=== PATIENT | female | born 1975 | race Two or more races ===

== ENCOUNTER → 2024-03-01 | Outpatient (CLI) | payer OTHER, SELFPAY ==
[2024-03-01 12:29] LABS: Absolute Lymphocyte Count 2.44 X10^3/uL (0.83-4.51); Absolute Neutrophil Count 4.7 X10^3/uL (2.0-7.7); Basophil# 0.05 X10^3/uL; Basophil% 0.6 % (0-1); Eosinophil# 0.39 X10^3/uL; Eosinophils% 4.9 % (0-5); Hematocrit 42.8 % (37-47); Hemoglobin 13.7 g/dL (12.0-15.0); Lymphocyte # 2.44 X10^3/ul (0.83-4.51); Lymphocyte % 30.5 % (19-41); Mean Corpuscular Hgb 29.4 pg (27.0-32.0); Mean Corpuscular Volume 91.8 fL (81-99); Mean Platelet Vol. 9.6 fl (6.2-12.0); Monocyte# 0.42 X10^3/uL; Monocyte% 5.3 % (0-10); NRBC Flagged by Analyzer 0 % (0-5); Neutrophil # 4.66 X10^3/uL (2.7-7.7); Neutrophil % 58.3 % (47-70); Platelet Count 302 K/mm3 (150-450); RBC Distribution Width CV 13.3 % (11.6-14.6); RBC Distribution Width SD 45.1 fl (35.1-43.9); Red Blood Count 4.66 M/mm3 (4.2-5.4)
[2024-03-01 12:49] LABS: ALB/GLOB Ratio 0.8 RATIO (0.9-2.4); AST(SGOT) 21 U/L (15-37); Alanine Aminotransfer ALT/SGPT 31 U/L (13-56); Albumin, Serum 3.6 g/dL (3.2-5.0); Alkaline Phosphatase 117 U/L (45-117); Anion Gap 3 (5-15); BUN 14 mg/dL (7-18); Calcium,Total 9.3 mg/dL (8.5-10.1); Chloride 106 mmol/L (98-107); Cholesterol 209 mg/dL (200); Creatinine, Serum 0.78 mg/dL (0.55-1.02); EST Glomerular Filtration Rate 84 mL/min (>60); Est Glom Filt Rate - Afr Amer 102 mL/min (>60); Globulin 4.4 g/dL (2.2-4.2); Glucose 100 mg/dL (74-106); High Density Lipoprotein 41 mg/dL; Potassium 4.1 mmol/L (3.5-5.1); Sodium Level 139 mmol/L (136-145); Thyroid Stim Hormone (TSH) 3.29 uIU/mL (0.358-3.74); Triglycerides 151 mg/dL; Very Low Density Lipoprotein 30 mg/dL (5-40)
[2024-03-01 13:02] LABS: Vitamin D,25 Hydroxy 16.6 ng/mL
== END | disposition home or self-care (01) ==
LOC: BIMLAB 11:00
PROVIDERS: PCP Internal Medicine; Referring Provider Internal Medicine; Visit Provider Internal Medicine
DX: E28.2 Polycystic ovarian syndrome (principal); E66.01 Morbid (severe) obesity due to excess calories; Z68.42 Body mass index [BMI] 45.0-49.9, adult; E78.2 Mixed hyperlipidemia; E55.9 Vitamin D deficiency, unspecified
CPT/HCPCS: 36415; 80053; 80061; 82306; 84443; 85025

== ENCOUNTER → 2024-03-21 | Outpatient (CLI) | payer OTHER, SELFPAY ==
--- NOTE | 2024-03-21 14:24 | BI_ITS ---
MAMMOGRAPHY - BILATERAL SCREENING REASON FOR EXAM: Female, 48 years old. Routine annual screening examination. PERTINENT HISTORY: Non-contributory. TECHNIQUE: Digital bilateral breast ingrid (3D mammographic acquisition) in the CC and MLO projections. 2-D mediolateral oblique (MLO) and craniocaudad (CC) views of both breasts were obtained. CAD: Full Field Digital Mammography with Computer Added Detection was performed. COMPARISON: None. Baseline examination. FINDINGS: Breast Composition: The breasts are heterogeneously dense, which may obscure small masses. There are no dominant masses or suspicious calcifications. Benign-appearing bilateral axillary lymph nodes. No other significant abnormalities are identified. BI/SCRN MAMM (CAD)W/INGRID BILAT IMPRESSION: Negative screening mammogram. Yearly followup mammogram recommended. (A) ASSESSMENT CATEGORY: BIRADS Category 2: Benign. A letter regarding these results will be sent to the patient by the facility within 30 days. Approximately 10% of breast cancers are not detected by mammography. A normal mammogram should not delay biopsy of a clinically suspicious abnormality. [id number] Electronically Signed: Ibrahima Clark MD at 15:22 EDT ,
== END | disposition home or self-care (01) ==
LOC: OPBI 14:24
PROVIDERS: PCP Internal Medicine; Referring Provider Internal Medicine; Visit Provider Internal Medicine
DX: Z12.31 Encounter for screening mammogram for malignant neoplasm of breast (principal)
CPT/HCPCS: 77063; 77067

== ENCOUNTER → 2024-04-02 | Outpatient (CLI) | payer OTHER, SELFPAY ==
--- NOTE | 2024-04-02 08:10 | EKG12_ITS ---
Test Reason : ROUTINE Blood Pressure : / mmHG Vent. Rate : 083 BPM Atrial Rate : 083 BPM P-R Int : 136 ms QRS Dur : 082 ms QT Int : 364 ms P-R-T Axes : 043 020 059 degrees QTc Int : 427 ms Normal sinus rhythm with sinus arrhythmia Normal ECG Confirmed by Naveen Acevedo ([id number]), editorial writer SHANTELLE GRACE ([id number]) on 04/02/2024 1:02:58 PM Referred By: Albertina Benoit Confirmed By:Naveen Acevedo
== END | disposition home or self-care (01) ==
LOC: PSN 08:09
PROVIDERS: PCP Internal Medicine; Referring Provider Nurse Practitioner Family; Visit Provider Nurse Practitioner Family
DX: E66.01 Morbid (severe) obesity due to excess calories (principal); I10 Essential (primary) hypertension
CPT/HCPCS: 93005

== ENCOUNTER 2025-06-14 05:21 | Emergency (ER) | payer OTHER, SELFPAY ==
[2025-06-14 05:22] VITALS: BP 175/99; PULSE 120; RESP 18; TEMP 37.3; O2SAT 97; BMI 50.4
--- NOTE | 2025-06-14 05:37 | CT_ITS ---
PROCEDURE: ABDOMEN/PELVIS W IV CONT ONLY 06/14/2025 REASON FOR EXAM: RLQ PAIN TECHNIQUE: ABDOMEN/PELVIS W IV CONT ONLY Coronal and Sagittal reconstruction series were provided. CONTRAST: 100 mL of Isovue 370 One or more dose reduction techniques were used (e.g., Automated exposure control, adjustment of the mA and/or kV according to patient size, use of iterative reconstruction technique. RADIATION DOSE SUMMARY: DLP: 1242 mGycm COMPARISON: None FINDINGS: Limited sections of the lung bases demonstrate no focal pulmonary mass or consolidations. The liver, spleen, pancreas, and both adrenal glands demonstrate no acute findings. Minimal hepatic steatosis. The gallbladder is unremarkable. The stomach is unremarkable. The small bowel loops are not dilated. The appendix is normal. No colonic obstruction. Colonic diverticulosis without acute diverticulitis. There is no free air or significant free fluid. The kidneys are unremarkable. Mildly thickened urinary bladder wall which may reflect cystitis vs nondistention; consider correlation with urinalysis. The pelvic structures are intact. There is no solid pelvic mass. No significant lymphadenopathy. The aorta and IVC demonstrate no acute findings. Visualized osseous structures demonstrate no acute abnormality. Small fat containing right inguinal hernia. CT/Abdomen/Pelvis W IV Cont ONLY IMPRESSION: Normal appendix. Colonic diverticulosis without acute diverticulitis. No bowel obstruction. Mildly thickened urinary bladder wall which may reflect cystitis vs nondistenti on; consider correlation with urinalysis. Reading Location: [id number]
--- NOTE | 2025-06-14 05:38 | EX.ED.DYSGE1 ---
HPI History of Present Illness Chief Complaint: Fever Informant: patient and spouse/S.O. Narrative Narrative: Patient is a 49-year-old female with past medical history of PCOS and hypertension. She states over the past week she has been spiking fevers with the highest being 103 at home. She states she will take Tylenol and/or Motrin and the fever will resolve. She states there is no real associated symptoms such as nasal congestion sore throat cough nausea vomiting or diarrhea or dysuria. She states that she will occasionally have some pain in the right lower abdomen. She states that because it has been 7 days with out spontaneous resolution of her fever and no obvious reason why she has the fever she presents for evaluation [facility] Medical History Bronchitis Migraine Ovarian tumor PCOS (polycystic ovarian syndrome) Home Medications ?Medication ?Instructions ?Recorded ?Last Taken ?Type lisinopril 5 mg tablet 5 mg PO DAILY #30 tabs 03/01/24 Unknown Rx cholecalciferol (vitamin D3) 125 125 mcg PO DAILY 03/21/24 Unknown History mcg (5,000 unit) capsule Allergy/AdvReac Type Severity Reaction Status Date / Time latex Allergy Intermediate Hives Verified 06/14/25 05:21 amoxicillin AdvReac Mild yeast Verified 06/14/25 05:21 infections Family History Father Cancer lung Sponge kidney Grandmother Cancer colon Hypertension Heart disease Mother CVA (cerebral vascular accident) Hypertension Hyperlipemia Grandfather Alcoholism Grandfather Heart disease CVA (cerebral vascular accident) Grandmother Cancer pancreatic Surgical History Hx of LASIK H/O hysterectomy with unilateral oophorectomy H/O sinus surgery History of ankle surgery Social History adopted: No household members: spouse number of children: 2 current occupational status: employed current occupation: [employer] pets and animals: Yes pets and animals: cat(s) Smoking Status: Never smoker Electronic Cigarette Use: not used alcohol intake: current alcohol intake frequency: a few times a month substance use type: does not use diet: gluten free caffeine: Yes (2) Type: tea frequency: daily seatbelt use: always do you feel safe at home: Yes 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 ROS ROS ED Constitutional Constitutional ED: Reports chills and fever(s) ENT ENT ED: Denies ear pain, rhinorrhea or sore throat Cardiovascular Cardiovascular: Denies chest pain Respiratory/Chest Respiratory/Chest: Denies cough or dyspnea Gastrointestinal Gastrointestinal: Reports abdominal pain; Denies constipation, diarrhea, nausea or vomiting Genitourinary Genitourinary ED: Denies dysuria Musculoskeletal Musculoskeletal: Reports myalgias; Denies back pain Integumentary Denies rash Neurologic Neurologic: Denies headache(s) Hematologic/Lymphatic Hematologic/Lymphatic: Denies easy bleeding or easy bruising EXAM Physical Exam Const Vital Signs: 06/14/25 05:22 06/14/25 05:22 Temperature 99.1 F Temperature Source Oral Pulse Rate 120 H Respiratory Rate 18 Respiratory Effort Normal Respiratory Pattern Normal Blood Pressure 175/99 H Blood Pressure Mean 124 Pulse Ox 97 Oxygen Delivery Method Room Air Positive well nourished, well developed and obese General Appearance ED: well developed; Negative for pallor Nutritional Appearance: obese HEENT Reports dry mucous membranes HEENT Narrative: Normocephalic atraumatic No tongue or lip swelling no oral lesions no airway edema or compromise; no secondary findings in the posterior pharynx to suggest infection Oral mucosa is dry and tacky Mouth ED: Yes dry mucous membranes Mouth: dry mucous membranes Eyes PERRL and EOMs intact bilaterally General Eye ED: Negative for scleral icterus Neck supple Neck Narrative: No nuchal rigidity or meningeal signs Resp normal respiratory effort and clear to auscultation bilaterally Resp Narrative: No nasal flaring retractions tachypnea or accessory muscle use Cardio regular rhythm Rate: tachycardic GI non-distended and no masses GI Narrative: Abdomen is soft and nondistended with normal active bowel sounds. There is pain with palpation in the right lower quadrant over top McBurney's point with voluntary guarding at this site. Positive heel strike. Negative psoas and obturator sign No peritoneal signs. No pulsatile mass Auscultation: normoactive bowel sounds Palpation: soft Back/Spine no CVA tenderness Extremity Extremity Narrative: +1-2 pitting edema to the bilateral lower extremities that is equal and symmetric Negative Homans' sign bilaterally Neuro oriented x3, CN's II-XII intact bilaterally and no sensory deficits noted Sensorium / Orientation: alert Motor Exam: strength 5/5 throughout Psych mental status grossly normal Skin no rashes or lesions noted and no wounds General Skin Exam: Negative for jaundice or pallor MDM MDM MDM Narrative Medical decision making narrative: Patient arrived to the ER hypertensive but states she has a history of this and that it spikes when she comes to the hospital or sees a doctor. She is afebrile upon arrival but states she took medication roughly 3 hours ago. She reports she has been having fever reaching 103 for the past 7 days but there are no true associated symptoms other than occasional right sided abdominal pain. Differential diagnosis is for viral syndrome such as COVID influenza or RSV versus pneumonia versus UTI versus pyelonephritis versus appendicitis. Secondary to this blood work was obtained as well as a chest x-ray and CT scan of the abdomen and pelvis. Chest x-ray reveals no signs of infection such as pneumonia. Urine sample shows blood which is nonspecific but no bacteria going against UTI or pyelonephritis. Patient does not have leukocytosis or left shift. There is no lactic acidosis either and her Pro-Alec is less than 0.5 going against systemic infection. Based on the patient's vitals and labs there are no signs for sepsis at this time. However because of the persistent fever I will obtain blood cultures as we do not have an obvious source. However as workup is negative and she is hemodynamically stable there are no grounds for admission at this time. Patient and were informed to continue to treat the fever and if he goes over 10 days or if symptoms worsen then to return to the ER for repeat evaluation. This plan of care was discussed with patient and and they are both agreeable to it. Therefore at this time as we do not have an obvious source of infection but she is hemodynamically stable we will await blood cultures and discharged home History & Record Review Discussion w/independent historian: Patient and Significant other Lab Data Attestation: I reviewed the patient's lab results. Labs: Laboratory Results - last 24 hr 06/14/25 06/14/25 05:44 05:50 WBC 4.7 RBC 4.58 Hgb 13.4 Hct 41.1 MCV 89.7 MCH 29.3 MCHC 32.6 RDW Std Deviation 42.9 RDW Coeff of Erinn 13.2 Plt Count 165 MPV 9.4 Immature Gran % (Auto) 0.600 Neut % (Auto) 51.9 Lymph % (Auto) 35.1 Foard % (Auto) 7.9 Eos % (Auto) 3.2 Baso % (Auto) 1.3 H Absolute Neuts (auto) 2.4 Absolute Lymphs (auto) 1.64 Nucleated RBC % 0 Differential Comment SCANNED Atypical Lymphocytes RARE Sodium 138 Potassium 4.2 Chloride 100 Carbon Dioxide 26.9 Anion Gap 10 BUN 11 Creatinine 1.00 Estim Creat Clear Calc 82.83 Est GFR (MDRD) Non-Af 69 BUN/Creatinine Ratio 11.4 Glucose 135 H Lactic Acid 1.2 Calcium 9.1 Total Bilirubin 0.39 Direct Bilirubin 0.14 AST 48 H ALT 53 H Alkaline Phosphatase 120 H Total Protein 7.3 Albumin 4.1 Globulin 3.2 Lipase 25 Procalcitonin 0.31 H Urine Color Yellow Urine Clarity Sl. Cloudy Urine pH 7.0 Ur Specific [place] 1.010 Urine Protein 15 H Urine Glucose (UA) Normal Urine Ketones Negative Urine Occult Blood 250 H Urine Nitrite Negative Urine Bilirubin Negative Urine Urobilinogen Normal Ur Leukocyte Esterase Negative Urine RBC 5-10 SEEN Urine WBC 0-5 SEEN Ur Squamous Epith Cells 0-5 SEEN Urine Bacteria 0 SEEN Urine Mucus 0 SEEN Radiography Diagnostic Testing: Clinical Impression(s) from Imaging Studies Abdomen/Pelvis CT 06/14/25 05:37 IMPRESSION: Normal appendix. Colonic diverticulosis without acute diverticulitis. No bowel obstruction. Mildly thickened urinary bladder wall which may reflect cystitis vs nondistention; consider correlation with urinalysis. Reading Location: [facility] Chest X-Ray 06/14/25 06:00 IMPRESSION: No focal consolidations. Reading Location: [facility] Chest x-ray as interpreted by the emergency medicine physician reveals no acute infiltrate pneumothorax or pleural effusion Discharge Plan Triage Chief Complaint: Fever Other Complaint: General Illness ED Provider: Dave Carvalho Dx/Rx/DC Orders Clinical Impression: Pyrexia, Nonspecific abdominal pain, Inguinal hernia, Hypertension, Polycystic ovary syndrome Instructions: Abdominal Pain, ED FUO Adult Prescriptions: No Action lisinopril 5 mg tablet 5 mg PO DAILY Qty: 30 1RF cholecalciferol (vitamin D3) 125 mcg (5,000 unit) capsule 125 mcg PO DAILY Stand Alone Forms: ED Work / School Excuse Primary Care Provider: Nikole Guillermo Referrals: Nikole Guillermo MD [Primary Care Provider] - Activity Restrictions/Additional Instructions: Your workup today did not show any pneumonia urinary tract infection or acute appendicitis/abdominal infection. There is a small fat-containing inguinal hernia on the right but this is not emergent or life-threatening. Please continue Tylenol and Motrin for fever control. If fever persist over 10 days or there are worsening or changing symptoms then please return to the ER for repeat evaluation. Blood cultures were obtained today and if they are positive you will receive a phone call instructing you of how to proceed. Print Language: Andorran Disposition Disposition: Home, Self Care
--- OUTSIDE RECORDS SUMMARY | 2025-06-14 05:44 | XMS RPT_ITS | CCD ---
Author Organization [facility] Care Team Providers Care Company Controller Name Role Phone Vega Broussard MD Primary Care Provider Dr. Nikole Guillermo Attending Provider Nikole Guillermo Attending Unavailable [place], Nikole Referring Unavailable [place], Nikole Primary Care Unavailable Albertina Benoit Attending Unavailable [place], Nikole Referring Unavailable Mima, Nikole Primary Care Unavailable Mary Acevedo Attending Unavailable Albertina Benoit Referring Unavailable [place], Nikole Primary Care Unavailable [place]ole aguilar Attending Unavailable [place], Nikole Referring Unavailable [place], Nikole Primary Care Unavailable Mima, Nikole Attending Unavailable Albertina Benoit Attending Unavailable Albertina Benoit Referring Unavailable [place], Nikole Primary Care Unavailable Vega Broussard MD Primary Care Provider Vega Broussard MD Primary Care Provider Vega EXIT BOOTH AGENT.PSYCHIATRIC TECHNICIAN, Verónica Unavailable [phone] Allergies Allergy Classification Reported Allergen(s) Allergy Type Date of Onset Reaction(s) Facility Latex (1 source) Latex Substance Allergy 4 [facility] Repository Penicillins (antibiotic) (1 source) Amoxicillin Drug Allergy 4 [facility] Repository (9 sources) Latex; Translations: [LATEX] Propensity to adverse reactions to drug (disorder) 8 Hives [facility] Other [facility] Repository (7 sources) Cephalexin Drug Allergy 8 Intolerance [facility] Work Phone: (1 source) Amoxicillin Drug Allergy 4 yeast infections [facility] Medications Current Medications Medication Drug Class(es) Dates Sig (Normalized) Sig (Original) lisinopril 5 mg oral tablet (1 source) Angiotensin Converting Enzyme Inhibitor Start: 03-01-2024 take 5 mg by mouth once daily Lisinopril Active 5 MG PO DAILY March 01, 2024 12:00am Completed/Discontinued Medications Medication Drug Class(es) Dates Sig (Normalized) Sig (Original) azithromycin 250 mg oral tablet (5 sources) Macrolide Antimicrobial Start: 07-20-2022 End: 12-02-2022 azithromycin (ZITHROMAX Z-JOYCELYN) 250 mg tablet Indications: Acute non-recurrent maxillary sinusitis 2 tablets by mouth first day then 1 tablet the next 4 days 6 tablet 0 12/02/2022 Active Comment on above: 2 tablets by mouth f irst day then 1 tablet the next 4 days betamethasone 0.5 mg/ml / clotrimazole 10 mg/ml topical cream (4 sources) Azole Antifungal, Corticosteroid Start: 10-30-2020 End: 12-02-2022 clotrimazole-betam ethasone (LOTRISONE) cream Apply to affected area twice daily. 45 g 1 10/30/2020 12/02/2022 Discontinued Comment on above: Apply to affected ar ea twice daily. guaiFENesin / Phenylephrine (4 sources) alpha-1 Adrenergic Agonist End: 12-02-2022 guaifenesin/phenyl ephrine HCl (MUCINEX COLD ORAL) Take by mouth. 0 12/02/2022 Discontinued guaifenesin/phen ylephrine HCl (MUCINEX COLD ORAL) Take by mouth. 0 Active Comment on above: Take by mouth. Ibuprofen (4 sources) Nonsteroidal Anti-inflammatory Drug End: 12-02-2022 ibuprofen (MOTRIN ORAL) Take by mouth. 0 12/02/2022 Discontinued ibuprofen (MOTRI N ORAL) Take by mouth. 0 Active Comment on above: Take by mouth. levothyroxine sodium 0.025 mg oral tablet (4 sources) l-Thyroxine Start: 9 End: 3 take 1 tablet by mouth once daily levothyroxine (SYNTHROID) 25 mcg tablet Indications: Low T4 Take 1 tablet by mouth once daily. 0 07/05/2019 12/02/2022 Discontinued Comment on above: Take 1 tablet by [facility] once daily. Problems Active Problems Problem Classification Problem Date Documented Da te Episodic/Chronic Administrative/social admission (1 source) Persons encountering health services in other specified circumstances; Translations: [Persons encountering health services in other specified circumstances] Onset: 03-26-2024 Episodic Allergic reactions (7 sources) Flexural eczema; Translations: [Flexural eczema] Onset: 09-15-2018 09-15-2018 Chronic Disorders of lipid metabolism (1 source) Mixed hyperlipidemia; Translations: [Mixed hyperlipidemia] Onset: 03-26-2024 Chronic Essential hypertension (1 source) Essential (primary) hypertension; Translations: [Essential (primary) hypertension] Onset: 03-26-2024 Chronic Nutritional deficiencies (1 source) Vitamin D deficiency, unspecified; Translations: [Vitamin D deficiency, unspecified] Onset: 03-26-2024 Chronic Other endocrine disorders (7 sources) Polycystic ovary syndrome; Translations: [Polycystic ovarian syndrome] Onset: 09-15-2018 09-15-2018 Chronic Other endocrine disorders (1 source) Polycystic ovarian syndrome; Translations: [Polycystic ovarian syndrome] Onset: 03-26-2024 Chronic Other female genital disorders (1 source) Other specified conditions associated with female genital organs and menstrual cycle; Translations: [Other specified conditions associated with female genital organs and menstrual cycle] Onset: 03-26-2024 Episodic Other nutritional; endocrine; and metabolic disorders (7 sources) Body mass index 40+ - severely obese; Translations: [Morbid (severe) obesity due to excess calories] Onset: 09-15-2018 09-15-2018 Chronic Other nutritional; endocrine; and metabolic disorders (7 sources) Metabolic syndrome X; Translations: [Metabolic syndrome] Onset: 09-15-2018 09-15-2018 Chronic Other nutritional; endocrine; and metabolic disorders (1 source) Morbid (severe) obesity due to excess calories; Translations: [Morbid (severe) obesity due to excess calories] Onset: 04-10-2024 Chronic Other nutritional; endocrine; and metabolic disorders (1 source) Body mass index (BMI) 45.0-49.9, adult; Translations: [Body mass index [BMI] 45.0-49.9, adult] Onset: 03-26-2024 Chronic Other screening for suspected conditions (not mental disorders or infectious disease) (14 sources) Patient encounter status; Translations: [Encounter for screening mammogram for malignant neoplasm of breast] Onset: 02-06-2019 Episodic Other upper respiratory infections (2 sources) Acute maxillary sinusitis; Translations: [Acute maxillary sinusitis, unspecified] Episodic Residual codes; unclassified (1 source) Immunization not carried out because of patient refusal; Translations: [Immunization not carried out because of patient refusal] Onset: 03-26-2024 Episodic Urinary tract infections (1 source) Acute cystitis without hematuria; Translations: [Acute cystitis without hematuria] Onset: 11-07-2018 Episodic Past or Other Problems Problem Classification Problem Date Documented Da te Episodic/Chronic Other circulatory disease (7 sources) Elevated blood-pressure reading without diagnosis of hypertension; Translations: [Elevated blood-pressure reading, without diagnosis of hypertension] Onset: 02-06-2019 02-06-2019 Episodic Unclassified (1 source) Patient encounter status 03-26-2025 Results Test Name Value Interpretation Reference Range Facility 12 Lead EKGon 04-02-2024 12 Lead EKG [facility] Cardiovascular Services [address] [place] [address] 12 Lead EKG 04/02/24 0814 MR#: [id number] Acct: [id number] Name: JERSEY BETANCOURT Rep #: [id number] : 1975 48 From: Mary Acevedo MD Attending Dr: Albertina Benoit, DIRECTOR FIELD SERVICES-C Status: REG CLI Ordering Dr: Albertina Benoit DIRECTOR FIELD SERVICES-C Date: 04/02/24 Location: [facility] Sex: F UTD Admitted: Test Reason : ROUTINE Blood Pressure : / mmHG Vent. Rate : 083 BPM Atrial Rate : 083 BPM P-R Int : 136 ms QRS Dur : 082 ms QT Int : 364 ms P-R-T Axes : 043 020 059 degrees QTc Int : 427 ms Normal sinus rhythm with sinus arrhythmia Normal ECG Confirmed by Mary Acevedo ([id number]), general expeditor SHANTELLE GRACE ([id number]) on 04/02/2024 1:02:58 PM Referred By: Albertina Benoit Confirmed By:Mary Acevedo 04/02/24 1303 Date Mary Acevedo MD CC: JUWAN Benoit; Dr. Nikole Guillermo MD Signed Normal [facility] Organizational Development Manager Office Visit Reporton 03-21-2024 Organizational Development Manager Office Visit Report [facility] [address] [place] [address] OFFICE VISIT Date of Service: 03/21/24 MR#: [id number] Acct: [id number] Name: JERSEY BETANCOURT Rep #: [id number] : 1975 Provider: JUWAN Gama Age/Sex: 48/F Location: [facility] Status: Signed with Addenda ADDENDUM by JUWAN Benoit on 03/22/24 at 0908 Assessment and Plan Assessment and Plan (1) Polycystic ovary syndrome: Status: Acute (2) BMI 45.0-49.9, adult: Status: Acute (3) Hypertension: Status: Chronic Comment: [place] (4) Obesity: Status: Acute (5) Snoring: Plan: advised sleep study/sleep apnea work up. Declines today. Continue to monitor and will recommend in the future. Orders: Orders CBC W/Diff, Automated 03/21/24 E28.2 - Polycystic ovarian syndrome, E66.01 - Morbid (severe) obesity due to excess calories Comprehensive Metabolic Profil 03/21/24 E28.2 - Polycystic ovarian syndrome, E66.01 - Morbid (severe) obesity due to excess calories Thyroid Stim Hormone (TSH) 03/21/24 E28.2 - Polycystic ovarian syndrome, E66.01 - Morbid (severe) obesity due to excess calories Hemoglobin A1c 03/21/24 E28.2 - Polycystic ovarian syndrome, E66.01 - Morbid (severe) obesity due to excess calories 12 Lead EKG 03/21/24 E66.01 - Morbid (severe) obesity due to excess calories, I10 - Essential (primary) hypertension T4 Free Direct 03/21/24 E28.2 - Polycystic ovarian syndrome, E66.01 - Morbid (severe) obesity due to excess calories Pelvic (Non ) 03/21/24 E28.2 - Polycystic ovarian syndrome Transvaginal Non- 03/21/24 E28.2 - Polycystic ovarian syndrome Plan Details Additional Comments: Advised the need for annual accounting professor visit/exam. She will schedule this when she is ready. Mammogram completed today; reviewed and normal. 03/22/24907 Date Albertina Benoit cc: * Signed Intake Vital Signs 03/01/24 09:33 03/21/24 15:17 03/21/24 15:18 Height 5 ft 1 in 5 ft 1 in 5 ft 1 in Weight: 257 lb BMI 48.5 BP 170/100 H Intake Visit Reasons: PCOS OVARIAN PAIN (MIMA) Food Product Inspector Required: No Is patient in pain?: No Allergies latex Allergy (Intermediate, Verified 03/21/24 15:32) Hives amoxicillin Adverse Reaction (Mild, Verified 03/21/24 15:32) yeast infections Medications lisinopril 5 mg tablet 5 mg PO DAILY #30 tabs 03/01/24 [Rx Confirmed 03/01/24] cholecalciferol (vitamin D3) 125 mcg (5,000 unit) capsule 125 mcg PO DAILY 03/21/24 [History Confirmed 03/21/24] Is last menstrual period known: No Post menopausal: No Patient : No : No PFSH Medical History (Updated 03/22/24 @ 08:49 by JUWAN Kang) Bronchitis Migraine Ovarian tumor PCOS (polycystic ovarian syndrome) Surgical History (Updated 03/01/24 @ 09:[address] Nikole Guillermo MD) H/O hysterectomy with unilateral oophorectomy H/O sinus surgery History of ankle surgery Hx of LASIK Family History (Updated 03/01/24 @ 09:[address] Nikole Guillermo MD) Father Cancer lung Sponge kidney Grandmother Cancer colon Hypertension Heart disease Mother CVA (cerebral vascular accident) Hypertension Hyperlipemia Grandfather Alcoholism Grandfather Heart disease CVA (cerebral vascular accident) Grandmother Cancer pancreatic Social History (Updated 03/21/24 @ 15:21 by Winsome Dalton) adopted: No household members: spouse number of children: 2 current occupational status: employed current occupation: [employer] pets and animals: Yes pets and animals: cat(s) Smoking Status: Never smoker Electronic Cigarette Use: not used alcohol intake: current alcohol intake frequency: a few times a month substance use type: does not use diet: gluten free caffeine: Yes (2) Type: tea frequency: daily seatbelt use: always do you feel safe at home: Yes additional social history: Rajat - christopher ALLEN PCOS OVARIAN PAIN (MIMA) Details: JERSEY BETANCOURT is a 48 year old who presents for PCOS evaluation/treatment; 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 Has routine pain to right lower quad that comes and goes in severity. Ongoing and chronic. 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 S/P hysterectomy. She would also like to discuss weight management. She reports she has attempted dietary modifications with no improvements to her weight. Female Reproductive History Control Method: hysterectomy Questions: sexually active: Yes and dyspareunia: No Menopausal Symptoms: Yes weight change History 6 Elective abortions Hx Para 2 Spontaneous abortions Hx # Term Pregnancies Ectopic pregnancies Hx # Pregnancies Multiple births (more content not included)... Normal [facility] SCRN MAMM (CAD)W/INGRID BILATo n 03-21-2024 SCRN MAMM (CAD)W/INGRID BILAT [facility] Imaging Services [address] [place] [id number] SCRN MAMM (CAD)W/INGRID BILAT MR#: [id number] Acct: [id number] Name: JERSEY BETANCOUTR Rep #: [id number] : 1975 F 48 From: Ibrahima hoyos MD PCP: Dr. Nikole Guillermo MD Status: [facility] Study: SCRN MAMM (CAD)W/INGRID BILAT Date of Exam: 07/07 Exam# [id number] Ordering Dr: Nikole Guillermo MD [id number] MAMMOGRAPHY - BILATERAL SCREENING REASON FOR EXAM: Female, 48 years old. Routine annual screening examination. PERTINENT HISTORY: Non-contributory. TECHNIQUE: Digital bilateral breast ingrid (3D mammographic acquisition) in the CC and MLO projections. 2-D mediolateral oblique (MLO) and craniocaudad (CC) views of both breasts were obtained. CAD: Full Field Digital Mammography with Computer Added Detection was performed. COMPARISON: None. Baseline examination. FINDINGS: Breast Composition: The breasts are heterogeneously dense, which may obscure small masses. There are no dominant masses or suspicious calcifications. Benign-appearing bilateral axillary lymph nodes. No other significant abnormalities are identified. BI/SCRN MAMM (CAD)W/INGRID BILAT IMPRESSION: Negative screening mammogram. Yearly followup mammogram recommended. (A) ASSESSMENT CATEGORY: BIRADS Category 2: Benign. A letter regarding these results will be sent to the patient by the facility within 30 days. Approximately 10% of breast cancers are not detected by mammography. A normal mammogram should not delay biopsy of a clinically suspicious abnormality. [id number] Electronically Signed: Ibrahima Clark MD at 15:22 EDT , CC: Dr. Nikole Guillermo MD Owner: Signed Normal [facility] Absolute lymphocyte countOrd ered By: Nikole Guillermo on 03-01-2024 Lymphocytes Auto (Unsp spec) [#/Vol] 2.44 10*3/uL 0.83-4.51 [facility] Automated lymphocyte count a s percentage of total leukocytesOrdered By: Nikole Guillermo on 03-01-2024 Lymphocytes/100 WBC Auto (Unsp spec) 30.5 % 19-41 [facility] Basophil percentageOrdered B y: Nikole Guillermo on 03-01-2024 Basophils/100 WBC (Bld) 0.6 % 0-1 [facility] Bilirubin [Mass/Vol] 0.40 mg/dL 0.20-1.00 [facility] Comment on above: For patients on eltr ombopag therapy, use of Dimension [place] TBIL is not recommended. Chloride [Moles/Vol] 106 mmol/L 98-107 [facility] Cholesterol [Mass/Vol] 209 mg/dL <200 [facility] Comment on above: <200 mg/dL Desirable 200-240 mg/dL Borderline >240 mg/dL High Risk Eosinophils/100 WBC (Bld) 4.9 % 0-5 [facility] Glucose [Mass/Vol] 100 mg/dL 74-106 [facility] Comment on above: Fasting Glucose resu lt from 100 to 125 mg/dL suggests IMPAIRED HOMEOSTASIS per A.D.A. criteria. Hemoglobin (Bld) [Mass/Vol] 13.7 g/dL 12.0-15.0 [facility] Monocytes/100 WBC (Bld) 5.3 % 0-10 [facility] Neutrophils (Bld) [#/Vol] 4.7 10*3/uL 2.0-7.7 [facility] Neutrophils/100 WBC (Bld) 58.3 % 47-70 [facility] Potassium [Moles/Vol] 4.1 mmol/L 3.5-5.1 [facility] Protein [Mass/Vol] 8.0 g/dL 6.4-8.2 [facility] Sodium [Moles/Vol] 139 mmol/L 136-145 [facility] Triglyceride [Mass/Vol] 151 mg/dL <199 [facility] Comment on above: The drugs N-Acetylcy steine and Metamizole may falsely depress this assay.Serum Triglycerides Reference Interval Normal <150 mg/dL Borderline high 150 - 199 mg/dL High 200 - 499 mg/dL Very High > or = 500 mg/dL WBC (Bld) [#/Vol] 8.0 10*3/uL 4.4-11.0 [facility] CBC W/Diff, Automatedon 02-12 Absolute Lymph 2.44 X10 3/uL Normal 0.83-4.51 [facility] Comment on above: Performed By: #### L 506.1000, L500.4100, L501.9520, L100.0100, L500.4050 #### [facility] [address] [place], [address] Absolute Neut 4.7 X10 3/uL Normal 2.0-7.7 [facility] Comment on above: Performed By: #### L 506.1000, L500.4100, L501.9520, L100.0100, L500.4050 #### [facility] [address] [place], [address] Basophils/100 WBC (Bld) 0.6 % Normal 0-1 [facility] Comment on above: Performed By: #### L 506.1000, L500.4100, L501.9520, L100.0100, L500.4050 #### [facility] [address] [place], [address] Eosinophils/100 WBC (Bld) 4.9 % Normal 0-5 [facility] Comment on above: Performed By: #### L 506.1000, L500.4100, L501.9520, L100.0100, L500.4050 #### [facility] [address] [place], [address] Erythrocyte distribution width (RBC) [Ratio] 13.3 % Normal 11.6-14.6 [facility] Comment on above: Performed By: #### L 506.1000, L500.4100, L501.9520, L100.0100, L500.4050 #### [facility] [address] [place], [address] Hematocrit (Bld) [Volume fraction] 42.8 % Normal 37-47 [facility] Comment on above: Performed By: #### L 506.1000, L500.4100, L501.9520, L100.0100, L500.4050 #### [facility] [address] [place], [address] Hemoglobin (Bld) [Mass/Vol] 13.7 g/dL Normal 12.0-15.0 [facility] Comment on above: Performed By: #### L 506.1000, L500.4100, L501.9520, L100.0100, L500.4050 #### [facility] [address] [place], [address] IG% 0.400 Normal 0.0-0.9 [facility] Comment on above: Result Comment: IG% - Immature Granulocytes (promyelocytes, myelocytes and metamyelocytes) > 1% indicates that a LEFT SHIFT is Present. Performed By: #### L 506.1000, L500.4100, L501.9520, L100.0100, L500.4050 #### [facility] [address] [place], [address] Lymphocytes/100 WBC (Bld) 30.5 % Normal 19-41 [facility] Comment on above: Performed By: #### L 506.1000, L500.4100, L501.9520, L100.0100, L500.4050 #### [facility] [address] [place], [address] MCH (RBC) [Entitic mass] 29.4 pg Normal 27.0-32.0 [facility] Comment on above: Performed By: #### L 506.1000, L500.4100, L501.9520, L100.0100, L500.4050 #### [facility] [address] [place], [address] MCHC (RBC) [Mass/Vol] 32.0 g/dL Normal 32-36 [facility] Comment on above: Performed By: #### L 506.1000, L500.4100, L501.9520, L100.0100, L500.4050 #### [facility] [address] [place], [address] MCV (RBC) [Entitic vol] 91.8 fL Normal 81-99 [facility] Comment on above: Performed By: #### L 506.1000, L500.4100, L501.9520, L100.0100, L500.4050 #### [facility] [address] [place], [address] Monocytes/100 WBC (Bld) 5.3 % Normal 0-10 [facility] Comment on above: Performed By: #### L 506.1000, L500.4100, L501.9520, L100.0100, L500.4050 #### [facility] [address] [place], [address] Neutrophils/100 WBC (Bld) 58.3 % Normal 47-70 [facility] Comment on above: Performed By: #### L 506.1000, L500.4100, L501.9520, L100.0100, L500.4050 #### [facility] [address] [place], [address] Nucleated RBC (Bld) [#/Vol] 0 10*3/uL Normal 0-5 [facility] Comment on above: Performed By: #### L 506.1000, L500.4100, L501.9520, L100.0100, L500.4050 #### [facility] [address] [place], [address] Platelet mean volume (Bld) [Entitic vol] 9.6 fL Normal 6.2-12.0 [facility] Comment on above: Performed By: #### L 506.1000, L500.4100, L501.9520, L100.0100, L500.4050 #### [facility] [address] [place], [address] Platelets (Bld) [#/Vol] 302 10*3/uL Normal 150-450 [facility] Comment on above: Performed By: #### L 506.1000, L500.4100, L501.9520, L100.0100, L500.4050 #### [facility] [address] [place], [address] RBC (Bld) [#/Vol] 4.66 10*6/uL Normal 4.2-5.4 [facility] Comment on above: Performed By: #### L 506.1000, L500.4100, L501.9520, L100.0100, L500.4050 #### [facility] [address] [place], [address] RDW SD 45.1 fl High 35.1-43.9 [facility] Comment on above: Performed By: #### L 506.1000, L500.4100, L501.9520, L100.0100, L500.4050 #### [facility] [address] [place], [address] WBC (Bld) [#/Vol] 8.0 10*3/uL Normal 4.4-11.0 [facility] Comment on above: Performed By: #### L 506.1000, L500.4100, L501.9520, L100.0100, L500.4050 #### [facility] [address] [place], [address] Comprehensive Metabolic [facility] 03-01-2024 Albumin [Mass/Vol] 3.6 g/dL Normal 3.2-5.0 [facility] Comment on above: Performed By: #### L 506.1000, L500.4100, L501.9520, L100.0100, L500.4050 #### [facility] [address] [place], [address] Albumin/Globulin [Mass ratio] 0.8 {ratio} Low 0.9-2.4 [facility] Comment on above: Performed By: #### L 506.1000, L500.4100, L501.9520, L100.0100, L500.4050 #### [facility] [address] [place], [address] ALK P 117 U/L Normal 45-117 [facility] Comment on above: Performed By: #### L 506.1000, L500.4100, L501.9520, L100.0100, L500.4050 #### [facility] [address] [place], [address] ALT [Catalytic activity/Vol] 31 U/L Normal 13-56 [facility] Comment on above: Performed By: #### L 506.1000, L500.4100, L501.9520, L100.0100, L500.4050 #### [facility] [address] [place], [address] AST [Catalytic activity/Vol] 21 U/L Normal 15-37 [facility] Comment on above: Performed By: #### L 506.1000, L500.4100, L501.9520, L100.0100, L500.4050 #### [facility] [address] [place], [address] Bilirubin [Mass/Vol] 0.40 mg/dL Normal 0.20-1.00 [facility] Comment on above: Result Comment: For patients on eltrombopag therapy, use of Dimension [place] TBIL is not recommended. Performed By: #### L 506.1000, L500.4100, L501.9520, L100.0100, L500.4050 #### [facility] [address] [place], [address] BUN/CRE 18.0 RATIO Normal 10-20 [facility] Comment on above: Performed By: #### L 506.1000, L500.4100, L501.9520, L100.0100, L500.4050 #### [facility] [address] [place], [address] CA,Total 9.3 mg/dL Normal 8.5-10.1 [facility] Comment on above: Performed By: #### L 506.1000, L500.4100, L501.9520, L100.0100, L500.4050 #### [facility] [address] [place], [address] Chloride [Moles/Vol] 106 mmol/L Normal 98-107 [facility] Comment on above: Performed By: #### L 506.1000, L500.4100, L501.9520, L100.0100, L500.4050 #### [facility] [address] [place], [address] CO2 [Moles/Vol] 30.0 mmol/L Normal 21.0-32.0 [facility] Comment on above: Performed By: #### L 506.1000, L500.4100, L501.9520, L100.0100, L500.4050 #### [facility] [address] [place], [address] Creatinine [Mass/Vol] 0.78 mg/dL Normal 0.55-1.02 [facility] Comment on above: Result Comment: The validity of the calculated GFR GFRAA in patients over 70 years has not been determined. Clinical correlation is essential. Performed By: #### L 506.1000, L500.4100, L501.9520, L100.0100, L500.4050 #### [facility] [address] [place], [address] EST GFR - AA 102 mL/min Normal >60 [facility] Comment on above: Result Comment: Afri can [place] GFR Calc Performed By: #### L 506.1000, L500.4100, L501.9520, L100.0100, L500.4050 #### [facility] [address] [place], [address] GAP 3 Low 5-15 [facility] Comment on above: Performed By: #### L 506.1000, L500.4100, L501.9520, L100.0100, L500.4050 #### [facility] [address] [place], [address] GFR/1.73 sq M.predicted among non-blacks MDRD (S/P/Bld) [Vol rate/Area] 84 mL/min/{1.73_m2} Normal >60 [facility] Comment on above: Result Comment: Non- GFR Calc Performed By: #### L 506.1000, L500.4100, L501.9520, L100.0100, L500.4050 #### [facility] [address] [place], [address] Globulin (S) [Mass/Vol] 4.4 g/dL High 2.2-4.2 [facility] Comment on above: Performed By: #### L 506.1000, L500.4100, L501.9520, L100.0100, L500.4050 #### [facility] [address] [place], [address] Glucose [Mass/Vol] 100 mg/dL Normal 74-106 [facility] Comment on above: Result Comment: Fast ing Glucose result from 100 to 125 mg/dL suggests IMPAIRED HOMEOSTASIS per A.D.A. criteria. Performed By: #### L 506.1000, L500.4100, L501.9520, L100.0100, L500.4050 #### [facility] [address] [place], [address] Potassium [Moles/Vol] 4.1 mmol/L Normal 3.5-5.1 [facility] Comment on above: Performed By: #### L 506.1000, L500.4100, L501.9520, L100.0100, L500.4050 #### [facility] [address] [place], [address] Sodium [Moles/Vol] 139 mmol/L Normal 136-145 [facility] Comment on above: Performed By: #### L 506.1000, L500.4100, L501.9520, L100.0100, L500.4050 #### [facility] [address] [place], [address] T PROT 8.0 g/dL Normal 6.4-8.2 [facility] Comment on above: Performed By: #### L 506.1000, L500.4100, L501.9520, L100.0100, L500.4050 #### [facility] [address] [place], [address] Urea nitrogen [Mass/Vol] 14 mg/dL Normal 7-18 [facility] Comment on above: Performed By: #### L 506.1000, L500.4100, L501.9520, L100.0100, L500.4050 #### [facility] [address] [place], [address] Determination of erythrocyte mean corpuscular volume (MCV)Ordered By: Nikole Guillermo on 03-01-2024 MCV (RBC) [Entitic vol] 91.8 fL 81-99 [facility] Erythrocyte distribution wid th ratioOrdered By: Nikole Guillermo on 03-01-2024 Erythrocyte distribution width (RBC) [Ratio] 13.3 % 11.6-14.6 [facility] Erythrocyte distribution wid th standard deviationOrdered By: Nikole Guillermo on 03-01-2024 Erythrocyte distribution width (RBC) [Entitic vol] 45.1 fL 35.1-43.9 [facility] Hematocrit Auto (Bld) [Volum e fraction]Ordered By: Nikole Guillermo on 03-01-2024 Hematocrit (Bld) [Volume fraction] 42.8 % 37-47 [facility] Immature granulocytes/100 WB C Auto (Bld)Ordered By: Nikole Guillermo on 03-01-2024 Immature granulocytes/100 WBC (Bld) 0.400 % 0.0-0.9 [facility] Comment on above: IG% - Immature Granu locytes (promyelocytes, myelocytes and metamyelocytes) > 1% indicates that a LEFT SHIFT is Present. Laboratory - Chemistry and C hemistry - challengeOrdered By: Nikole Guillermo on 03-01-2024 Albumin/Globulin [Mass ratio] 0.8 {ratio} 0.9-2.4 [facility] ALP [Catalytic activity/Vol] 117 U/L 45-117 [facility] ALT [Catalytic activity/Vol] 31 U/L 13-56 [facility] Cholesterol in HDL [Mass/Vol] 41 mg/dL >40 [facility] Comment on above: The drugs N-Acetylcy steine and Metamizole may falsely depress this assay. Reference Range HDL <40 mg/dL Low HDL Cholesterol HDL >or= 60 mg/dL High HDL Cholesterol Cholesterol in LDL [Mass/Vol] 138 mg/dL 0-130 [facility] CO2 [Moles/Vol] 30.0 mmol/L 21.0-32.0 [facility] Globulin (S) [Mass/Vol] 4.4 g/dL 2.2-4.2 [facility] Urea nitrogen/Creatinine [Mass ratio] 18.0 mg/mg 10-20 [facility] - Hematology and Cell countsOrdered By: Nikole Guillermo on 03-01-2024 MCH (RBC) [Entitic mass] 29.4 pg 27.0-32.0 [facility] MCHC (RBC) [Mass/Vol] 32.0 g/dL 32-36 [facility] Nucleated RBC/100 WBC (Bld) [Ratio] 0 % 0-5 [facility] Platelet mean volume (Bld) [Entitic vol] 9.6 fL 6.2-12.0 [facility] Platelets (Bld) [#/Vol] 302 10*3/uL 150-450 [facility] Lipid Profileon 03-01-2024 Cholesterol [Mass/Vol] 209 mg/dL High 200 [facility] Comment on above: Result Comment: <200 mg/dL Desirable 200-240 mg/dL Borderline >240 mg/dL High Risk Performed By: #### L 506.1000, L500.4100, L501.9520, L100.0100, L500.4050 #### [facility] [address] [place], [address] Cholesterol in HDL [Mass/Vol] 41 mg/dL Normal [facility] Comment on above: Result Comment: The drugs N-Acetylcysteine and Metamizole may falsely depress this assay. Reference Range HDL <40 mg/dL Low HDL Cholesterol HDL >or= 60 mg/dL High HDL Cholesterol Performed By: #### L 506.1000, L500.4100, L501.9520, L100.0100, L500.4050 #### [facility] [address] [place], [address] Cholesterol in LDL [Mass/Vol] 138 mg/dL High 0-130 [facility] Comment on above: Performed By: #### L 506.1000, L500.4100, L501.9520, L100.0100, L500.4050 #### [facility] [address] [place], [address] Cholesterol in VLDL [Mass/Vol] 30 mg/dL Normal 5-40 [facility] Comment on above: Performed By: #### L 506.1000, L500.4100, L501.9520, L100.0100, L500.4050 #### [facility] [address] [place], [address] Triglyceride [Mass/Vol] 151 mg/dL Normal [facility] Comment on above: Result Comment: The drugs N-Acetylcysteine and Metamizole may falsely depress this assay. Serum Triglycerides Reference Interval Normal <150 mg/dL Borderline high 150 - 199 mg/dL High 200 - 499 mg/dL Very High > or = 500 mg/dL Performed By: #### L 506.1000, L500.4100, L501.9520, L100.0100, L500.4050 #### [facility] [address] [place], [address] No Panel InformationOrdered By: Nikole Guillermo on 03-01-2024 Estimated GFR (MDRD) Amer 102 mL/min >60 [facility] Comment on above: GFR Calc Estimated GFR (MDRD) Non-Af Amer 84 mL/min >60 [facility] Comment on above: Non- GFR Calc Vitamin D 25-Hydroxy 16.6 ng/mL [facility] Comment on above: Vitamin D 25(OH) Sta tus Range Deficiency <20 ng/mL (50nmol/L) Insufficiency 20 - 30 ng/mL (50 - 75 nmol/L) Sufficiency 30 - 100 ng/mL (75 - 250 nmol/L) Toxicity >100 ng/mL (>250 nmol/L) VLDL Cholesterol 30 mg/dL 5-40 [facility] RBC Auto (Bld) [#/Vol]Ordere d By: Nikole Guillermo on 03-01-2024 RBC (Bld) [#/Vol] 4.66 10*6/uL 4.2-5.4 [facility] Serum or plasma calcium carter urement (mass/volume)Ordered By: Nikole Guillermo on 03-01-2024 Calcium [Mass/Vol] 9.3 mg/dL 8.5-10.1 [facility] Serum or plasma creatinine m easurement (mass/volume)Ordered By: Nikole Guillermo on 03-01-2024 Creatinine [Mass/Vol] 0.78 mg/dL 0.55-1.02 [facility] Comment on above: The validity of the calculated GFR & GFRAA in patients over 70 years has not been determined. Clinical correlation is essential. Serum or plasma thyroid stim ulating hormone (TSH) measurement (units/volume)Ordered By: Nikole Guillermo on 03-01-2024 TSH Qn 3.29 uIU/mL 0.358-3.74 [facility] Serum or plasma urea nitroge n measurement (mass/volume)Ordered By: Nikole Guillermo on 03-01-2024 Urea nitrogen [Mass/Vol] 14 mg/dL -18 [facility] Thin prep Papanicolaou smear with manual screeningOrdered By: Nikole Guillermo on 03-01-2024 Thin prep Papanicolaou smear with manual screening 3.6 g/dL 3.2-5.0 [facility] Thin prep Papanicolaou smear with manual screening 21 U/L 15-37 [facility] Thin prep Papanicolaou smear with manual screening 3 5-15 [facility] Thyroid Stim Hormone (TSH)on 03-01-2024 TSH 3.29 uIU/mL Normal 0.358-3.74 [facility] Comment on above: Performed By: #### L 506.1000, L500.4100, L501.9520, L100.0100, L500.4050 #### [facility] [address] [place], [place], [address] Vitamin D,25 Hydroxyon 03-01 Vitamin D 25-OH 16.6 ng/mL Normal [facility] Comment on above: Result Comment: Marguerite min D 25(OH) Status Range Deficiency <20 ng/mL (50nmol/L) Insufficiency 20 - 30 ng/mL (50 - 75 nmol/L) Sufficiency 30 - 100 ng/mL (75 - 250 nmol/L) Toxicity >100 ng/mL (>250 nmol/L) Performed By: #### L 506.1000, L500.4100, L501.9520, L100.0100, L500.4050 #### [facility] [address] [place], [place], [address] Internal Medicine Office Vis itorod 02-29-2024 Internal Medicine Office Visit [facility] [address] [place], [place] [address] OFFICE VISIT Date of Service: 03/01/24 MR#: [id number] Acct: [id number] Name: Jersey Betancourt Rep #: [id number] : 1975 Provider: Dr. Nikole koehler MD Age/Sex: 48/F Location: 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 States last couple of times she's been to the Dr. She has had elevated bp's [facility] Medical History (Updated 03/01/24 @ 09:[address] Nikole Guillermo MD) Bronchitis Migraine Ovarian tumor PCOS (polycystic ovarian syndrome) Surgical History (Updated 03/01/24 @ 09:[address] Nikole Guillermo MD) H/O hysterectomy with unilateral oophorectomy H/O sinus surgery History of ankle surgery Hx of LASIK Family History (Updated 03/01/24 @ 09:[address] Nikole Guillermo MD) Father Cancer lung Sponge kidney Grandmother Cancer colon Hypertension Heart disease Mother CVA (cerebral vascular accident) Hypertension Hyperlipemia Grandfather Alcoholism Grandfather Heart disease CVA (cerebral vascular accident) Grandmother Cancer pancreatic Social History (Updated 03/01/24 @ 09:[address] Nikole Guillermo MD) adopted: No household members: spouse number of children: 2 current occupational status: employed current occupation: [employer] pets and animals: Yes pets and animals: cat(s) Smoking Status: Never smoker Electronic Cigarette Use: not used alcohol intake: current alcohol intake frequency: a few times a month substance use type: does not use diet: gluten free caffeine: Yes (2) Type: tea frequency: daily seatbelt use: always do you feel safe at home: Yes HPI HPI Details: Jersey Betancourt, is a 48 F who presents to the office today to establish care. She was seeing Dr. Broussard and last saw them about 2 years ago. She is due for some routine blood work and screening. She doesn't want any immunizations. She doesn't smoke and doesn't take any medications. She reports she is trying to eat healthy and staying active. The patient has concerns about her weight. She reports she can go all day without eating or drinking and just doesn't feel hungry. She reports on a typical day, she doesn't eat breakfast. Around 10, she will have a piece of fruit or half a peanut butter sandwich. She states at lunch time, she will eat small snacks like pepperoni/cheese. She states at dinner, she will eat a protein, vegetable and rice/potato. She reports she drinks about 32oz of water daily. She reports she hasn't been very active recently, but does try to walk for activity. She reports she had it under control until a few years ago and now seems to have difficulty getting her weight off. She was diagnosed with PCOS when she was 16. She has previously been on metformin, but didn't tolerate it due to side effects. She states over the years, she has tried multiple diet programs including keto, but states they didn't work for her. Currently, she limits her gluten/carbohydrates. The patient has a history of multiple cysts/tumors on her ovaries. She had a hysterectomy with left oophorectomy 21 years ago. She reports over the last year, she would have intermittent pain in her right ovary, but feels that it is getting more frequent lately. She doesn't follow with tray drier. The patient also has concerns about her blood pressure. She reports it is always elevated when she goes to the doctor (140+/90+). She states she will check it at home and reports it is usually well controlled. She was seen at the [facility] just over a month ago and it was in the 200/100 range. She states she did previously have some stress in her life, but feels that has been better lately. She has never been on blood pressure medications. She does monitor her salt and caffeine intake. ROS Const Constitutional: Positive for weight change (weight loss); No body ache, chills, excessive sweating, fatigue, fever(s), frequent falls, headache(s), snoring, weakness, sleep problems or change in appetite Ey (more content not included)... Normal [facility] CBC and Differentialon 11-07 Abs Baso 0.12 k/uL High <0.11 [facility] Comment on above: Performed By: #### C BCDIF, CMP ####[facility] [address] [place] [address] Abs Norman 0.92 k/uL High <0.87 [facility] Comment on above: Performed By: #### C BCDIF, CMP ####[facility] [address] [place] [address] Abs Neut 9.08 k/uL High 1.45-7.50 [facility] Comment on above: Performed By: #### C BCISABELLA CMP ####[place] [address] Basophils/100 WBC Auto (Bld) 1.1 % Normal [facility] Comment on above: Performed By: #### C BCDOUGF CMP ####[place] [address] Eosinophils Auto #/vol (Bld) 0.21 10*3/uL Normal <0.46 [facility] Comment on above: Performed By: #### C BCDOUGF CMP ####[place] [address] Eosinophils/100 WBC Auto (Bld) 1.9 % Normal [facility] Comment on above: Performed By: #### C BCDOUGF CMP ####[place] [address] Erythrocyte distribution width Auto Ratio (RBC) 13.5 % Normal 11.5-15.0 [facility] Comment on above: Performed By: #### C BCDIF, CMP ####[place] [address] Hematocrit Auto Volume Fraction (Bld) 43.0 % Normal 36.0-46.0 [facility] Comment on above: Performed By: #### C BCDIF, CMP ####[place] [address] Hemoglobin mass conc (Bld) 13.4 g/dL Normal 11.5-15.5 [facility] Comment on above: Performed By: #### C BCDIF, CMP ####[facility] [address] [place] [address] Lymphocytes Auto #/vol (Bld) 0.94 10*3/uL Low 1.00-4.00 [facility] Comment on above: Performed By: #### C BCDIF, CMP ####[facility] [address] [place] [address] Lymphocytes/100 WBC Auto (Bld) 8.3 % Normal [facility] Comment on above: Performed By: #### C BCDIF, CMP ####[facility] [address] [place] [address] MCH Auto Entitic mass (RBC) 28.0 pG Normal 26.0-34.0 [facility] Comment on above: Performed By: #### C BCDIF, CMP ####[place] [address] MCHC Auto mass conc (RBC) 31.2 g/dL Normal 30.5-36.0 [facility] Comment on above: Performed By: #### C BCDIF, CMP ####[facility] [address] [place] [address] MCV Auto Entitic volume (RBC) 90.0 fL Normal 80.0-100.0 [facility] Comment on above: Performed By: #### C BCDIF, CMP ####[address] Monocytes/100 WBC Auto (Bld) 8.2 % Normal [facility] Comment on above: Performed By: #### C BCDIF, CMP ####[address] Neutrophils/100 WBC Auto (Bld) 80.5 % Normal [facility] Comment on above: Performed By: #### C BCDIF, CMP ####[facility] [address] [place] [address] Platelet mean volume Auto Entitic volume (Bld) 9.4 fL Normal 9.0-12.7 [facility] Comment on above: Performed By: #### C BCDIF, CMP ####[facility] [address] [place] [address] Platelets Auto #/vol (Bld) 254 10*3/uL Normal 150-400 [facility] Comment on above: Performed By: #### C BCDOUGF, CMP ####[facility] [address] [place] [address] RBC Auto #/vol (Bld) 4.78 10*6/uL Normal 3.90-5.20 [facility] Comment on above: Performed By: #### C BCDOUGF, CMP ####[facility] [address] [place] [address] WBC Auto #/vol (Bld) 11.27 10*3/uL High 3.70-11.00 [facility] Comment on above: Performed By: #### C BCDOUGF, CMP ####[facility] [address] [place] [address] Comp Metabolic Panelon 11-07 Albumin mass conc 4.0 g/dL Normal 3.9-4.9 [facility] Comment on above: Performed By: #### C BIJALF CMP ####[facility] [address] [place] [address] ALP enzyme act/vol 118 U/L Normal 34-123 [facility] Comment on above: Performed By: #### C BCDOUGF, CMP ####[facility] [address] [place] [address] ALT enzyme act/vol 28 U/L Normal 7-38 [facility] Comment on above: Performed By: #### C BCDOUGF, CMP ####[facility] [address] [place] [address] Anion gap 3 molar conc 12 mmol/L Normal 9-18 [facility] Comment on above: Performed By: #### C BCDOUGF CMP ####[facility] [address] [place] [address] AST enzyme act/vol 25 U/L Normal 13-35 [facility] Comment on above: Performed By: #### C BCDIF, CMP ####[facility] [address] [place] [address] Bilirubin mass conc 0.4 mg/dL Normal 0.2-1.3 [facility] Comment on above: Performed By: #### C BCDIF, CMP ####[facility] [address] [place] [address] Calcium mass conc 9.5 mg/dL Normal 8.5-10.2 [facility] Comment on above: Performed By: #### C BCDIF, CMP ####[facility] [address] [place] [address] Chloride molar conc 101 mmol/L Normal 97-105 [facility] Comment on above: Performed By: #### C BCDIF, CMP ####[facility] [address] [place] [address] CO2 molar conc 25 mmol/L Normal 22-30 [facility] Comment on above: Performed By: #### C BCDIF, CMP ####[facility] [address] [place] [address] Creatinine mass conc 0.88 mg/dL Normal 0.58-0.96 [facility] Comment on above: Performed By: #### C BCDIF, CMP ####[facility] [address] [place] [address] eGFR- Amer. >60 Normal [facility] Comment on above: Performed By: #### C BCDIF, CMP ####[facility] [place] [address] GFR/1.73 sq M predicted among non-blacks MDRD vol rate/area (S/P/Bld) mL/min/{1.73_m2} Normal [facility] Comment on above: Result Comment: eGFR (Estimated GFR) Units of measure: mL/min/1.73 meters squaredeGFR is derived from the reexpressed MDRD Study equation using the following parameters: serum creatinine, age, gender and race. The creatinine assay has been calibrated to be traceable to IDMS.An eGFR <60 mL/min/1.73m2 for >3 months is consistent with chronic kidney disease. Refer to KDOQI guidelines for clinical interpretation.In patients with unstable renal function, e.g. those with acute kidney injury, the eGFR may not accurately reflect actual GFR. Performed By: #### C BCDIF, CMP ####[facility] [address] [place] [address] Glucose mass conc 112 mg/dL High 74-99 [facility] Comment on above: Result Comment: The [place] [employer] (ADA) provides guidance for cutoff values for fasting glucose and random glucose. The ADA defines fasting as no caloric intake for at least 8 hours. Fasting plasma glucose results between 100 to 125 mg/dL indicate increased risk for diabetes (prediabetes).Fasting plasma glucose results greater than or equal to 126 mg/dL meet the criteria for diagnosis of diabetes. In the absence of unequivocal hyperglycemia, results should be confirmed by repeat testing. In a patient with classic symptoms of hyperglycemia or hyperglycemic crisis, random plasma glucose results greater than or equal to 200 mg/dL meet the criteria for diagnosis of diabetes.Reference: Standards of Medical Care in Diabetes 2016, [place] [employer]. Diabetes Care. 2016.39(Suppl 1). Performed By: #### C BCDIF, CMP ####[facility] [address] [place] [address] Potassium molar conc 3.7 mmol/L Normal 3.7-5.1 [facility] Comment on above: Performed By: #### C BCDIF, CMP ####[facility] [address] [place] [address] Protein mass conc 7.5 g/dL Normal 6.3-8.0 [facility] Comment on above: Performed By: #### C BCDIF, CMP ####[facility] [address] [place] [address] Sodium molar conc 138 mmol/L Normal 136-144 [facility] Comment on above: Performed By: #### C BCDIF, CMP ####[facility] [address] [place] [address] Urea nitrogen mass conc 10 mg/dL Normal 7-21 [facility] Comment on above: Performed By: #### C BCDIF, CMP ####[facility] [address] [place] [address] ED NOTEon 11-07-2018 ED NOTE HNO ID: [id number]: Kari Gerard (Pharmacist)Service: PharmacyAuthor Type: PharmacistType: ED NotesFiled: 11/09/2018 11:40 AMNote Text:PHARMACY EMERGENCY DEPARTMENT CULTURE CALLBACKPatient Name:.Jersey Betancourt Admission Date:11/07/2018Date of Callback: 11/09/2018Patient JFOSOVAWTVwj erglinda Reactions- Latex HivesSource of Result: Results ListTime/Date of Result: 11/09/18 @ 10:40 AMType of Culture(s): urineCulture Results: Positive: >=100,000 CFU/mL E. ColiLab Results: >=100,000 CFU/mL E. ColiHome Medication List:Prior to Admission medications as of 09/15/18 0924Medication Sig Last Dose TakingcephALEXin (KEFLEX) 500 mg capsule Take 1 capsule by mouth four timesdaily for 7 days.metFORMIN ER (GLUCOPHAGE XR) 500 mg 24 hr tablet Take 1 tablet by mouthonce daily.triamcinolone acetonide (KENALOG) 0.1 % cream Apply 1 application toaffected area twice daily.Change in treatment needed: No. Patient discharged on cephalexin 500 mg 1capsule PO 4x/day x 7 days. Pathogen susceptible to 1st generationcephalosporins .Action Taken:No further action neededPlease page/call with any issues or questions.Electronic signature: Tonie PERRYmamta 2017 11:40 AMPager/Extension: [id number] [facility] ED NOTE HNO ID: [id number]: Radha Sánchez) Razia Parsons: (none)Author Type: Registered NurseType: ED NotesFiled: 11/07/2018 4:38 PMNote Text: Plan of care-Monitor Patient's Vital Signs for changes in condition-Monitor patient for changes in pain-Maintain patient safety and privacy-Provide comfort measures-Call light in placeSiderails up, bed in locked and low position [facility] ED NOTE HNO ID: [id number]: Cristal Sánchez) Razia Rodriguez: NursingAuthor Type: Registered NurseType: ED NotesFiled: 11/07/2018 4:17 PMNote Text:Patient presents to ED with back pain, urinary pain and frequency andfever. Patient also reports cloudy strong smelling urine. RAVINDER Dawn atbedside. P{javi of care reviewed. Patient ambulates to bathroom [facility] ED PROV NOTEon 11-07-2018 Protein mass conc HNO ID: [id number]: Nereyda Marr) Gely: (none)Author Type: Physician AssistantType: ED Provider NotesFiled: 11/07/2018 6:23 PMNote Text:ED Provider NotePatient Name: Jersey BetancourtMRN: [id number] DATE: 11/07/18HistoryPatient presents with:Bladder InfectionFeverBack JadielThijojo is a 43-year-old female complaining of lower abdominal pressure andpressure with urination for 2 days. She states she had a fever today andon her right over she felt nauseous. No history of kidney stones. Herbgulshan hurts in the lower midportion of her back. No CVA tenderness. Had ahysterectomy 9 years ago. Denies vaginal discharge. She states she tookmedicine this morning for her fever but nothing this afternoon.PAST MEDICAL HISTORYDiagnosis Date- Metabolic syndrome 09/15/2018- Obesity, Class III, BMI 40-49.9 (morbid obesity) (HCC) 09/15/2018- PCOS (polycystic ovarian syndrome) 09/15/2018PAST SURGICAL HISTORYProcedure Laterality Date- PAST SURGICAL HISTORY OF 2008 hysterectomy and partial R ovary removed- PAST SURGICAL HISTORY OF 1990 L ovary removed, and cyst- PAST SURGICAL HISTORY OF excess skin removal from weight loss- PAST SURGICAL HISTORY OF 2012 R ankle ORIF- PAST SURGICAL HISTORY OF 1990 sinus surgeryFAMILY HISTORYProblem Relation Age of Onset- Hypertension Mother- Obesity Mother- Stroke Mother- Cancer Father lung, not smoker, work exposure- Heart Paternal Grandfather- Cancer Maternal Grandmother pancreatic cancer- Cancer Paternal Grandmother colorectal cancer- Heart Other on mom's side usuallySocial HistorySocial History Main Topics- Smoking status: Never Smoker- Smokeless tobacco: Never Used- Alcohol use Yes Comment: occassional- Drug use: Unknown- Sexual activity: Yes Partners: MaleALLERGIESAllergen Reactions- Latex HivesReview of SystemsConstitutional: Positive for fever. Negative for activity change andchills.HENT: Negative. Negative for congestion, ear pain, rhinorrhea and sorethroat.Eyes: Negative. Negative for pain, discharge and redness.Respiratory: Negative. Negative for cough, chest tightness and shortnessof breath.Cardiovascular: Negative. Negative for chest pain.Gastrointestinal: Positive for abdominal pain and nausea. Negative fordiarrhea and vomiting.Endocrine: Negative.Genitourinary: Positive for dysuria. Negative for frequency and urgency.Musculoskeletal: Negative. Negative for arthralgias, back pain andmyalgias.Skin: Negative.Neurological: Negative. Negative for dizziness, weakness,light-headednes s and headaches.Psychiatric/Be havioral: Negative.Physical ExamBP 185/103 Pulse 125 Temp (Src) 101.3 (Oral) Resp 16 Wt 233 lb(105.7kg) SpO2 97%Physical ExamConstitutional: She is oriented to person, place, and time. She appearswell-developed and well-nourished.HENT:Head : Normocephalic and atraumatic.Mouth/Throat: Oropharynx is clear and moist.Eyes: Pupils are equal, round, and reactive to light. Conjunctivae and EOMare normal.Neck: Normal range of motion. Neck supple.Cardiovascular: Normal rate, regular rhythm, normal heart sounds andintact distal pulses.Pulmonary/Chest: Effort normal and breath sounds normal.Abdominal: Soft. Bowel sounds are normal. There is no tenderness. There isno guarding.Musculoskeletal : Normal range of motion.Neurological: She is alert and oriented to person, place, and time.Skin: Skin is warm and dry.Psychiatric: She has a normal mood and affect.Diagnostic TestingED Labs Ordered and ReviewedCOMP METABOLIC PANEL - Abnormal; Notable for the following: Result Value Ref Range Glucose 112 (*) 74 - 99 mg/dL All other components within normal limitsCBC + DIFF - Abnormal; Notable for the following: WBC 11.27 (*) 3.70 - 11.00 k/uL Abs Neut (ANC) 9.08 (*) 1.45 - 7.50 k/uL Abs Lymph 0.94 (*) 1.00 - 4.00 k/uL Abs Norman 0.92 (*) <0.87 k/uL Abs Baso 0.12 (*) <0.11 k/uL All other components within normal limitsURINALYSIS - Abnormal; Notable for the following: Appearance (U) Hazy (*) Clear Hemoglobin/Blood,Ur Large (*) Negative Protein, Urine 30 (*) Negative mg/dL Leukest Large (*) Negative All other components within normal limitsURINE MICROSCOPIC - Abnormal; Notable for the following: WBC, Urine Greater than 50 WBC's/hpf (*) 0 - 5 /HPF RBC, Urine 3-5 (*) 0 - 3 /HPF Bacteria Moderate (*) 0 /HPF All other components within normal limitsRAPID PCR ASSAY FOR INFLUENZAURINE CULTUREProceduresED Course / Clinical ImpressionClinical Impressions as of Nov 07 1731Acute cystitis without hematuriaMDM / Disposition / PlanMDMThe medical record is reviewedThe nursing notes are reviewedThe vitals areComorbid conditions include: noneHx, exam and clinical data are most suggestive of 43-year-old complainingof abdominal pressure and pressure with urination for 2 days. She wasfebrile here with a temp of 101.3. She was due for Tylenol but didn'ttake anything. Influenza was negative I checked that because of thefever. She is in no acute distress. She is nontoxic appearing. Minimaltenderness on exam. No CVA tenderness. Glucose is 112. White count 11.Her urine is hazy with large blood and large leukocytes. She has greaterthan 50 white cells and moderate bacteria. A urine cultures pending. Iwill give her dose of IV Rocephin.I will also give her another liter fluids. Patient states she is feelingmuch better. I offered her admission but she does not want to stay. Ithink she is nontoxic appearing and young I will make sure she has normalvital signs and allow her to go home with follow-up with her doctor in24-48 hours or return to the emergency Department if worse in any way.She is tolerating by mouth. Heart rate is down to 99 and she is afebrile.The patient was DISCHARGED: Counseled patient regarding lab results ANDradiology results AND need for follow-up. Discharged home with verbal andwritten instructions. They were instructed to return as needed forpersistent or worsening symptoms or any new concerns.Condition at time of disposition: stableSIGNATURE: RAVINDER Ludwig-Lisbeth (Ravinder) Pumao101/08/18 182 [facility] Rapid PCR Assay FLUon 2017 Influenza A PCR Negative [facility] Comment on above: Performed By: #### F LUP ####[facility] [address] [place], [place] [phone] Influenza B PCR Negative [facility] Comment on above: Performed By: #### F LUPCR ####[facility] [address] [place] [address] Specimen source Nom (Unsp spec) Nasopharyngeal Swab Normal [facility] Comment on above: Performed By: #### F LUPCR ####[facility] [address] [place] [address] Urinalysison 11-07-2018 Bilirubin, Urine Negative Normal Negative [facility] Comment on above: Performed By: #### U A, UAMIC ####[facility] [address] [place] [address] Clarity Hazy Critically abnormal Clear [facility] Comment on above: Performed By: #### U A, UAMIC ####[facility] [address] [place] [address] Color Yellow Normal Yellow [facility] Comment on above: Performed By: #### U A, UAMIC ####[facility] [address] [place] [address] Glucose Ql (U) Negative Normal Negative [facility] Comment on above: Performed By: #### U A, UAMIC ####[facility] [address] [place] [address] Hemoglobin/Blood,Ur Large Critically abnormal Negative [facility] Comment on above: Performed By: #### U A, UAMIC ####[facility] [address] [place] [address] Ketones Ql (U) Negative Normal Negative [facility] Comment on above: Performed By: #### U A, UAMIC ####[facility] [address] [place] [address] Leukest Large Critically abnormal Negative [facility] Comment on above: Performed By: #### U A, UAMIC ####[facility] [address] [place] [address] Nitrites Negative Normal Negative [facility] Comment on above: Performed By: #### U A, UAMIC ####[facility] [address] [place] [address] pH 6.5 Normal 5.0-8.0 [facility] Comment on above: Performed By: #### U A, UAMIC ####[facility] [address] [place] [address] Protein, Urine 30 mg/dL Critically abnormal Negative [facility] Comment on above: Performed By: #### U A, UAMIC ####[facility] [address] [place] [address] Specific [place], Ur 1.015 Normal 1.001-1.029 [facility] Comment on above: Performed By: #### U A, UAMIC ####[facility] [address] [place] [address] Urobilinogen 0.2 Normal 0.2-1.0 [facility] Comment on above: Performed By: #### U A, UAMIC ####[facility] [address] [place] [address] Urine Cultureon 11-07-2018 Bacteria identified Cx Nom (U) Sp. Request/Comment: - Specimen received in preservativeCulture Result - >=100,000 CFU/ml Escherichia coli --> ABNORMAL ALERTORGANISM: Escherichia coliMETHOD: Minimum inhibitory concentration(Vitek)Anti biotic Interp AYO StatusAmpicillin RESISTANT >=32 FGentamicin SUSCEPTIBLE <=1 FTrimeth sulfameth SUSCEPTIBLE <=20 FCefazolin SUSCEPTIBLE <=4 FCLSI breakpoints for therapy of uncomplicated UTI's due to E.coli, K.pneumoniae, and P.mirabilis were applied and may be used to predict the activity of oral agents(cefaclor, cefdinir, cefpodoxime, cefprozil, cefuroxime, cephalexin, loracarbef).Ciprofloxaci n SUSCEPTIBLE <=0.25 FNitrofurantoin SUSCEPTIBLE <=16 FCefepime SUSCEPTIBLE <=1 FPiperacillin/Tazobac SUSCEPTIBLE <=4 FAmpicillin Sulbact SUSCEPTIBLE 8 FCeftriaxone SUSCEPTIBLE <=1 FMeropenem SUSCEPTIBLE <=0.25 FErtapenem SUSCEPTIBLE <=0.5 F Critically abnormal [facility] Comment on above: Performed By: #### U RCUL ####[facility] [address] [place], [place] [phone] [address] [place] [address] Urine Microscopic (FOR LAB U SE ONLY)on 11-07-2018 Bacteria Moderate Critically abnormal 0 [facility] Comment on above: Performed By: #### U A, UAMIC ####[facility] [address] [place] [address] Cast SEE COMMENT Normal 0 [facility] Comment on above: Result Comment: 0 Performed By: #### U A, UAMIC ####[facility] [address] [place] [address] Epithelial Cells SEE COMMENT Normal [facility] Comment on above: Result Comment: 0-5S quamous Epithelial Cells Performed By: #### U A, UAMIC ####[facility] [address] [place] [address] INR Coag RelTime (Bld) 3-5 Critically abnormal 0-3 [facility] Comment on above: Performed By: #### U A, UAMIC ####[facility] [address] [place] [address] WBC Greater than 50 WBC's/hpf Critically abnormal 0-5 [facility] Comment on above: Performed By: #### U A, UAMIC ####[facility] [address] [place] [address] Vital Signs Date Time Vital Sign Value Performing Clinician Faci niko 03-01-2024 12:22-0400 Diastolic blood pressure 98 mm[Hg] Dr. Nikole Guillermo Work Phone: [facility] 03-01-2024 12:22-0400 Systolic blood pressure 152 mm[Hg] Dr. Nikole Guillermo Work Phone: [facility] 03-01-2024 09:33-0400 Body height 154.[address] Nikole Guillermo Work Phone: [facility] 03-01-2024 09:33-0400 Body mass index (BMI) [Ratio] 48.2 kg/m2 Dr. Nikole Guillermo Work Phone: [facility] 03-01-2024 09:33-0400 Body temperature 97.1 [degF] Dr. Nikole Guillermo Work Phone: [facility] 03-01-2024 09:33-0400 Body weight 115.[address] Nikole Guillermo Work Phone: [facility] 03-01-2024 09:33-0400 Heart rate 76 /min Dr. Nikole Guillermo Work Phone: [facility] 03-01-2024 09:33-0400 Respiratory rate 14 /min Dr. Nikole Guillermo Work Phone: [facility] 03-01-2024 09:33-0400 SaO2% (BldA) [Mass fraction] 99 % Dr. Nikole Guillermo Work Phone: [facility] Encounters Encounter Date Encounter Type Care Provider Facility Start: 03-26-2025 End: 04-26-2025 ambulatory Vega Broussard MD Work Phone: [facility] Start: 04-25-2024 ambulatory Vega oleary MD Work Phone: [facility] Start: 04-02-2024 End: 04-02-2024 ambulatory Mary Acevedo Facility:[facility] Start: 03-21-2024 End: 03-21-2024 ambulatory Albertina Benoit Facility:[facility] Start: 03-01-2024 End: 03-01-2024 ambulatory Nikolederrick Chavezlay [facility] Work Phone: Start: 03-01-2024 End: 03-01-[address] Nikole Guillermo Work Phone: [facility] Start: 03-01-2024 End: 03-01-[address] Nikole Guillermo Work Phone: [facility] Internal [facility] Work Phone: Start: 05-18-2023 ambulatory Vega oleary MD Work Phone: Internal [facility] Start: 12-02-2022 End: 12-02-2022 ambulatory Vega Broussard MD Work Phone: [facility] Comment on above: Nurse Triage Call Acute non-recurrent maxillary sinusitis Start: 12-02-2022 End: 12-02-2022 Telemedicine consultation with patient Verónica Justin HUSSAIN Work Phone: [facility] Start: 07-20-2022 End: 07-20-2022 ambulatory Vega Broussard MD Work Phone: [facility] Comment on above: Acute non-recurrent maxillary sinusitis (Primary Dx) Start: 07-20-2022 End: 07-20-2022 Telemedicine consultation with patient Vega Broussard MD Work Phone: [facility] Start: 05-19-2022 ambulatory Vega oleary MD Work Phone: Internal Medicine [facility] Start: 11-07-2018 End: 11-07-2018 Emergency department patient visit [facility] Procedures Date Procedure Procedure Detail Performing Clinician Start: 09-15-2018 Adult depression screening assessment Vega Broussard MD Work Phone: Start: 09-15-2018 Lipid 1996 panel - S genevieve or Plasma Vega Broussard MD Work Phone: Plan of Treatment Date Care Activity Detail Author Start: 09-15-2028 Urine microalbumin profile [facility] Start: 07-15-2025 Influenza vaccination Influenz a Vaccine (Season Ended) [facility] Start: 07-15-2024 Covid-19 Vaccine ( season) Covid-19 Vaccine () [facility] Start: 07-15-2024 Influenza vaccination Influenz a Vaccine (Season Ended) [facility] Start: 03-01-2024 Patient referral [facility] Work Phone: Start: 11-14-2023 Behavioral Health Screening Behavioral Health Screening [facility] Start: 09-15-2023 Lipid panel Lipid Screening [facility] Start: 09-15-2023 LIPID SCREEN LIPID SCREEN [facility] Start: 07-15-2023 Covid-19 Vaccine ( season) Covid-19 Vaccine ( season) [facility] Start: 07-15-2023 Influenza vaccination INFLUENZA (#1) [facility] Start: 11-14-2022 DEPRESSION ASSESSMENT DEPRESSION ASS ESSMENT [facility] Start: 07-15-2022 Influenza vaccination INFLUENZA (#1) [facility] Start: 11-07-2021 DIABETES SCREEN DIABETES SCREEN [facility] Start: 11-07-2021 Diabetes Screening Diabetes Screenin g [facility] Start: 2020 COLOGUARD (FIT-DNA) COLOGUARD (FIT-D NA) [facility] Start: 2020 Colonoscopy COLONOSCOPY [facility] Start: 2020 COLORECTAL CANCER SCREENING COLORECTAL CANCER SCREENING [facility] Start: [address] COLONOGRAPHY [facility] Start: 2020 FECAL OCCULT BLOOD FECAL OCCULT BLOO D [facility] Start: 2020 Screening for malign ant neoplasm of colon [facility] Start: 2020 SIGMOIDOSCOPY SIGMOIDOSCOPY [facility] Start: 09-15-2019 Adult depression screening assessment DEPRESSION SCREENING [facility] Start: 2015 Mammography MAMMOGRAM [facility] Start: 2015 Screening for malign ant neoplasm of breast Mammogram Screening [facility] Start: 1994 Hepatitis B Vaccine (1 of 3 - 19+ 3-dose series) Hepatitis B Vaccine (1 of 3 - 19+ 3-dose series) [facility] Start: 1993 Anxiety Screening Anxiety Screening [facility] Start: 1993 Depression Screening Depression Scre ening [facility] Start: 1993 HEPATITIS C SCREENING HEPATITIS C [facility] Start: 1993 Hepatitis C screening Hepatitis C [facility] Start: 1993 HIV SCREENING HIV SCREENING [facility] Start: 1993 HIV screening HIV Screening [facility] Start: 04-19-1976 COVID-19 VACCINE (#1) COVID-19 VACCI NE (#1) [facility] Start: 1975 HEPATITIS B (1 of 3 - 3-dose series) HEPATITIS B (1 of 3 - 3-dose series) [facility] End: 05-25-2025 DBT Breast - bilateral screening [facility] SCREENING [facility] Radiology Routine Encounter for screening mammogram for breast cancer 1 Occurrences starting 04/25/2024 until 05/25/2025 [facility] Work Phone: Comment on above: 1 Occurrences starti ng 04/25/2024 until 05/25/2025 End: 04-25-2026 DBT Breast - bilateral screening [facility] SCREENING [facility] Radiology Routine Encounter for screening mammogram for breast cancer 1 Occurrences starting 03/26/2025 until 04/25/2026 [facility] Work Phone: Comment on above: 1 Occurrences starti ng 03/26/2025 until 04/25/2026 End: 06-16-2024 DERRICK SCREENING DERRICK SCREENING Radiology Routine Encounter for screening mammogram for breast cancer 1 Occurrences starting 05/18/2023 until 06/16/2024 [facility] Work Phone: Comment on above: 1 Occurrences starti ng 05/18/2023 until 06/16/2024 MG Breast - bilatera l Screening [facility] Patient referral [facility] Work Phone: End: 06-18-2023 Screening mammography bi 2-view breast inc cad [facility] SCREENING Radiology Routine Encounter for screening mammogram for breast cancer 1 Occurrences starting 05/19/2022 until 06/18/2023 [facility] Work Phone: Comment on above: 1 Occurrences starti ng 05/19/2022 until [facility] Immunization Date Immunization Notes Care Provider Fa cili 11-20-2019 influenza virus vaccine, unspecified formulation Vega Broussard MD Work Phone: [facility] 09-15-2018 tetanus toxoid, redu felicity diphtheria toxoid, and acellular pertussis vaccine, adsorbed Vega Broussard MD Work Phone: [facility] 09-13-2005 TD(adult) unspecifie d formulation Vega Broussard MD Work Phone: [facility] Work Phone: Payers Date Payer Category Payer Self-pay 2024 Unknown [id number] 2019 Private Health Insurance MMO [employer] PPO [id number] 2019 Unknown MMO MMO [employer] [id number] 2019-Present [phone] [address] [place] [address] PPO [id number] 2019 Unknown [id number] Unknown [id number] Unknown [id number] Unknown [id number] Unknown [id number] Unknown [id number] Unknown [id number] Social History Date Type Detail Facility Start: 09-15-2018 End: 07-20-2022 Tobacco smoking status NHIS Never smoked tobacco [facility] Start: 09-15-2018 End: 07-20-2022 Tobacco use and exposure Smokeless tobacco non-user [facility] Start: 11-20-2019 End: 07-20-2022 Alcohol intake Current drinker of alcohol (finding) [facility] Start: 09-15-2018 History SDOH Alcohol Comment occassional [facility] Start: 1975 Sex Assigned At Not on file [facility] Start: 07-20-2022 End: 12-02-2022 History SDOH Alcohol Frequency 3 [facility] Start: 07-20-2022 End: 12-02-2022 History SDOH Alcohol Std Drinks 1 [facility] Start: 07-20-2022 History SDOH Social Connections Phone 2 [facility] Start: 07-10-2022 End: 07-20-2022 Exposure to SARS-CoV-2 (event) Not sure [facility] Start: 12-02-2022 History SDOH Social Connections Membership 98 [facility] Start: 11-07-2018 End: 12-02-2022 History of Social function [facility] Start: 11-07-2018 End: 12-02-2022 Social connection and isolation panel [facility] Do you belong to any clubs or organizations such as uatsdin groups, unions, fraternal or athletic groups, or school groups? Patient refused [facility] Are you now , , , , never or living with a partner? Refused [facility] (I/We) worried ellen er (my/our) food would run out before (I/we) got money to buy more. DK or Refused [facility] Start: 03-01-2024 Tobacco smoking stat us NHIS Unknown if ever smoked [facility] Start: 1975 Sex Assigned At Female [facility] NEGATED: Highlighted rowStart: NINF History of tobacco use Passive smoker [facility] Clinical Notes 07-20-2022 to 03-26-2025 Verónica Justin APRN.PSYCHIATRIC TECHNICIAN - 12/02/2022 1:31 PM ESTTelephone Encounter - Vega Broussard MD - 12/02/2022 12:12 PM ESTTelephone Encounter - Holley Donaldson RN - 12/02/2022 10:59 AM EST Note Date & Type Note Facility 03-26-2025 Note Patient Outreach (FA ALYSON) JERSEY BETANCOURT ([id number]) 1975 F Date Time Provider Department 03/26/25 VEGA BROUSSARD During your visit today, we recorded the following information about you: Allergies As of Date: 03/26/2025 Noted Allergy Reaction KEFLEX (CEPHALEXIN) 11/10/2018 5 - Intolerance Comments: Severe headache and neck ache LATEX 09/15/2018 4 - Hives Date Reviewed: 11/09/2023 Reviewed by: Gibran Cruz PA-C - Fully Assessed Visit Diagnosis:Encounter for screening mammogram for breast cancer [Z12.31] Order(s):DERRICK SCREENING W [facility] [[id number]] Order #: [id number] FUTURE Meds Comments as of 07/03/2019: no medications 07/03/19 Holley Dean RN Problem List As Of Date 03/26/2025 Noted Resolved Obesity, Class III, BMI 40-49.9 (morbid obesity*09/15/2018 PCOS (polycystic ovarian syndrome) [E28.2] 09/15/2018 Metabolic syndrome [E88.810] 09/15/2018 Flexural eczema [L20.82] 09/15/2018 Elevated blood-pressure reading without diagnos*02/06/2019 Low T4 [R79.89] 02/06/2019 Encounter Status:Closed by Broadcast[employer] Melody ManagementUSER on 04/26/25 [facility] 12-02-2022 History of Presen t illness Narrative VIRTUAL VISIT PROGRESS NOTE This is a virtual visit using Mlog video visit. It required patient-provider interaction for the medical decision making as documented below. Jersey Betancourt is a 47 year old female seen for sinus symptoms Says she has a sinus infection Symptoms started a few days ago Started mucinex right away, usually helps but isn't helping as much this time A lot of sinus pain on cheeks and forehead Sinus headaches No fevers No n/v/d No SOB, wheezing No cough Seems to be getting worse Does have history of sinus issues, sinus surgery Had a hard time getting rid of these symptoms wothout antibiotics Is not allowed to use any nasal sprays since her surgery HISTORY REVIEWED (electronic chart updated): PAST MEDICAL HISTORY Diagnosis Date Metabolic syndrome 09/15/2018 Obesity, Class III, BMI 40-49.9 (morbid obesity) (HCC) 09/15/2018 PCOS (polycystic ovarian syndrome) 09/15/2018 PAST SURGICAL HISTORY Procedure Laterality Date PAST SURGICAL HISTORY OF 2008 hysterectomy and partial R ovary removed PAST SURGICAL HISTORY OF 1990 L ovary removed, and cyst PAST SURGICAL HISTORY OF excess skin removal from weight loss PAST SURGICAL HISTORY OF 2012 R ankle ORIF PAST SURGICAL HISTORY OF 1990 sinus surgery FAMILY HISTORY Problem Relation Age of Onset Hypertension Mother Obesity Mother Stroke Mother Cancer Father lung, not smoker, work exposure Heart Paternal Grandfather Cancer Maternal Grandmother pancreatic cancer Cancer Paternal Grandmother colorectal cancer Heart Other on mom's side usually Social History Tobacco Use Smoking status: Never Passive exposure: Never Smokeless tobacco: Never Vaping Use Vaping Use: Never used Substance Use Topics Alcohol use: Yes Comment: occassional Drug use: Never Current Outpatient Medications Medication Sig azithromycin (ZITHROMAX Z-JOYCELYN) 250 mg tablet 2 tablets by mouth first day then 1 tablet the next 4 days clotrimazole-betamethasone (LOTRISONE) cream Apply to affected area twice daily. levothyroxine (SYNTHROID) 25 mcg tablet Take 1 tablet by mouth once daily. (Patient not taking: No sig reported) guaifenesin/phenylephrine HCl (MUCINEX COLD ORAL) Take by mouth. ibuprofen (MOTRIN ORAL) Take by mouth. No current facility-administered medications for this visit. ALLERGIES Allergen Reactions Keflex [Cephalexin] Intolerance Severe headache and neck ache Latex Hives REVIEW OF SYSTEMS: As noted in HPI PHYSICAL EXAMINATION: VIDEO EXAM: (if completed, performed via video enabled technology) GENERAL: alert and appropriate, in no distress and well-hydrated, well nourished HEAD: moderate tenderness to bilateral frontal sinuses and maxillary sinuses RESPIRATORY: breathing non-labored, does sound congested, talking in compete sentences, no audible wheezing ASSESSMENT/PLAN: 1. Acute non-recurrent maxillary sinusitis - ICD9: 461.0, ICD10: J01.00 - AZITHROMYCIN 250 MG TABLET - unable to do nasal sprays, encouraged hydration, mucinex - she will let us know if no improvement over next couple days, has needed to do a course of steroids in the past - she did make PE exam for next month Verónica Justin APRN.PSYCHIATRIC TECHNICIAN There are no Patient Instructions on file for this visit. Verónica Justin APRN.PSYCHIATRIC TECHNICIAN documented in this encounter [facility] 12-02-2022 Miscellaneous Notes Formattin g of this note might be different from the original. Has appointment with Verónica for virtual visit today Patient calling c/o possible sinus infection Sinus pain/pressure and selling past few days. Hx of reoccurant sinus infections-last was 07/20/22- see VV notes. Patient [place] 45 minutes [place]- requesting VV-scheduled. Did advise she is due for checkup- she will call to schedule at a later time. Holley Donaldson RN Reason for Disposition [1] Redness or swelling on the cheek, forehead or around the eye AND [2] no fever Answer Assessment - Initial Assessment Questions 1. LOCATION: Where does it hurt? Cheeks 2. ONSET: When did the sinus pain start? (e.g., hours, days) A few days ago 3. SEVERITY: How bad is the pain? (Scale 1-10; mild, moderate or severe) - MILD (1-3): doesn't interfere with normal activities - MODERATE (4-7): interferes with normal activities (e.g., work or school) or awakens from sleep - SEVERE (8-10): excruciating pain and patient unable to do any normal activities Moderate- had to come home from work today 4. RECURRENT SYMPTOM: Have you ever had sinus problems before? If Yes, ask: When was the last time? and What happened that time? Yes- Zithromax 5. NASAL CONGESTION: Is the nose blocked? If Yes, ask: Can you open it or must you breathe through your mouth? Slight nasal congestion 6. NASAL DISCHARGE: Do you have discharge from your nose? If so ask, What color? No 7. FEVER: Do you have a fever? If Yes, ask: What is it, how was it measured, and when did it start? No 8. OTHER SYMPTOMS: Do you have any other symptoms? (e.g., sore throat, cough, earache, difficulty breathing) NO 9. : Is there any chance you are ? When was your last menstrual period? No Protocols used: Sinus Pain or [id number] documented in this encounter [facility] 07-20-2022 History of Presen t illness Narrative DISTANCE HEALTH VISIT This Team Access Model visit is a virtual encounter. It required patient-provider interaction for the medical decision making as documented below. Jersey Betancourt is a 46 year old female seen for not feeling well .since Tuesday Has sinus pain and pressure Has low grade fever Has severe sinus tenderness worse on the R side Has productive cough with yellow up Has been taking some motrin and mucinex Had tried some tylenol Has not been allowed to use nasal sprays Seems to be getting worse Has Been getting worse HISTORY REVIEWED (electronic chart updated): - medical history - medications - allergies REVIEW OF SYSTEMS: As noted in HPI PHYSICAL EXAMINATION: VIDEO EXAM: (if done, performed via video enabled technology) GENERAL: alert and appropriate, in no distress and well-hydrated, well nourished HEENT: Tenderness to even light palpation on the right cheek and forehead Respiratory: Some occasional cough, no audible wheeze, able to talk in complete sentences Does sound congested ASSESSMENT/PLAN: 1. Acute non-recurrent maxillary sinusitis - ICD9: 461.0, ICD10: J01.00 Patient with history of sinus infections Has had sinus surgery in the past Has not had anything recently but these tend to become more difficult to treat if not treated early Zithromax is worked for her in the past and will try this again She is not permitted to do any nasal sprays Recommend plenty of fluid, Mucinex, etc. If no improvement in the next 2-3 days, may need to do a course of steroids She will let me know - AZITHROMYCIN 250 MG TABLET Vega Broussard MD documented in this encounter [facility] Evaluation note Diagnosis Encounter for screening mammogram for breast cancer [facility] Diagnosis Acute non-recurrent maxillary sinusitis- Primary documented in this encounter [facility] note* Diagnosis Acute non-recurrent maxillary sinusitis documented in this encounter [facility] note* Diagnosis Encounter for screening mammogram for breast cancer documented in this encounter [facility] noteNo assessment information availableWMercer County [facility] Work Phone: Evaluation note* Diagnosis Encounter for screening mammogram for breast cancer [facility] Diagnostic Procedure Only (Routine) - Pending Review Specialty Diagnoses / Procedures Referred By Phoebe gupta Referred To Contact [facility] Diagnoses Encounter for screening mammogram for breast cancer Procedures DERRICK SCREENING SCREENING MAMMOGRAPHY BI 2-VIEW BREAST INC Vega Olson MD [address] [place] [address] [facility] [address] [place] [address] Referral ID Status Reason Start Date Expiration Date Visits Requested Visits Authorized [id number] Pending Review Auto-Generat ed Referral 05/19/2022 06/18/2023 1 1 [facility] for referral (narrative)* Diagnostic Procedure Only (Routine) - Pending Review Specialty Diagnoses / Procedures Referred By Phoebe gupta Referred To Contact [facility] Diagnoses Encounter for screening mammogram for breast cancer Procedures DERRICK SCREENING SCREENING MAMMOGRAPHY BI 2-VIEW BREAST INC Vega Olson MD [address] [place] [address] [facility] [address] [place] [address] Referral ID Status Reason Start Date Expiration Date Visits Requested Visits Authorized [id number] Pending Review Auto-Generat ed Referral 05/18/2023 06/16/2024 1 1 [facility] for referral (narrative)* Diagnostic Procedure Only (Routine) - Pending Review Specialty Diagnoses / Procedures Referred By Contac t Referred To Contact [facility] Diagnoses Encounter for screening mammogram for breast cancer Procedures DERRICK SCREENING W INGRID SCREENING DIGITAL BREAST TOMOSYNTHESIS BI SCREENING MAMMOGRAPHY BI 2-VIEW BREAST INC CAD Vega Broussard MD [address] [place] [address] [facility] [address] [place] [address] Referral ID Status Reason Start Date Expiration Date Visits Requested Visits Authorized [id number] Pending Review Auto-Generat ed Referral 04/25/2024 05/25/2025 1 1 [facility] Summary Purpose Family History No Family History Records Found Relationship Condition Age at Onset Recorded Date/T jeff father Malignant neoplasm Unknown Sponge kidney Unknown grandmother Malignant neoplasm Unknown Hypertension Unknown Cardiac disease Unknown mother Cerebrovascular accident (CVA) Unknown Hyperlipidemia Unknown grandfather Alcoholism Unknown grandfather Cardiac disease Unknown Cerebrovascular accident (CVA) Unknown Advance Directives No Advanced Directives Records FoundDocuments on File Type Date Recorded 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 EST CARE - PPW S ENT Additional Source Comments INFORMATION SOURCE (unrecogn ized section and content) DATE CREATED AUTHOR 11/10/2018 [facility] DATE CREATED AUTHOR AUTHOR'S ORGANIZ ATION 04/10/[address] [facility] DATE CREATED AUTHOR AUTHOR'S ORGANIZ ATION 04/28/2025 [facility] Source Comments (unrecognize d section and content) In the event this informatio n is protected by the Federal Confidentiality of Alcohol and Drug Abuse Patient Records regulations: The Federal rules restrict any use of the information to criminally investigate or prosecute any alcohol or drug abuse patient.[facility] the event this information is protected by the Federal Confidentiality of Alcohol and Drug Abuse Patient Records regulations: The Federal rules restrict any use of the information to criminally investigate or prosecute any alcohol or drug abuse patient.[facility] Hospital[facility] the event this information is protected by the Federal Confidentiality of Alcohol and Drug Abuse Patient Records regulations: The Federal rules restrict any use of the information to criminally investigate or prosecute any alcohol or drug abuse patient.[facility] HospitalIn the event this information is protected by the Federal Confidentiality of Alcohol and Drug Abuse Patient Records regulations: The Federal rules restrict any use of the information to criminally investigate or prosecute any alcohol or drug abuse patient.[facility] HospitalIn the event this information is protected by the Federal Confidentiality of Alcohol and Drug Abuse Patient Records regulations: The Federal rules restrict any use of the information to criminally investigate or prosecute any alcohol or drug abuse patient.[facility] HospitalIn the event this information is protected by the Federal Confidentiality of Alcohol and Drug Abuse Patient Records regulations: The Federal rules restrict any use of the information to criminally investigate or prosecute any alcohol or drug abuse patient.[facility] HospitalIn the event this information is protected by the Federal Confidentiality of Alcohol and Drug Abuse Patient Records regulations: The Federal rules restrict any use of the information to criminally investigate or prosecute any alcohol or drug abuse patient.[facility] Care Teams (unrecognized sec tion and content) Company Controller Relationship Specialty Start Date End Date Vega Broussard MD [address] [place] [address] PCP - General Family Practice 09/15/18 Company Controller Relationship Specialty Start Date End Date Vega Broussard MD [address] [place] [address] PCP - General Family Practice 09/15/18 Company Controller Relationship Specialty Start Date End Date Vega Broussard MD [address] [place] [address] PCP - General Family Medicine 09/15/18 Company Controller Relationship Specialty Start Date End Date Vega Broussard MD [address] [place] [address] PCP - General Family Medicine 09/15/18 Company Controller Relationship Specialty Start Date End Date Vega Broussard MD [address] [place] [id number] PCP - General Family Medicine 09/15/18 Team Status: Active Member Role Status Dates Dr. Nikole Guillermo MD Primary Care Provider Active Team Status: Inactive Member Role Status Dates Dr. Nikole Guillermo MD Attending Provider Active Team Status: Inactive Member Role Status Dates Dr. Nikole Guillermo MD Primary Care Pro vider, Attending Provider, Referring Provider Active Company Controller Relationship Specialty Start Date End Date Vega Broussard MD [address] [place] [id number] PCP - General Family Medicine 09/15/18 Company Controller Relationship Specialty Start Date End Date Vega Broussard MD PCP - General Family Medicine 09/15/18 Verónica Justin APRN.PSYCHIATRIC TECHNICIAN [address] [place] [address] Forensic Pathologist Family Medicine 10/22/24 Reason for Visit (unrecogniz ed section and content) Reason Comments Telemedicine Reason Comments Nurse Triage Call Reason Comments Sinusitis Goals (unrecognized section and content) Goals may be documented in a n alternate section FOR RECORDS PERTAINING TO PATIENTS WHO ARE OR HAVE BEEN ENROLLED IN A CHEMICAL DEPENDENCY/SUBSTANCEABUSE PROGRAM, SOME INFORMATION MAY BE OMITTED. This clinical summary was aggregated from multiple sources. Caution should be exercised in using it in the provision of clinical care. This summary normalizes information from multiple sources, and as a consequence, information in this document may materially change the coding, format and clinical context of patient data. In addition, data may be omitted in some cases. CLINICAL DECISIONS SHOULD BE BASED ON THE PRIMARY CLINICAL RECORDS. [facility]. provides no warranty or guarantee of the accuracy or completeness of information in this document.
[2025-06-14] MEDS: 0.9% Normal Saline (1000mL) 1,000 ML 999 ML IV (05:47)
[2025-06-14 05:53] LABS: Differential Indicated SCAN CRITERIA MET; Hematocrit 41.1 % (37-47); Hemoglobin 13.4 g/dL (12.0-15.0); Immature Granulocytes Count 0.030 X10^3/uL (0.0-0.0); Mean Corp Hgb Conc 32.6 g/dL (32-36); Mean Corpuscular Volume 89.7 fL (81-99); Mean Platelet Vol. 9.4 fl (6.2-12.0); NRBC Flagged by Analyzer 0 % (0-5); POSITIVE MORPHOLOGY YES; Platelet Count 165 K/mm3 (150-450); RBC Distribution Width CV 13.2 % (11.6-14.6); RBC Distribution Width SD 42.9 fl (35.1-43.9); Red Blood Count 4.58 M/mm3 (4.2-5.4); White Blood Count 4.7 K/mm3 (4.4-11.0)
[2025-06-14 05:58] LABS: Mucous, Urine 0 SEEN /hpf (<or=2+)
--- NOTE | 2025-06-14 06:00 | RAD_ITS ---
PROCEDURE: CHEST PA AND LATERAL 06/14/2025 REASON FOR EXAM: FEVER TECHNIQUE: CHEST PA AND LATERAL COMPARISON: none FINDINGS: No focal consolidation. No pleural effusion or pneumothorax. Cardiac silhouette is within normal limits. No acute fractures. RAD/Chest PA and Lateral IMPRESSION: No focal consolidations. Reading Location: [id number]
[2025-06-14 06:02] LABS: Color, Urine Yellow (Yellow); Glucose, Dipstick Normal (Normal); Ketone-Dipstick Negative (Negative); Leukocyte Esterase-Dipstick Negative /ul (Negative); Nitrite-Dipstick Negative (Negative); Occult Blood-Urine 250 /ul (Negative); Protein-Dipstick 15 mg/dl (Negative); Specific Gravity, Urine 1.010 (1.002-1.030); Urine Bilirubin Dipstick Negative (Negative)
[2025-06-14 06:18] LABS: Red Blood Cells-Urine 5-10 SEEN /hpf (0-5); Squamous Epithelial Cells - UA 0-5 SEEN /hpf (5-10)
[2025-06-14 06:29] LABS: AST(SGOT) 48 U/L (<=31); Alanine Aminotransfer ALT/SGPT 53 U/L (<=34); Albumin, Serum 4.1 g/dL (3.5-5.0); Alkaline Phosphatase 120 U/L (35-104); Anion Gap 10 (5-15); BUN 11 mg/dL (4-19); BUN/Creat Ratio 11.4 RATIO (10-20); Bilirubin, Direct 0.14 mg/dL (0.00-0.30); Calcium,Total 9.1 mg/dL (7.6-11.0); Carbon Dioxide 26.9 mmol/L (21.0-32.0); Chloride 100 mmol/L (98-108); Estimated Creatinine Clearance 82.83 ml/min (50-250); Globulin 3.2 g/dL (2.2-4.2); Glucose 135 mg/dL (70-99); Lipase 25 U/L (13-75); Potassium 4.2 mmol/L (3.3-5.1); Procalcitonin 0.31 ng/mL (<=0.10)
[2025-06-14 06:32] LABS: Differential Comment SCANNED
[2025-06-14 07:04] VITALS: BP 188/119; PULSE 105; RESP 18; TEMP 37.3; O2SAT 96
== END 2025-06-14 07:05 | disposition home or self-care (01) ==
PROVIDERS: Emergency Provider Emergency Medicine; PCP Internal Medicine; Visit Provider Emergency Medicine
DX: R50.9 Fever, unspecified (principal); R10.9 Unspecified abdominal pain; E28.2 Polycystic ovarian syndrome; Z90.710 Acquired absence of both cervix and uterus; I10 Essential (primary) hypertension; K40.90 Unilateral inguinal hernia, without obstruction or gangrene, not specified as recurrent; Z79.899 Other long term (current) drug therapy; Z90.721 Acquired absence of ovaries, unilateral
CPT/HCPCS: 71046; 74177; 80048; 80076; 81001; 83605; 83690; 84145; 85025; 87040; 96360; 99282; Q9967; A4216

== ENCOUNTER → 2025-06-19 | Outpatient (CLI) | payer OTHER, SELFPAY ==
--- NOTE | 2025-06-19 16:16 | US_ITS ---
PROCEDURE: PELVIC (NON ) 06/19/2025 REASON FOR EXAM: ABDOMINAL TECHNIQUE: PELVIC (NON ) COMPARISON: 06/14/2025 CT. FINDINGS: Uterus is surgically absent. The right ovary is not visualized and may be surgically absent. The left ovary is not visualized and may be surgically absent. No fluid in the cul-de-sac. No adnexal masses. Urinary bladder volume of 166 cc. US/Pelvic (Non ) IMPRESSION: Status post hysterectomy. Bilateral ovaries are not visualized and may be surgically absent. Correlate w ith surgical history. No adnexal masses. No free fluid. Reading Location: [id number]
== END | disposition home or self-care (01) ==
PROVIDERS: PCP Physician Assistant; Referring Provider Physician Assistant; Visit Provider Physician Assistant
DX: R10.31 Right lower quadrant pain (principal)
CPT/HCPCS: 76856

== ENCOUNTER → 2025-06-19 | Outpatient (CLI) | payer OTHER, SELFPAY ==
[2025-06-19 12:39] LABS: Color, Urine Yellow (Yellow); Glucose, Dipstick Normal (Normal); Ketone-Dipstick 5 mg/dl (Negative); Leukocyte Esterase-Dipstick 25 /ul (Negative); Nitrite-Dipstick Negative (Negative); Occult Blood-Urine 250 /ul (Negative); Protein-Dipstick 100 mg/dl (Negative); Specific Gravity, Urine 1.020 (1.002-1.030)
[2025-06-19 12:40] LABS: Urine Bilirubin Dipstick 1 mg/dL (Negative)
[2025-06-19 12:40] LABS: Hematocrit 43.6 % (37-47); Hemoglobin 14.0 g/dL (12.0-15.0); Immature Granulocytes Count 0.140 X10^3/uL (0.0-0.0); Mean Corp Hgb Conc 32.1 g/dL (32-36); Mean Corpuscular Volume 88.8 fL (81-99); Mean Platelet Vol. 10.1 fl (6.2-12.0); NRBC Flagged by Analyzer 0 % (0-5); POSITIVE MORPHOLOGY YES; Platelet Count 167 K/mm3 (150-450); RBC Distribution Width CV 13.9 % (11.6-14.6); RBC Distribution Width SD 44.8 fl (35.1-43.9); Red Blood Count 4.91 M/mm3 (4.2-5.4); White Blood Count 8.1 K/mm3 (4.4-11.0)
[2025-06-19 12:41] LABS: Differential Indicated SCAN CRITERIA MET
[2025-06-19 12:58] LABS: Mucous, Urine 1+ /hpf (<or=2+); Red Blood Cells-Urine 0-5 SEEN /hpf (0-5); Squamous Epithelial Cells - UA 10-25 SEEN /hpf (5-10)
[2025-06-19 13:03] LABS: AST(SGOT) 52 U/L (<=31); Alanine Aminotransfer ALT/SGPT 60 U/L (<=34); Albumin, Serum 4.0 g/dL (3.5-5.0); Alkaline Phosphatase 118 U/L (35-104); Anion Gap 14 (5-15); BUN 15 mg/dL (4-19); BUN/Creat Ratio 12.1 RATIO (10-20); CRP 76.20 mg/L (0.0-3.0); Calcium,Total 9.8 mg/dL (7.6-11.0); Carbon Dioxide 23.9 mmol/L (21.0-32.0); Chloride 101 mmol/L (98-108); Globulin 3.7 g/dL (2.2-4.2); Glucose 112 mg/dL (70-99); Potassium 3.6 mmol/L (3.3-5.1)
[2025-06-19 13:20] LABS: Differential Comment SCANNED; Reactive Lymphocyte 1+
== END | disposition home or self-care (01) ==
LOC: BIMLAB 09:41
PROVIDERS: PCP Internal Medicine; Referring Provider Physician Assistant; Visit Provider Physician Assistant
DX: R10.9 Unspecified abdominal pain (principal)
CPT/HCPCS: 36415; 80053; 81001; 85025; 86140; 87086; 87088

== ENCOUNTER → 2025-06-25 | Outpatient (CLI) | payer OTHER, SELFPAY ==
[2025-06-25 12:51] LABS: Mucous, Urine 0 SEEN /hpf (<or=2+); Red Blood Cells-Urine 0 SEEN /hpf (0-5)
[2025-06-25 13:14] LABS: Color, Urine Yellow (Yellow); Glucose, Dipstick Normal (Normal); Ketone-Dipstick Negative (Negative); Leukocyte Esterase-Dipstick Negative /ul (Negative); Nitrite-Dipstick Negative (Negative); Occult Blood-Urine 50 /ul (Negative); Protein-Dipstick 30 mg/dl (Negative); Specific Gravity, Urine 1.020 (1.002-1.030); Urine Bilirubin Dipstick Negative (Negative)
[2025-06-25 13:20] LABS: Squamous Epithelial Cells - UA 0-5 SEEN /hpf (5-10)
== END | disposition home or self-care (01) ==
LOC: LABSPEC 12:42
PROVIDERS: PCP Physician Assistant; Referring Provider Internal Medicine; Visit Provider Internal Medicine
DX: R50.9 Fever, unspecified (principal)
CPT/HCPCS: 81001; 87086; 87088

== ENCOUNTER → 2025-06-28 | Outpatient (CLI) | payer OTHER, SELFPAY ==
[2025-06-28 14:57] LABS: CRP 43.10 mg/L (0.0-3.0); Ferritin 572 ng/mL (22-378)
[2025-06-28 15:02] LABS: Hematocrit 40.2 % (37-47); Hemoglobin 12.8 g/dL (12.0-15.0); Immature Granulocytes Count 0.080 X10^3/uL (0.0-0.0); Mean Corp Hgb Conc 31.8 g/dL (32-36); Mean Corpuscular Volume 89.1 fL (81-99); Mean Platelet Vol. 10.0 fl (6.2-12.0); NRBC Flagged by Analyzer 0 % (0-5); POSITIVE DIFFERENTIAL YES; POSITIVE MORPHOLOGY YES; Platelet Count 255 K/mm3 (150-450); RBC Distribution Width CV 15.2 % (11.6-14.6); RBC Distribution Width SD 49.8 fl (35.1-43.9); Red Blood Count 4.51 M/mm3 (4.2-5.4); White Blood Count 10.6 K/mm3 (4.4-11.0)
[2025-06-28 15:31] LABS: Differential Indicated SCAN CRITERIA MET
[2025-06-28 15:43] LABS: Internal QC Validated? YES +Cl - CLEAR BKGD; Record Kit Lot#, Mono 13241430
[2025-06-28 22:56] LABS: Differential Comment SCANNED
[2025-06-30 08:07] LABS: HEPATITIS B SURFACE AG Negative (Negative); Hep C Antibodies Non Reactive (Non Reactive)
[2025-07-01 13:08] LABS: ANTINUCLEAR ANTIBODIES DIRECT Negative (Negative)
== END | disposition home or self-care (01) ==
LOC: LAB 13:44
PROVIDERS: PCP Physician Assistant; Referring Provider Physician Assistant; Visit Provider Physician Assistant
DX: R50.9 Fever, unspecified (principal)
CPT/HCPCS: 80074; 82728; 85025; 86038; 86140; 86225; 86235; 86308; 87040

== ENCOUNTER → 2025-07-12 | Outpatient (CLI) | payer OTHER, SELFPAY ==
[2025-07-12 06:43] LABS: Mucous, Urine 0 SEEN /hpf (<or=2+)
--- OUTSIDE RECORDS SUMMARY | 2025-07-12 06:44 | XMS RPT_ITS | CCD ---
Author Organization [facility] Care Team Providers Care Commercial Loan Manager Name Role Phone Bobo DIGGS, Vega Primary Care Provider Dr. Nikole Guillermo Attending Provider [phone] Bobo DIGGS, Vega Primary Care Provider Bobo DIGGS, Vega Primary Care Provider Vega DIVISION SUPERVISOR.ACID ETCH OPERATOR, Verónica Unavailable Dr. Nikole Guillermo MD Primary Care Provider Dr. Dave Carvalho DO Emergency Provider Dr. Nikole Guillermo MD Referring Provider Teo Martinez Attending Provider Teo Martinez Referring Provider Dr. Dave Carvalho DO Attending Provider Teo Martinez Primary Care Provider Mima DIGGS, Dr. Agustin Attending Provider Waycandy PA, Teo Attending Unavailable Nikole Guillermo Primary Care Unavailable Nikole Guillermo Referring Unavailable Wayt PA, Teo Referring Unavailable Nikole Guillermo Primary Care Unavailable Wayt PA, Teo Attending Unavailable Wayt PA, Teo Referring Unavailable Wayt PA, Teo Primary Care Unavailable Wayt PA, Teo Attending Unavailable Wayt PA, Teo Primary Care Unavailable Nikole Guillermo Attending Unavailable Nikole Guillermo Referring Unavailable Wayt PA, Teo Referring Unavailable Wayt PA, Teo Primary Care Unavailable Wayt PA, Teo Attending Unavailable Dave Carvalho Attending Unavailable Nikole Guillermo Primary Care Unavailable Allergies Allergy Classification Reported Allergen(s) Allergy Type Date of Onset Reaction(s) Facility (17 sources) Latex; Translations: [LATEX] Propensity to adverse reactions to drug (disorder) 8 Hives [facility] Other [place] [facility] (8 sources) Cephalexin Drug Allergy 8 Intolerance [facility] Work Phone: (7 sources) Amoxicillin Drug Allergy 4 yeast infections [facility] (2 sources) Sulfonamides (Antibiotic) Allergy to substance 5 Rash [facility] (1 source) Amoxicillin Drug Allergy 5 [facility] Repository (1 source) Sulfonamides (Antibiotic) Drug allergy (disorder) 5 [facility] Repository Medications Current Medications Medication Drug Class(es) Dates Sig (Normalized) Sig (Original) cephalexin 500 mg oral capsule (2 sources) Cephalosporin Antibacterial Start: 06-28-2025 take 1 capsule by mouth three times daily Cephalexin 500 mg capsule Active 500 mg PO THREE TIMES A DAY 30 0 June 28, 2025 12:00am cholecalciferol 0.125 mg oral capsule (6 sources) Vitamin D Start: 03-21-2024 take 1 capsule by mouth once daily Cholecalciferol (Vitamin D3) 125 mcg (5,000 unit) capsule Active 125 ug PO DAILY March 21, 2024 12:00am ciprofloxacin 500 mg oral tablet (4 sources) Quinolone Antimicrobial Start: 06-20-2025 take 1 tablet by mouth every twelve hours Ciprofloxacin Hcl (Cipro) 500 mg tablet Active 500 mg PO Q12H 10 0 June 20, 2025 12:00am Mecobalamin (Vitamin B12) 1,000 mcg lozenge (5 sources) Start: 06-19-2025 take 5000 ug by mouth once daily Mecobalamin (Vitamin B12) 1,000 mcg lozenge Active 5000 ug PO daily June 19, 2025 12:00am allow to dissolve in mouth OR may chew lightly before swallowing Completed/Discontinued Medications Medication Drug Class(es) Dates Sig [...] mg oral tablet (4 sources) l-Thyroxine Start: 07-05-20 End: 12-02-19 23 take 1 tablet by mouth once daily levothyroxine (SYNTHROID) 25 mcg tablet Indications: Low T4 Take 1 tablet by mouth once daily. 0 07/05/2019 12/02/2022 Discontinued Comment on above: Take 1 tablet by giselle once daily. lisinopril 5 mg oral tablet (7 sources) Angiotensin Converting Enzyme Inhibitor Start: 03-01-20 24 End: 06-19-20 25 take 1 tablet by mouth once daily Lisinopril 5 mg tablet Discontinued 5 mg PO DAILY 30 March 01, 2024 12:00am June 19, 2025 8:50am Problems Active Problems Problem Classification Problem Date Documented Da te Episodic/Chronic Abdominal hernia (6 sources) Inguinal hernia; Translations: [Unilateral inguinal hernia, without obstruction or gangrene, not specified as recurrent] 06-14-2025 Episodic Abdominal pain (20 sources) Nonspecific abdominal pain; Translations: [Unspecified abdominal pain] Onset: 06-27-2025 06-14-2025 Episodic Allergic reactions (8 sources) Flexural eczema; Translations: [Flexural eczema] Onset: 09-15-2018 09-15-2018 Chronic Essential hypertension (10 sources) Hypertensive disorder; Translations: [Essential (primary) hypertension] 03-21-2024 Chronic Comment on above: whitecoat Fever of unknown origin (9 sources) Fever; Translations: [Fever, unspecified] Onset: 07-04-2025 06-14-2025 Episodic Other diseases of bladder and urethra (5 sources) Hypertrophy of bladder; Translations: [Other specified disorders of bladder] 06-19-2025 Chronic Other endocrine disorders (14 sources) Polycystic ovary syndrome; Translations: [Polycystic ovarian syndrome] Onset: 09-15-2018 09-15-2018 Chronic Other gastrointestinal disorders (2 sources) Diarrhea; Translations: [Diarrhea, unspecified] 06-28-2025 Episodic Other nutritional; endocrine; and metabolic disorders (14 sources) Body mass index 40+ - severely obese; Translations: [Morbid (severe) obesity due to excess calories] Onset: 09-15-2018 09-15-2018 Chronic Other nutritional; endocrine; and metabolic disorders (8 sources) Metabolic syndrome X; Translations: [Metabolic syndrome] Onset: 09-15-2018 09-15-2018 Chronic Other nutritional; endocrine; and metabolic disorders (6 sources) Obesity; Translations: [Obesity, unspecified] 03-22-2024 Chronic Other upper respiratory infections (2 sources) Acute maxillary sinusitis; Translations: [Acute maxillary sinusitis, unspecified] Episodic Urinary tract infections (1 source) Acute cystitis without hematuria; Translations: [Acute cystitis without hematuria] Onset: 11-07-2018 Episodic Past or Other Problems Problem Classification Problem Date Documented Da te Episodic/Chronic Other circulatory disease (8 sources) Elevated blood-pressure reading without diagnosis of hypertension; Translations: [Elevated blood-pressure reading, without diagnosis of hypertension] Onset: 02-06-2019 02-06-2019 Episodic Other screening for suspected conditions (not mental disorders or infectious disease) (12 sources) Patient encounter status; Translations: [Encounter for screening mammogram for malignant neoplasm of breast] Onset: 02-06-2019 Episodic Unclassified (1 source) Patient encounter status 03-26-2025 Results Test Name Value Interpretation Reference Range Facility Culture, Blood (WB)on 2024 CUB No growth in 5 days. Normal [facility] Comment on above: Performed By: #### L 100.0100, L3000.0375, L700.5500, L501.6710, M200.1000, L503.6550, L3100.5450 ####[facility] [address] [place], [place], [id number] ADILENE w/ Reflex Mult Confirmon 07-02-2025 ANTI-DNA (DS)AB TNP [facility] Comment on above: Performed By: #### L 100.0100, L3000.0375, L700.5500, L501.6710, M200.1000, L503.6550, L3100.5450 ####[facility] [address] [place], [address] ANTI-SS-A TNP [facility] Comment on above: Performed By: #### L 100.0100, L3000.0375, L700.5500, L501.6710, M200.1000, L503.6550, L3100.5450 ####[facility] [address] [place], [place], [phone] ANTI-SS-B TNP [facility] Comment on above: Performed By: #### L 100.0100, L3000.0375, L700.5500, L501.6710, M200.1000, L503.6550, L3100.5450 ####[facility] [address] [place], [address] Hepatitis Panel Acuteon 06-14 COMMENT Comment Normal . [facility] Comment on above: Result Comment: Not infected with HCV unless early or acute infection is suspected (which may be delayed in an immunocompromised individual), or other evidence exists to indicate HCV infection. Performed at: [address] [id number] Industrial Maintenance Repairer Helper: Alberto Wills PhD, Phone: [phone] Performed By: #### L 100.0100, L3000.0375, L700.5500, L501.6710, M200.1000, L503.6550, L3100.5450 ####[facility] [address] [place], [place], [phone] HEP B CORE,IgM Negative Normal Negative [facility] Comment on above: Performed By: #### L 100.0100, L3000.0375, L700.5500, L501.6710, M200.1000, L503.6550, L3100.5450 ####[facility] [address] [place], [place], [phone] HEP B SURF AG Negative Normal Negative [facility] Comment on above: Performed By: #### L 100.0100, L3000.0375, L700.5500, L501.6710, M200.1000, L503.6550, L3100.5450 ####[facility] [address] [place], [address] HEP C VIRUS AB Non-Reactive Normal Non Reactive [facility] Comment on above: Performed By: #### L 100.0100, L3000.0375, L700.5500, L501.6710, M200.1000, L503.6550, L3100.5450 ####[facility] [address] [place], [place], [id number] HEPATITIS A-IgM Negative Normal Negative [facility] Comment on above: Result Comment: A ne gative anti-HAV IgM result suggests no recent or current HAV infection. Performed By: #### L 100.0100, L3000.0375, L700.5500, L501.6710, M200.1000, L503.6550, L3100.5450 ####[facility] [address] [place], [place], [phone] Absolute lymphocyte countOrd ered By: Teo Haider on 06-28-2025 Lymphocytes Auto (Unsp spec) [#/Vol] 7.15 10*3/uL High 0.83-4.51 [facility] Absolute neutrophil countOrd ered By: Teo Haider on 06-28-2025 Neutrophils (Bld) [#/Vol] 2.7 10*3/uL 2.0-7.7 [facility] Automated lymphocyte count a s percentage of total leukocytesOrdered By: Teo Haider on 06-28-2025 Lymphocytes/100 WBC Auto (Unsp spec) 67.6 % High 19-41 [facility] Basophil percentageOrdered B y: Teo Haider on 06-28-2025 Basophils/100 WBC (Bld) 1.6 % High 0-1 [facility] Blood cultureOrdered By: Daniel preethi Haider on 06-28-2025 Bacteria identified Cx Nom (Bld) No growth in 5 days. [facility] Blood manual differential co mment interpretation (narrative result)Ordered By: Teo Eastoncandy on 06-28-2025 Manual differential comment Chris (Bld) [Interp] SCANNED [facility] CBC W/Diff, Automatedon 06-14 PATH REV May foll Normal [facility] Comment on above: Order Comment: Plus a PERIPHERAL BLOOD SMEAR due to Intermittent fever ofunknown origin. Performed By: #### L 100.0100, L3000.0375, L700.5500, L501.6710, M200.1000, L503.6550, L3100.5450 ####[facility] [address] [place], [place], [id number] PLT EST ADEQUATE Normal ADEQ [facility] Comment on above: Order Comment: Plus a PERIPHERAL BLOOD SMEAR due to Intermittent fever ofunknown origin. Performed By: #### L 100.0100, L3000.0375, L700.5500, L501.6710, M200.1000, L503.6550, L3100.5450 ####[facility] [address] [place], [address] SMEAR COMMENT SCANNED Normal [facility] Comment on above: Order Comment: Plus a PERIPHERAL BLOOD SMEAR due to Intermittent fever ofunknown origin. Performed By: #### L 100.0100, L3000.0375, L700.5500, L501.6710, M200.1000, L503.6550, L3100.5450 ####[facility] [address] [place], [address] [facility] 06-28-2025 [facility] Telephone (4CQ) -------- JERSEY BETANCOURT ([id number]) 1975 F Date Time Provider Department 06/28/25 CYNTHIA LAURA 4CQ During your visit today, we recorded the following information about you: Nereyda Arroyo 06/28/2025 12:35 PM Signed Pt was seen at [facility] last week for high fever and pain, when ultrasound was done she stating they could not find her remaining ovary. Pt states she was highly recommended to see Dr. Laura. Please advise if we can work her in or if there is another provider to recommend as pt denied scheduling with anyone else until hearing from Lamine. Thank you Cynthia Laura MD 06/28/2025 2:04 PM Signed I am happy to see her in my next opening or on a wait list. Ok to see someone else. Not seeing an ovary generally means it is small as if there is a cyst or concern it would be enlarged and easier to see. Please schedule next available. MD Simon Verdin Jennifer, RN 06/28/2025 2:40 PM Signed Patient notified. Scheduled with [facility] in July and placed on a wait list. Gabrielle Montes RN Allergies As of Date: 06/28/2025 Noted Allergy Reaction KEFLEX (CEPHALEXIN) 11/10/2018 5 - Intolerance Comments: Severe headache and neck ache LATEX 09/15/2018 4 - Hives Date Reviewed: 11/09/2023 Reviewed by: Gibran Cruz PA-C - Fully Assessed Reason for Visit: Patient Question [6777] Meds Comments as of 07/03/2019: no medications 07/03/19 Holley Dean RN Problem List As Of Date 06/28/2025 Noted Resolved Obesity, Class III, BMI 40-49.9 (morbid obesity*09/15/2018 PCOS (polycystic ovarian syndrome) [E28.2] 09/15/2018 Metabolic syndrome [E88.810] 09/15/2018 Flexural eczema [L20.82] 09/15/2018 Elevated blood-pressure reading without diagnos*02/06/2019 Low T4 [R79.89] 02/06/2019 Encounter Status:Closed by GABRIELLE MONTES on 06/28/25 Normal [facility] CRPon 06-28-2025 C-REACTIVE PROT 43.10 mg/L High 0.0-3.0 [facility] Comment on above: Performed By: #### L 100.0100, L3000.0375, L700.5500, L501.6710, M200.1000, L503.6550, L3100.5450 ####[facility] [address] [place], [address] Eosinophil percentageOrdered By: Teo Haider on 06-28-2025 Eosinophils/100 WBC (Bld) 1.0 % 0-5 [facility] Erythrocyte distribution wid th ratioOrdered By: Teo Haider on 06-28-2025 Erythrocyte distribution width (RBC) [Ratio] 15.2 % High 11.6-14.6 [facility] Erythrocyte distribution wid th standard deviationOrdered By: Teo Haider on 06-28-2025 Erythrocyte distribution width (RBC) [Ratio] 49.8 fl High 35.1-43.9 [facility] Ferritinon 06-28-2025 Ferritin [Mass/Vol] 572 ng/mL High 22-378 [facility] Comment on above: Performed By: #### L 100.0100, L3000.0375, L700.5500, L501.6710, M200.1000, L503.6550, L3100.5450 ####[facility] [address] [place], [address] Hematocrit Auto (Bld) [Volum e fraction]Ordered By: Teo Haider on 06-28-2025 Hematocrit (Bld) [Volume fraction] 40.2 % 37-47 [facility] Hemoglobin measurementOrdere d By: Teo Haider on 06-28-2025 Hemoglobin (Bld) [Mass/Vol] 12.8 g/dL 12.0-15.0 [facility] Immature granulocytes/100 WB C Auto (Bld)Ordered By: Teo Haider on 06-28-2025 Immature granulocytes/100 WBC (Bld) 0.800 % 0.0-0.9 [facility] Comment on above: IG% - Immature Granu locytes (promyelocytes, myelocytes and metamyelocytes) > 1% indicates that a LEFT SHIFT is Present. MCV (mean corpuscular volume ) determinationOrdered By: Teo Haider on 06-28-2025 MCV (RBC) [Entitic vol] 89.1 fL 81-99 [facility] Mean corpuscular hemoglobin (MCH) determinationOrdered By: Teo Haider on 06-28-2025 MCH (RBC) [Entitic mass] 28.4 pg 27.0-32.0 [facility] Mean corpuscular hemoglobin concentration (MCHC) determinationOrdered By: Teo Haider on 06-28-2025 MCHC (RBC) [Mass/Vol] 31.8 g/dL Low 32-36 [facility] Mean platelet volume determi nationOrdered By: Teo Haider on 06-28-2025 Platelet mean volume (Bld) [Entitic vol] 10.0 fL 6.2-12.0 [facility] Monocyte percentageOrdered B y: Teo Haider on 06-28-2025 Monocytes/100 WBC (Bld) 3.8 % 0-10 [facility] Mon[place] 06-28-2025 Monocytes (Bld) [#/Vol] Negative Normal Negative [facility] Comment on above: Performed By: #### L 100.0100, L3000.0375, L700.5500, L501.6710, M200.1000, L503.6550, L3100.5450 ####[facility] [address] [place], [address] Neutrophil percentageOrdered By: Teo Haider on 06-28-2025 Neutrophils/100 WBC (Bld) 25.2 % Low 47-70 [facility] No Panel InformationOrdered By: Teo Haider on 06-28-2025 Hepatitis C Antibody Comment Comment . [facility] Comment on above: Not infected with HC V unless early or acute infection issuspected (which may be delayed in an immunocompromisedindividual), or other evidence exists to indicate HCVinfection.Performed at: [employer] [address] [id number] Director: Alberto Wills PhD, Phone: [phone] Nucleated red blood cell per centageOrdered By: Teo Haider on 06-28-2025 Nucleated RBC/100 WBC (Bld) [Ratio] 0 % 0-5 [facility] Platelet countOrdered By: Cinda Haider on 06-28-2025 Platelets (Bld) [#/Vol] 255 10*3/uL 150-450 [facility] Platelet estimateOrdered By: Teo Haider on 06-28-2025 Platelets LM Ql (Bld) ADEQUATE ADEQ [facility] RBC Auto (Bld) [#/Vol]Ordere d By: Teo Haider on 06-28-2025 RBC (Bld) [#/Vol] 4.51 10*6/uL 4.2-5.4 [facility] Review by pathologistOrdered By: Teo Haider on 06-28-2025 Pathologist review Chris (Unsp spec) [Interp] May foll [facility] Serum DNA double strand anti body assay (units/volume)Ordered By: Teo Haider on 06-28-2025 DNA double strand Ab Qn (S) TNP [facility] Comment on above: Test not performed Serum Scl-70 antibody assay (units/volume)Ordered By: Teo Haider on 08-15-2025 SCL-70 extractable nuclear Ab Qn (S) TNP [facility] Comment on above: Test not performed Serum heterophile antibody d etectionOrdered By: Teo Haider on 06-28-2025 Heterophile Ab Ql (S) Negative Negative [facility] Serum or plasma C reactive p rotein measurement (mass/volume)Ordered By: Teo Haider on 06-28-2025 CRP [Mass/Vol] 43.10 mg/L High 0.0-3.0 [facility] Serum or plasma ferritin michelle surement (mass/volume)Ordered By: Teo Haider on 06-28-2025 Ferritin [Mass/Vol] 572 ng/mL High 22-378 [facility] Serum or plasma hepatitis B virus surface antigen detection by immunoassayOrdered By: Teo Haider on 06-28-2025 HBV surface Ag IA Ql Negative Negative [facility] White blood cell (WBC) count Ordered By: Teo Haider on 06-28-2025 WBC (Bld) [#/Vol] 10.6 10*3/uL 4.4-11.0 [facility] Urine Cultureon 06-27-2025 URC Mixed Gram Positive Organisms [place] Count 80,000-100,000 MIXC Mixed contaminants. Submit a new specimen if indicated. Normal [facility] Comment on above: Performed By: #### M 200.1000 #### [facility] [address] [place], [address] Bilirubin Test strip Ql (U)O rdered By: Nikolederrick Guillermo on 06-25-2025 Bilirubin Ql (U) Negative Negative [facility] Ketones Test strip Ql (U)Ord ered By: Nikole [place] on 06-25-2025 Ketones Ql (U) Negative Negative [facility] Microscopic analysis of urin e for red blood cells (RBC)Ordered By: Nikole Guillermo on 06-25-2025 Microscopic analysis of urine for red blood cells (RBC) 0 SEEN /hpf 0-5 [facility] Mucus LM Ql (Urine sed)Order ed By: Nikole Guillermo on 06-25-2025 Mucus Ql (Urine sed) 0 SEEN /hpf [facility] Nitrite Test strip Ql (U)Ord ered By: Nikole Guillermo on 06-25-2025 Nitrite Ql (U) Negative Negative [facility] Protein Test strip Ql (U)Ord ered By: Nikole Guillermo on 06-25-2025 Protein Ql (U) 30 mg/dl High Negative [facility] Squamous epithelial cells de tection in urine sediment by light microscopyOrdered By: Nikole Guillermo on 06-25-2025 Epithelial cells.squamous LM Ql (Urine sed) 0-5 SEEN /hpf 5-10 [facility] Urinalysis, Completeon 06-25 BACTERIA 2+ /hpf Normal None Seen [facility] Comment on above: Order Comment: RADHA CTOR TO SPECIFY Performed By: #### M 200.1000 #### [facility] [address] [place], [address] EPI,SQUAMOUS 0-5 SEEN Normal 5-10 [facility] Comment on above: Order Comment: RADHA CTOR TO SPECIFY Performed By: #### M 200.1000 #### [facility] [address] [place], [address] Mucus Ql (Urine sed) 0 SEEN Normal [facility] Comment on above: Order Comment: RADHA CTOR TO SPECIFY Performed By: #### M 200.1000 #### [facility] [address] [place], [address] RBC 0 SEEN Normal 0-5 [facility] Comment on above: Order Comment: RADHA CTOR TO SPECIFY Performed By: #### M 200.1000 #### [facility] [address] [place], [address] WBC 0 SEEN Normal 0-5 [facility] Comment on above: Order Comment: RADHA CTOR TO SPECIFY Performed By: #### M 200.1000 #### [facility] [address] [place], [address] Urine clarityOrdered By: Usama Guillermo on 06-25-2025 Clarity (U) Sl. Cloudy Clear [facility] Urine color determinationOrd ered By: Nikole Guillermo on 06-25-2025 Color (U) Yellow Yellow [facility] Urine cultureOrdered By: Usama Guillermo on 06-25-2025 Bacteria identified Cx Nom (U) Positive Abnormal [facility] Urine glucose detectionOrder ed By: Nikole Guillermo on 06-25-2025 Glucose Ql (U) Normal mg/dl Normal [facility] Urine leukocyte esterase det ection by dipstickOrdered By: Nikole Guillermo on 06-25-2025 Leukocyte esterase Test strip Ql (U) Negative Negative [facility] Urine pHOrdered By: Nikole Cherry indjeff on 06-25-2025 pH (U) 6.0 [pH] 5.0 - 8.0 [facility] Urine sediment bacteria coun t by microscopy (number/high power field)Ordered By: Nikole Guillermo on 06-25-2025 Bacteria LM.HPF (Urine sed) [#/Area] 2 /[HPF] None Seen [facility] Urine specific gravity measu rementOrdered By: Nikole Guillermo on 06-25-2025 Specific gravity (U) [Rel density] 1.020 1.002-1.030 [facility] Urine urobilinogen measureme ntOrdered By: Nikole Guillermo on 06-25-2025 Urobilinogen Ql (U) Normal mg/dl Normal [facility] White blood cell countOrdere d By: Nikole Guillermo on 06-25-2025 White blood cell count 0 SEEN /hpf 0-5 [facility] Urine Cultureon 06-21-2025 URC Mixed Gram Positive Organisms [place] Count 80,000-100,000 [facility] Mixed contaminants. Submit a new specimen if indicated. Normal [facility] Comment on above: Performed By: #### M 200.1000 #### [facility] [address] [place], [place], [id number] Absolute lymphocyte countOrd ered By: Teo Haider on 06-19-2025 Lymphocytes Auto (Unsp spec) [#/Vol] 3.91 10*3/uL 0.83-4.51 [facility] Absolute neutrophil countOrd ered By: Teo Haider on 06-19-2025 Neutrophils (Bld) [#/Vol] 3.5 10*3/uL 2.0-7.7 [facility] Anion gap in Serum or Plasma Ordered By: Teo Haider on 06-19-2025 Anion gap [Moles/Vol] 14 mmol/L 5-15 [facility] Automated lymphocyte count a s percentage of total leukocytesOrdered By: Teo Haider on 06-19-2025 Lymphocytes/100 WBC Auto (Unsp spec) 48.5 % High 19-41 [facility] BUN/creatinine ratioOrdered By: Teo Haider on 06-19-2025 Urea nitrogen/Creatinine [Mass ratio] 12.1 mg/mg 10-20 [facility] Basophil percentageOrdered B y: Teo Haider on 06-19-2025 Basophils/100 WBC (Bld) 1.0 % 0-1 [facility] Bilirubin Test strip Ql (U)O rdered By: Teo Haider on 06-19-2025 Bilirubin Ql (U) 1 mg/dL High Negative [facility] Comment on above: YCOLOR OF URINE MAY AFFECT DIPSTICK RESULTS. Bilirubin, totalOrdered By: Teo Haider on 06-19-2025 Bilirubin [Mass/Vol] 0.55 mg/dL 0.00-1.30 [facility] Blood manual differential co mment interpretation (narrative result)Ordered By: Teo Haider on 06-19-2025 Manual differential comment Chris (Bld) [Interp] SCANNED [facility] CBC W/Diff, Automatedon REACTIVE LYMPH 1+ Normal [facility] Comment on above: Performed By: #### M 200.1000 #### [facility] [address] [place], [place], [id number] SMEAR COMMENT SCANNED Normal [facility] Comment on above: Performed By: #### M 200.1000 #### [facility] [facility] [address] [place], [address] CRPon 06-19-2025 C-REACTIVE PROT 76.20 mg/L High 0.0-3.0 [facility] Comment on above: Performed By: #### M 200.1000 #### [facility] [address] [place], [address] Carbon dioxide, total [Moles /volume] in Central venous bloodOrdered By: Toe Haider on 06-19-2025 CO2 [Moles/Vol] 23.9 mmol/L 21.0-32.0 [facility] Chloride assayOrdered By: Cinda Haider on 06-19-2025 Chloride [Moles/Vol] 101 mmol/L 98-108 [facility] Comprehensive Metabolic Prof ilon 06-19-2025 Albumin [Mass/Vol] 4.0 g/dL Normal 3.5-5.0 [facility] Comment on above: Performed By: #### M 200.1000 #### [facility] [address] [place], [address] Albumin/Globulin [Mass ratio] 1.1 {ratio} Normal 0.9-2.4 [facility] Comment on above: Performed By: #### M 200.1000 #### [facility] [address] [place], [address] ALK PHOS 118 U/L High 35-104 [facility] Comment on above: Performed By: #### M 200.1000 #### [facility] [address] [place], [address] ALT [Catalytic activity/Vol] 60 U/L High <=34 [facility] Comment on above: Performed By: #### M 200.1000 #### [facility] [address] [place], [address] AST [Catalytic activity/Vol] 52 U/L High <=31 [facility] Comment on above: Performed By: #### M 200.1000 #### [facility] [address] [place], [address] Bilirubin [Mass/Vol] 0.55 mg/dL Normal 0.00-1.30 [facility] Comment on above: Performed By: #### M 200.1000 #### [facility] [address] [place], [address] BUN/CRE 12.1 RATIO Normal 10-20 [facility] Comment on above: Performed By: #### M 200.1000 #### [facility] [address] [place], [address] Calcium [Mass/Vol] 9.8 mg/dL Normal 7.6-11.0 [facility] Comment on above: Performed By: #### M 200.1000 #### [facility] [address] [place], [address] Chloride [Moles/Vol] 101 mmol/L Normal 98-108 [facility] Comment on above: Performed By: #### M 200.1000 #### [facility] [address] [place], [address] CO2 [Moles/Vol] 23.9 mmol/L Normal 21.0-32.0 [facility] Comment on above: Performed By: #### M 200.1000 #### [facility] [address] [place], [address] Creatinine [Mass/Vol] 1.21 mg/dL High 0.70-1.20 [facility] Comment on above: Performed By: #### M 200.1000 #### [facility] [address] [place], [address] GAP 14 Normal 5-15 [facility] Comment on above: Performed By: #### M 200.1000 #### [facility] [address] [place], [address] GFR/1.73 sq M.predicted among non-blacks MDRD (S/P/Bld) [Vol rate/Area] 55 mL/min/{1.73_m2} Low >60 [facility] Comment on above: Result Comment: mL/m in/1.73m2 CKD-EPI Creatinine Equation (2020) Performed By: #### M 200.1000 #### [facility] [address] [place], [address] Globulin (S) [Mass/Vol] 3.7 g/dL Normal 2.2-4.2 [facility] Comment on above: Performed By: #### M 200.1000 #### [facility] [address] [place], [address] Glucose [Mass/Vol] 112 mg/dL High 70-99 [facility] Comment on above: Performed By: #### M 200.1000 #### [facility] [address] [place], [address] Potassium [Moles/Vol] 3.6 mmol/L Normal 3.3-5.1 [facility] Comment on above: Performed By: #### M 200.1000 #### [facility] [address] [place], [address] Sodium [Moles/Vol] 139 mmol/L Normal 133-145 [facility] Comment on above: Performed By: #### M 200.1000 #### [facility] [address] [place], [address] T PROT 7.7 g/dL Normal 5.9-8.4 [facility] Comment on above: Performed By: #### M 200.1000 #### [facility] [address] [place], [address] Urea nitrogen [Mass/Vol] 15 mg/dL Normal 4-19 [facility] Comment on above: Performed By: #### M 200.1000 #### [facility] [address] [place], [address] Culture, Blood (WB)on 2024 CUB Blood cultures x2, f rom two different sites No growth in 5 days. Normal [facility] Comment on above: Performed By: #### M 200.1000 #### [facility] [place], [address] Eosinophil percentageOrdered By: Teo Haider on 06-19-2025 Eosinophils/100 WBC (Bld) 1.0 % 0-5 [facility] Erythrocyte distribution wid th ratioOrdered By: Teo Haider on 06-19-2025 Erythrocyte distribution width (RBC) [Ratio] 13.9 % 11.6-14.6 [facility] Erythrocyte distribution wid th standard deviationOrdered By: Teo Haider on 06-19-2025 Erythrocyte distribution width (RBC) [Ratio] 44.8 fl High 35.1-43.9 [facility] Glomerular filtration rate ( GFR) estimation/1.73 sq m using serum, plasma, or whole bOrdered By: Teo Haider on 06-19-2025 GFR/1.73 sq M.predicted among non-blacks MDRD (S/P/Bld) [Vol rate/Area] 55 mL/min/{1.73_m2} Low >60 [facility] Comment on above: mL/min/1.73m2 CKD-EP I Creatinine Equation (2020) Hematocrit Auto (Bld) [Volum e fraction]Ordered By: Teo Haider on 06-19-2025 Hematocrit (Bld) [Volume fraction] 43.6 % 37-47 [facility] Hemoglobin measurementOrdere d By: Teo Haider on 06-19-2025 Hemoglobin (Bld) [Mass/Vol] 14.0 g/dL 12.0-15.0 [facility] Immature granulocytes/100 WB C Auto (Bld)Ordered By: Teo Haider on 06-19-2025 Immature granulocytes/100 WBC (Bld) 1.700 % High 0.0-0.9 [facility] Comment on above: IG% - Immature Granu locytes (promyelocytes, myelocytes and metamyelocytes) > 1% indicates that a LEFT SHIFT is Present. Internal Medicine Office Vis corey 06-19-2025 Internal Medicine Office Visit [facility] [place], [place] [address] OFFICE VISIT Date of Service: 06/19/25 MR#: [id number] Acct: [id number] Name: JERSEY BETANCOURT Rep #: [id number] : 1975 Provider: JUDY Arce Age/Sex: 49/F Location: [facility] [place] Status: Signed Intake Vital Signs 06/14/25 05:22 06/19/25 08:46 Height 5 ft 1 in 5 ft 1 in Weight: 263 lb BMI 49.6 BP 142/98 H Blood Pressure Location Lt brachial Position Sitting Respiration 16 Pulse 115 H Pulse Source Monitor Temp 96.7 F L Temp Source Temporal Pulse Oximetry (%) 115 Oxygen Delivery Method room air Intake Visit Reasons: DIARRHEA / FEVER / CHILLS Chief Complaint: no diarrhea does have fever abdominal pain Investigative Analyst Required: No Accompanied by: Self Is patient in pain?: No Allergies latex Allergy (Intermediate, Verified 06/19/25 08:42) Hives amoxicillin Adverse Reaction (Mild, Verified 06/19/25 08:42) yeast infections Medications ???Medication ???Instructions ???Recorded ???Confirmed ???Type cholecalciferol (vitamin D3) 125 125 mcg PO DAILY 03/21/24 06/19/25 History mcg (5,000 unit) capsule mecobalamin (vitamin B12) 1,000 5,000 mcg PO QDAY 06/19/25 5 History mcg lozenges Nurse's Note: * over a week with fever and abdominal pain was seen in ER pain is in lower right quadrant temp was 103.9 this am prior to taking motrin PFSH Medical History Bronchitis Migraine Ovarian tumor PCOS (polycystic ovarian syndrome) Surgical History Hx of LASIK H/O hysterectomy with unilateral oophorectomy H/O sinus surgery History of ankle surgery Family History Father Cancer lung Sponge kidney Grandmother Cancer colon Hypertension Heart disease Mother CVA (cerebral vascular accident) Hypertension Hyperlipemia Grandfather Alcoholism Grandfather Heart disease CVA (cerebral vascular accident) Grandmother Cancer pancreatic Social History adopted: No household members: spouse number of children: 2 current occupational status: employed current occupation: [employer] pets and animals: Yes pets and animals: cat(s) Smoking Status: Never smoker Electronic Cigarette Use: not used alcohol intake: current alcohol intake frequency: a few times a month substance use type: does not use diet: gluten free caffeine: Yes (2) Type: tea frequency: daily seatbelt use: always do you feel safe at home: Yes 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 She states that there has not really been any pattern to it. She has not had any aggravating or alleviating factors. She has not noticed a relationship to food. She states that she hasn't had any vomiting and really hasn't had much nausea. She denies any diarrhea. She has had an on and off fever since last Tuesday. She notices this worse at night. She went to the ER last week and had CT scan and labs. ROS Const Constitutional: No body ache, excessive sweating, fatigue, fever(s), frequent falls, headache(s), snoring, weakness, weight change, sleep problems or change in appetite Eyes Eyes: No blurry vision, change in vision, eye pain or Light sensitivity ENT ENT: No abnormal hearing, ear or mastoid pain, tinnitus, nasal congestion, headache(s), neck pain or sore throat Resp Respiratory: No cough, shortness of breath, snoring or wheezing Cardio Cardiology: No chest pain at rest, chest pain with exertion, excessive sweating, shortness of breath, dyspnea on exertion, lightheadedness, orthopnea or palpitations Gastro GI: No abdominal pain, change in bowel habits, constipation, cramping, diarrhea, nausea/dyspepsia or vomiting Genitourinary-Female: No burning urination, painful urination, urinary incontinence, urinary frequency, blood in urine, abnormal periods or pelvic pain Musc Musculoskeletal: No abnormal gait, joint pain, back pain, limited range of motion, neck pain, numbness, stiffness, tingling or Arthritis Skin Skin: No dry skin, redness, lesions, itchy eyes, rash or wounds Neuro Neurology: No abnormal gait, abnormal hearing, abnormal speech, dizziness, weakness, frequent falls, headache(s), memory loss, numbness or tingling Psych Psychiatric: No anxiety, No change in appetite, No depression, No memory loss and No Thoughts of harming yourself/Others Endo Endocrine: No cold intolerance, excessive sweating, fatigue, flushing, heat intoler (more content not included)... Normal [facility] Ketones Test strip Ql (U)Ord ered By: Teo Haider on 06-19-2025 Ketones Ql (U) 5 mg/dl High Negative [facility] - Chemistry and C hemistry - challengeOrdered By: Teo Haider on 06-19-2025 AST [Catalytic activity/Vol] 52 U/L High <32 [facility] MCV (mean corpuscular volume ) determinationOrdered By: Teo Haider on 06-19-2025 MCV (RBC) [Entitic vol] 88.8 fL 81-99 [facility] Mean corpuscular hemoglobin (MCH) determinationOrdered By: Teo Haider on 06-19-2025 MCH (RBC) [Entitic mass] 28.5 pg 27.0-32.0 [facility] Mean corpuscular hemoglobin concentration (MCHC) determinationOrdered By: Teo Haider on 06-19-2025 MCHC (RBC) [Mass/Vol] 32.1 g/dL 32-36 [facility] Mean platelet volume determi nationOrdered By: Teo Haider on 06-19-2025 Platelet mean volume (Bld) [Entitic vol] 10.1 fL 6.2-12.0 [facility] Microscopic analysis of urin e for red blood cells (RBC)Ordered By: Teo Haider on 06-19-2025 Microscopic analysis of urine for red blood cells (RBC) 0-5 SEEN /hpf 0-5 [facility] Monocyte percentageOrdered B y: Teo Haider on 06-19-2025 Monocytes/100 WBC (Bld) 4.1 % 0-10 [facility] Mucus LM Ql (Urine sed)Order ed By: Teo Haider on 06-19-2025 Mucus Ql (Urine sed) 1+ /hpf [facility] Neutrophil percentageOrdered By: Teo Haider on 06-19-2025 Neutrophils/100 WBC (Bld) 43.7 % Low 47-70 [facility] Nitrite Test strip Ql (U)Ord ered By: Teo Haider on 06-19-2025 Nitrite Ql (U) Negative Negative [facility] Nucleated red blood cell per centageOrdered By: Teo Haider on 06-19-2025 Nucleated RBC/100 WBC (Bld) [Ratio] 0 % 0-5 [facility] Pelvic (Non )on 08 Pelvic (Non ) [facility] [address] [place] [address] Pelvic (Non ) MR#: [id number] Acct: [id number] Name: JERSEY BETANCOURT Rep #: [id number] : 1975 F 49 From: Teo Nassar MD PCP: JUDY Arce Status: REG CLI Study: Pelvic (Non ) Date of Exam: 06/19/25 Exam# [id number] Ordering Dr: Teo Haider PROCEDURE: PELVIC (NON ) 06/19/2025 REASON FOR EXAM: ABDOMINAL TECHNIQUE: PELVIC (NON ) COMPARISON: 06/14/2025 CT. FINDINGS: Uterus is surgically absent. The right ovary is not visualized and may be surgically absent. The left ovary is not visualized and may be surgically absent. No fluid in the cul-de-sac. No adnexal masses. Urinary bladder volume of 166 cc. US/Pelvic (Non ) IMPRESSION: Status post hysterectomy. Bilateral ovaries are not visualized and may be surgically absent. Correlate with surgical history. No adnexal masses. No free fluid. Reading Location: [id number] CC: JUDY Arce Allied Health Professional: Signed Normal [facility] Platelet countOrdered By: Cinda Haider on 06-19-2025 Platelets (Bld) [#/Vol] 167 10*3/uL 150-450 [facility] Potassium measurement (mass/ volume)Ordered By: Teo Haider on 06-19-2025 Potassium (Unsp spec) [Mass/Vol] 3.6 mmol/L 3.3-5.1 [facility] Protein Test strip Ql (U)Ord ered By: Teo Haider on 06-19-2025 Protein Ql (U) 100 mg/dl High Negative [facility] RBC Auto (Bld) [#/Vol]Ordere d By: Teo Haider on 06-19-2025 RBC (Bld) [#/Vol] 4.91 10*6/uL 4.2-5.4 [facility] Serum creatinine measurement (mass/volume)Ordered By: Teo Haider on 06-19-2025 Creatinine [Mass/Vol] 1.21 mg/dL High 0.70-1.20 [facility] Serum globulin measurementOr dered By: Teo Haider on 06-19-2025 Globulin (S) [Mass/Vol] 3.7 g/dL 2.2-4.2 [facility] Serum glucose measurement (m ass/volume)Ordered By: Teo Haider on 06-19-2025 Glucose [Mass/Vol] 112 mg/dL High 70-99 [facility] Serum or plasma C reactive p rotein measurement (mass/volume)Ordered By: Teo Haider on 06-19-2025 CRP [Mass/Vol] 76.20 mg/L High 0.0-3.0 [facility] Serum or plasma alanine lopez otransferase (ALT) measurementOrdered By: Teo Haider on 06-19-2025 ALT [Catalytic activity/Vol] 60 U/L High <35 [facility] Serum or plasma albumin carter urement (mass/volume)Ordered By: Teo Haider on 06-19-2025 Albumin [Mass/Vol] 4.0 g/dL 3.5-5.0 [facility] Serum or plasma albumin/glob ulin mass ratioOrdered By: Teo Haider on 06-19-2025 Albumin/Globulin [Mass ratio] 1.1 {ratio} 0.9-2.4 [facility] Serum or plasma alkaline brittany sphatase measurementOrdered By: Teo Haider on 06-19-2025 ALP [Catalytic activity/Vol] 118 U/L High 35-104 [facility] Serum or plasma calcium carter urement (mass/volume)Ordered By: Teo Haider on 06-19-2025 Calcium [Mass/Vol] 9.8 mg/dL 7.6-11.0 [facility] Serum or plasma urea nitroge n measurement (mass/volume)Ordered By: Teo Haider on 06-19-2025 Urea nitrogen [Mass/Vol] 15 mg/dL 4-19 [facility] Sodium levelOrdered By: Ernie Haider on 06-19-2025 Sodium [Moles/Vol] 139 mmol/L 133-145 [facility] Squamous epithelial cells de tection in urine sediment by light microscopyOrdered By: Teo Haider on 06-19-2025 Epithelial cells.squamous LM Ql (Urine sed) 10-25 SEEN /hpf -10 [facility] Total proteinOrdered By: Daniel Haider on 06-19-2025 Protein [Mass/Vol] 7.7 g/dL 5.9-8.4 [facility] Urinalysis, Completeon 06-19 BACTERIA 2+ /hpf Normal None Seen [facility] Comment on above: Order Comment: CLEAN CATCH Performed By: #### M 200.1000 #### [facility] [address] [place], [place], [id number] EPI,SQUAMOUS 10-25 SEEN Normal - [facility] Comment on above: Order Comment: CLEAN CATCH Performed By: #### M 200.1000 #### [facility] [address] [place], [place], [id number] Mucus Ql (Urine sed) 1+ /hpf Normal [facility] Comment on above: Order Comment: CLEAN CATCH Performed By: #### M 200.1000 #### [facility] [address] [place], [address] RBC 0-5 SEEN Normal 0-5 [facility] Comment on above: Order Comment: CLEAN CATCH Performed By: #### M 200.1000 #### [facility] [address] [place], [place], [id number] WBC 0-5 SEEN Normal 0-5 [facility] Comment on above: Order Comment: CLEAN CATCH Performed By: #### M 200.1000 #### [facility] [address] [place], [place], [id number] Urine clarityOrdered By: Daniel Haider on 06-19-2025 Clarity (U) Sl. Cloudy Clear [facility] Urine color determinationOrd ered By: Teo Haider on 06-19-2025 Color (U) Yellow Yellow [facility] Urine cultureOrdered By: Daniel Haider on 06-19-2025 Bacteria identified Cx Nom (U) Positive Abnormal [facility] Urine glucose detectionOrder ed By: Teo Haider on 06-19-2025 Glucose Ql (U) Normal mg/dl Normal [facility] Urine leukocyte esterase det ection by dipstickOrdered By: Teo Haider on 06-19-2025 Leukocyte esterase Test strip Ql (U) 25 /ul High Negative [facility] Urine pHOrdered By: Teo Haider on 06-19-2025 pH (U) 6.0 [pH] 5.0 - 8.0 [facility] Urine sediment bacteria coun t by microscopy (number/high power field)Ordered By: Teo Haider on 06-19-2025 Bacteria LM.HPF (Urine sed) [#/Area] 2 /[HPF] None Seen [facility] Urine specific gravity measu rementOrdered By: Teo Haider on 06-19-2025 Specific gravity (U) [Rel density] 1.020 1.002-1.030 [facility] Urine urobilinogen measureme ntOrdered By: Teo Haider on 06-19-2025 Urobilinogen Ql (U) 1 mg/dl High Normal [facility] White blood cell (WBC) count Ordered By: Teo Haider on 06-19-2025 WBC (Bld) [#/Vol] 8.1 10*3/uL 4.4-11.0 [facility] White blood cell countOrdere d By: Teo Haider on 06-19-2025 White blood cell count 0-5 SEEN /hpf 0-5 [facility] Abdomen/Pelvis W IV Cont ONL Yon 06-14-2025 Abdomen/Pelvis W IV Cont ONLY [facility] Imaging Services [address] [place], [place] [id number] Abdomen/Pelvis W IV Cont ONLY MR#: [id number] Acct: [id number] Name: JERSEY BETANCOURT Rep #: [id number] : 1975 F 49 From: Basil Ledezma PCP: Dr. Nikole Guillermo MD Status: REG ER Study: Abdomen/Pelvis W IV Cont ONLY Date of Exam: Exam# [id number] Ordering Dr: Dave Carvalho DO PROCEDURE: ABDOMEN/PELVIS W IV CONT ONLY 06/14/2025 REASON FOR EXAM: RLQ PAIN TECHNIQUE: ABDOMEN/PELVIS W IV CONT ONLY Coronal and Sagittal reconstruction series were provided. CONTRAST: 100 mL of Isovue 370 One or more dose reduction techniques were used (e.g., Automated exposure control, adjustment of the mA and/or kV according to patient size, use of iterative reconstruction technique. RADIATION DOSE SUMMARY: DLP: 1242 mGycm COMPARISON: None FINDINGS: Limited sections of the lung bases demonstrate no focal pulmonary mass or consolidations. The liver, spleen, pancreas, and both adrenal glands demonstrate no acute findings. Minimal hepatic steatosis. The gallbladder is unremarkable. The stomach is unremarkable. The small bowel loops are not dilated. The appendix is normal. No colonic obstruction. Colonic diverticulosis without acute diverticulitis. There is no free air or significant free fluid. The kidneys are unremarkable. Mildly thickened urinary bladder wall which may reflect cystitis vs nondistention; consider correlation with urinalysis. The pelvic structures are intact. There is no solid pelvic mass. No significant lymphadenopathy. The aorta and IVC demonstrate no acute findings. Visualized osseous structures demonstrate no acute abnormality. Small fat containing right inguinal hernia. CT/Abdomen/Pelvis W IV Cont ONLY IMPRESSION: Normal appendix. Colonic diverticulosis without acute diverticulitis. No bowel obstruction. Mildly thickened urinary bladder wall which may reflect cystitis vs nondistention; consider correlation with urinalysis. Reading Location: [id number] CC: Dr. Nikole Guillermo MD; Dave Carvalho DO Allied Health Professional: Signed Normal [facility] Absolute lymphocyte countOrd ered By: Dave Carvalho on 06-14-2025 Lymphocytes Auto (Unsp spec) [#/Vol] 1.64 10*3/uL 0.83-4.51 [facility] Absolute neutrophil countOrd ered By: Dave Carvalho on 06-14-2025 Neutrophils (Bld) [#/Vol] 2.4 10*3/uL 2.0-7.7 [facility] Anion gap in Serum or Plasma Ordered By: Dave Carvalho on 06-14-2025 Anion gap [Moles/Vol] 10 mmol/L 5-15 [facility] Automated lymphocyte count a s percentage of total leukocytesOrdered By: Dave Carvalho on 06-14-2025 Lymphocytes/100 WBC Auto (Unsp spec) 35.1 % 19-41 [facility] BUN/creatinine ratioOrdered By: Dave Carvalho on 06-14-2025 Urea nitrogen/Creatinine [Mass ratio] 11.4 mg/mg 10- [facility] Basic Metabolic Profile (BMP )on 06-14-2025 BUN/CRE 11.4 RATIO Normal - [facility] Comment on above: Performed By: #### L 100.0100, L509.7001, L503.6005, L500.2500, L501.2450, L500.3400 #### [facility] [address] [place], [address] Calcium [Mass/Vol] 9.1 mg/dL Normal 7.6-11.0 [facility] Comment on above: Performed By: #### L 100.0100, L509.7001, L503.6005, L500.2500, L501.2450, L500.3400 #### [facility] [address] [place], [address] Chloride [Moles/Vol] 100 mmol/L Normal 98-108 [facility] Comment on above: Performed By: #### L 100.0100, L509.7001, L503.6005, L500.2500, L501.2450, L500.3400 #### [facility] [address] [place], [address] CO2 [Moles/Vol] 26.9 mmol/L Normal 21.0-32.0 [facility] Comment on above: Performed By: #### L 100.0100, L509.7001, L503.6005, L500.2500, L501.2450, L500.3400 #### [facility] [address] [place], [address] Creatinine [Mass/Vol] 1.00 mg/dL Normal 0.70-1.20 [facility] Comment on above: Performed By: #### L 100.0100, L509.7001, L503.6005, L500.2500, L501.2450, L500.3400 #### [facility] [address] [place], [address] ECRCL 82.83 ml/min Normal 50-250 [facility] Comment on above: Performed By: #### L 100.0100, L509.7001, L503.6005, L500.2500, L501.2450, L500.3400 #### [facility] [address] [place], [address] GAP 10 Normal 5-15 [facility] Comment on above: Performed By: #### L 100.0100, L509.7001, L503.6005, L500.2500, L501.2450, L500.3400 #### [facility] [address] [place], [address] GFR/1.73 sq M.predicted among non-blacks MDRD (S/P/Bld) [Vol rate/Area] 69 mL/min/{1.73_m2} Normal >60 [facility] Comment on above: Result Comment: mL/m in/1.73m2 CKD-EPI Creatinine Equation (2020) Performed By: #### L 100.0100, L509.7001, L503.6005, L500.2500, L501.2450, L500.3400 #### [facility] [address] [place], [address] Glucose [Mass/Vol] 135 mg/dL High 70-99 [facility] Comment on above: Performed By: #### L 100.0100, L509.7001, L503.6005, L500.2500, L501.2450, L500.3400 #### [facility] [address] [place], [address] Potassium [Moles/Vol] 4.2 mmol/L Normal 3.3-5.1 [facility] Comment on above: Performed By: #### L 100.0100, L509.7001, L503.6005, L500.2500, L501.2450, L500.3400 #### [facility] [address] [place], [address] Sodium [Moles/Vol] 138 mmol/L Normal 133-145 [facility] Comment on above: Performed By: #### L 100.0100, L509.7001, L503.6005, L500.2500, L501.2450, L500.3400 #### [facility] [address] [place], [address] Urea nitrogen [Mass/Vol] 11 mg/dL Normal 4-19 [facility] Comment on above: Performed By: #### L 100.0100, L509.7001, L503.6005, L500.2500, L501.2450, L500.3400 #### [facility] [address] [place], [address] Basophil percentageOrdered B y: Dave Carvalho on 06-14-2025 Basophils/100 WBC (Bld) 1.3 % High 0-1 [facility] Bilirubin Test strip Ql (U)O rdered By: Dave Carvalho on 06-14-2025 Bilirubin Ql (U) Negative Negative [facility] Bilirubin directOrdered By: Dvae Carvalho on 06-14-2025 Bilirubin.direct [Mass/Vol] 0.14 mg/dL 0.00-0.30 [facility] Bilirubin, totalOrdered By: Dave Carvalho on 06-14-2025 Bilirubin [Mass/Vol] 0.39 mg/dL 0.00-1.30 [facility] Blood cultureOrdered By: Avelino Carvalho on 06-14-2025 Bacteria identified Cx Nom (Bld) No growth in 5 days. [facility] Bacteria identified Cx Nom (Bld) No growth in 5 days. [facility] Blood manual differential co mment interpretation (narrative result)Ordered By: Dave Carvalho on 06-14-2025 Manual differential comment Chris (Bld) [Interp] SCANNED [facility] CBC W/Diff, Automatedon ATYPICAL LYMPH RARE Normal [facility] Comment on above: Performed By: #### L 100.0100, L509.7001, L503.6005, L500.2500, L501.2450, L500.3400 #### [facility] [address] [place], [place], [id number] SMEAR COMMENT SCANNED Normal [facility] Comment on above: Performed By: #### L 100.0100, L509.7001, L503.6005, L500.2500, L501.2450, L500.3400 #### [facility] [address] [place], [place], [id number] Carbon dioxide, total [Moles /volume] in Central venous bloodOrdered By: Dave Carvalho on 06-14-2025 CO2 [Moles/Vol] 26.9 mmol/L 21.0-32.0 [facility] Chest PA and Lateralon 06-14 Chest PA and Lateral [facility] Imaging Services [address] [place], [place] [id number] Chest PA and Lateral MR#: [id number] Acct: [id number] Name: JERSEY BETANCOURT Rep #: [id number] : 1975 F 49 From: Basil Ledezma PCP: Dr. Nikole Guillermo MD Status: REG ER Study: Chest PA and Lateral Date of Exam: 06/14/25 Exam# [id number] Ordering Dr: Dave Carvalho DO PROCEDURE: CHEST PA AND LATERAL 06/14/2025 REASON FOR EXAM: FEVER TECHNIQUE: CHEST PA AND LATERAL COMPARISON: none FINDINGS: No focal consolidation. No pleural effusion or pneumothorax. Cardiac silhouette is within normal limits. No acute fractures. RAD/Chest PA and Lateral IMPRESSION: No focal consolidations. Reading Location: [facility] CC: Dr. Nikole Guillermo MD; Dave Carvalho DO Allied Health Professional: Signed Normal [facility] Chloride assayOrdered By: Swathi Carvalho on 06-14-2025 Chloride [Moles/Vol] 100 mmol/L 98-108 [facility] Emergency Department Summary on 06-14-2025 Emergency Department Summary [facility] Medical Records Department [address] [place] [address] Emergency Department Summary 06/14/25 MR#: [id number] Acct: [id number] Name: JERSEY BETANCOURT Rep #: [id number] : 1975 49 From: Dave Carvalho DO PCP: Dr. Nikole Guillermo MD Status:REG ER Location: ED HPI History of Present Illness Chief Complaint: Fever Informant: patient and spouse/S.O. Narrative Narrative: Patient is a 49-year-old female with past medical history of PCOS and hypertension. She states over the past week she has been spiking fevers with the highest being 103 at home. She states she will take Tylenol and/or Motrin and the fever will resolve. She states there is no real associated symptoms such as nasal congestion sore throat cough nausea vomiting or diarrhea or dysuria. She states that she will occasionally have some pain in the right lower abdomen. She states that because it has been 7 days with out spontaneous resolution of her fever and no obvious reason why she has the fever she presents for evaluation [facility] Medical History Bronchitis Migraine Ovarian tumor PCOS (polycystic ovarian syndrome) Home Medications ???Medication ???Instructions ???Recorded ???Last Taken ???Type lisinopril 5 mg tablet 5 mg PO DAILY #30 tabs 03/01/24 Un known Rx cholecalciferol (vitamin D3) 125 125 mcg PO DAILY 03/21/24 Unknown History mcg (5,000 unit) capsule Allergy/AdvReac Type Severity Reaction Status Date / Time latex Allergy Intermediate Hives Verified 06/14/25 05:21 amoxicillin AdvReac Mild yeast Verified 06/14/25 05:21 infections Family History Father Cancer lung Sponge kidney Grandmother Cancer colon Hypertension Heart disease Mother CVA (cerebral vascular accident) Hypertension Hyperlipemia Grandfather Alcoholism Grandfather Heart disease CVA (cerebral vascular accident) Grandmother Cancer pancreatic Surgical History Hx of LASIK H/O hysterectomy with unilateral oophorectomy H/O sinus surgery History of ankle surgery Social History adopted: No household members: spouse number of children: 2 current occupational status: employed current occupation: [employer] pets and animals: Yes pets and animals: cat(s) Smoking Status: Never smoker Electronic Cigarette Use: not used alcohol intake: current alcohol intake frequency: a few times a month substance use type: does not use diet: gluten free caffeine: Yes (2) Type: tea frequency: daily seatbelt use: always do you feel safe at home: Yes additional social history: Rajat SWANSON ROS ED Constitutional Constitutional ED: Reports chills and fever(s) ENT ENT ED: Denies ear pain, rhinorrhea or sore throat Cardiovascular Cardiovascular: Denies chest pain Respiratory/Chest Respiratory/Chest: Denies cough or dyspnea Gastrointestinal Gastrointestinal: Reports abdominal pain; Denies constipation, diarrhea, nausea or vomiting Genitourinary Genitourinary ED: Denies dysuria Musculoskeletal Musculoskeletal: Reports myalgias; Denies back pain Integumentary Denies rash Neurologic Neurologic: Denies headache(s) Hematologic/Lymphatic Hematologic/Lymphatic: Denies easy bleeding or easy bruising EXAM Physical Exam Const Vital Signs: 06/14/25 05:22 06/14/25 05:22 Temperature 99.1 F Temperature Source Oral Pulse Rate 120 H Respiratory Rate 18 Respiratory Effort Normal Respiratory Pattern Normal Blood Pressure 175/99 H Blood Pressure Mean 124 Pulse Ox 97 Oxygen Delivery Method Room Air Positive well nourished, well developed and obese General Appearance ED: well developed; Negative for pallor Nutritional Appearance: obese HEENT Reports dry mucous membranes HEENT Narrative: Normocephalic atraumatic No tongue or lip swelling no oral lesions no airway edema or compromise; no secondary findings in the posterior pharynx to suggest infection Oral mucosa is dry and tacky Mouth ED: Yes dry mucous membranes Mouth: dry mucous membranes Eyes PERRL and EOMs intact bilaterally General Eye ED: Negative for scleral icterus Neck supple Neck Narrative: No nuchal rigidity or meningeal signs Resp normal respiratory effort and clear to auscultation bilaterally Resp Narrative: No nasal flaring retractions tachypnea or accessory muscle use Cardio regular rhythm Rate: tachycardic GI non-distended and no masses GI Narrative: Abdomen is soft and nondistended with normal active bowel sounds. There is pain with palpation in the right lower quadrant over top McBurney (more content not included)... Normal [facility] Eosinophil percentageOrdered By: Dave Carvalho on 06-14-2025 Eosinophils/100 WBC (Bld) 3.2 % 0-5 [facility] Erythrocyte distribution wid th ratioOrdered By: Dave Carvalho on 06-14-2025 Erythrocyte distribution width (RBC) [Ratio] 13.2 % 11.6-14.6 [facility] Erythrocyte distribution wid th standard deviationOrdered By: Dave Carvalho on 06-14-2025 Erythrocyte distribution width (RBC) [Ratio] 42.9 fl 35.1-43.9 [facility] Glomerular filtration rate ( GFR) estimation/1.73 sq m using serum, plasma, or whole bOrdered By: Dave Carvalho on 06-14-2025 GFR/1.73 sq M.predicted among non-blacks MDRD (S/P/Bld) [Vol rate/Area] 69 mL/min/{1.73_m2} >60 [facility] Comment on above: mL/min/1.73m2 CKD-EP I Creatinine Equation (2020) Hematocrit Auto (Bld) [Volum e fraction]Ordered By: Dave Carvalho on 06-14-2025 Hematocrit (Bld) [Volume fraction] 41.1 % 37-47 [facility] Hemoglobin measurementOrdere d By: Dave Carvalho on 06-14-2025 Hemoglobin (Bld) [Mass/Vol] 13.4 g/dL 12.0-15.0 [facility] Immature granulocytes/100 WB C Auto (Bld)Ordered By: Dave Carvalho on 06-14-2025 Immature granulocytes/100 WBC (Bld) 0.600 % 0.0-0.9 [facility] Comment on above: IG% - Immature Granu locytes (promyelocytes, myelocytes and metamyelocytes) > 1% indicates that a LEFT SHIFT is Present. Ketones Test strip Ql (U)Ord ered By: Dave Carvalho on 06-14-2025 Ketones Ql (U) Negative Negative [facility] L509.7001on 06-14-2025 Procalcitonin 0.31 ng/mL High <=0.10 [facility] Comment on above: Result Comment: Inte rpretation: <0.10-0.25 ng/mL: Antibiotic therapy discouraged. Bacterial infection unlikely. 0.25-0.50 ng/mL: Antibiotic therapy encouraged. Bacterial infection possible. >0.50 ng/mL: Antibiotic therapy strongly encouraged. Suggestive of presence of bacterial infection. PCT should always be interpreted in the clinical context of the patient. Therefore, clinicians should use the PCT results in conjunction with other laboratory findings and clinical signs of the patient. Performed By: #### L 100.0100, L509.7001, L503.6005, L500.2500, L501.2450, L500.3400 ####[facility] [address] [place], [place], [phone] Laboratory - Chemistry and C hemistry - challengeOrdered By: Dave Carvalho on 06-14-2025 AST [Catalytic activity/Vol] 48 U/L High <32 [facility] Lactic Acidon 06-14-2025 Lactate [Moles/Vol] 1.2 mmol/L Normal 0.0-2.0 [facility] Comment on above: Order Comment: Y Performed By: #### L 100.0100, L509.7001, L503.6005, L500.2500, L501.2450, L500.3400 #### [facility] [address] [place], [place], [phone] Lactic acid measurementOrder ed By: Dave Carvalho on 06-14-2025 Lactate [Moles/Vol] 1.2 mmol/L 0.0-2.0 [facility] Lipaseon 06-14-2025 Lipase [Catalytic activity/Vol] 25 U/L Normal 13-75 [facility] Comment on above: Result Comment: Plea note: LIPASE revised reference range effective 23. New Lipase methodology. Expected to produce lower values than the previous assay method. NEW Reference Range: 13 - 75 U/L Performed By: #### L 100.0100, L509.7001, L503.6005, L500.2500, L501.2450, L500.3400 ####[facility] [address] [place], [place], [phone] Lipase measurementOrdered By : Dave Carvalho on 06-14-2025 Lipase [Catalytic activity/Vol] 25 U/L 13-75 [facility] Comment on above: Please note:LIPASE r evised reference range effective 23. New Lipase methodology. Expected to produce lower values than the previous assay method. NEW Reference Range: 13 - 75 U/L Liver Profileon 06-14-2025 Albumin [Mass/Vol] 4.1 g/dL Normal 3.5-5.0 [facility] Comment on above: Performed By: #### L 100.0100, L509.7001, L503.6005, L500.2500, L501.2450, L500.3400 #### [facility] [address] [place], [place], [phone] ALK PHOS 120 U/L High 35-104 [facility] Comment on above: Performed By: #### L 100.0100, L509.7001, L503.6005, L500.2500, L501.2450, L500.3400 #### [facility] [address] [place], [address] ALT [Catalytic activity/Vol] 53 U/L High <=34 [facility] Comment on above: Performed By: #### L 100.0100, L509.7001, L503.6005, L500.2500, L501.2450, L500.3400 #### [facility] [address] [place], [address] AST [Catalytic activity/Vol] 48 U/L High <=31 [facility] Comment on above: Performed By: #### L 100.0100, L509.7001, L503.6005, L500.2500, L501.2450, L500.3400 #### [facility] [address] [place], [address] Bilirubin [Mass/Vol] 0.39 mg/dL Normal 0.00-1.30 [facility] Comment on above: Performed By: #### L 100.0100, L509.7001, L503.6005, L500.2500, L501.2450, L500.3400 #### [facility] [address] [place], [address] Bilirubin.direct [Mass/Vol] 0.14 mg/dL Normal 0.00-0.30 [facility] Comment on above: Performed By: #### L 100.0100, L509.7001, L503.6005, L500.2500, L501.2450, L500.3400 #### [facility] [address] [place], [address] Globulin (S) [Mass/Vol] 3.2 g/dL Normal 2.2-4.2 [facility] Comment on above: Performed By: #### L 100.0100, L509.7001, L503.6005, L500.2500, L501.2450, L500.3400 #### [facility] [address] [place], [address] T PROT 7.3 g/dL Normal 5.9-8.4 [facility] Comment on above: Performed By: #### L 100.0100, L509.7001, L503.6005, L500.2500, L501.2450, L500.3400 #### [facility] [address] [place], [address] MCV (mean corpuscular volume ) determinationOrdered By: Dave Carvalho on 06-14-2025 MCV (RBC) [Entitic vol] 89.7 fL 81-99 [facility] Mean corpuscular hemoglobin (MCH) determinationOrdered By: Dave Carvalho on 06-14-2025 MCH (RBC) [Entitic mass] 29.3 pg 27.0-32.0 [facility] Mean corpuscular hemoglobin concentration (MCHC) determinationOrdered By: Dave Carvalho on 06-14-2025 MCHC (RBC) [Mass/Vol] 32.6 g/dL 32-36 [facility] Mean platelet volume determi nationOrdered By: Dave Carvalho on 06-14-2025 Platelet mean volume (Bld) [Entitic vol] 9.4 fL 6.2-12.0 [facility] Microscopic analysis of urin e for red blood cells (RBC)Ordered By: Dave Carvalho on 06-14-2025 Microscopic analysis of urine for red blood cells (RBC) 5-10 SEEN /hpf 0-5 [facility] Monocyte percentageOrdered B y: Dave Carvalho on 06-14-2025 Monocytes/100 WBC (Bld) 7.9 % 0-10 [facility] Mucus LM Ql (Urine sed)Order ed By: Dave Carvalho on 06-14-2025 Mucus Ql (Urine sed) 0 SEEN /hpf [facility] Neutrophil percentageOrdered By: Dave Carvalho on 06-14-2025 Neutrophils/100 WBC (Bld) 51.9 % 47-70 [facility] Nitrite Test strip Ql (U)Ord ered By: Dave Carvalho on 06-14-2025 Nitrite Ql (U) Negative Negative [facility] Nucleated red blood cell per centageOrdered By: Dave Carvalho on 06-14-2025 Nucleated RBC/100 WBC (Bld) [Ratio] 0 % 0-5 [facility] Platelet countOrdered By: Swathi Carvalho on 06-14-2025 Platelets (Bld) [#/Vol] 165 10*3/uL 150-450 [facility] Potassium measurement (mass/ volume)Ordered By: Dave Carvalho on 06-14-2025 Potassium (Unsp spec) [Mass/Vol] 4.2 mmol/L 3.3-5.1 [facility] Procalcitonin [Mass/volume] in Serum or Plasma by ImmunoassayOrdered By: Dave Carvalho on 06-14-2025 Procalcitonin IA [Mass/Vol] 0.31 ng/mL High <0.11 [facility] Comment on above: Interpretation:<0.10 -0.25 ng/mL: Antibiotic therapy discouraged. Bacterial infection unlikely.0.25-0.50 ng/mL: Antibiotic therapy encouraged. Bacterial infection possible.>0.50 ng/mL: Antibiotic therapy strongly encouraged. Suggestive of presence of bacterial infection.PCT should always be interpreted in the clinical context of the patient. Therefore, clinicians should use the PCT results in conjunction with other laboratory findings and clinical signs of the patient. Protein Test strip Ql (U)Ord ered By: Dave Carvalho on 06-14-2025 Protein Ql (U) 15 mg/dl High Negative [facility] RBC Auto (Bld) [#/Vol]Ordere d By: Dave Carvalho on 06-14-2025 RBC (Bld) [#/Vol] 4.58 10*6/uL 4.2-5.4 [facility] Serum creatinine measurement (mass/volume)Ordered By: Dave Cravalho on 06-14-2025 Creatinine [Mass/Vol] 1.00 mg/dL 0.70-1.20 [facility] Serum globulin measurementOr dered By: Dave Carvalho on 06-14-2025 Globulin (S) [Mass/Vol] 3.2 g/dL 2.2-4.2 [facility] Serum glucose measurement (m ass/volume)Ordered By: Dave Carvalho on 06-14-2025 Glucose [Mass/Vol] 135 mg/dL High 70-99 [facility] Serum or plasma alanine lopez otransferase (ALT) measurementOrdered By: Dave Carvalho on 06-14-2025 ALT [Catalytic activity/Vol] 53 U/L High <35 [facility] Serum or plasma albumin carter urement (mass/volume)Ordered By: Dave Carvalho on 06-14-2025 Albumin [Mass/Vol] 4.1 g/dL 3.5-5.0 [facility] Serum or plasma alkaline brittany sphatase measurementOrdered By: Dave Carvalho on 06-14-2025 ALP [Catalytic activity/Vol] 120 U/L High 35-104 [facility] Serum or plasma calcium carter urement (mass/volume)Ordered By: Dave Carvalho on 06-14-2025 Calcium [Mass/Vol] 9.1 mg/dL 7.6-11.0 [facility] Serum or plasma urea nitroge n measurement (mass/volume)Ordered By: Dave Carvalho on 06-14-2025 Urea nitrogen [Mass/Vol] 11 mg/dL 4-19 [facility] Sodium levelOrdered By: Aditya Carvalho on 06-14-2025 Sodium [Moles/Vol] 138 mmol/L 133-145 [facility] Squamous epithelial cells de tection in urine sediment by light microscopyOrdered By: Dave Carvalho on 06-14-2025 Epithelial cells.squamous LM Ql (Urine sed) 0-5 SEEN /hpf 5-10 [facility] Total proteinOrdered By: Avelino Carvalho on 06-14-2025 Protein [Mass/Vol] 7.3 g/dL 5.9-8.4 [facility] Urinalysis, Completeon 06-14 EPI,SQUAMOUS 0-5 SEEN Normal 5-10 [facility] Comment on above: Order Comment: COLLE CTOR TO SPECIFY Performed By: #### L 400.0001 ####[facility] [address] [place], [address] RBC 5-10 SEEN Normal 0-5 [facility] Comment on above: Order Comment: RADHA CTOR TO SPECIFY Performed By: #### L 400.0001 ####[facility] [address] [place], [address] WBC 0-5 SEEN Normal 0-5 [facility] Comment on above: Order Comment: RADHA CTOR TO SPECIFY Performed By: #### L 400.0001 ####[facility] [address] [place], [address] BACTERIA 0 SEEN Normal None Seen [facility] Comment on above: Order Comment: RADHA CTOR TO SPECIFY Performed By: #### L 400.0001 ####[facility] [address] [place], [address] Mucus Ql (Urine sed) 0 SEEN Normal [facility] Comment on above: Order Comment: RADHA CTOR TO SPECIFY Performed By: #### L 400.0001 ####[facility] [address] [place], [address] Urine clarityOrdered By: Avelino Carvalho on 06-14-2025 Clarity (U) Sl. Cloudy Clear [facility] Urine color determinationOrd ered By: Dave Carvalho on 06-14-2025 Color (U) Yellow Yellow [facility] Urine glucose detectionOrder ed By: Dave Carvalho on 06-14-2025 Glucose Ql (U) Normal mg/dl Normal [facility] Urine leukocyte esterase det ection by dipstickOrdered By: Dave Carvalho on 06-14-2025 Leukocyte esterase Test strip Ql (U) Negative Negative [facility] Urine pHOrdered By: Dave gomez on 06-14-2025 pH (U) 7.0 [pH] 5.0 - 8.0 [facility] Urine sediment bacteria coun t by microscopy (number/high power field)Ordered By: Dave Carvalho on 06-14-2025 Bacteria LM.HPF (Urine sed) [#/Area] 0 /[HPF] None Seen [facility] Urine specific gravity measu rementOrdered By: Dave Carvalho on 06-14-2025 Specific gravity (U) [Rel density] 1.010 1.002-1.030 [facility] Urine urobilinogen measureme ntOrdered By: Dave Carvalho on 06-14-2025 Urobilinogen Ql (U) Normal mg/dl Normal [facility] White blood cell (WBC) count Ordered By: Dave Carvalho on 06-14-2025 WBC (Bld) [#/Vol] 4.7 10*3/uL 4.4-11.0 [facility] White blood cell countOrdere d By: Dave Carvalho on 06-14-2025 White blood cell count 0-5 SEEN /hpf 0-5 [facility] Absolute lymphocyte countOrd ered By: Nikole Guillermo on 03-01-2024 Lymphocytes Auto (Unsp spec) [#/Vol] 2.44 10*3/uL 0.83-4.51 [facility] Automated lymphocyte count a s percentage of total leukocytesOrdered By: Nikole Guillermo on 03-01-2024 Lymphocytes/100 WBC Auto (Unsp spec) 30.5 % 19-41 [facility] Basophil percentageOrdered B y: Nikole Guillermo on 03-01-2024 Basophils/100 WBC (Bld) 0.6 % 0-1 [facility] Bilirubin [Mass/Vol] 0.40 mg/dL 0.20-1.00 [facility] Comment on above: For patients on eltr ombopag therapy, use of Dimension [place] TBIL is not recommended. Chloride [Moles/Vol] 106 mmol/L 98-107 [facility] Cholesterol [Mass/Vol] 209 mg/dL <200 [facility] Comment on above: <200 mg/dL Desirable 200-240 mg/dL Borderline >240 mg/dL High Risk Eosinophils/100 WBC (Bld) 4.9 % 0-5 [facility] Glucose [Mass/Vol] 100 mg/dL 74-106 [facility] Comment on above: Fasting Glucose resu lt from 100 to 125 mg/dL suggests IMPAIRED HOMEOSTASIS per A.D.A. criteria. Hemoglobin (Bld) [Mass/Vol] 13.7 g/dL 12.0-15.0 [facility] Monocytes/100 WBC (Bld) 5.3 % 0-10 [facility] Neutrophils (Bld) [#/Vol] 4.7 10*3/uL 2.0-7.7 [facility] Neutrophils/100 WBC (Bld) 58.3 % 47-70 [facility] Potassium [Moles/Vol] 4.1 mmol/L 3.5-5.1 [facility] Protein [Mass/Vol] 8.0 g/dL 6.4-8.2 [facility] Sodium [Moles/Vol] 139 mmol/L 136-145 [facility] Triglyceride [Mass/Vol] 151 mg/dL <199 [facility] Comment on above: The drugs N-Acetylcy steine and Metamizole may falsely depress this assay.Serum Triglycerides Reference Interval Normal <150 mg/dL Borderline high 150 - 199 mg/dL High 200 - 499 mg/dL Very High > or = 500 mg/dL WBC (Bld) [#/Vol] 8.0 10*3/uL 4.4-11.0 [facility] Determination of erythrocyte mean corpuscular volume (MCV)Ordered By: Nikole Guillermo on 03-01-2024 MCV (RBC) [Entitic vol] 91.8 fL 81-99 [facility] Erythrocyte distribution wid th ratioOrdered By: Nikole Guillermo on 03-01-2024 Erythrocyte distribution width (RBC) [Ratio] 13.3 % 11.6-14.6 [facility] Erythrocyte distribution wid th standard deviationOrdered By: Nikole Guillermo on 03-01-2024 Erythrocyte distribution width (RBC) [Entitic vol] 45.1 fL 35.1-43.9 [facility] Hematocrit Auto (Bld) [Volum e fraction]Ordered By: Nikole Guillermo on 03-01-2024 Hematocrit (Bld) [Volume fraction] 42.8 % 37-47 [facility] Immature granulocytes/100 WB C Auto (Bld)Ordered By: Nikole Guillermo on 03-01-2024 Immature granulocytes/100 WBC (Bld) 0.400 % 0.0-0.9 [facility] Comment on above: IG% - Immature Granu locytes (promyelocytes, myelocytes and metamyelocytes) > 1% indicates that a LEFT SHIFT is Present. Laboratory - Chemistry and C hemistry - challengeOrdered By: Nikole Guillermo on 03-01-2024 Albumin/Globulin [Mass ratio] 0.8 {ratio} 0.9-2.4 [facility] ALP [Catalytic activity/Vol] 117 U/L 45-117 [facility] ALT [Catalytic activity/Vol] 31 U/L 13-56 [facility] Cholesterol in HDL [Mass/Vol] 41 mg/dL >40 [facility] Comment on above: The drugs N-Acetylcy steine and Metamizole may falsely depress this assay. Reference Range HDL <40 mg/dL Low HDL Cholesterol HDL >or= 60 mg/dL High HDL Cholesterol Cholesterol in LDL [Mass/Vol] 138 mg/dL 0-130 [facility] CO2 [Moles/Vol] 30.0 mmol/L 21.0-32.0 [facility] Globulin (S) [Mass/Vol] 4.4 g/dL 2.2-4.2 [facility] Urea nitrogen/Creatinine [Mass ratio] 18.0 mg/mg 10-20 [facility] Laboratory - Hematology and Cell countsOrdered By: Nikole Guillermo on 03-01-2024 MCH (RBC) [Entitic mass] 29.4 pg 27.0-32.0 [facility] MCHC (RBC) [Mass/Vol] 32.0 g/dL 32-36 [facility] Nucleated RBC/100 WBC (Bld) [Ratio] 0 % 0-5 [facility] Platelet mean volume (Bld) [Entitic vol] 9.6 fL 6.2-12.0 [facility] Platelets (Bld) [#/Vol] 302 10*3/uL 150-450 [facility] No Panel InformationOrdered By: Nikole Guillermo on 03-01-2024 Estimated GFR (MDRD) Amer 102 mL/min >60 [facility] Comment on above: GFR Calc Estimated GFR (MDRD) Non-Af Amer 84 mL/min >60 [facility] Comment on above: Non- GFR Calc Vitamin D 25-Hydroxy 16.6 ng/mL [facility] Comment on above: Vitamin D 25(OH) Sta tus Range Deficiency <20 ng/mL (50nmol/L) Insufficiency 20 - 30 ng/mL (50 - 75 nmol/L) Sufficiency 30 - 100 ng/mL (75 - 250 nmol/L) Toxicity >100 ng/mL (>250 nmol/L) VLDL Cholesterol 30 mg/dL 5-40 [facility] RBC Auto (Bld) [#/Vol]Ordere d By: Nikole Guillermo on 03-01-2024 RBC (Bld) [#/Vol] 4.66 10*6/uL 4.2-5.4 [facility] Serum or plasma calcium carter urement (mass/volume)Ordered By: Nikole Guillermo on 03-01-2024 Calcium [Mass/Vol] 9.3 mg/dL 8.5-10.1 [facility] Serum or plasma creatinine m easurement (mass/volume)Ordered By: Nikole Guillermo on 03-01-2024 Creatinine [Mass/Vol] 0.78 mg/dL 0.55-1.02 [facility] Comment on above: The validity of the calculated GFR & GFRAA in patients over 70 years has not been determined. Clinical correlation is essential. Serum or plasma thyroid stim ulating hormone (TSH) measurement (units/volume)Ordered By: Nikole Guillermo on 03-01-2024 TSH Qn 3.29 uIU/mL 0.358-3.74 [facility] Serum or plasma urea nitroge n measurement (mass/volume)Ordered By: Nikole Guillermo on 03-01-2024 Urea nitrogen [Mass/Vol] 14 mg/dL 7-18 [facility] Thin prep Papanicolaou smear with manual screeningOrdered By: Nikole Guillermo on 03-01-2024 Thin prep Papanicolaou smear with manual screening 3.6 g/dL 3.2-5.0 [facility] Thin prep Papanicolaou smear with manual screening 21 U/L 15-37 [facility] Thin prep Papanicolaou smear with manual screening 3 5-15 [facility] CBC and Differentialon 11-07 Abs Baso 0.12 k/uL High <0.11 [facility] Comment on above: Performed By: #### C BCDIF, CMP ####[facility] [address] [place] [address] Abs [place] 0.92 k/uL High <0.87 [facility] Comment on above: Performed By: #### C BCDIF, CMP ####[facility] [address] [place] [address] Abs Neut 9.08 k/uL High 1.45-7.50 [facility] Comment on above: Performed By: #### C BCDIF, CMP ####[place] [address] Basophils/100 WBC Auto (Bld) 1.1 % Normal [facility] Comment on above: Performed By: #### C BCDIF, CMP ####[place] [address] Eosinophils Auto #/vol (Bld) 0.21 10*3/uL Normal <0.46 [facility] Comment on above: Performed By: #### C BCDIF, CMP ####[place] [address] Eosinophils/100 WBC Auto (Bld) 1.9 % Normal [facility] Comment on above: Performed By: #### C BCDIF, CMP ####[place] [address] Erythrocyte distribution width Auto Ratio (RBC) 13.5 % Normal 11.5-15.0 [facility] Comment on above: Performed By: #### C BCDIF, CMP ####[place] [address] Hematocrit Auto Volume Fraction (Bld) 43.0 % Normal 36.0-46.0 [facility] Comment on above: Performed By: #### C BCDIF, CMP ####[place] [address] Hemoglobin mass conc (Bld) 13.4 g/dL Normal 11.5-15.5 [facility] Comment on above: Performed By: #### C BCDIF, CMP ####[place] [address] Lymphocytes Auto #/vol (Bld) 0.94 10*3/uL Low 1.00-4.00 [facility] Comment on above: Performed By: #### C BCISAEBLLA CMP ####[place] [address] Lymphocytes/100 WBC Auto (Bld) 8.3 % Normal [facility] Comment on above: Performed By: #### C JAMIE CMP ####[place] [address] MCH Auto Entitic mass (RBC) 28.0 pG Normal 26.0-34.0 [facility] Comment on above: Performed By: #### C JAMIE CMP ####[place] [address] MCHC Auto mass conc (RBC) 31.2 g/dL Normal 30.5-36.0 [facility] Comment on above: Performed By: #### C JAMIE CMP ####[place] [address] MCV Auto Entitic volume (RBC) 90.0 fL Normal 80.0-100.0 [facility] Comment on above: Performed By: #### C JAMIE CMP ####[place] [address] Monocytes/100 WBC Auto (Bld) 8.2 % Normal [facility] Comment on above: Performed By: #### C JAMIE CMP ####[place] [address] Neutrophils/100 WBC Auto (Bld) 80.5 % Normal [facility] Comment on above: Performed By: #### C JAMIE CMP ####[place] [address] Platelet mean volume Auto Entitic volume (Bld) 9.4 fL Normal 9.0-12.7 [facility] Comment on above: Performed By: #### C BCISABELLA, CMP ####[place] [address] Platelets Auto #/vol (Bld) 254 10*3/uL Normal 150-400 [facility] Comment on above: Performed By: #### C BCDIF, CMP ####[facility] [address] [place] [address] RBC Auto #/vol (Bld) 4.78 10*6/uL Normal 3.90-5.20 [facility] Comment on above: Performed By: #### C BCDIF, CMP ####[facility] [address] [place] [address] WBC Auto #/vol (Bld) 11.27 10*3/uL High 3.70-11.00 [facility] Comment on above: Performed By: #### C BCDIF, CMP ####[place] [address] Comp Metabolic Panelon 11-07 Albumin mass conc 4.0 g/dL Normal 3.9-4.9 [facility] Comment on above: Performed By: #### C BCDIF, CMP ####[facility] [address] [place] [address] ALP enzyme act/vol 118 U/L Normal 34-123 [facility] Comment on above: Performed By: #### C BCDIF, CMP ####[place] [address] ALT enzyme act/vol 28 U/L Normal 7-38 [facility] Comment on above: Performed By: #### C BCDIF, CMP ####[place] [address] Anion gap 3 molar conc 12 mmol/L Normal 9-18 [facility] Comment on above: Performed By: #### C BCDIF, CMP ####[facility] [address] [place] [address] AST enzyme act/vol 25 U/L Normal 13-35 [facility] Comment on above: Performed By: #### C BCDIF, CMP ####[place] [address] Bilirubin mass conc 0.4 mg/dL Normal 0.2-1.3 [facility] Comment on above: Performed By: #### C BCDIF, CMP ####[facility] [address] [place] [address] Calcium mass conc 9.5 mg/dL Normal 8.5-10.2 [facility] Comment on above: Performed By: #### C BCDIF, CMP ####[facility] [address] [place] [address] Chloride molar conc 101 mmol/L Normal 97-105 [facility] Comment on above: Performed By: #### C BCDIF, CMP ####[facility] [address] [place] [address] CO2 molar conc 25 mmol/L Normal 22-30 [facility] Comment on above: Performed By: #### C BCDIF, CMP ####[place] [address] Creatinine mass conc 0.88 mg/dL Normal 0.58-0.96 [facility] Comment on above: Performed By: #### C BCDIF, CMP ####[place] [address] eGFR- Amer. >60 Normal [facility] Comment on above: Performed By: #### C BCDIF, CMP ####[facility] [address] [place] [address] GFR/1.73 sq M predicted among non-blacks MDRD vol rate/area (S/P/Bld) mL/min/{1.73_m2} Normal [facility] Comment on above: Result Comment: eGFR (Estimated [...] GFR. Performed By: #### C BCDIF, CMP ####[facility] [address] [place] [address] Glucose mass conc 112 mg/dL High 74-99 [facility] Comment on above: Result Comment: The [employer] (ADA) provides guidance for cutoff [...] Standards of Medical Care in Diabetes 2016, [place] [employer]. Diabetes Care. 2016.39(Suppl 1). Performed By: #### C BCDIF, CMP ####[facility] [address] [place] [address] Potassium molar conc 3.7 mmol/L Normal 3.7-5.1 [facility] Comment on above: Performed By: #### C BCDIF, CMP ####[facility] [address] [place] [address] Protein mass conc 7.5 g/dL Normal 6.3-8.0 [facility] Comment on above: Performed By: #### C BCDIF, CMP ####[facility] [address] [place] [address] Sodium molar conc 138 mmol/L Normal 136-144 [facility] Comment on above: Performed By: #### C BCDIF, CMP ####[facility] [address] [place] [address] Urea nitrogen mass conc 10 mg/dL Normal 7-21 [facility] Comment on above: Performed By: #### C BCDIF, CMP ####[facility] [address] [place] [address] ED NOTEon 11-07-2018 ED NOTE HNO ID: [id number]: Kari Gerard (Pharmacist)Service: PharmacyAuthor Type: PharmacistType: ED NotesFiled: 11/09/2018 11:40 AMNote Text:PHARMACY EMERGENCY DEPARTMENT CULTURE CALLBACKPatient Name:Giorgio Betancourt Admission Date:11/07/2018Date of Callback: 11/09/2018Patient VCUZWSZNICkd ergen Reactions- Latex HivesSource of Result: Results ListTime/Date [...] page/call with any issues or questions.Electronic signature: Polina PERRY 2017 11:40 AMPager/Extension: [id number] [facility] ED NOTE HNO ID: [id number]: Radha RosarioRn) Razia Parsons: (none)Author Type: Registered NurseType: ED NotesFiled: 11/07/2018 4:38 PMNote Text: Plan of care-Monitor Patient's Vital Signs for changes in condition-Monitor patient for changes in pain-Maintain patient safety and privacy-Provide comfort measures-Call light in placeSiderails up, bed in locked and low position [facility] ED NOTE HNO ID: [id number]: Cristal RosarioRn) Razia Rodriguez: NursingAuthor Type: Registered NurseType: ED NotesFiled: 11/07/2018 4:17 PMNote Text:Patient presents to ED with back pain, urinary pain and frequency andfever. Patient also reports cloudy strong smelling urine. JUDY Dawn atbedside. P{javi of care reviewed. Patient ambulates to bathroom [facility] ED PROV NOTEon 11-07-2018 Protein mass conc HNO ID: [id number]: Nereyda Hong (Pa): (none)Author Type: Physician AssistantType: ED Provider NotesFiled: 11/07/2018 6:23 PMNote Text:ED Provider NotePatient Name: Jersey BetancourtMRN: [id number] DATE: 11/07/18HistoryPatient presents with:Bladder InfectionFeverBack PainThijojo is a 43-year-old female complaining of lower abdominal pressure andpressure with urination for 2 days. She states she had a fever today andon her right over she felt nauseous. No history of kidney stones. Leila hurts in the lower midportion of her [...] 0.94 (*) 1.00 - 4.00 k/uL Abs [place] 0.92 (*) <0.87 k/uL Abs Baso 0.12 [...] new concerns.Condition at time of disposition: stableSIGNATURE: JUDY Ludwig-Lisbeth (Judy) Sybil01/08/183 [facility] Rapid PCR Assay FLUon 2017 Influenza A PCR Negative [facility] Comment on above: Performed By: #### F LUPCR ####[facility] [address] [place] [id number] Influenza B PCR Negative [facility] Comment on above: Performed By: #### F LUPCR ####[facility] [address] [place] [address] Specimen source Nom (Unsp spec) Nasopharyngeal Swab Normal [facility] Comment on above: Performed By: #### F LUPCR ####[facility] [address] [place] [address] Urinalysison 11-07-2018 Bilirubin, Urine Negative Normal Negative [facility] Comment on above: Performed By: #### U A, UAMIC ####[facility] [address] [place] [address] Clarity Hazy Critically abnormal Clear [facility] Comment on above: Performed By: #### U A, UAMIC ####[facility] [address] [place] [address] Color Yellow Normal Yellow [facility] Comment on above: Performed By: #### U A, UAMIC ####[facility] [address] [place] [address] Glucose Ql (U) Negative Normal Negative [facility] Comment on above: Performed By: #### U A, UAMIC ####[facility] [address] [place] [address] Hemoglobin/Blood,Ur Large Critically abnormal Negative [facility] Comment on above: Performed By: #### U A, UAMIC ####[place] [address] Ketones Ql (U) Negative Normal Negative [facility] Comment on above: Performed By: #### U A, UAMIC ####[facility] [address] [place] [address] Leukest Large Critically abnormal Negative [facility] Comment on above: Performed By: #### U A, UAMIC ####[facility] [address] [place] [address] Nitrites Negative Normal Negative [facility] Comment on above: Performed By: #### U A, UAMIC ####[place] [address] pH 6.5 Normal 5.0-8.0 [facility] Comment on above: Performed By: #### U A, UAMIC ####[facility] [address] [place] [address] Protein, Urine 30 mg/dL Critically abnormal Negative [facility] Comment on above: Performed By: #### U A, UAMIC ####[facility] [address] [place] [address] Specific [place], Ur 1.015 Normal 1.001-1.029 [facility] Comment on above: Performed By: #### U A, UAMIC ####[facility] [address] [place] [address] Urobilinogen 0.2 Normal 0.2-1.0 [facility] Comment on above: Performed By: #### U A, UAMIC ####[facility] [address] [place] [address] Urine Cultureon 11-07-2018 Bacteria identified Cx Nom [...] <=0.25 FErtapenem SUSCEPTIBLE <=0.5 F Critically abnormal [facility] Comment on above: Performed By: #### U RCUL ####[facility] [place], [place] [phone] [address] [place] [address] Urine Microscopic (FOR LAB U SE ONLY)on 11-07-2018 Bacteria Moderate Critically abnormal 0 [facility] Comment on above: Performed By: #### U A, UAMIC ####[facility] [address]267 [address] Cast SEE COMMENT Normal 0 [facility] Comment on above: Result Comment: 0 Performed By: #### U A, UAMIC ####[facility] [address] Epithelial Cells SEE COMMENT Normal [facility] Comment on above: Result Comment: 0-5S quamous Epithelial Cells Performed By: #### U A, UAMIC ####[facility] L[address] INR Coag RelTime (Bld) 3-5 Criticall y abnormal 0-3 [facility] Comment on above: Performed By: #### U A, UAMIC ####[facility] [address] [place] [address] WBC Greater than 50 WBC's/hpf Critically abnormal 0-5 [facility] Comment on above: Performed By: #### U A, UAMIC ####[facility] [address] [place], [place] [id number] Vital Signs Date Time Vital Sign Value Performing Clinician Faci lity 06-19-2025 08:46-0400 Body height 154.[address] Nikole Guillermo MD Work Phone: [facility] 06-19-2025 08:46-0400 Body mass index (BMI) [Ratio] 49.6 kg/m2 Dr. Nikole Guillermo MD Work Phone: [facility] 06-19-2025 08:46-0400 Body temperature 96.7 [degF] Dr. Nikole Guillermo MD Work Phone: [facility] 06-19-2025 08:46-0400 Body weight 119.[address] Nikole Guillermo MD Work Phone: [facility] 06-19-2025 08:46-0400 Diastolic blood pressure 98 mm[Hg] Dr. Nikole Guillermo MD Work Phone: [facility] 06-19-2025 08:46-0400 Heart rate 115 /min Dr. Nikole Guillermo MD Work Phone: [facility] 06-19-2025 08:46-0400 Respiratory rate 16 /min Dr. Nikole Guillermo MD Work Phone: [facility] 06-19-2025 08:46-0400 SaO2% (BldA) [Mass fraction] 115 % Dr. Nikole Guillermo MD Work Phone: [facility] 06-19-2025 08:46-0400 Systolic blood pressure 142 mm[Hg] Dr. Nikole Guillermo MD Work Phone: [facility] 06-14-2025 07:04-0400 Body temperature 99.1 [degF] Dr. Nikole Guillermo MD Work Phone: [facility] 06-14-2025 07:04-0400 Diastolic blood pressure 119 mm[Hg] Dr. Nikole Guillermo MD Work Phone: [facility] 06-14-2025 07:04-0400 Heart rate 105 /min Dr. Nikole Guillermo MD Work Phone: [facility] 06-14-2025 07:04-0400 Respiratory rate 18 /min Dr. Nikole Guillermo MD Work Phone: [facility] 06-14-2025 07:04-0400 SaO2% (BldA) [Mass fraction] 96 % Dr. Nikole Guillermo MD Work Phone: [facility] 06-14-2025 07:04-0400 Systolic blood pressure 188 mm[Hg] Dr. Nikole Guillermo MD Work Phone: [facility] 06-14-2025 05:22-0400 Body height 154.[address] Nikole Guillermo MD Work Phone: [facility] 06-14-2025 05:22-0400 Body mass index (BMI) [Ratio] 50.4 kg/m2 Dr. Nikole Guillermo MD Work Phone: [facility] 06-14-2025 05:22-0400 Body weight 121.[address] Nikole Guillermo MD Work Phone: [facility] 03-01-2024 12:22-0400 Diastolic blood pressure 98 mm[Hg] Dr. Nikole Guillermo Work Phone: [facility] 03-01-2024 12:22-0400 Systolic blood pressure 152 mm[Hg] Dr. Nikole Guillermo Work Phone: [facility] 03-01-2024 09:33-0400 Body height 154.[address] Nikole Guillermo Work Phone: [facility] 03-01-2024 09:33-0400 Body mass index (BMI) [Ratio] 48.2 kg/m2 Dr. Nikole Guillermo Work Phone: [facility] 03-01-2024 09:33-0400 Body temperature 97.1 [degF] Dr. Nikole Guillermo Work Phone: [facility] 03-01-2024 09:33-0400 Body weight 115.[address] Nikole Guillermo Work Phone: [facility] 03-01-2024 09:33-0400 Heart rate 76 /min Dr. Nikole Guillermo Work Phone: [facility] 03-01-2024 09:33-0400 Respiratory rate 14 /min Dr. Nikole Guillermo Work Phone: [facility] 03-01-2024 09:33-0400 SaO2% (BldA) [Mass fraction] 99 % Dr. Nikole Guillermo Work Phone: [facility] Encounters Encounter Date Encounter Type Care Provider Facility Start: 06-28-2025 End: 06-28-2025 Telephone encounter Cynthia Laura MD Work Phone: [address] [place] [address] Comment on above: Patient Question Start: 06-28-2025 End: 06-28-[address] Nikole Guillermo MD Work Phone: -Laboratory Start: 06-28-2025 End: 06-28-2025 Patient encounter procedure Teo KIM -Laboratory Work Phone: Start: 06-28-2025 End: 06-28-2025 ambulatory Teo KIM Facility:[facility] Start: 06-25-2025 End: 06-25-[address] Nikole Guillermo MD Work Phone: -Laboratory Specimen Start: 06-25-2025 End: 06-25-[address] iNkole Guillermo MD -Laboratory Specimen Work Phone: Start: 06-25-2025 End: 06-25-2025 ambulatory Teo KIM Facility:[facility] Start: 06-19-2025 End: 06-19-[address] Nikole Guillermo MD Work Phone: -Ultrasound [facility] Start: 06-19-2025 End: 06-19-2025 Patient encounter procedure Teo Haider PA -Ultrasound [facility] Work Phone: Start: 06-19-2025 End: 06-19-[address] Nikole Guillermo MD Work Phone: -Laboratory [facility] Start: 06-19-2025 End: 06-19-2025 Patient encounter procedure Teo KIM -Laboratory [facility] Start: 06-19-2025 End: 06-19-2025 Patient encounter procedure Teo KIM -[facility] Work Phone: Start: 06-19-2025 End: 06-19-[address] Nikole Guillermo MD Work Phone: -[facility] Start: 06-19-2025 End: 06-19-2025 ambulatory Teo KIM Facility:[facility] Start: 06-14-2025 End: 06-14-2025 Emergency department patient visit Dr. Nikole Guillermo MD Work Phone: -Emergency Department Work Phone: Start: 03-26-2025 End: 04-26-2025 ambulatory Vega Broussard MD Work Phone: [facility] Start: 04-25-2024 ambulatory Vega oleary MD Work Phone: [place] [address] Start: 03-01-2024 End: 03-01-[address] Nikole Guillermo Work Phone: [facility] Work Phone: Start: 03-01-2024 End: 03-01-[address] Nikole Guillermo Work Phone: [facility]-Laboratory, [place] Start: 03-01-2024 End: 03-01-[address] Nikole Guillermo Work Phone: [facility] Internal [facility] Work Phone: Start: 05-18-2023 ambulatory Vega oleary MD Work Phone: [facility] Start: 12-02-2022 End: 12-02-2022 ambulatory Vega Broussard MD Work Phone: [facility] Comment on above: Nurse Triage Call Acute non-recurrent maxillary sinusitis Start: 12-02-2022 End: 12-02-2022 Telemedicine consultation with patient Verónica Justin APRN.CNP Work Phone: [facility] Start: 07-20-2022 End: 07-20-2022 ambulatory Vega Broussard MD Work Phone: [facility] Comment on above: Acute non-recurrent maxillary sinusitis (Primary Dx) Start: 07-20-2022 End: 07-20-2022 Telemedicine consultation with patient Vega Broussard MD Work Phone: [facility] Start: 05-19-2022 ambulatory Vega oleary MD Work Phone: [facility] Start: 11-07-2018 End: 11-07-2018 Emergency department patient visit [facility] Procedures Date Procedure Procedure Detail Performing Clinician Start: 06-28-[address] Brandon Guillermo MD Work Phone: Start: 06-28-2025 Cl[address]ium diffic[address] e detection Dr. Nikole Guillermo MD Work Phone: Start: 06-28-[address] Usama Guillermo MD Work Phone: Comment on above: Performed at: [address] [id number] Director: Alberto Wills PhD, Phone: [phone] Start: 06-28-2025 Antibody to centrome re measurement Dr. Nikole Guillermo MD Work Phone: Comment on above: Test not performed Start: 06-28-2025 Antibody to extracta ble nuclear antigen measurement Dr. Nikole Guillermo MD Work Phone: Comment on above: Test not performed Start: 06-28-2025 Antibody to JILLIAN-[address] Nikole Guillermo MD Work Phone: Comment on above: Test not performed Start: 06-28-2025 Antibody to lupus La protein measurement Dr. Nikole Guillermo MD Work Phone: Comment on above: Test not performed Start: 06-28-2025 Antibody to SS-A measurement Dr. Nikole Guillermo MD Work Phone: Comment on above: Test not performed Start: 06-28-[address] Nikole Guillermo MD Work Phone: Comment on above: Test not performed Start: 06-28-2025 Hepatitis A virus antibody, IgM type Dr. Nikole Guillermo MD Work Phone: Comment on above: A negative anti-HAV IgM result suggests no recent orcurrent HAV infection. Start: 06-28-2025 Hepatitis B core ant ibody measurement, IgM type Dr. Nikole Guillermo MD Work Phone: Start: 06-28-2025 Hepatitis C antibody measurement Dr. Nikole Guillermo MD Work Phone: Start: 06-28-2025 ER PHYSICIAN antibody measurement Dr. Nikole Giullermo MD Work Phone: Comment on above: Test not performed Start: 06-25-[address] Brandon Guillermo MD Work Phone: Start: 06-25-2025 Urnls dip stick/tabl et reagent auto microscopy Dr. Nikole Guillermo MD Work Phone: Start: 06-19-[address] Mehnaz Guillermo MD Work Phone: Start: 06-19-[address] Brandon Guillermo MD Work Phone: Start: 06-19-[address] Nikole Guillermo MD Work Phone: Start: 06-19-2025 Urnls dip stick/tabl et reagent auto microscopy Dr. Nikole Guillermo MD Work Phone: Start: 06-14-[address] Brandon Guillermo MD Work Phone: Start: 06-14-2025 X-ray of chest, PA a nd lateral views Dr. Nikole Guillermo MD Work Phone: Start: 06-14-2025 Urnls dip stick/tabl et reagent auto microscopy Dr. Nikole Guillermo MD Work Phone: Start: 06-14-[address] Nikole Guillermo MD Work Phone: Start: 06-14-2025 Lymphocyte percent differential count Dr. Nikole Guillermo MD Work Phone: Start: 06-14-2025 Computed tomography of abdomen and pelvis with intravenous contrast Dr. Nikole Guillermo MD Work Phone: Start: 09-15-2018 Adult depression scr eening assessment Vega Broussard MD Work Phone: Start: 09-15-2018 Lipid 1996 panel - S genevieve or Plasma Vega Broussard MD Work Phone: Plan of Treatment Date Care Activity Detail Author Start: 09-15-2028 Urine microalbumin profile [facility] Start: 07-31-2025 End: 07-31-2025 Patient encounter procedure 07/31/2025 8:20 AM EDT Office Visit OB/Gynecology [address] [place], [place] [address] Ketan James MD [address] [place] [address] ER follow up OB/Gynecology Comment on above: ER follow up Start: 07-15-2025 Influenza vaccination [facility] Start: 06-28-2025 Blood culture Blood Culture [facility] Start: 06-19-2025 C reactive protein [Mass/volume] in Serum or Plasma [facility] Start: 06-19-2025 CBC W Auto Different ial panel - Blood [facility] Start: 06-19-2025 Comprehensive metabo lic 2000 panel - Serum or Plasma [facility] Start: 06-14-2025 Bacteria identified in Blood by Culture Blood Culture [facility] Start: 06-14-2025 End: 06-14-2025 [facility] Start: 07-15-2024 Covid-19 Vaccine ( season) Covid-19 Vaccine () [facility] Start: 07-15-2024 Influenza vaccination Influenz a Vaccine (Season Ended) [facility] Start: 03-01-2024 Patient referral [facility] Work Phone: Start: 11-14-2023 Behavioral Health Screening Behavioral Health Screening [facility] Start: 09-15-2023 Lipid panel Lipid Screening [facility] Start: 09-15-2023 LIPID SCREEN LIPID SCREEN [facility] Start: 07-15-2023 Covid-19 Vaccine ( season) Covid-19 Vaccine ( season) [facility] Start: 07-15-2023 Influenza vaccination INFLUENZA (#1) [facility] Start: 11-14-2022 DEPRESSION ASSESSMENT DEPRESSION ASS ESSMENT [facility] Start: 07-15-2022 Influenza vaccination INFLUENZA (#1) [facility] Start: 11-07-2021 DIABETES SCREEN DIABETES SCREEN [facility] Start: 11-07-2021 Diabetes Screening Diabetes Screenin g [facility] Start: 2020 COLOGUARD (FIT-DNA) COLOGUARD (FIT-D NA) [facility] Start: 2020 Colonoscopy COLONOSCOPY [facility] Start: 2020 COLORECTAL CANCER SCREENING COLORECTAL CANCER SCREENING [facility] Start: [address] COLONOGRAPHY [facility] Start: 2020 FECAL OCCULT BLOOD FECAL OCCULT BLOO D [facility] Start: 2020 Screening for malign ant neoplasm of colon [facility] Start: 2020 SIGMOIDOSCOPY SIGMOIDOSCOPY [facility] Start: 09-15-2019 Adult depression scr eening assessment DEPRESSION SCREENING [facility] Start: 2015 Mammography MAMMOGRAM [facility] Start: 2015 Screening for malign ant neoplasm of breast Mammogram Screening [facility] Start: 1994 Hepatitis B Vaccine (1 of 3 - 19+ 3-dose series) Hepatitis B Vaccine (1 of 3 - 19+ 3-dose series) [facility] Start: 1993 Anxiety Screening Anxiety Screening [facility] Start: 1993 Depression Screening Depression Scre ening [facility] Start: 1993 HEPATITIS C SCREENING HEPATITIS C [facility] Start: 1993 Hepatitis C screening Hepatitis C [facility] Start: 1993 HIV SCREENING HIV SCREENING [facility] Start: 1993 HIV screening HIV Screening [facility] Start: 04-19-1976 COVID-19 VACCINE (#1) COVID-19 VACCI NE (#1) [facility] Start: 1975 HEPATITIS B (1 of 3 - 3-dose series) HEPATITIS B (1 of 3 - 3-dose series) [facility] Alanine aminotransfe rase [Enzymatic activity/volume] in Serum or Plasma [facility] Albumin [Mass/volume ] in Serum or Plasma [facility] Alkaline phosphatase [Enzymatic activity/volume] in Serum or Plasma [facility] Anion gap in Serum o r Plasma [facility] Antibody to lupus La protein measurement [facility] Antibody to SS-A measurement [facility] Bilirubin, total measurement [facility] BUN/Creatinine ratio [facility] Calcium [Mass/volume ] in Serum or Plasma [facility] Carbon dioxide, tota l [Moles/volume] in Central venous blood [facility] Creatinine [Mass/vol ume] in Serum or Plasma [facility] End: 05-25-2025 DBT Breast - bilateral screening DERRICK SCREENING [facility] Routine Encounter for screening mammogram for breast cancer 1 Occurrences starting 04/25/2024 until 05/25/2025 [facility] Work Phone: Comment on above: 1 Occurrences starti ng 04/25/2024 until 05/25/2025 End: 04-25-2026 DBT Breast - bilateral screening DERRICK SCREENING [facility] Radiology Routine Encounter for screening mammogram for breast cancer 1 Occurrences starting 03/26/2025 until 04/25/2026 [facility] Work Phone: Comment on above: 1 Occurrences starti ng 03/26/2025 until 04/25/2026 DNA double strand Ab [Units/volume] in Serum [facility] Erythrocyte mean corpuscular volume determination [facility] Glucose [Mass/volume ] in Serum or Plasma [facility] Hematocrit [Volume Fraction] of Blood [facility] Hemoglobin [Mass/vol ume] in Blood [facility] Leukocytes [#/volume ] in Blood [facility] End: 06-16-2024 DERRICK SCREENING [facility]ICK SCREENING Radiology Routine Encounter for screening mammogram for breast cancer 1 Occurrences starting 05/18/2023 until 06/16/2024 [facility] Work Phone: Comment on above: 1 Occurrences starti ng 05/18/2023 until 06/16/2024 Mean corpuscular hemoglobin concentration determination [facility] Mean corpuscular hemoglobin determination [facility] Measurement of renal function [facility] MG Breast - bilatera l Screening [facility] Neutrophil count [facility] Neutrophil percent differential count [facility] Patient Education Abdominal Pain ED FUO Adult [facility] Work Phone: Patient referral [facility] Work Phone: Platelets [#/volume] in Blood [facility] Potassium measurement [facility] Red blood cell count [facility] Red cell distributio n width determination [facility] End: 06-18-2023 Screening mammography bi 2-view breast inc cad [facility]ERRICK SCREENING Radiology Routine Encounter for screening mammogram for breast cancer 1 Occurrences starting 05/19/2022 until 06/18/2023 [facility] Work Phone: Comment on above: 1 Occurrences starti ng 05/19/2022 until 06/18/2023 Serum chloride measurement [facility] Sodium measurement [facility] Total protein measurement [facility] Urea nitrogen [Mass/volume] in Serum or Plasma [facility] Urinalysis complete panel - Urine [facility] US Pelvis [facility] Immunizations Immunization Date Immunization Notes Care Provider Fa lázaro 11-20-2019 influenza virus vaccine, unspecified formulation Vega Broussard MD Work Phone: [facility] 09-15-2018 tetanus toxoid, redu felicity diphtheria toxoid, and acellular pertussis vaccine, adsorbed Vega Broussard MD Work Phone: [facility] 09-13-2005 TD(adult) unspecifie d formulation Vega Broussard MD Work Phone: [facility] Work Phone: Payers Date Payer Category Payer Private Health Insurance [id number] 2025 Private Health Insurance [id number] 2025 Self-pay 2019 Private Health Insurance [id number] 2019 Unknown MMO MMO [employer] [id number] 2019-Present [phone] [address] [place] [address] PPO [id number] 2019 Unknown [id number] Private Health Insurance 999 [id number] Unknown [id number] Unknown [id number] 2 Unknown [id number] 2 Unknown [id number] 2 Unknown [id number] 2 Unknown [id number] 2 Unknown [id number] 2 Social History Date Type Detail Facility Start: 09-15-2018 End: 06-14-2025 Tobacco smoking status NHIS Never smoked tobacco [facility] Start: 09-15-2018 End: 07-20-2022 Tobacco use and exposure Smokeless tobacco non-user [facility] Start: 11-20-2019 End: 07-20-2022 Alcohol intake Current drinker of alcohol (finding) [facility] Start: 09-15-2018 History SDOH Alcohol Comment occassional [facility] Start: 1975 Sex Assigned At Not on file [facility] Start: 07-20-2022 End: 12-02-2022 History SDOH Alcohol Frequency 3 [facility] Start: 07-20-2022 End: 12-02-2022 History SDOH Alcohol Std Drinks 1 [facility] Start: 07-20-2022 History SDOH Social Connections Phone 2 [facility] Start: 07-10-2022 End: 07-20-2022 Exposure to SARS-CoV-2 (event) Not sure [facility] Start: 12-02-2022 History SDOH Social Connections Membership 98 [facility] Start: 11-07-2018 End: 12-02-2022 History of Social function [facility] Start: 11-07-2018 End: 12-02-2022 Social connection and isolation panel [facility] Start: 02-06-2016 Do you belong to any clubs or organizations such as alevism groups, unions, fraternal or athletic groups, or school groups? Patient refused [facility] Are you now , , , , never or living with a partner? Refused [facility] (I/We) worried [facility] (my/our) food would run out before (I/we) got money to buy more. DK or Refused [facility] Start: 03-01-2024 Tobacco smoking stat us NHIS Unknown if ever smoked [facility] Start: 1975 Sex Assigned At Female [facility] NEGATED: Highlighted rowStart: PHOEBEF History of tobacco use Passive smoker [facility] Mental Status Date Assessment Result Facility 06-14-2025 Cognitive function Level Of Cons ciousness Awake;Alert;Appropriate;Follow s Commands [facility] Work Phone: Clinical Notes 07-20-2022 to 06-28-2025 Telephone Encounter - Gabrielle Montes RN - 06/28/2025 2:39 PM EDTTelephone Encounter - Gabrielle Montes RN - 06/28/2025 2:39 PM EDTTelephone Encounter - Nereyda Arroyo - 06/28/2025 12:32 PM EDT Note Date & Type Note Facility 06-28-2025 Telephone encount er Note Patient notified. Scheduled with AT in July and placed on a wait list. Gabrielle Montes RN [facility] 06-28-2025 Miscellaneous Notes Formattin g of this note might be different from the original. Patient notified. Scheduled with AT in July and placed on a wait list. Gabrielle Montes RN I am happy to see her in my next opening or on a wait list. Ok to see someone else. Not seeing an ovary generally means it is small as if there is a cyst or concern it would be enlarged and easier to see. Please schedule next available. Cynthia Laura MD Pt was seen at [facility] last week for high fever and pain, when ultrasound was done she stating they could not find her remaining ovary. Pt states she was highly recommended to see Dr. Laura. Please advise if we can work her in or if there is another provider to recommend as pt denied scheduling with anyone else until hearing from Lamine. Thank you documented in this encounter [facility] 06-28-2025 Telephone encount er Note I am happy to see her in my next opening or on a wait list. Ok to see someone else. Not seeing an ovary generally means it is small as if there is a cyst or concern it would be enlarged and easier to see. Please schedule next available. Cynthia Laura MD [facility] Work Phone: 06-28-2025 Telephone encount er Note Pt was seen at [facility] last week for high fever and pain, when ultrasound was done she stating they could not find her remaining ovary. Pt states she was highly recommended to see Dr. Laura. Please advise if we can work her in or if there is another provider to recommend as pt denied scheduling with anyone else until hearing from Lamine. Thank you [facility] 06-19-2025 Radiology Diagnos tic study note [facility] Imaging Services [address] [place] [address] Pelvic (Non ) MR#: [id number] Acct: [id number] Name: JERSEY BETANCOURT Rep #: [id number] : 1975 F 49 From: Daniel Nassar MD PCP: JUDY Arce Status: REG CLI Study:Pelvic (Non ) Date of Exam: 06/19/25 Exam# [id number] Ordering Dr: Daniel Haider PROCEDURE: PELVIC (NON ) 06/19/2025 REASON FOR EXAM: ABDOMINAL TECHNIQUE: PELVIC (NON ) COMPARISON: 06/14/2025 CT. FINDINGS: Uterus is surgically absent. The right ovary is not visualized and may be surgically absent. The left ovary is not visualized and may be surgically absent. No fluid in the cul-de-sac. No adnexal masses. Urinary bladder volume of 166 cc. US/Pelvic (Non ) IMPRESSION: Status post hysterectomy. Bilateral ovaries are not visualized and may be surgically absent. Correlate with surgical history. No adnexal masses. No free fluid. Reading Location: [facility] CC: JUDY Arce ~ Allied Health Professional: Signed [facility] 06-19-2025 Evaluation note Diagnosis Onset Date Resolution Abdominal pain acute June 8:28am RLQ abdominal pain acute June 19, 2025 8:28am Hypertension chronic June 19, 2025 8:28am [facility] Work Phone: 1(456) 492-309808-01-2025 Discharge summary [facility] Medical Records Department [address] [place] [address] Emergency Department Summary 06/14/25 MR#: [id number] Acct: [id number] Name: JERSEY BETANCOURT Rep #:[id number] : 1975 49 From: Dave Carvalho DO PCP: Dr. Nikole Guillermo MD Status:REG ER Location: ED HPI History of Present Illness Chief Complaint: Fever Informant: patient and spouse/S.O. Narrative Narrative: Patient is a 49-year-old female with past medical history of PCOS and hypertension. She states overthe past week she has been spiking fevers with the highest being 103 at home. She states she will take Tylenol and/or Motrin and the fever will resolve. She states there is no real associated symptoms such as nasal congestion sore throat cough nausea vomiting or diarrhea or dysuria. She states thatshe will occasionally have some pain in the right lower abdomen. She states that because it has been 7 days with out spontaneous resolution of her fever and no obvious reason why she has the fever she presentsfor evaluation [facility] Medical History Bronchitis Migraine Ovarian tumor PCOS (polycystic ovarian syndrome) Home Medications ?Medication ?Instructions ?Recorded ?Last Taken ?Type lisinopril 5 mg tablet 5 mg PO DAILY #30 tabs 03/01 Unknown Rx cholecalciferol (vitamin D3) 125 125 mcg PO DAILY 07/07 Unknown History mcg (5,000 unit) capsule Allergy/AdvReac Type Severity Reaction Status Date / Time latex Allergy Intermediate Hives Verified 06/14/25 05:21 amoxicillin AdvReac Mild yeast Verified 06/14/25 05:21 infections Family History Father Cancer lung Sponge kidney Grandmother Cancer colon Hypertension Heart disease Mother CVA (cerebral vascular accident) Hypertension Hyperlipemia Grandfather Alcoholism Grandfather Heart disease CVA (cerebral vascular accident) Grandmother Cancer pancreatic Surgical History Hx of LASIK H/O hysterectomy with unilateral oophorectomy H/O sinus surgery History of ankle surgery Social History adopted: No household members: spouse number of children: 2 current occupational status: employed current occupation: [employer] pets and animals: Yes pets and animals: cat(s) Smoking Status: Never smoker Electronic Cigarette Use: not used alcohol intake: current alcohol intake frequency: a few times a month substance use type: does not use diet: gluten free caffeine: Yes (2) Type: tea frequency: daily seatbelt use: always do you feel safe at home: Yes additional social history: Rajat SWANSON ROS ED Constitutional Constitutional ED: Reports chills and fever(s) ENT ENT ED: Denies ear pain, rhinorrhea or sore throat Cardiovascular Cardiovascular: Denies chest pain Respiratory/Chest Respiratory/Chest: Denies cough or dyspnea Gastrointestinal Gastrointestinal: Reports abdominal pain; Denies constipation, diarrhea, nausea or vomiting Genitourinary Genitourinary ED: Denies dysuria Musculoskeletal Musculoskeletal: Reports myalgias; Denies back pain Integumentary Denies rash Neurologic Neurologic: Denies headache(s) Hematologic/Lymphatic Hematologic/Lymphatic: Denies easy bleeding or easy bruising EXAM Physical Exam Const Vital Signs: 06/14/25 05:22 06/14/25 05:22 Temperature 99.1 F Temperature Source Oral Pulse Rate 120 H Respiratory Rate 18 Respiratory Effort Normal Respiratory Pattern Normal Blood Pressure 175/99 H Blood Pressure Mean 124 Pulse Ox 97 Oxygen Delivery Method Room Air Positive well nourished, well developed and obese General Appearance ED: well developed; Negative for pallor Nutritional Appearance: obese HEENT Reports dry mucous membranes HEENT Narrative: Normocephalic atraumatic No tongue or lip swelling no oral lesions no airway edema or compromise; no secondary findings in the posterior pharynx to suggest infection Oral mucosa is dry and tacky Mouth ED: Yes dry mucous membranes Mouth: dry mucous membranes Eyes PERRL and EOMs intact bilaterally General Eye ED: Negative for scleral icterus Neck supple Neck Narrative: No nuchal rigidity or meningeal signs Resp normal respiratory effort and clear to auscultation bilaterally Resp Narrative: No nasal flaring retractions tachypnea or accessory muscle use Cardio regular rhythm Rate: tachycardic GI non-distended and no masses GI Narrative: Abdomen is soft and nondistended with normal active bowel sounds. There is pain with palpation in the right lower quadrant over top McBurney's point with voluntary guarding at this site. Positive heel strike. Negative psoas and obturator sign No peritoneal signs. No pulsatile mass Auscultation: normoactive bowel sounds Palpation: soft Back/Spine no CVA tenderness Extremity Extremity Narrative: +1-2 pitting edema to the bilateral lower extremities that is equal and symmetric Negative Homans' sign bilaterally Neuro oriented x3, CN's II-XII intact bilaterally and no sensory deficits noted Sensorium / Orientation: alert Motor Exam: strength 5/5 throughout Psych mental status grossly normal Skin no rashes or lesions noted and no wounds General Skin Exam: Negative for jaundice or pallor MDM MDM MDM Narrative Medical decision making narrative: Patient arrived to the ER hypertensive but states she has a history of this and that it spikes whenshe comes to the hospital or sees a doctor. She is afebrileupon arrival but states she took medication roughly 3 hours ago. She reports she has been having fever reaching 103 for the past 7 days but there are no true associated symptoms other than occasional right sided abdominal pain. Differentialdiagnosis is for viral syndrome such as COVID influenza or RSV versus pneumonia versus UTI versus pyelonephritis versus appendicitis. Secondary to this blood work was obtained as well as a chest x-ray and CT scan of the abdomen and pelvis. Chest x-ray reveals no signs of infection such as pneumonia. Urine sample shows blood which is nonspecific but no bacteria going against UTI or pyelonephritis.Patient does not have leukocytosis or left shift. There is no lactic acidosis either and her Pro-Alec is less than 0.5 going against systemic infection. Based on the patient's vitals and labs there are no signs for sepsis at this time. However because of the persistent fever Iwill obtain blood cultur es as we do not have an obvious source. However as workup is negative and she is hemodynamically stable there are no grounds for admission at this time. Patient and were informed to continue to treat the fever and if he goes over 10 days or if symptoms worsen then to return to the ER for repeat evaluation. This plan of care was discussed with patient and and they are both agreeable to it. Therefore at this time as we do not have an obvious source of infection but she is hemodynamically stable we will await blood cultures and discharged home History & Record Review Discussion w/independent historian: Patient and Significant other Lab Data Attestation: I reviewed the patient's lab results. Labs: Laboratory Results - last 24 hr 06/14/25 06/14/25 05:44 05:50 WBC 4.7 RBC 4.58 Hgb 13.4 Hct 41.1 MCV 89.7 MCH 29.3 MCHC 32.6 RDW Std Deviation 42.9 RDW Coeff of Erinn 13.2 Plt Count 165 MPV 9.4 Immature Gran % (Auto) 0.600 Neut % (Auto) 51.9 Lymph % (Auto) 35.1 [place] % (Auto) 7.9 Eos % (Auto) 3.2 Baso % (Auto) 1.3 H Absolute Neuts (auto) 2.4 Absolute Lymphs (auto) 1.64 Nucleated RBC % 0 Differential Comment SCANNED Atypical Lymphocytes RARE Sodium 138 Potassium 4.2 Chloride 100 Carbon Dioxide 26.9 Anion Gap 10 BUN 11 Creatinine 1.00 Estim Creat Clear Calc 82.83 Est GFR (MDRD) Non-Af 69 BUN/Creatinine Ratio 11.4 Glucose 135 H Lactic Acid 1.2 Calcium 9.1 Total Bilirubin 0.39 Direct Bilirubin 0.14 AST 48 H ALT 53 H Alkaline Phosphatase 120 H Total Protein 7.3 Albumin 4.1 Globulin 3.2 Lipase 25 Procalcitonin 0.31 H Urine Color Yellow Urine Clarity Sl. Cloudy Urine pH 7.0 Ur Specific [place] 1.010 Urine Protein 15 H Urine Glucose (UA) Normal Urine Ketones Negative Urine Occult Blood 250 H Urine Nitrite Negative Urine Bilirubin Negative Urine Urobilinogen Normal Ur Leukocyte Esterase Negative Urine RBC 5-10 SEEN Urine WBC 0-5 SEEN Ur Squamous Epith Cells 0-5 SEEN Urine Bacteria 0 SEEN Urine Mucus 0 SEEN Radiography Diagnostic Testing: Clinical Impression(s) from Imaging Studies Abdomen/Pelvis CT 06/14/25 05:37 IMPRESSION: Normal appendix. Colonic diverticulosis without acute diverticulitis. No bowel obstruction. Mildly thickened urinary bladder wall which may reflect cystitis vs nondistention; consider correlation with urinalysis. Reading Location: [facility] Chest X-Ray 06/14/25 06:00 IMPRESSION: No focal consolidations. Reading Location: [facility] Chest x-ray as interpreted by the emergency medicine physician reveals no acute infiltrate pneumothorax or pleural effusion Discharge Plan Triage Chief Complaint: Fever Other Complaint: General Illness ED Provider: Dave Carvalho Dx/Rx/DC Orders Clinical Impression: Pyrexia, Nonspecific abdominal pain, Inguinal hernia, Hypertension, Polycystic ovary syndrome Instructions: Abdominal Pain, ED FUO Adult Prescriptions: No Action lisinopril 5 mg tablet 5 mg PO DAILY Qty: 30 1RF cholecalciferol (vitamin D3) 125 mcg (5,000 unit) capsule 125 mcg PO DAILY Stand Alone Forms: ED Work / School Excuse Primary Care Provider: Nikole Guillermo Referrals: Nikole Guillermo MD [Primary Care Provider] - Activity Restrictions/Additional Instructions: Your workup today did not show any pneumonia urinary tract infection or acute appendicitis/abdominal infection. There is a small fat-containing inguinal hernia on the right but this is not emergent or life-threatening. Please continue Tylenol and Motrin for fever control. If fever persist over 10 days orthere are worsening or changing symptoms then please return to the ER for repeatevaluation. Blood cultures were obtained today and if they are positive you will receive a phone call instructing you of how to proceed. Print Language: Wallisian Disposition Disposition: Home, Self Care What to do if you have Problems For any increased pain, shortness of breath, bleeding, nausea or vomiting, chestpain, or any unexpected problems, contact your Primary Care Provider. Call [facility] ([phone]) or report tothe closest Emergency Room. Call 911 if necessary. 06/14/25 0703 Cosigner Signature (if applicable): CC: Dr. Nikole Guillermo MD ~ Signed [facility]08-01-2025 Radiology Diagnostic study note [facility] Imaging Services [address] [place] [address] Abdomen/Pelvis W IV Cont ONLY MR#: [id number] Acct: [id number] Name: JERSEY BETANCOURT Rep #: [id number] : 1975 F 49 From: Jelena Alas MD PCP: Dr. Nikole Guillermo MD Status: REG ER Study:Abdomen/Pelvis W IV Cont ONLY Date of E xam: 06/14/25 Exam# [id number] Ordering Dr: Swathi Carvalho DO PROCEDURE: ABDOMEN/PELVIS W IV CONT ONLY 06/14/2025 REASON FOR EXAM: RLQ PAIN TECHNIQUE: ABDOMEN/PELVIS W IV CONT ONLY Coronal and Sagittal reconstruction series were provided. CONTRAST: 100 mL of Isovue 370 One or more dose reduction techniques were used (e.g., Automated exposure control, adjustment of the mA and/or kV according to patient size, use of iterative reconstruction technique. RADIATION DOSE SUMMARY: DLP: 1242 mGycm COMPARISON: None FINDINGS: Limited sections of the lung bases demonstrate no focal pulmonary mass or consolidations. The liver, spleen, pancreas, and both adrenal glands demonstrate no acute findings. Minimal hepaticsteatosis. The gallbladder is unremarkable. The stomach is unremarkable. The small bowel loops are not dilated. The appendix is normal. No colonic obstruction. Colonic diverticulosis without acute diverticulitis. There is no free air or significant free fluid. The kidneys are unremarkable. Mildly thickened urinary bladder wall which may reflect cystitis vs nondistention; consider correlation with urinalysis. The pelvic structures are intact. There is no solid pelvic mass. No significant lymphadenopathy. The aorta and IVC demonstrate no acute findings. Visualized osseous structures demonstrate no acute abnormality. Small fat containing right inguinal hernia. CT/Abdomen/Pelvis W IV Cont ONLY IMPRESSION: Normal appendix. Colonic diverticulosis without acute diverticulitis. No bowel obstruction. Mildly thickened urinary bladder wall which may reflect cystitis vs nondistention; consider correlation with urinalysis. Reading Location: [facility] CC: Dr. Nikole Guillermo MD; Dave Carvalho DO ~ Allied Health Professional: Signed [facility]08-01-2025 Radiology Diagnostic study note [facility] Imaging Services [address] [place] [address] Chest PA and Lateral MR#: [id number] Acct: [id number] Name: JERSEY BETANCOURT Rep #: [id number] : 1975 F 49 From: Jelena Alas MD PCP: Dr. Nikole Guillermo MD Status: REG ER Study:Chest PA and Lateral Date of Exam: 06/14/25 Exam# [id number] Ordering Dr: Swathi Carvalho DO PROCEDURE: CHEST PA AND LATERAL 06/14/2025 REASON FOR EXAM: FEVER TECHNIQUE: CHEST PA AND LATERAL COMPARISON: none FINDINGS: No focal consolidation. No pleural effusion or pneumothorax. Cardiac silhouette is within normal limits. No acute fractures. RAD/Chest PA and Lateral IMPRESSION: No focal consolidations. Reading Location: [facility] CC: Dr. Nikole Guillermo MD; Dave Carvalho DO ~ Allied Health Professional: Signed [facility]05-13-2025 NotePatient Outreach (FAMDNA) JERSEY BETANCOURT ([id number]) 1975 F Date Time Provider Department 03/26/25 [...] breast cancer [Z12.31] Order(s):DERRICK SCREENING W INGRID [[id number]] Order #: [id number] [facility] Meds Comments as of 07/03/2019: no medications 07/03/19 Holley Dean RN Problem List As Of Date 03/26/2025 Noted Resolved Obesity, Class III, BMI 40-49.9 (morbid obesity*09/15/2018 PCOS (polycystic ovarian syndrome) [E28.2] 09/15/2018 Metabolic syndrome [E88.810] 09/15/2018 Flexural eczema [L20.82] 09/15/2018 Elevated blood-pressure reading without diagnos*02/06/2019 Low T4 [R79.89] 02/06/2019 Encounter Status:Closed by [employer], PRODUSER on 04/26/25[facility] 12-02-2022 History of Present illness Narrative* Verónica Jutsin APRN.ACID ETCH OPERATOR - 12/02/2022 1:31 PM EST VIRTUAL VISIT PROGRESS NOTE This is a virtual visit using [employer] video visit. It required patient-provider interaction for themedical decision making as documented below. Jersey Betancourt [...] PE exam for next month Verónica Justin APRN.ACID ETCH OPERATOR There are no Patient Instructions on file for this visit. Verónica Justin APRN.ACID ETCH OPERATOR documented [facility] Miscellaneous Notes* Telephone Encounter - Vega Broussrad MD - 12/02/2022 12:12 PM EST Has appointment with Verónica for virtual visit today * Telephone Encounter - Holley Donaldson RN - 12/02/2022 10:59 AM EST Patient calling c/o possible sinus infection Sinus [...] other symptoms? (e.g., sore throat, cough, earache, difficultybreathing) NO 9. : Is there any chance you are ? When was your last menstrual period? No Protocols used: Sinus Pain or [id number] documented in this encounterL[facility]09-[facility] History of Present illness Narrative* Vega Broussard MD - 07/20/2022 4:41 PM EDT DISTANCE HEALTH VISIT This Team Access Model visit is a virtual encounter. It required patient- provider interaction for the medical decision making as [...] TABLET Vega Broussard MD documented in this encounterHague ClinicDischarge summary Author Dave Carvalho [facility] Note Date/Time June 14, 2025 7:0 3am [facility] Medical Records Department [address] [place] [address] Emergency Department Summary 06/14/25 MR#: [id number] Acct: [id number] Name: JERSEY BETANCOURT Rep #:[id number] : 1975 49 From: Dave Carvalho DO PCP: Dr. Nikole Guillermo MD Status:REG ER Location: ED HPI History of Present Illness Chief Complaint: Fever Informant: patient and spouse/S.O. Narrative Narrative: Patient is a 49-year-old female with past medical history of PCOS and hypertension. She states over the past week she has been spiking fevers with the highest being 103 at home. She states she will take Tylenol and/or Motrin and the fever will resolve. She states there is no real associated symptoms such as nasal congestion sore throat cough nausea vomiting or diarrhea or dysuria. She states that she will occasionally have some pain in the right lower abdomen. She states that because it has been 7 days with out spontaneous resolution of her fever and no obvious reason why she has the fever she presentsfor evaluation [facility] Medical History Bronchitis Migraine Ovarian tumor PCOS (polycystic ovarian syndrome) Home Medications ?Medication ?Instructions ?Recorded ?Last Taken ?Type lisinopril 5 mg tablet 5 mg PO DAILY #30 tabs 03/01 Unknown Rx cholecalciferol (vitamin D3) 125 125 mcg PO DAILY 07/07 Unknown History mcg (5,000 unit) capsule Allergy/AdvReac Type Severity Reaction Status Date / Time latex Allergy Intermediate Hives Verified 06/14/25 05:21 amoxicillin AdvReac Mild yeast Verified 06/14/25 05:21 infections Family History Father Cancer lung Sponge kidney Grandmother Cancer colon Hypertension Heart disease Mother CVA (cerebral vascular accident) Hypertension Hyperlipemia Grandfather Alcoholism Grandfather Heart disease CVA (cerebral vascular accident) Grandmother Cancer pancreatic Surgical History Hx of LASIK H/O hysterectomy with unilateral oophorectomy H/O sinus surgery History of ankle surgery Social History adopted: No household members: spouse number of children: 2 current occupational status: employed current occupation: [employer] pets and animals: Yes pets and animals: cat(s) Smoking Status: Never smoker Electronic Cigarette Use: not used alcohol intake: current alcohol intake frequency: a few times a month substance use type: does not use diet: gluten free caffeine: Yes (2) Type: tea frequency: daily seatbelt use: always do you feel safe at home: Yes additional social history: Rajat - christopher [facility] ED Constitutional Constitutional ED: Reports chills and fever(s) ENT ENT ED: Denies ear pain, rhinorrhea or sore throat Cardiovascular Cardiovascular: Denies chest pain Respiratory/Chest Respiratory/Chest: Denies cough or dyspnea Gastrointestinal Gastrointestinal: Reports abdominal pain; Denies constipation, diarrhea, nausea or vomiting Genitourinary Genitourinary ED: Denies dysuria Musculoskeletal Musculoskeletal: Reports myalgias; Denies back pain Integumentary Denies rash Neurologic Neurologic: Denies headache(s) Hematologic/Lymphatic Hematologic/Lymphatic: Denies easy bleeding or easy bruising EXAM Physical Exam Const Vital Signs: 06/14/25 05:22 06/14/25 05:22 Temperature 99.1 F Temperature Source Oral Pulse Rate 120 H Respiratory Rate 18 Respiratory Effort Normal Respiratory Pattern Normal Blood Pressure 175/99 H Blood Pressure Mean 124 Pulse Ox 97 Oxygen Delivery Method Room Air Positive well nourished, well developed and obese General Appearance ED: well developed; Negative for pallor Nutritional Appearance: obese HEENT Reports dry mucous membranes HEENT Narrative: Normocephalic atraumatic No tongue or lip swelling no oral lesions no airway edema or compromise; no secondary findings in the posterior pharynx to suggest infection Oral mucosa is dry and tacky Mouth ED: Yes dry mucous membranes Mouth: dry mucous membranes Eyes PERRL and EOMs intact bilaterally General Eye ED: Negative for scleral icterus Neck supple Neck Narrative: No nuchal rigidity or meningeal signs Resp normal respiratory effort and clear to auscultation bilaterally Resp Narrative: No nasal flaring retractions tachypnea or accessory muscle use Cardio regular rhythm Rate: tachycardic GI non-distended and no masses GI Narrative: Abdomen is soft and nondistended with normal active bowel sounds. There is pain with palpation in the right lower quadrant over top McBurney's point with voluntary guarding at this site. Positive heel strike. Negative psoas and obturator sign No peritoneal signs. No pulsatile mass Auscultation: normoactive bowel sounds Palpation: soft Back/Spine no CVA tenderness Extremity Extremity Narrative: +1-2 pitting edema to the bilateral lower extremities that is equal and symmetric Negative Homans' sign bilaterally Neuro oriented x3, CN's II-XII intact bilaterally and no sensory deficits noted Sensorium / Orientation: alert Motor Exam: strength 5/5 throughout Psych mental status grossly normal Skin no rashes or lesions noted and no wounds General Skin Exam: Negative for jaundice or pallor MDM MDM MDM Narrative Medical decision making narrative: Patient arrived to the ER hypertensive but states she has a history of this and that it spikes when she comes to the hospital or sees a doctor. She is afebrileupon arrival but states she took medication roughly 3 hours ago. She reports she has been having fever reaching 103 for the past 7 days but there are no true associated symptoms other than occasional right sided abdominal pain. Differential diagnosis is for viral syndrome such as COVID influenza or RSV versus pneumonia versus UTI versus pyelonephritis versus appendicitis. Secondary to this blood work was obtained as well as a chest x-ray and CT scan of the abdomen and pelvis. Chest x-ray reveals no signs of infection such as pneumonia. Urine sample shows blood which is nonspecific but no bacteria going against UTI or pyelonephritis. Patient does not have leukocytosis or left shift. There is no lactic acidosis either and her Pro-Alec is less than 0.5 going against systemic infection. Based on the patient's vitals and labs there are no signs for sepsis at this time. However because of the persistent fever Iwill obtain blood cultures as we do not have an obvious source. However as workup is negative and she is hemodynamically stable there are no grounds for admission at this time. Patient and were informed to continue to treat the fever and if he goes over 10 days or if symptoms worsen then to return to the ER for repeat evaluation. This plan of care was discussed with patient and and they are both agreeable to it. Therefore at this time as we do not have an obvious source of infection but she is hemodynamically stable we will await blood cultures and discharged home History & Record Review Discussion w/independent historian: Patient and Significant other Lab Data Attestation: I reviewed the patient's lab results. Labs: Laboratory Results - last 24 hr 06/14/25 06/14/25 05:44 05:50 WBC 4.7 RBC 4.58 Hgb 13.4 Hct 41.1 MCV 89.7 MCH 29.3 MCHC 32.6 RDW Std Deviation 42.9 RDW Coeff of Erinn 13.2 Plt Count 165 MPV 9.4 Immature Gran % (Auto) 0.600 Neut % (Auto) 51.9 Lymph % (Auto) 35.1 [place] % (Auto) 7.9 Eos % (Auto) 3.2 Baso % (Auto) 1.3 H Absolute Neuts (auto) 2.4 Absolute Lymphs (auto) 1.64 Nucleated RBC % 0 Differential Comment SCANNED Atypical Lymphocytes RARE Sodium 138 Potassium 4.2 Chloride 100 Carbon Dioxide 26.9 Anion Gap 10 BUN 11 Creatinine 1.00 Estim Creat Clear Calc 82.83 Est GFR (MDRD) Non-Af 69 BUN/Creatinine Ratio 11.4 Glucose 135 H Lactic Acid 1.2 Calcium 9.1 Total Bilirubin 0.39 Direct Bilirubin 0.14 AST 48 H ALT 53 H Alkaline Phosphatase 120 H Total Protein 7.3 Albumin 4.1 Globulin 3.2 Lipase 25 Procalcitonin 0.31 H Urine Color Yellow Urine Clarity Sl. Cloudy Urine pH 7.0 Ur Specific [place] 1.010 Urine Protein 15 H Urine Glucose (UA) Normal Urine Ketones Negative Urine Occult Blood 250 H Urine Nitrite Negative Urine Bilirubin Negative Urine Urobilinogen Normal Ur Leukocyte Esterase Negative Urine RBC 5-10 SEEN Urine WBC 0-5 SEEN Ur Squamous Epith Cells 0-5 SEEN Urine Bacteria 0 SEEN Urine Mucus 0 SEEN Radiography Diagnostic Testing: Clinical Impression(s) from Imaging Studies Abdomen/Pelvis CT 06/14/25 05:37 IMPRESSION: Normal appendix. Colonic diverticulosis without acute diverticulitis. No bowel obstruction. Mildly thickened urinary bladder wall which may reflect cystitis vs nondistention; consider correlation with urinalysis. Reading Location: [facility] Chest X-Ray 06/14/25 06:00 IMPRESSION: No focal consolidations. Reading Location: [facility] Chest x-ray as interpreted by the emergency medicine physician reveals no acute infiltrate pneumothorax or pleural effusion Discharge Plan Triage Chief Complaint: Fever Other Complaint: General Illness ED Provider: Dave Carvalho Dx/Rx/DC Orders Clinical Impression: Pyrexia, Nonspecific abdominal pain, Inguinal hernia, Hypertension, Polycystic ovary syndrome Instructions: Abdominal Pain, ED FUO Adult Prescriptions: No Action lisinopril 5 mg tablet 5 mg PO DAILY Qty: 30 1RF cholecalciferol (vitamin D3) 125 mcg (5,000 unit) capsule 125 mcg PO DAILY Stand Alone Forms: ED Work / School Excuse Primary Care Provider: Nikole Guillermo Referrals: Nikole Guilelrmo MD [Primary Care Provider] - Activity Restrictions/Additional Instructions: Your workup today did not show any pneumonia urinary tract infection or acute appendicitis/abdominal infection. There is a small fat-containing inguinal hernia on the right but this is not emergent or life-threatening. Please continue Tylenol and Motrin for fever control. If fever persist over 10 days orthere are worsening or changing symptoms then please return to the ER for repeatevaluation. Blood cultures were obtained today and if they are positive you will receive a phone call instructing you of how to proceed. Print Language: Wallisian Disposition Disposition: Home, Self Care What to do if you have Problems For any increased pain, shortness of breath, bleeding, nausea or vomiting, chestpain, or any unexpected problems, contact your Primary Care Provider. Call [facility] ([phone]) or report to the closest Emergency Room. Call 911 if necessary. 06/14/25 0703 <Electronically signed by Dave Carvalho DO> Cosigner Signature (if applicable): CC: Dr. Nikole Guillermo MD ~ Signed [facility] Work Phone: Evaluation note* Diagnosis Encounter for screening mammogram for breast cancer documented in this encounter [facility] note* Diagnosis Acute non-recurrent maxillary sinusitis- Primary documented in this encounter [facility] note* Diagnosis Acute non-recurrent maxillary sinusitis documented in this encounter [facility] note* Diagnosis Encounter for screening mammogram for breast cancer documented in this encounter [facility] noteNo assessment information availableWOhioHealth [facility] Work Phone: Evaluation note* Diagnosis Encounter for screening mammogram for breast cancer documented in this encounter [facility] note* Diagnosis Onset Date Resolution Status Admit Date Abdominal pain acute June 8:28am [facility] Work Phone: Hospital Discharge instructionsAdditional Instructions Your workup today did not show any pneumonia urinary tract infection or acute appendicitis/abdominal infection. There is a small fat-containing inguinal hernia on the right but this is not emergent or life-threatening. Please continue Tylenol and Motrin for fever control. If fever persist over 10 days or there are worsening or changing symptoms then please return to the ER for repeat evaluation. Blood cultures were obtained today and if they are positive you will receive a phone call instructing you of how to proceed.[facility] Work Phone: Reason for referral (narrative)* Diagnostic Procedure Only (Routine) - Pending Review Specialty Diagnoses / Procedures Referred By Phoebe gupta Referred To Contact [facility] Diagnoses Encounter for screening mammogram for breast cancer Procedures DERRICK SCREENING SCREENING MAMMOGRAPHY BI 2-VIEW BREAST INC CAD Vega Broussard MD [address] [place] [address] [facility] [place] [address] Referral ID Status Reason Start Date Expiration Date Visits Requested Visits Authorized [id number] Pending Review Auto-Generat ed Referral 05/19/2022 06/18/2023 1 1 [facility] for referral (narrative)* Diagnostic Procedure Only (Routine) - Pending Review Specialty Diagnoses / Procedures Referred By Phoebe gupta Referred To Contact [facility] Diagnoses Encounter for screening mammogram for breast cancer Procedures DERRICK SCREENING SCREENING MAMMOGRAPHY BI 2-VIEW BREAST INC Vega Olson MD [address] [place] [address] [facility] [address] [place] [address] Referral ID Status Reason Start Date Expiration Date Visits Requested Visits Authorized [id number] Pending Review Auto-Generat ed Referral 05/18/2023 06/16/2024 1 1 [facility] for referral (narrative)* Diagnostic Procedure Only (Routine) - Pending Review Specialty Diagnoses / Procedures Referred By Phoebe gupta Referred To Contact [facility] Diagnoses Encounter for screening mammogram for breast cancer Procedures DERRICK SCREENING W INGRID SCREENING DIGITAL BREAST TOMOSYNTHESIS BI SCREENING MAMMOGRAPHY BI 2-VIEW BREAST INC Vega Olson MD [address] [place] [address] [facility] [address] [place] [address] Referral ID Status Reason Start Date Expiration Date Visits Requested Visits Authorized [id number] Pending Review Auto-Generat ed Referral 04/25/2024 05/25/2025 [facility]No reason for referral information availableWOhioHealth [facility] Work Phone: Summary Purpose Family History No Family History [...] on File Type Date 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 Chief Complaint Admit Date GENERAL ILLNESS June 14, 2025 5:2 1am Chief Complaint Admit Date GENERAL ILLNESS June 14, 2025 5:2 1am DIARRHEA / FEVER / CHILLS June 19 8:28am Reason for Visit Admit Date Abdominal pain June 19, 2025 8:2 8am Chief Complaint Admit Date GENERAL ILLNESS June 14, 2025 5:2 1am DIARRHEA / FEVER / CHILLS June 19 8:28am RLQ ABD PAIN June 19, 2025 4:1 4pm Reason for Visit Admit Date Abdominal pain June 19, 2025 8:2 8am RLQ abdominal pain June 19, 2025 8:2 8am Hypertension June 19, 2025 8:2 8am Chief Complaint Admit Date GENERAL ILLNESS June 14, 2025 5:2 1am DIARRHEA / FEVER / CHILLS June 19 8:28am RLQ ABD PAIN June 19, 2025 4:1 4pm INT LAB ORDERS June 28, 2025 1: 43pm Additional Source Comments INFORMATION SOURCE (unrecogn ized section and content) DATE CREATED AUTHOR 11/10/2018 [facility] DATE CREATED AUTHOR AUTHOR'S ORGANIZ ATION 06/30/2025 [facility] DATE CREATED AUTHOR AUTHOR'S ORGANIZ ATION 07/05/2025 [facility] Source Comments (unrecognize d section and content) In the event this informatio n is protected by the Federal Confidentiality of Alcohol and Drug Abuse Patient Records regulations: The Federal rules restrict any use of the information to criminally investigate or prosecute any alcohol or drug abuse patient.[facility] CenterIn the event this information is protected by the Federal Confidentiality of Alcohol and Drug Abuse Patient Records regulations: The Federal rules restrict any use of the information to criminally investigate or prosecute any alcohol or drug abuse patient.[facility] CenterIn the event this information is protected by the Federal Confidentiality of Alcohol and Drug Abuse Patient Records regulations: The Federal rules restrict any use of the information to criminally investigate or prosecute any alcohol or drug abuse patient.[facility] CenterIn the event this information is protected by the Federal Confidentiality of Alcohol and Drug Abuse Patient Records regulations: The Federal rules restrict any use of the information to criminally investigate or prosecute any alcohol or drug abuse patient.[facility] CenterIn the event this information is protected by the Federal Confidentiality of Alcohol and Drug Abuse Patient Records regulations: The Federal rules restrict any use of the information to criminally investigate or prosecute any alcohol or drug abuse patient.[facility] CenterIn the event this information is protected by the Federal Confidentiality of Alcohol and Drug Abuse Patient Records regulations: The Federal rules restrict any use of the information to criminally investigate or prosecute any alcohol or drug abuse patient.[facility] CenterIn the event this information is protected by the Federal Confidentiality of Alcohol and Drug Abuse Patient Records regulations: The Federal rules restrict any use of the information to criminally investigate or prosecute any alcohol or drug abuse patient.[facility] CenterIn the event this information is protected by the Federal Confidentiality of Alcohol and Drug Abuse Patient Records regulations: The Federal rules restrict any use of the information to criminally investigate or prosecute any alcohol or drug abuse patient.[facility] Care Teams (unrecognized sec tion and content) Commercial Loan Manager Relationship Specialty Start Date End Date Vega Broussard MD [address] [place] [address] PCP - General Family Practice 09/15/18 Commercial Loan Manager Relationship Specialty Start Date End Date Vega Broussard MD [address] [place] [address] PCP - General Family Practice 09/15/18 Commercial Loan Manager Relationship Specialty Start Date End Date Vega Broussard MD [address] [place] [address] PCP - General Family Medicine 09/15/18 Commercial Loan Manager Relationship Specialty Start Date End Date Vega Broussard MD [address] [place] [address] PCP - General Family Medicine 09/15/18 Commercial Loan Manager Relationship Specialty Start Date End Date Vega Broussard MD [address] [place] [address] PCP - General Family Medicine 09/15/18 Team Status: Active Member Role Status Dates Dr. Nikole Guillermo MD Primary Care Provider Active Team Status: Inactive Member Role Status Dates Dr. Nikole Guillermo MD Attending Provider Active Team Status: Inactive Member Role Status Dates Dr. Nikole Guillermo MD Primary Care Pro vider, Attending Provider, Referring Provider Active Commercial Loan Manager Relationship Specialty Start Date End Date Vega Broussard MD [address] [place] [address] PCP - General Family Medicine 09/15/18 Commercial Loan Manager Relationship Specialty Start Date End Date Vega Broussard MD PCP - General Family Medicine 09/15/18 Verónica Justin, DIVISION SUPERVISOR.ACID ETCH OPERATOR [address] [place] [address] Supervisor [employer] Family Medicine 10/22/24 Team Status: Active Member Role/Relationship Status Dates Dr. Nikole Guillermo MD Primary Care Provider Active Team Status: Inactive Member Role/Relationship Status Dates Dr. Nikole Guillermo MD Primary Care Provider Active Start: June 14, 2025 End: June 14, 2025 Dr. Dave Carvalho DO Emergency Provider Active Start: June 14, 2025 End: June 14, 2025 Team Status: Inactive Member Role/Relationship Status Dates Dr. Nikole Guillermo MD Primary Care Provider Active Start: June 19, 2025 End: June 19, 2025 Dr. Nikole Guillermo MD Referring Provider Active Start: June 19, 2025 End: June 19, 2025 Teo Haider PA, PA Attending Provider Active St art: June 19, 2025 End: June 19, 2025 Team Status: Active Member Role/Relationship Status Dates Dr. Nikole Guillermo MD Primary Care Provider Active Start: June 19, 2025 Teo Haider PA, PA Attending Provider Active St art: June 19, 2025 Teo Haider PA, PA Referring Provider Active St art: June 19, 2025 Team Status: Active Member Role/Relationship Status Dates Teo Haider PA, PA Primary Care Provider Active Team Status: Inactive Member Role/Relationship Status Dates Dr. Nikole Guillermo MD Primary Care Provider Active Start: June 14, 2025 End: June 14, 2025 Dr. Dave Carvalho DO Attending Provider Active Start: June 14, 2025 End: June 14, 2025 Dr. Dave Carvalho DO Emergency Provider Active Start: June 14, 2025 End: June 14, 2025 Team Status: Inactive Member Role/Relationship Status Dates Dr. Nikole Guillermo MD Primary Care Provider Active Start: June 19, 2025 End: June 19, 2025 Teo Haider PA, PA Attending Provider Active St art: June 19, 2025 End: June 19, 2025 Teo Haider PA, PA Referring Provider Active St art: June 19, 2025 End: June 19, 2025 Team Status: Active Member Role/Relationship Status Dates Teo Haider PA, PA Primary Care Provider Active Start: June 19, 2025 Teo Haider PA, PA Attending Provider Active St art: June 19, 2025 Teo Haider PA, PA Referring Provider Active St art: June 19, 2025 Team Status: Active Member Role/Relationship Status Dates Teo Haider PA, PA Primary Care Provider Active Start: June 25, 2025 Dr. Nikole Guillermo MD Attending Provider Active Start: June 25, 2025 Dr. Nikole Guillermo MD Referring Provider Active Start: June 25, 2025 Team Status: Inactive Member Role/Relationship Status Dates JUDY Orr Primary Care Provider Active Start: June 19, 2025 End: June 19, 2025 JUDY Orr Attending Provider Active St art: June 19, 2025 End: June 19, 2025 JUDY Orr Referring Provider Active St art: June 19, 2025 End: June 19, 2025 Commercial Loan Manager Relationship Specialty Start Date End Date Vega Broussard MD PCP - General Family Medicine 09/15/18 Verónica Justin APRN.ACID ETCH OPERATOR [address] [place] [address] Supervisor [employer] Family Medicine 10/22/24 Team Status: Inactive Member Role/Relationship Status Dates JUDY Orr Primary Care Provider Active Start: June 25, 2025 End: June 25, 2025 Dr. Nikole Guillermo MD Attending Provider Active Start: June 25, 2025 End: June 25, 2025 Dr. Nikole Guillermo MD Referring Provider Active Start: June 25, 2025 End: June 25, 2025 Team Status: Active Member Role/Relationship Status Dates JUDY Orr Primary Care Provider Active Start: June 28, 2025 JUDY Orr Attending Provider Active St art: June 28, 2025 JUDY Orr Referring Provider Active St art: June 28, 2025 Team Status: Inactive Member Role/Relationship Status Dates JUDY Orr Primary Care Provider Active Start: June 28, 2025 End: June 28, 2025 JUDY Orr Attending Provider Active St art: June 28, 2025 End: June 28, 2025 JUDY Orr Referring Provider Active St art: June 28, 2025 End: June 28, 2025 Reason for Visit (unrecogniz ed section and content) Reason Comments Telemedicine Reason Comments Nurse Triage Call Reason Comments Sinusitis Reason Comments Patient Question Goals (unrecognized section and content) Goals may be documented in a n alternate sectionGoals may be documented in an alternate sectionGoals may be documented in an alternate sectionGoals may be documented in an alternate sectionGoals may be documented in an alternate sectionGoals may be documented in an alternate sectionGoals may be documented in an alternate section FOR RECORDS PERTAINING TO PATIENTS [...] BE BASED ON THE PRIMARY CLINICAL RECORDS. [employer] [facility]. provides no warranty or guarantee of the accuracy or completeness of information in this document.
[2025-07-12 07:42] LABS: Color, Urine Yellow (Yellow); Glucose, Dipstick Normal (Normal); Ketone-Dipstick Negative (Negative); Leukocyte Esterase-Dipstick Negative /ul (Negative); Nitrite-Dipstick Negative (Negative); Occult Blood-Urine 150 /ul (Negative); Protein-Dipstick 30 mg/dl (Negative); Specific Gravity, Urine 1.015 (1.002-1.030); Urine Bilirubin Dipstick Negative (Negative)
[2025-07-12 07:57] LABS: Red Blood Cells-Urine 0-5 SEEN /hpf (0-5); Squamous Epithelial Cells - UA 5-10 SEEN /hpf (5-10)
== END | disposition home or self-care (01) ==
LOC: LAB 06:41
PROVIDERS: PCP Physician Assistant; Referring Provider Physician Assistant; Visit Provider Physician Assistant
DX: R39.9 Unspecified symptoms and signs involving the genitourinary system (principal)
CPT/HCPCS: 81001; 87086; 87088

== ENCOUNTER → 2025-08-30 | Outpatient (CLI) | payer OTHER, SELFPAY ==
--- OUTSIDE RECORDS SUMMARY | 2025-08-30 15:15 | XMS RPT_ITS | CCD ---
Author Organization [facility] Care Team Providers Care Dental Floss Packer Name Role Phone Bobo DIGGS, Vega Primary Care Provider Dr. Nikole Guillermo Attending Provider Bobo DIGGS, Vega Primary Care Provider Bobo DIGGS, Vega Primary Care Provider Vega MASS COMMUNICATIONS PROFESSOR.AIRCRAFT LAUNCH AND RECOVERY TECHNICIAN, Verónica Unavailable Dr. Nikole Guillermo MD Primary Care Provider Dr. Dave Carvalho DO Emergency Provider Dr. Nikole Guillermo MD Referring Provider Teo Martinez Attending Provider Teo Martinez Referring Provider Dr. Dave Carvalho DO Attending Provider Teo Martinez Primary Care Provider Mima DIGGS, Dr. Agustin Attending Provider Wayt PA, Teo Primary Care Unavailable Wayt PA, Teo Referring Unavailable Wayt PA, Teo Attending Unavailable Nikole Guillermo Primary Care Unavailable Dave Carvalho Attending Unavailable Nikole Guillermo Referring Unavailable Nikole Guillermo Attending Unavailable Wayt PA, Teo Primary Care Unavailable Wayt PA, Teo Referring Unavailable Wayt PA, Teo Attending Unavailable Wayt PA, Teo Primary Care Unavailable Wayt PA, Teo Attending Unavailable Nikole Guillermo Referring Unavailable MimaNikole cortes Primary Care Unavailable MimaNikole cortes Primary Care Unavailable Wayt PA, Teo Referring Unavailable Wayt PA, Teo Attending Unavailable Teo Martinez Primary Care Unavailable Teo Martinez Referring Unavailable Teo Martinez Attending Unavailable KETAN JAMES Referring Unavailable VEGA BROUSSARD Primary Care Unavailable KETAN JAMES Referring Unavailable VEGA BROUSSARD Primary Care Unavailable VEGA BROUSSARD Primary Care Unavailable KETAN JAMES Attending Unavailable Allergies Allergy Classification Reported Allergen(s) Allergy Type Date of Onset Reaction(s) Facility (20 sources) Latex; Translations: [LATEX] Propensity to adverse reactions to drug (disorder) 8 Hives [facility] Other [place] Repository (11 sources) Cephalexin; Translations: [CEPHALEXIN] Drug Allergy 8 Intolerance [facility] Work Phone: (8 sources) Amoxicillin Drug Allergy 4 yeast infections [facility] (3 sources) Sulfonamides (Antibiotic) Allergy to substance 5 Rash [facility] (1 source) Amoxicillin Drug Allergy 5 [facility] Repository (1 source) Sulfonamides (Antibiotic) Drug allergy (disorder) 5 [facility] Repository Medications Current Medications Medication Drug Class(es) Dates Sig (Normalized) Sig (Original) [id number] 200 actuat albuterol 0.09 mg/actuat metered dose inhaler (2 sources) beta2-Adrenergic Agonist Start: 07-16-2025 take 1 puff(s) by inhalation every four hours as needed albuterol HFA (PROVENTIL HFA, VENTOLIN HFA) 90 mcg/actuation inhaler Inhale 1 puff as instructed every 4 hours as needed. 07/16/2025 Active cephalexin 500 mg oral capsule (3 sources) Cephalosporin Antibacterial Start: 06-28-2025 take 1 capsule by mouth three times daily Cephalexin 500 mg capsule Active 500 mg PO THREE TIMES A DAY 30 0 June 28, 2025 12:00am cholecalciferol 0.125 mg oral capsule (9 sources) Vitamin D Start: 03-21-2024 Cholecalciferol, Vitamin D3, 125 mcg (5,000 unit) cap 5,000 Units once daily. 03/21/2024 Active Start: 03-21-2024 take 1 capsule by [facility] once daily Cholecalciferol (Vitamin D3) 125 mcg (5,000 unit) capsule Active 125 ug PO DAILY March 21, 2024 12:00am ciprofloxacin 500 mg oral tablet (5 sources) Quinolone Antimicrobial Start: 06-20-2025 take 1 tablet by mouth every twelve hours Ciprofloxacin Hcl (Cipro) 500 mg tablet Active 500 mg PO Q12H 10 0 June 20, 2025 12:00am fluconazole 150 mg oral tablet (1 source) Azole Antifungal Start: 07-09-2025 Fluconazole 150 mg tablet Active 150 mg PO Every 3 Days 2 0 July 09, 2025 12:00am Take one dose and then repeat dose in 3 days if symptoms persist. Mecobalamin (Vitamin B12) 1,000 mcg lozenge (6 sources) Start: 06-19-2025 take 5000 ug by [...] once daily. lisinopril 5 mg oral tablet (8 sources) Angiotensin Converting Enzyme Inhibitor Start: 03-01-20 End: 06-19-20 25 take 1 tablet by mouth once daily Lisinopril 5 mg tablet Discontinued 5 mg PO DAILY 30 March 01, 2024 12:00am June 19, 2025 8:50am Problems Active Problems Problem Classification Problem Date Documented Da te Episodic/Chronic Abdominal hernia (7 sources) Inguinal hernia; Translations: [Unilateral inguinal hernia, without obstruction or gangrene, not specified as recurrent] 06-14-2025 Episodic Abdominal pain (20 sources) Nonspecific abdominal pain; Translations: [Unspecified abdominal pain] Onset: 06-27-2025 06-14-2025 Episodic Allergic reactions (10 sources) Flexural eczema; Translations: [Flexural eczema] Onset: 09-15-2018 09-15-2018 Chronic Essential hypertension (12 sources) Hypertensive disorder; Translations: [Essential (primary) hypertension] 03-21-2024 Chronic Comment on above: whitecoat Fever of unknown origin (11 sources) Fever; Translations: [Fever, unspecified] Onset: 07-04-2025 06-14-2025 Episodic Genitourinary symptoms and ill-defined conditions (2 sources) Urinary symptoms ; Translations: [Unspecified symptoms and signs involving the genitourinary system] Onset: 07-19-2025 07-11-2025 Episodic Menopausal disorders (2 sources) Menopausal flushing; Translations: [Menopausal and female climacteric states] Onset: 07-23-2025 07-23-2025 Chronic Other diseases of bladder and urethra (6 sources) Hypertrophy of bladder; Translations: [Other specified disorders of bladder] 06-19-2025 Chronic Other endocrine disorders (17 sources) Polycystic ovary syndrome; Translations: [Polycystic ovarian syndrome] Onset: 09-15-2018 09-15-2018 Chronic Other gastrointestinal disorders (3 sources) Diarrhea; Translations: [Diarrhea, unspecified] 06-28-2025 Episodic Other nutritional; endocrine; and metabolic disorders (17 sources) Body mass index 40+ - severely obese; Translations: [Morbid (severe) obesity due to excess calories] Onset: 09-15-2018 09-15-2018 Chronic Other nutritional; endocrine; and metabolic disorders (10 sources) Metabolic syndrome X; Translations: [Metabolic syndrome] Onset: 09-15-2018 09-15-2018 Chronic Other nutritional; endocrine; and metabolic disorders (7 sources) Obesity; Translations: [Obesity, unspecified] 03-22-2024 Chronic Other screening for suspected conditions (not mental disorders or infectious disease) (16 sources) Patient encounter status; Translations: [Encounter for screening mammogram for malignant neoplasm of breast] Onset: 02-06-2019 Episodic Other skin disorders (1 source) Hirsutism; Translations: [Hirsutism] 07-31-2025 Episodic Other skin disorders (1 source) Hirsutism; Translations: [Hirsutism] Onset: 08-01-2025 Episodic Other upper respiratory infections (2 sources) Acute maxillary sinusitis; Translations: [Acute maxillary sinusitis, unspecified] Episodic Urinary tract infections (1 source) Acute cystitis without hematuria; Translations: [Acute cystitis without hematuria] Onset: 11-07-2018 Episodic Past or Other Problems Problem Classification Problem Date Documented Da te Episodic/Chronic Other circulatory disease (10 sources) Elevated blood-pressure reading without diagnosis of hypertension; Translations: [Elevated blood-pressure reading, without diagnosis of hypertension] Onset: 02-06-2019 02-06-2019 Episodic Unclassified (2 sources) Patient encounter status 03-26-2025 Results Test Name Value Interpretation Reference Range Facility DHEA-S BLDon 08-01-2025 DHEA-S [Mass/Vol] 66.1 ug/dL Normal 35.4-256.0 [facility] Comment on above: Order Comment: Speci men Type: BLOOD SPECIMEN Ordering Facility: [facility] Address: [address] [place] [address] Result Comment: Refe rence ranges are age and gender specific. For additional information, reference range tables can be found in the laboratory test directory. The normal values are based on the following source: Dehydroepiandrosterone sulfate (DHEA S) [package insert V 17.0 [place]]. [facility], [place], [place]: June 2013. Performed By: #### 2 986-8, DHEAS #### [facility] CLIA [id number] [address] [place] [address] [place] Testost SerPl-mCncon -18-2 025 Testosterone [Mass/Vol] 39 ng/dL Normal <40 [facility] Comment on above: Order Comment: Speci men Type: BLOOD SPECIMEN Ordering Facility: [facility] Address: [address] [place] [address] Performed By: #### 2 986-8, DHEAS #### [facility] CLIA [id number] [address] [place] [address] [place] CNPAlyssa 07-31-2025 [facility] -------- JERSEY BETANCOURT ([id number]) 1975 F Date Time Provider Department 07/31/25 KETAN JAMES During your visit today, we recorded the following information about you: Allergies As of Date: 07/31/2025 Noted Allergy Reaction KEFLEX (CEPHALEXIN) 11/10/2018 5 - Intolerance Comments: Severe headache and neck ache LATEX 09/15/2018 4 - Hives Date Reviewed: 11/09/2023 Reviewed by: Gibran Cruz PA-C - Fully Assessed Reason for Visit: Orders [681] Cmt: Discussed unwanted hair growth. Will get DHEAS and testosterone Ketan James MD Primary Visit Diagnosis:Hirsutism [L68.0] Order(s):DHEA-S BLD [SQDHEAS] Order #: [id number] FUTURE TESTOSTERONE, TOTAL BY IMMUNOASSAY (ADULT MALES, OR INDIVIDUALS ON TESTOSTERONE THERAPY) [SQTESTO] Order #: [id number] FUTURE Prescriptions as of 07/31/2025 - albuterol HFA (PROVENTIL HFA, VENTOLIN HFA) 90 mcg/actuation inhaler Inhale 1 puff as instructed every 4 hours as needed. - Cholecalciferol, Vitamin D3, 125 mcg (5,000 unit) cap 5,000 Units once daily. Meds Comments as of 07/03/2019: no medications 07/03/19 Holley Dean RN Problem List As Of Date 07/31/2025 Noted Resolved Obesity, Class III, BMI 40-49.9 (morbid obesity*09/15/2018 PCOS (polycystic ovarian syndrome) [E28.2] 09/15/2018 Metabolic syndrome [E88.810] 09/15/2018 Flexural eczema [L20.82] 09/15/2018 Elevated blood-pressure reading without diagnos*02/06/2019 Low T4 [R79.89] 02/06/2019 Encounter Status:Closed by KETAN JAMES on 07/31/25 [facility] 07-29-2025 [facility] Telephone (OBGYWM) -------- JERSEY BETANCOURT ([id number]) 1975 F Date Time Provider Department 07/29/25 MEG DELAROSA OBGYWMati During your visit today, we recorded the following information about you: Yenni Mancuso RN 07/29/2025 3:36 PM Signed Patient calling in asking for lab results and next step based on those. Aware AT returns to the office on 07/31/25. JAYDEN Centeno Trisha, RN 08/01/2025 8:33 AM Signed See 07/31/25 phone note. Patient discussed results with Dr. James on phone. Yenni Mancuso RN Allergies As of Date: 07/29/2025 Noted Allergy Reaction KEFLEX (CEPHALEXIN) 11/10/2018 5 - Intolerance Comments: Severe headache and neck ache LATEX 09/15/2018 4 - Hives Date Reviewed: 11/09/2023 Reviewed by: Gibran Cruz PA-C - Fully Assessed Reason for Visit: Results [95] Prescriptions as of 08/01/2025 - albuterol HFA (PROVENTIL HFA, VENTOLIN HFA) 90 mcg/actuation inhaler Inhale 1 puff as instructed every 4 hours as needed. - Cholecalciferol, Vitamin D3, 125 mcg (5,000 unit) cap 5,000 Units once daily. Meds Comments as of 07/03/2019: no medications 07/03/19 Holley Dean RN Problem List As Of Date 07/29/2025 Noted Resolved Obesity, Class III, BMI 40-49.9 (morbid obesity*09/15/2018 PCOS (polycystic ovarian syndrome) [E28.2] 09/15/2018 Metabolic syndrome [E88.810] 09/15/2018 Flexural eczema [L20.82] 09/15/2018 Elevated blood-pressure reading without diagnos*02/06/2019 Low T4 [R79.89] 02/06/2019 Encounter Status:Closed by YENNI MANCUSO on 08/01/25 Normal [facility] CNOVon 07-23-2025 CNOV Office Visit (OBGYWM ) -------- JERSEY BETANCOURT ([id number]) 1975 F Date Time Provider Department 07/23/25 11:10 AM KETAN JAMES OBGYWMati During your visit today, we recorded the following information about you: Blood pressure Weight Height 148/86 116.6 kg 1.499 m Ketan James MD 07/23/2025 12:05 PM Signed Duct Cleaner provided by Darian Christianson LPN Jersey Betancourt is a 49 year old female who presents for problem visit [facility] Emergency Room Visit reported pelvic pain (RT) sided. And hx of fever of unknown origin. Normal pelvic CT other than a small right inguinal hernia containing small amount of fat. Remote hx of abdominal omental adhesions. Negative UA, normal WBC and mildly elevated LFTs. F/u with PCP.[facility] almost daily w/o discomfort. C/o hot flushing HPI: [place] usually daily without discomfort. Treated with keflex and Cipro by PCP presumably for Fever of uncertain origin. OB History No obstetric history on file. Blade Boner History LMP: Hysterectomy Age at Menarche: Age at First : Age at Menopause: Blade Boner History Comments: Sexual Activity: Yes; Male Contraception: No contraception data on record PAST MEDICAL HISTORY Diagnosis Date Metabolic syndrome [...] cancer Heart Other on mom's side usually SOCIAL HISTORY[1] No current outpatient medications on file. No current facility-administered medications for this visit. Allergies As of Date: 07/23/2025 Allergen Noted Reaction KEFLEX [CEPHALEXIN] 11/10/2018 Intolerance LATEX 09/15/2018 Hives Fully Assessed 11/09/2023 REVIEW OF SYSTEMS Abdomen: No bloating, early satiety, indigestion, or increased flatulence. No abdominal pain, nausea, vomiting, diarrhea, or constipation. Bladder: No dysuria, gross hematuria, urinary frequency, urinary urgency, or incontinence. Breast: No breast lumps, nipple d/c, overlying skin changes, redness or skin retraction. Expanded ROS: N/A Allergies and current medication updated:Yes SENSITIVE EXAM: The sensitive examination was discussed with the Patient or Patient's Authorized Railroad Car Repairman. As applicable, any other physician, advance practice provider, medical student, or other health professional student that will be observing or involved in the sensitive examination for educational or training purposes was discussed with the Patient or Authorized Railroad Car Repairman. The Patient or Authorized Railroad Car Repairman has agreed to proceed with the sensitive examination. (Sensitive examination includes inspection and/or palpation of the breasts, pelvis, prostate and anorectal regions). EXAM: There were no vitals taken for this visit. GENERAL: pleasant, female in no apparent distress ABDOMEN: soft, non-tender, no masses, and obese PELVIC: external genitalia normal, normal Bartholin's glands, urethra, [place]'s glands, no vulvar lesions, good vaginal support, physiologic discharge present, normal appearing perineal body and perianal region, cervix surgically absent BIMANUAL: no adnexal masses, non-tender, and uterus surgically absent Unable to palpate rith ovary and noting that left ovary is surgically absent NEURO: alert and oriented x3,exam grossly non-focal EXTREMITIES: normal ASSESSMENT AND PLAN: Assessment AND Plan perimenopausal vasomotor sx FSH to determine residual ovarian function TSH to r/o thyroid component/thermoregulati on ftft>45m lengthy conversation Ketan James MD [1] Social History Tobacco Use Smoking status: Never Passive exposure: Never Smokeless tobacco: Never Vaping Use Vaping status: Never Used Substance Use Topics Alcohol use: Yes Comment: occassional Drug use: Never Darian Christianson LPN 07/23/2025 12:14 PM Signed Addended by: DARIAN CHRISTIANSON on: 07/23/2025 12:14 PM Modules accepted: Orders Ketan James MD 07/23/2025 12:16 PM Signed Addended by: KETAN JAMES on: 07/23/2025 12:16 PM Modules accepted: Orders Allergies As of Date: 07/23/2025 Noted Allergy Reaction KEFLEX (CEPHALEXIN) 11/10/2018 5 - Intolerance Comments: Severe headache and neck ache LATEX 09/15/2018 4 - Hi (more content not included)... Normal [facility] SerPl-aCncon 07-23-2025 Follitropin Qn 42.0 m[IU]/mL Normal See comment Shade britt [facility] Comment on above: Order Comment: Specleonarda clark Type: BLOOD SPECIMEN Ordering Facility: [facility] Address: [address] [place] [address] Result Comment: Refe rence range: Follicular: 3.5-12.5 mIU/mL Ovulation: 4.7-21.5 mIU/mL Luteal: 1.7-7.7 mIU/mL Postmenopausal: 25.8-134.8 mIU/mL Performed By: #### 1 5067-2, 3016-3 #### [facility] CLIA [id number] [address] [place] [address] [place] TSH SerPl-aCncon 07-23-2025 TSH Qn 3.900 m[IU]/L Normal 0.270-4.200 [facility] Comment on above: Order Comment: Specleonarda clark Type: BLOOD SPECIMEN Ordering Facility: [facility] Address: [address] [place] [address] Result Comment: If t he patient is , TSH reference range varies by gestational period: First Trimester (weeks 9-12): 0.180-2.990 mIU/L Second Trimester: 0.110-3.980 mIU/L Third Trimester: 0.480-4.710 mIU/L Alex Cuellar et al. A Practical Approach for the Verifications and Determination of Site- and Trimester-Specific Reference Intervals for Thyroid Function tests in . Thyroid, 2019:29:3:412-420. Santosh Castaneda, et al. 2017 Guidelines of the [place] Thyroid Association for the Diagnosis and Management of Thyroid Disease during and the . Thyroid, 2017:27:3:315-389. Performed By: #### 1 5067-2, 3016-3 #### [facility] CLIA [id number] [address] [place] [address] [place] Urine Cultureon 07-13-2025 URC #1, 2 Below infectio n level. Gram negative rigoberto Cisne Count <1000 Mixed Gram Positive Organisms Mixed Gram Positive Organisms MIXC Mixed contaminants. Submit a new specimen if indicated. Normal [facility] Comment on above: Performed By: #### M 200.1000 #### [facility] [address] [place], [address] Bilirubin Test strip Ql (U)O rdered By: Teo Haider on 07-12-2025 Bilirubin Ql (U) Negative Negative [facility] CBC W/Diff, Automatedon 06-15 PATH REV Reviewed Normal [facility] Comment on above: Order Comment: Plus a PERIPHERAL BLOOD SMEAR due to Intermittent fever ofunknown origin. Result Comment: SEE REPORT IN PATIENT'S EMR AMENDED REPORT 07/12/25 0958 PATH REV previously reported as: March Performed By: #### M 200.1000 #### [facility] [address] [place], [address] Ketones Test strip Ql (U)Ord ered By: Teo Haider on 07-12-2025 Ketones Ql (U) Negative Negative [facility] Microscopic analysis of urin e for red blood cells (RBC)Ordered By: Teo Haider on 07-12-2025 Microscopic analysis of urine for red blood cells (RBC) 0-5 SEEN /hpf 0-5 [facility] Mucus LM Ql (Urine sed)Order ed By: Teo Haider on 07-12-2025 Mucus Ql (Urine sed) 0 SEEN /hpf [place] Nitrite Test strip Ql (U)Ord ered By: Teo Haider on 07-12-2025 Nitrite Ql (U) Negative Negative [facility] Protein Test strip Ql (U)Ord ered By: Teo Haider on 07-12-2025 Protein Ql (U) 30 mg/dl High Negative [facility] Squamous epithelial cells de tection in urine sediment by light microscopyOrdered By: Teo Haider on 07-12-2025 Epithelial cells.squamous LM Ql (Urine sed) 5-10 SEEN /hpf 5-10 [facility] Urinalysis, Completeon 07-12 BACTERIA RARE Normal None Seen [facility] Comment on above: Order Comment: COLLE CTOR TO SPECIFY Performed By: #### M 200.1000 #### [facility] [address] [place], [address] EPI,SQUAMOUS 5-10 SEEN Normal 5-10 [facility] Comment on above: Order Comment: RADHA CTOR TO SPECIFY Performed By: #### M 200.1000 #### [facility] [address] [place], [address] RBC 0-5 SEEN Normal 0-5 [facility] Comment on above: Order Comment: RADHA CTOR TO SPECIFY Performed By: #### M 200.1000 #### [facility] [address] [place], [address] WBC 0-5 SEEN Normal 0-5 [facility] Comment on above: Order Comment: RADHA CTOR TO SPECIFY Performed By: #### M 200.1000 #### [facility] [address] [place], [address] Mucus Ql (Urine sed) 0 SEEN Normal [facility] Comment on above: Order Comment: RADHA CTOR TO SPECIFY Performed By: #### M 200.1000 #### [facility] [address] [place], [address] Urine clarityOrdered By: Daniel Haider on 07-12-2025 Clarity (U) Sl. Cloudy Clear [facility] Urine color determinationOrd ered By: Teo Haider on 07-12-2025 Color (U) Yellow Yellow [facility] Urine cultureOrdered By: Daniel Haider on 07-12-2025 Bacteria identified Cx Nom (U) Negative Abnormal [facility] Bacteria identified Cx Nom (U) Positive Abnormal [facility] Urine glucose detectionOrder ed By: Teo Haider on 07-12-2025 Glucose Ql (U) Normal mg/dl Normal [facility] Urine leukocyte esterase det ection by dipstickOrdered By: Teo Haider on 07-12-2025 Leukocyte esterase Test strip Ql (U) Negative Negative [facility] Urine pHOrdered By: Teo Haider on 07-12-2025 pH (U) 6.0 [pH] 5.0 - 8.0 [facility] Urine sediment bacteria coun t by microscopy (number/high power field)Ordered By: Teo Haider on 07-12-2025 Bacteria LM.HPF (Urine sed) [#/Area] RARE /hpf None Seen [facility] Urine specific gravity measu rementOrdered By: Teo Haider on 07-12-2025 Specific gravity (U) [Rel density] 1.015 1.002-1.030 [facility] Urine urobilinogen measureme ntOrdered By: Teo Haider on 07-12-2025 Urobilinogen Ql (U) Normal mg/dl Normal [place] White blood cell countOrdere d By: Teo Haider on 07-12-2025 White blood cell count 0-5 SEEN /hpf 0-5 [facility] Culture, Blood (WB)on 2024 CUB No growth in 5 days. Normal [facility] Comment on above: Performed By: #### M 200.1000 #### [facility] [address] [place], [address] ADILENE w/ Reflex Mult Confirmon 07-02-2025 ANTI-DNA (DS)AB TNP Normal [facility] Comment on above: Performed By: #### M 200.1000 #### [facility] [address] [place], [address] ANTI-SS-A TNP Normal [facility] Comment on above: Performed By: #### M 200.1000 #### [facility] [address] [place], [address] ANTI-SS-B TNP Normal [facility] Comment on above: Performed By: #### M 200.1000 #### [facility] [address] [place], [address] Hepatitis Panel Acuteon 06-14 COMMENT Comment Normal . [facility] Comment on above: Result Comment: Not infected with HCV unless early or acute infection is suspected (which may be delayed in an immunocompromised individual), or other evidence exists to indicate HCV infection. Performed at: [facility] [id number] Fire Controlman: Alberto Wills PhD, Phone: [phone] Performed By: #### M 200.1000 #### [facility] [address] [place], [place], [id number] HEP B CORE,IgM Negative Normal Negative [facility] Comment on above: Performed By: #### M 200.1000 #### [facility] [address] [place], [place], [id number] HEP B SURF AG Negative Normal Negative [facility] Comment on above: Performed By: #### M 200.1000 #### [facility] [address] [place], [place], [id number] HEP C VIRUS AB Non-Reactive Normal Non Reactive [facility] Comment on above: Performed By: #### M 200.1000 #### [facility] [address] [place], [place], [id number] HEPATITIS A-IgM Negative Normal Negative [facility] Comment on above: Result Comment: A ne gative anti-HAV IgM result suggests no recent or current HAV infection. Performed By: #### M 200.1000 #### [facility] [facility] [address] [place], [place], [id number] Absolute lymphocyte countOrd ered By: Teo Haider on 06-28-2025 Lymphocytes Auto (Unsp spec) [#/Vol] 7.15 10*3/uL High 0.83-4.51 [facility] Absolute neutrophil countOrd ered By: Teo Haider on 06-28-2025 Neutrophils (Bld) [#/Vol] 2.7 10*3/uL 2.0-7.7 [facility] Automated lymphocyte count a s percentage of total leukocytesOrdered By: Teo Haider on 06-28-2025 Lymphocytes/100 WBC Auto (Unsp spec) 67.6 % High 19-41 [facility] Basophil percentageOrdered B y: Teo Haider on 06-28-2025 Basophils/100 WBC (Bld) 1.6 % High 0-1 [facility] Blood cultureOrdered By: Daniel Haider on 06-28-2025 Bacteria identified Cx Nom (Bld) No growth in 5 days. [facility] Blood manual differential co mment interpretation (narrative result)Ordered By: Teo Haider on 06-28-2025 Manual differential comment Chris (Bld) [Interp] SCANNED [facility] CNPNon 06-28-2025 CNPN Telephone (4CQ) -------- JERSEY BETANCOURT ([id number]) 1975 F Date Time Provider Department 06/28/25 CYNTHIA LAURA 4CQ During your visit today, we recorded the following information about you: Nereyda Arroyo 06/28/2025 12:35 PM Signed Pt was seen at [facility] last week for high fever and pain, [...] and placed on a wait list. Gabrielle Montes, JAYDEN Allergies As of Date: 06/28/2025 Noted Allergy Reaction KEFLEX (CEPHALEXIN) 11/10/2018 5 - Intolerance Comments: Severe headache and neck ache LATEX 09/15/2018 4 - Hives Date Reviewed: 11/09/2023 Reviewed by: Gibran Cruz PA-C - Fully Assessed Reason for Visit: Patient Question [8127] Meds Comments as of 07/03/2019: no medications 07/03/19 Holley Dean RN Problem List As Of Date 06/28/2025 Noted Resolved Obesity, Class III, BMI 40-49.9 (morbid obesity*09/15/2018 PCOS (polycystic ovarian syndrome) [E28.2] 09/15/2018 Metabolic syndrome [E88.810] 09/15/2018 Flexural eczema [L20.82] 09/15/2018 Elevated blood-pressure reading without diagnos*02/06/2019 Low T4 [R79.89] 02/06/2019 Encounter Status:Closed by GABRIELLE MONTES on 06/28/25 Normal [facility] CRPon 06-28-2025 C-REACTIVE PROT 43.10 mg/L High 0.0-3.0 [facility] Comment on above: Performed By: #### M 200.1000 #### [facility] [address] [place], [place], [id number] Eosinophil percentageOrdered By: Teo Haider on 06-28-2025 Eosinophils/100 WBC (Bld) 1.0 % 0-5 [facility] Erythrocyte distribution wid th ratioOrdered By: Teo Haider on 06-28-2025 Erythrocyte distribution width (RBC) [Ratio] 15.2 % High 11.6-14.6 [facility] Erythrocyte distribution wid th standard deviationOrdered By: Teo Haider on 06-28-2025 Erythrocyte distribution width (RBC) [Ratio] 49.8 fl High 35.1-43.9 [facility] Ferritinon 06-28-2025 Ferritin [Mass/Vol] 572 ng/mL High 22-378 [facility] Comment on above: Performed By: #### M 200.1000 #### [facility] [address] [place], [address] Hematocrit Auto (Bld) [Volum e fraction]Ordered By: Teo Haider on 06-28-2025 Hematocrit (Bld) [Volume fraction] 40.2 % 37-47 [facility] Hemoglobin measurementOrdere d By: Teo Haider on 06-28-2025 Hemoglobin (Bld) [Mass/Vol] 12.8 g/dL 12.0-15.0 [facility] Immature granulocytes/100 WB C Auto (Bld)Ordered By: Teo Haider on 06-28-2025 Immature granulocytes/100 WBC (Bld) 0.800 % 0.0-0.9 [facility] Comment on above: IG% - Immature Granu locytes (promyelocytes, myelocytes and metamyelocytes) > 1% indicates that a LEFT SHIFT is Present. MCV (mean corpuscular volume ) determinationOrdered By: Teo Haider on 06-28-2025 MCV (RBC) [Entitic vol] 89.1 fL 81-99 [facility] Mean corpuscular hemoglobin (MCH) determinationOrdered By: Teo Haider on 06-28-2025 MCH (RBC) [Entitic mass] 28.4 pg 27.0-32.0 [facility] Mean corpuscular hemoglobin concentration (MCHC) determinationOrdered By: Teo Haider on 06-28-2025 MCHC (RBC) [Mass/Vol] 31.8 g/dL Low 32-36 [place] Mean platelet volume determi nationOrdered By: Teo Haider on 06-28-2025 Platelet mean volume (Bld) [Entitic vol] 10.0 fL 6.2-12.0 [facility] Monocyte percentageOrdered B y: Teo Haider on 06-28-2025 Monocytes/100 WBC (Bld) 3.8 % 0-10 [facility] [place] 06-28-2025 Monocytes (Bld) [#/Vol] Negative Normal Negative [facility] Comment on above: Performed By: #### M 200.1000 #### [facility] [place], [address] Neutrophil percentageOrdered By: Teo Haider on 06-28-2025 Neutrophils/100 WBC (Bld) 25.2 % Low 47-70 [facility] No Panel InformationOrdered By: Teo Haider on 06-28-2025 Hepatitis C Antibody Comment Comment . [facility] Comment on above: Not infected with HC V unless early or acute infection issuspected (which may be delayed in an immunocompromisedindividual), or other evidence exists to indicate HCVinfection.Performed at: - [facility] [id number] Director: Alberto Wills PhD, Phone: [phone] Nucleated red blood cell per centageOrdered By: Teo Haider on 06-28-2025 Nucleated RBC/100 WBC (Bld) [Ratio] 0 % 0-5 [facility] Platelet countOrdered By: Cinda Haider on 06-28-2025 Platelets (Bld) [#/Vol] 255 10*3/uL 150-450 [facility] Platelet estimateOrdered By: Teo Haider on 06-28-2025 Platelets LM Ql (Bld) ADEQUATE ADEQ [place] RBC Auto (Bld) [#/Vol]Ordere d By: eTo Haider on 06-28-2025 RBC (Bld) [#/Vol] 4.51 10*6/uL 4.2-5.4 [facility] Review by pathologistOrdered By: Teo Haider on 06-28-2025 Pathologist review Chris (Unsp spec) [Interp] Pushpa allen [facility] Pathologist review Chris (Unsp spec) [Interp] Reviewed [facility] Comment on above: Previous reported re sult: Pushpa allen Edited by: PRESTON on 07/12/25:0958SEE REPORT IN PATIENT'S EMR AMENDED REPORT 07/12/25 0958 PATH REV previously reported as: Pushpa allen Serum DNA double strand anti body assay (units/volume)Ordered By: Teo Haider on 06-28-2025 DNA double strand Ab Qn (S) [facility] Comment on above: Test not performed Serum Scl-70 antibody assay (units/volume)Ordered By: Teo Haider on 06-28-2025 SCL-70 extractable nuclear Ab Qn (S) [facility] Comment on above: Test not performed Serum heterophile antibody d etectionOrdered By: Teo Haider on 06-28-2025 Heterophile Ab Ql (S) Negative Negative [place] Serum or plasma C reactive p rotein measurement (mass/volume)Ordered By: Teo Haider on 06-28-2025 CRP [Mass/Vol] 43.10 mg/L High 0.0-3.0 [facility] Serum or plasma ferritin michelle surement (mass/volume)Ordered By: Teo Haider on 06-28-2025 Ferritin [Mass/Vol] 572 ng/mL High 22-378 [facility] Serum or plasma hepatitis B virus surface antigen detection by immunoassayOrdered By: Teo Haider on 06-28-2025 HBV surface Ag IA Ql Negative Negative [facility] White blood cell (WBC) count Ordered By: Teo Haider on 06-28-2025 WBC (Bld) [#/Vol] 10.6 10*3/uL 4.4-11.0 [facility] Urine Cultureon 06-27-2025 URC Mixed Gram Positive Organisms Cisne Count 80,000-100,000 MIXC Mixed contaminants. Submit a new specimen if indicated. Normal [facility] Comment on above: Performed By: #### M 100.2200, L400.0001 ####[facility] [address] [place], [address] Bilirubin Test strip Ql (U)O rdered By: Nikolederrick Guillermo on 06-25-2025 Bilirubin Ql (U) Negative Negative [facility] Ketones Test strip Ql (U)Ord ered By: Nikole Mima on 06-25-2025 Ketones Ql (U) Negative Negative [facility] Microscopic analysis of urin e for red blood cells (RBC)Ordered By: Nikole Guillermo on 06-25-2025 Microscopic analysis of urine for red blood cells (RBC) 0 SEEN /hpf 0-5 [facility] Mucus LM Ql (Urine sed)Order ed By: Nikole Guillermo on 06-25-2025 Mucus Ql (Urine sed) 0 SEEN /hpf [place] Nitrite Test strip Ql (U)Ord ered By: Nikole Mima on 06-25-2025 Nitrite Ql (U) Negative Negative [facility] Protein Test strip Ql (U)Ord ered By: Nikole Guillermo on 06-25-2025 Protein Ql (U) 30 mg/dl High Negative [facility] Squamous epithelial cells de tection in urine sediment by light microscopyOrdered By: Nikole Guillermo on 06-25-2025 Epithelial cells.squamous LM Ql (Urine sed) 0-5 SEEN /hpf 5-10 [facility] Urinalysis, Completeon 06-25 BACTERIA 2+ /hpf Normal None Seen [facility] Comment on above: Order Comment: RADHA CTOR TO SPECIFY Performed By: #### M 100.2200, L400.0001 ####[facility] [address] [place], [address] EPI,SQUAMOUS 0-5 SEEN Normal 5-10 [facility] Comment on above: Order Comment: RADHA CTOR TO SPECIFY Performed By: #### M 100.2200, L400.0001 ####[facility] [address] [place], [address] Mucus Ql (Urine sed) 0 SEEN Normal [facility] Comment on above: Order Comment: RADHA CTOR TO SPECIFY Performed By: #### M 100.2200, L400.0001 ####[facility] [address] [place], [address] RBC 0 SEEN Normal 0-5 [facility] Comment on above: Order Comment: RADHA CTOR TO SPECIFY Performed By: #### M 100.2200, L400.0001 ####[facility] [address] [place], [address] WBC 0 SEEN Normal 0-[address] [place] [address] Comment on above: Order Comment: RADHA CTOR TO SPECIFY Performed By: #### M 100.2200, L400.0001 ####[facility] [address] [place], [address] Urine clarityOrdered By: Usama Guillermo on 06-25-2025 Clarity (U) Sl. Cloudy Clear [facility] Urine color determinationOrd ered By: Nikole Guillermo on 06-25-2025 Color (U) Yellow Yellow [facility] Urine cultureOrdered By: Usama Guillermo on 06-25-2025 Bacteria identified Cx Nom (U) Positive Abnormal [facility] Urine glucose detectionOrder ed By: Nikole Guillermo on 06-25-2025 Glucose Ql (U) Normal mg/dl Normal [facility] Urine leukocyte esterase det ection by dipstickOrdered By: Nikole Guillermo on 06-25-2025 Leukocyte esterase Test strip Ql (U) Negative Negative [facility] Urine pHOrdered By: Nikole andres on 06-25-2025 pH (U) 6.0 [pH] 5.0 - 8.0 [facility] Urine sediment bacteria coun t by microscopy (number/high power field)Ordered By: Nikole Guillermo on 06-25-2025 Bacteria LM.HPF (Urine sed) [#/Area] 2 /[HPF] None Seen [facility] Urine specific gravity measu rementOrdered By: Nikole Guillermo on 06-25-2025 Specific gravity (U) [Rel density] 1.020 1.002-1.030 [facility] Urine urobilinogen measureme ntOrdered By: Nikole Guillermo on 06-25-2025 Urobilinogen Ql (U) Normal mg/dl Normal [place] White blood cell countOrdere d By: Nikole Guillermo on 06-25-2025 White blood cell count 0 SEEN /hpf 0-5 [facility] Urine Cultureon 06-21-2025 URC Mixed Gram Positive Organisms Cisne Count 80,000-100,000 MIXC Mixed contaminants. Submit a new specimen if indicated. Normal [facility] Comment on above: Performed By: #### M 100.2200, L400.0001 #### [facility] [address] [place], [address] Absolute lymphocyte countOrd ered By: Teo Haider on 06-19-2025 Lymphocytes Auto (Unsp spec) [#/Vol] 3.91 10*3/uL 0.83-4.51 [facility] Absolute neutrophil countOrd ered By: Teo Haider on 06-19-2025 Neutrophils (Bld) [#/Vol] 3.5 10*3/uL 2.0-7.7 [facility] Anion gap in Serum or Plasma Ordered By: Teo Haider on 06-19-2025 Anion gap [Moles/Vol] 14 mmol/L 5-15 [place] Automated lymphocyte count a s percentage of total leukocytesOrdered By: Teo Haider on 06-19-2025 Lymphocytes/100 WBC Auto (Unsp spec) 48.5 % High 19-41 [facility] BUN/creatinine ratioOrdered By: Teo Haider on 06-19-2025 Urea nitrogen/Creatinine [Mass ratio] 12.1 mg/mg 10-20 [facility] Basophil percentageOrdered B y: Teo Haider on 06-19-2025 Basophils/100 WBC (Bld) 1.0 % 0-1 [facility] Bilirubin Test strip Ql (U)O rdered By: Teo Haider on 06-19-2025 Bilirubin Ql (U) 1 mg/dL High Negative [facility] Comment on above: YCOLOR OF URINE MAY AFFECT DIPSTICK RESULTS. Bilirubin, totalOrdered By: Teo Haider on 06-19-2025 Bilirubin [Mass/Vol] 0.55 mg/dL 0.00-1.30 [facility] Blood manual differential co mment interpretation (narrative result)Ordered By: Teo Haider on 06-19-2025 Manual differential comment Chris (Bld) [Interp] SCANNED [facility] CBC W/Diff, Automatedon REACTIVE LYMPH 1+ Normal [facility] Comment on above: Performed By: #### L 100.0100, L500.4050, L501.6710 #### [facility] [address] [place], [place], [id number] SMEAR COMMENT SCANNED Normal [facility] Comment on above: Performed By: #### L 100.0100, L500.4050, L501.6710 #### [facility] [address] [place], [address] CRPon 06-19-2025 C-REACTIVE PROT 76.20 mg/L High 0.0-3.0 [facility] Comment on above: Performed By: #### L 100.0100, L500.4050, L501.6710 #### [facility] [address] [place], [address] Carbon dioxide, total [Moles /volume] in Central venous bloodOrdered By: Teo Haider on 06-19-2025 CO2 [Moles/Vol] 23.9 mmol/L 21.0-32.0 [facility] Chloride assayOrdered By: Cinda Haider on 06-19-2025 Chloride [Moles/Vol] 101 mmol/L 98-108 [facility] Comprehensive Metabolic Prof ilon 06-19-2025 Albumin [Mass/Vol] 4.0 g/dL Normal 3.5-5.0 [facility] Comment on above: Performed By: #### L 100.0100, L500.4050, L501.6710 #### [facility] [address] [place], [address] Albumin/Globulin [Mass ratio] 1.1 {ratio} Normal 0.9-2.4 [facility] Comment on above: Performed By: #### L 100.0100, L500.4050, L501.6710 #### [facility] [address] [place], [address] ALK PHOS 118 U/L High 35-104 [facility] Comment on above: Performed By: #### L 100.0100, L500.4050, L501.6710 #### [facility] [address] [place], [address] ALT [Catalytic activity/Vol] 60 U/L High <=34 [facility] Comment on above: Performed By: #### L 100.0100, L500.4050, L501.6710 #### [facility] [address] [place], [address] AST [Catalytic activity/Vol] 52 U/L High <=31 [facility] Comment on above: Performed By: #### L 100.0100, L500.4050, L501.6710 #### [facility] [address] [place], [address] Bilirubin [Mass/Vol] 0.55 mg/dL Normal 0.00-1.30 [facility] Comment on above: Performed By: #### L 100.0100, L500.4050, L501.6710 #### [facility] [address] [place], [address] BUN/CRE 12.1 RATIO Normal 10-20 [facility] Comment on above: Performed By: #### L 100.0100, L500.4050, L501.6710 #### [facility] [address] [place], [address] Calcium [Mass/Vol] 9.8 mg/dL Normal 7.6-11.0 [facility] Comment on above: Performed By: #### L 100.0100, L500.4050, L501.6710 #### [facility] [address] [place], [address] Chloride [Moles/Vol] 101 mmol/L Normal 98-108 [facility] Comment on above: Performed By: #### L 100.0100, L500.4050, L501.6710 #### [facility] [address] [place], [address] CO2 [Moles/Vol] 23.9 mmol/L Normal 21.0-32.0 [facility] Comment on above: Performed By: #### L 100.0100, L500.4050, L501.6710 #### [facility] [address] [place], [address] Creatinine [Mass/Vol] 1.21 mg/dL High 0.70-1.20 [place] Comment on above: Performed By: #### L 100.0100, L500.4050, L501.6710 #### [facility] [address] [place], [address] GAP 14 Normal 5-15 [facility] Comment on above: Performed By: #### L 100.0100, L500.4050, L501.6710 #### [facility] [address] [place], [address] GFR/1.73 sq M.predicted among non-blacks MDRD (S/P/Bld) [Vol rate/Area] 55 mL/min/{1.73_m2} Low >60 [facility] Comment on above: Result Comment: mL/m in/1.73m2 CKD-EPI Creatinine Equation (2020) Performed By: #### L 100.0100, L500.4050, L501.6710 #### [facility] [address] [place], [address] Globulin (S) [Mass/Vol] 3.7 g/dL Normal 2.2-4.2 [facility] Comment on above: Performed By: #### L 100.0100, L500.4050, L501.6710 #### [facility] [address] [place], [address] Glucose [Mass/Vol] 112 mg/dL High 70-99 [facility] Comment on above: Performed By: #### L 100.0100, L500.4050, L501.6710 #### [facility] [address] [place], [address] Potassium [Moles/Vol] 3.6 mmol/L Normal 3.3-5.1 [place] Comment on above: Performed By: #### L 100.0100, L500.4050, L501.6710 #### [facility] [address] [place], [address] Sodium [Moles/Vol] 139 mmol/L Normal 133-145 [facility] Comment on above: Performed By: #### L 100.0100, L500.4050, L501.6710 #### [facility] [address] [place], [address] T PROT 7.7 g/dL Normal 5.9-8.4 [facility] Comment on above: Performed By: #### L 100.0100, L500.4050, L501.6710 #### [facility] [address] [place], [address] Urea nitrogen [Mass/Vol] 15 mg/dL Normal 4-19 [facility] Comment on above: Performed By: #### L 100.0100, L500.4050, L501.6710 #### [facility] [address] [place], [address] Culture, Blood (WB)on 2024 CUB Blood cultures x2, f rom two different sites No growth in 5 days. Normal [facility] Comment on above: Performed By: #### M 200.1000 #### [facility] [address] [place], [address] Eosinophil percentageOrdered By: Teo Haider on 06-19-2025 Eosinophils/100 WBC (Bld) 1.0 % 0-5 [facility] Erythrocyte distribution wid th ratioOrdered By: Teo Haider on 06-19-2025 Erythrocyte distribution width (RBC) [Ratio] 13.9 % 11.6-14.6 [facility] Erythrocyte distribution wid th standard deviationOrdered By: Teo Haider on 06-19-2025 Erythrocyte distribution width (RBC) [Ratio] 44.8 fl High 35.1-43.9 [facility] Glomerular filtration rate ( GFR) estimation/1.73 sq m using serum, plasma, or whole bOrdered By: Teo Haider on 06-19-2025 GFR/1.73 sq M.predicted among non-blacks MDRD (S/P/Bld) [Vol rate/Area] 55 mL/min/{1.73_m2} Low >60 [facility] Comment on above: mL/min/1.73m2 CKD-EP I Creatinine Equation (2020) Hematocrit Auto (Bld) [Volum e fraction]Ordered By: Teo Haider on 06-19-2025 Hematocrit (Bld) [Volume fraction] 43.6 % 37-47 [facility] Hemoglobin measurementOrdere d By: Teo Haider on 06-19-2025 Hemoglobin (Bld) [Mass/Vol] 14.0 g/dL 12.0-15.0 [facility] Immature granulocytes/100 WB C Auto (Bld)Ordered By: Teo Haider on 06-19-2025 Immature granulocytes/100 WBC (Bld) 1.700 % High 0.0-0.9 [facility] Comment on above: IG% - Immature Granu locytes (promyelocytes, myelocytes and metamyelocytes) > 1% indicates that a LEFT SHIFT is Present. Internal Medicine Office Vis iton 06-19-2025 Internal Medicine Office Visit [facility] [address] [place] [address] [place] [address] OFFICE VISIT Date of Service: 06/19/25 MR#: [id number] Acct: [id number] Name: JERSEY BETANCOURT Rep #: [id number] : 1975 Provider: JUDY Arce Age/Sex: 49/F Location: [facility] [place] Status: Signed Intake Vital [...] no diarrhea does have fever abdominal pain Regulatory Affairs Intern Required: No Accompanied by: Self Is patient [...] 2 current occupational status: employed current occupation: [employer] pets and animals: Yes pets and animals: cat(s) Smoking Status: Never smoker Electronic Cigarette Use: not used alcohol intake: current alcohol intake frequency: a few times a month substance use type: does not use diet: gluten free caffeine: Yes (2) Type: tea frequency: daily seatbelt use: always do you feel safe at home: Yes 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 Normal [facility] Ketones Test strip Ql (U)Ord ered By: Teo Haider on 06-19-2025 Ketones Ql (U) 5 mg/dl High Negative [facility] - Chemistry and C hemistry - challengeOrdered By: Teo Haider on 06-19-2025 AST [Catalytic activity/Vol] 52 U/L High <32 [facility] MCV (mean corpuscular volume ) determinationOrdered By: Teo Haider on 06-19-2025 MCV (RBC) [Entitic vol] 88.8 fL 81-99 [facility] Mean corpuscular hemoglobin (MCH) determinationOrdered By: Teo Haider on 06-19-2025 MCH (RBC) [Entitic mass] 28.5 pg 27.0-32.0 [facility] Mean corpuscular hemoglobin concentration (MCHC) determinationOrdered By: Teo Haider on 06-19-2025 MCHC (RBC) [Mass/Vol] 32.1 g/dL 32-36 [place] Mean platelet volume determi nationOrdered By: Teo Haider on 06-19-2025 Platelet mean volume (Bld) [Entitic vol] 10.1 fL 6.2-12.0 [facility] Microscopic analysis of urin e for red blood cells (RBC)Ordered By: Teo Haider on 06-19-2025 Microscopic analysis of urine for red blood cells (RBC) 0-5 SEEN /hpf 0-5 [facility] Monocyte percentageOrdered B y: Teo Haider on 06-19-2025 Monocytes/100 WBC (Bld) 4.1 % 0-10 [facility] Mucus LM Ql (Urine sed)Order ed By: Teo Haider on 06-19-2025 Mucus Ql (Urine sed) 1+ /hpf [facility] Neutrophil percentageOrdered By: Teo Haider on 06-19-2025 Neutrophils/100 WBC (Bld) 43.7 % Low 47-70 [facility] Nitrite Test strip Ql (U)Ord ered By: Teo Haider on 06-19-2025 Nitrite Ql (U) Negative Negative [facility] Nucleated red blood cell per centageOrdered By: Teo Haider on 06-19-2025 Nucleated RBC/100 WBC (Bld) [Ratio] 0 % 0-5 [facility] Pelvic (Non )on Pelvic (Non ) [facility] [address] [place], [place] [id number] Pelvic (Non ) MR#: [id number] Acct: [id number] Name: JERSEY BETANCOURT Rep #: [id number] : 1975 F 49 From: Teo Nassar MD PCP: JUDY Arce Status: REG CLI Study: Pelvic (Non ) Date of Exam: 06/19/25 Exam# [id number] Ordering Dr: Teo Haider PROCEDURE: PELVIC (NON [...] adnexal masses. No free fluid. Reading Location: [facility] CC: JUDY Arce Journeyman Wireman: Signed Normal [facility] Platelet countOrdered By: Cinda Haider on 06-19-2025 Platelets (Bld) [#/Vol] 167 10*3/uL 150-450 [facility] Potassium measurement (mass/ volume)Ordered By: Teo Haider on 06-19-2025 Potassium (Unsp spec) [Mass/Vol] 3.6 mmol/L 3.3-5.1 [facility] Protein Test strip Ql (U)Ord ered By: Teo Haider on 06-19-2025 Protein Ql (U) 100 mg/dl High Negative [facility] RBC Auto (Bld) [#/Vol]Ordere d By: Teo Haider on 06-19-2025 RBC (Bld) [#/Vol] 4.91 10*6/uL 4.2-5.4 [facility] Serum creatinine measurement (mass/volume)Ordered By: Teo Haider on 06-19-2025 Creatinine [Mass/Vol] 1.21 mg/dL High 0.70-1.20 [place] Serum globulin measurementOr dered By: Teo Haider on 06-19-2025 Globulin (S) [Mass/Vol] 3.7 g/dL 2.2-4.2 [facility] Serum glucose measurement (m ass/volume)Ordered By: Teo Haider on 06-19-2025 Glucose [Mass/Vol] 112 mg/dL High 70-99 [facility] Serum or plasma C reactive p rotein measurement (mass/volume)Ordered By: Teo Haider on 06-19-2025 CRP [Mass/Vol] 76.20 mg/L High 0.0-3.0 [facility] Serum or plasma alanine lopez otransferase (ALT) measurementOrdered By: Teo Haider on 06-19-2025 ALT [Catalytic activity/Vol] 60 U/L High <35 [facility] Serum or plasma albumin carter urement (mass/volume)Ordered By: Teo Haider on 06-19-2025 Albumin [Mass/Vol] 4.0 g/dL 3.5-5.0 [facility] Serum or plasma albumin/glob ulin mass ratioOrdered By: Teo Haider on 06-19-2025 Albumin/Globulin [Mass ratio] 1.1 {ratio} 0.9-2.4 [facility] Serum or plasma alkaline brittany sphatase measurementOrdered By: Teo Haider on 06-19-2025 ALP [Catalytic activity/Vol] 118 U/L High 35-104 [facility] Serum or plasma calcium carter urement (mass/volume)Ordered By: Teo Haider on 06-19-2025 Calcium [Mass/Vol] 9.8 mg/dL 7.6-11.0 [facility] Serum or plasma urea nitroge n measurement (mass/volume)Ordered By: Teo Haider on 06-19-2025 Urea nitrogen [Mass/Vol] 15 mg/dL 4-19 [facility] Sodium levelOrdered By: Ernie Haider on 06-19-2025 Sodium [Moles/Vol] 139 mmol/L 133-145 [facility] Squamous epithelial cells de tection in urine sediment by light microscopyOrdered By: Teo Haider on 06-19-2025 Epithelial cells.squamous LM Ql (Urine sed) 10-25 SEEN /hpf 5-10 [facility] Total proteinOrdered By: Daniel Haider on 06-19-2025 Protein [Mass/Vol] 7.7 g/dL 5.9-8.4 [facility] Urinalysis, Completeon 06-19 BACTERIA 2+ /hpf Normal None Seen [facility] Comment on above: Order Comment: CLEAN CATCH Performed By: #### M 100.2200, L400.0001 #### [facility] [address] [place], [address] EPI,SQUAMOUS 10-25 SEEN Normal 5-10 [facility] Comment on above: Order Comment: CLEAN CATCH Performed By: #### M 100.2200, L400.0001 #### [facility] [address] [place], [address] Mucus Ql (Urine sed) 1+ /hpf Normal [facility] Comment on above: Order Comment: CLEAN CATCH Performed By: #### M 100.2200, L400.0001 #### [facility] [address] [place], [address] RBC 0-5 SEEN Normal 0-5 [facility] Comment on above: Order Comment: CLEAN CATCH Performed By: #### M 100.2200, L400.0001 #### [facility] [address] [place], [address] WBC 0-5 SEEN Normal 0-5 [facility] Comment on above: Order Comment: CLEAN CATCH Performed By: #### M 100.2200, L400.0001 #### [facility] [address] [place], [address] Urine clarityOrdered By: Daniel Haider on 06-19-2025 Clarity (U) Sl. Cloudy Clear [facility] Urine color determinationOrd ered By: Teo Haider on 06-19-2025 Color (U) Yellow Yellow [facility] Urine cultureOrdered By: Daniel Haider on 06-19-2025 Bacteria identified Cx Nom (U) Positive Abnormal [facility] Urine glucose detectionOrder ed By: Teo Haider on 06-19-2025 Glucose Ql (U) Normal mg/dl Normal [facility] Urine leukocyte esterase det ection by dipstickOrdered By: Teo Haider on 06-19-2025 Leukocyte esterase Test strip Ql (U) 25 /ul High Negative [facility] Urine pHOrdered By: Teo Haider on 06-19-2025 pH (U) 6.0 [pH] 5.0 - 8.0 [facility] Urine sediment bacteria coun t by microscopy (number/high power field)Ordered By: Teo Haider on 06-19-2025 Bacteria LM.HPF (Urine sed) [#/Area] 2 /[HPF] None Seen [facility] Urine specific gravity measu rementOrdered By: Teo Haider on 06-19-2025 Specific gravity (U) [Rel density] 1.020 1.002-1.030 [facility] Urine urobilinogen measureme ntOrdered By: Teo Haider on 06-19-2025 Urobilinogen Ql (U) 1 mg/dl High Normal [facility] White blood cell (WBC) count Ordered By: Teo Haider on 06-19-2025 WBC (Bld) [#/Vol] 8.1 10*3/uL 4.4-11.0 [facility] White blood cell countOrdere d By: Teo Haider on 06-19-2025 White blood cell count 0-5 SEEN /hpf 0-5 [facility] Abdomen/Pelvis W IV Cont ONL Yon 06-14-2025 Abdomen/Pelvis W IV Cont ONLY [facility] Imaging Services [address] [place] [address] Abdomen/Pelvis W IV Cont ONLY MR#: [id number] Acct: [id number] Name: JERSEY BETANCOURT Rep #: [id number] : 1975 F 49 From: Basil Ledezma PCP: Dr. Nikole Guillermo MD Status: [facility] ER Study: Abdomen/Pelvis W IV Cont ONLY Date of Exam: Exam# [id number] Ordering Dr: Dave Carvalho DO PROCEDURE: ABDOMEN/PELVIS [...] nondistention; consider correlation with urinalysis. Reading Location: [facility] CC: Dr. Nikole Guillermo MD; Dave Carvalho DO Journeyman Wireman: Signed Normal [facility] Absolute lymphocyte countOrd ered By: Dave Carvalho on 06-14-2025 Lymphocytes Auto (Unsp spec) [#/Vol] 1.64 10*3/uL 0.83-4.51 [facility] Absolute neutrophil countOrd ered By: Dave Carvalho on 06-14-2025 Neutrophils (Bld) [#/Vol] 2.4 10*3/uL 2.0-7.7 [facility] Anion gap in Serum or Plasma Ordered By: Dave Carvalho on 06-14-2025 Anion gap [Moles/Vol] 10 mmol/L 5-15 [place] Automated lymphocyte count a s percentage of total leukocytesOrdered By: Dave Carvalho on 06-14-2025 Lymphocytes/100 WBC Auto (Unsp spec) 35.1 % - [facility] BUN/creatinine ratioOrdered By: Dave Carvalho on 06-14-2025 Urea nitrogen/Creatinine [Mass ratio] 11.4 mg/mg - [facility] Basic Metabolic Profile (BMP )on 06-14-2025 BUN/CRE 11.4 RATIO Normal - [facility] Comment on above: Performed By: #### L 100.0100, L509.7001, L503.6005, L500.2500, L501.2450, L500.3400 ####[facility] [address] [place], [address] Calcium [Mass/Vol] 9.1 mg/dL Normal 7.6-11.0 [facility] Comment on above: Performed By: #### L 100.0100, L509.7001, L503.6005, L500.2500, L501.2450, L500.3400 ####[facility] [address] [place], [address] Chloride [Moles/Vol] 100 mmol/L Normal 98-108 [facility] Comment on above: Performed By: #### L 100.0100, L509.7001, L503.6005, L500.2500, L501.2450, L500.3400 ####[facility] [address] [place], [address] CO2 [Moles/Vol] 26.9 mmol/L Normal 21.0-32.0 [facility] Comment on above: Performed By: #### L 100.0100, L509.7001, L503.6005, L500.2500, L501.2450, L500.3400 ####[facility] [address] [place], [address] Creatinine [Mass/Vol] 1.00 mg/dL Normal 0.70-1.20 [place] Comment on above: Performed By: #### L 100.0100, L509.7001, L503.6005, L500.2500, L501.2450, L500.3400 ####[facility] [address] [place], [address] ECRCL 82.83 ml/min Normal 50-250 [facility] Comment on above: Performed By: #### L 100.0100, L509.7001, L503.6005, L500.2500, L501.2450, L500.3400 ####[facility] [address] [place], [address] GAP 10 Normal 5-15 [facility] Comment on above: Performed By: #### L 100.0100, L509.7001, L503.6005, L500.2500, L501.2450, L500.3400 ####[facility] [address] [place], [address] GFR/1.73 sq M.predicted among non-blacks MDRD (S/P/Bld) [Vol rate/Area] 69 mL/min/{1.73_m2} Normal >60 [facility] Comment on above: Result Comment: mL/m in/1.73m2 CKD-EPI Creatinine Equation (2020) Performed By: #### L 100.0100, L509.7001, L503.6005, L500.2500, L501.2450, L500.3400 ####[facility] [address] [place], [address] Glucose [Mass/Vol] 135 mg/dL High 70-99 [facility] Comment on above: Performed By: #### L 100.0100, L509.7001, L503.6005, L500.2500, L501.2450, L500.3400 ####[facility] [address] [place], [address] Potassium [Moles/Vol] 4.2 mmol/L Normal 3.3-5.1 [place] Comment on above: Performed By: #### L 100.0100, L509.7001, L503.6005, L500.2500, L501.2450, L500.3400 ####[facility] [address] [place], [address] Sodium [Moles/Vol] 138 mmol/L Normal 133-145 [facility] Comment on above: Performed By: #### L 100.0100, L509.7001, L503.6005, L500.2500, L501.2450, L500.3400 ####[facility] [address] [place], [address] Urea nitrogen [Mass/Vol] 11 mg/dL Normal 4-19 [facility] Comment on above: Performed By: #### L 100.0100, L509.7001, L503.6005, L500.2500, L501.2450, L500.3400 ####[facility] [address] [place], [address] Basophil percentageOrdered B y: Dave Carvalho on 06-14-2025 Basophils/100 WBC (Bld) 1.3 % High 0-1 [facility] Bilirubin Test strip Ql (U)O rdered By: Dave Carvalho on 06-14-2025 Bilirubin Ql (U) Negative Negative [facility] Bilirubin directOrdered By: Dave Carvalho on 06-14-2025 Bilirubin.direct [Mass/Vol] 0.14 mg/dL 0.00-0.30 [facility] Bilirubin, totalOrdered By: Dave Carvalho on 06-14-2025 Bilirubin [Mass/Vol] 0.39 mg/dL 0.00-1.30 [facility] Blood cultureOrdered By: Avelino Carvalho on 06-14-2025 Bacteria identified Cx Nom (Bld) No growth in 5 days. [facility] Bacteria identified Cx Nom (Bld) No growth in 5 days. [facility] Blood manual differential co mment interpretation (narrative result)Ordered By: Dave Carvalho on 06-14-2025 Manual differential comment Chris (Bld) [Interp] SCANNED [facility] CBC W/Diff, Automatedon 08- ATYPICAL LYMPH RARE Normal [facility] Comment on above: Performed By: #### M 200.1000 #### [facility] [address] [place], [place], [address] SMEAR COMMENT SCANNED Normal [facility] Comment on above: Performed By: #### M 200.1000 #### [facility] [address] [place], [place], [address] Carbon dioxide, total [Moles /volume] in Central venous bloodOrdered By: Dave Carvalho on 06-14-2025 CO2 [Moles/Vol] 26.9 mmol/L 21.0-32.0 [facility] Chest PA and Lateralon 06-14 Chest PA and Lateral [facility] Imaging Services [address] [place], [place] [address] Chest PA and Lateral MR#: [id number] Acct: [id number] Name: JERSEY BETANCOURT Rep #: [id number] : 1975 F 49 From: Basil Ledezma PCP: Dr. Nikole Guillermo MD Status: [facility] ER Study: Chest PA and Lateral Date of Exam: 06/14/25 Exam# [id number] Ordering Dr: Dave Carvalho DO PROCEDURE: CHEST PA AND LATERAL 06/14/2025 REASON FOR EXAM: FEVER TECHNIQUE: CHEST PA AND LATERAL COMPARISON: none FINDINGS: No focal consolidation. No pleural effusion or pneumothorax. Cardiac silhouette is within normal limits. No acute fractures. RAD/Chest PA and Lateral IMPRESSION: No focal consolidations. Reading Location: [facility] CC: Dr. 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 Medical Records Department [address] [place] [address] Emergency Department Summary 06/14/25 MR#: [id number] Acct: [id number] Name: JERSEY BETANCOURT Rep #: [id number] : 1975 49 From: Dave Carvalho DO [...] has the fever she presents for evaluation [facility] Medical History Bronchitis Migraine Ovarian tumor PCOS [...] 2 current occupational status: employed current occupation: [employer] pets and animals: Yes pets and animals: [...] top [place] (more content not included)... Normal [facility] Eosinophil percentageOrdered By: Dave Carvalho on 06-14-2025 Eosinophils/100 WBC (Bld) 3.2 % 0-5 [facility] Erythrocyte distribution wid th ratioOrdered By: Dave Carvalho on 06-14-2025 Erythrocyte distribution width (RBC) [Ratio] 13.2 % 11.6-14.6 [facility] Erythrocyte distribution wid th standard deviationOrdered By: Dave Carvalho on 06-14-2025 Erythrocyte distribution width (RBC) [Ratio] 42.9 fl 35.1-43.9 [facility] Glomerular filtration rate ( GFR) estimation/1.73 sq m using serum, plasma, or whole bOrdered By: Dave Carvalho on 06-14-2025 GFR/1.73 sq M.predicted among non-blacks MDRD (S/P/Bld) [Vol rate/Area] 69 mL/min/{1.73_m2} >60 [facility] Comment on above: mL/min/1.73m2 CKD-EP I Creatinine Equation (2020) Hematocrit Auto (Bld) [Volum e fraction]Ordered By: Dave Carvalho on 06-14-2025 Hematocrit (Bld) [Volume fraction] 41.1 % 37-47 [facility] Hemoglobin measurementOrdere d By: Dave Carvalho on 06-14-2025 Hemoglobin (Bld) [Mass/Vol] 13.4 g/dL 12.0-15.0 [facility] Immature granulocytes/100 WB C Auto (Bld)Ordered By: Dave Carvalho on 06-14-2025 Immature granulocytes/100 WBC (Bld) 0.600 % 0.0-0.9 [facility] Comment on above: IG% - Immature Granu locytes (promyelocytes, myelocytes and metamyelocytes) > 1% indicates that a LEFT SHIFT is Present. Ketones Test strip Ql (U)Ord ered By: Dave Carvalho on 06-14-2025 Ketones Ql (U) Negative Negative [facility] L509.7001on 06-14-2025 Procalcitonin 0.31 ng/mL High <=0.10 [facility] Comment on above: Result Comment: Inte [...] L 100.0100, L509.7001, L503.6005, L500.2500, L501.2450, L500.3400 ####[facility] [address] [place], [place], [address] Laboratory - Chemistry and C hemistry - challengeOrdered By: Dave Carvalho on 06-14-2025 AST [Catalytic activity/Vol] 48 U/L High <32 [facility] Lactic Acidon 06-14-2025 Lactate [Moles/Vol] 1.2 mmol/L Normal 0.0-2.0 [facility] Comment on above: Order Comment: Y Performed By: #### L 100.0100, L509.7001, L503.6005, L500.2500, L501.2450, L500.3400 ####[facility] [address] [place], [place], [id number] Lactic acid measurementOrder ed By: Dave Carvalho on 06-14-2025 Lactate [Moles/Vol] 1.2 mmol/L 0.0-2.0 [facility] Lipaseon 06-14-2025 Lipase [Catalytic activity/Vol] 25 U/L Normal 13-75 [facility] Comment on above: Result Comment: Malik gatica note: LIPASE revised reference range effective 23. New Lipase methodology. Expected to produce lower values than the previous assay method. NEW Reference Range: 13 - 75 U/L Performed By: #### L 100.0100, L509.7001, L503.6005, L500.2500, L501.2450, L500.3400 ####[facility] [address] [place], [address] Lipase measurementOrdered By : Dave Carvalho on 06-14-2025 Lipase [Catalytic activity/Vol] 25 U/L 13-75 [facility] Comment on above: Please note:LIPASE r evised reference range effective 23. New Lipase methodology. Expected to produce lower values than the previous assay method. NEW Reference Range: 13 - 75 U/L Liver Profileon 06-14-2025 Albumin [Mass/Vol] 4.1 g/dL Normal 3.5-5.0 [facility] Comment on above: Performed By: #### L 100.0100, L509.7001, L503.6005, L500.2500, L501.2450, L500.3400 ####[facility] [address] [place], [address] ALK PHOS 120 U/L High 35-104 [facility] Comment on above: Performed By: #### L 100.0100, L509.7001, L503.6005, L500.2500, L501.2450, L500.3400 ####[facility] [address] [place], [address] ALT [Catalytic activity/Vol] 53 U/L High <=34 [facility] Comment on above: Performed By: #### L 100.0100, L509.7001, L503.6005, L500.2500, L501.2450, L500.3400 ####[facility] [address] [place], [address] AST [Catalytic activity/Vol] 48 U/L High <=31 [facility] Comment on above: Performed By: #### L 100.0100, L509.7001, L503.6005, L500.2500, L501.2450, L500.3400 ####[facility] [address] [place], [address] Bilirubin [Mass/Vol] 0.39 mg/dL Normal 0.00-1.30 [facility] Comment on above: Performed By: #### L 100.0100, L509.7001, L503.6005, L500.2500, L501.2450, L500.3400 ####[facility] [address] [place], [address] Bilirubin.direct [Mass/Vol] 0.14 mg/dL Normal 0.00-0.30 [facility] Comment on above: Performed By: #### L 100.0100, L509.7001, L503.6005, L500.2500, L501.2450, L500.3400 ####[facility] [address] [place], [address] Globulin (S) [Mass/Vol] 3.2 g/dL Normal 2.2-4.2 [facility] Comment on above: Performed By: #### L 100.0100, L509.7001, L503.6005, L500.2500, L501.2450, L500.3400 ####[facility] [address] [place], [address] T PROT 7.3 g/dL Normal 5.9-8.4 [facility] Comment on above: Performed By: #### L 100.0100, L509.7001, L503.6005, L500.2500, L501.2450, L500.3400 ####[facility] [address] [place], [address] MCV (mean corpuscular volume ) determinationOrdered By: Dave Carvalho on 06-14-2025 MCV (RBC) [Entitic vol] 89.7 fL 81-99 [facility] Mean corpuscular hemoglobin (MCH) determinationOrdered By: Dave Carvalho on 06-14-2025 MCH (RBC) [Entitic mass] 29.3 pg 27.0-32.0 [facility] Mean corpuscular hemoglobin concentration (MCHC) determinationOrdered By: Dave Carvalho on 06-14-2025 MCHC (RBC) [Mass/Vol] 32.6 g/dL 32-36 [place] Mean platelet volume determi nationOrdered By: Dave Carvalho on 06-14-2025 Platelet mean volume (Bld) [Entitic vol] 9.4 fL 6.2-12.0 [facility] Microscopic analysis of urin e for red blood cells (RBC)Ordered By: Dave Carvalho on 06-14-2025 Microscopic analysis of urine for red blood cells (RBC) 5-10 SEEN /hpf 0-5 [facility] Monocyte percentageOrdered B y: Dave Carvalho on 06-14-2025 Monocytes/100 WBC (Bld) 7.9 % 0-10 [facility] Mucus LM Ql (Urine sed)Order ed By: Dave Carvalho on 06-14-2025 Mucus Ql (Urine sed) 0 SEEN /hpf [place] Neutrophil percentageOrdered By: Daev Carvalho on 06-14-2025 Neutrophils/100 WBC (Bld) 51.9 % 47-70 [facility] Nitrite Test strip Ql (U)Ord ered By: Dave Carvalho on 06-14-2025 Nitrite Ql (U) Negative Negative [facility] Nucleated red blood cell per centageOrdered By: Dave Carvalho on 06-14-2025 Nucleated RBC/100 WBC (Bld) [Ratio] 0 % 0-5 [facility] Platelet countOrdered By: Swathi Carvalho on 06-14-2025 Platelets (Bld) [#/Vol] 165 10*3/uL 150-450 [facility] Potassium measurement (mass/ volume)Ordered By: Dave Carvalho on 06-14-2025 Potassium (Unsp spec) [Mass/Vol] 4.2 mmol/L 3.3-5.1 [facility] Procalcitonin [Mass/volume] in Serum or Plasma by ImmunoassayOrdered By: Dave Carvalho on 06-14-2025 Procalcitonin IA [Mass/Vol] 0.31 ng/mL High <0.11 [facility] Comment on above: Interpretation:<0.10 -0.25 ng/mL: [...] Protein Ql (U) 15 mg/dl High Negative [facility] RBC Auto (Bld) [#/Vol]Ordere d By: Dave Carvalho on 06-14-2025 RBC (Bld) [#/Vol] 4.58 10*6/uL 4.2-5.4 [facility] Serum creatinine measurement (mass/volume)Ordered By: Dave Carvalho on 06-14-2025 Creatinine [Mass/Vol] 1.00 mg/dL 0.70-1.20 [place] Serum globulin measurementOr dered By: Dave Carvalho on 06-14-2025 Globulin (S) [Mass/Vol] 3.2 g/dL 2.2-4.2 [facility] Serum glucose measurement (m ass/volume)Ordered By: Dave Carvalho on 06-14-2025 Glucose [Mass/Vol] 135 mg/dL High 70-99 [facility] Serum or plasma alanine lopez otransferase (ALT) measurementOrdered By: Dave Carvalho on 06-14-2025 ALT [Catalytic activity/Vol] 53 U/L High <35 [facility] Serum or plasma albumin carter urement (mass/volume)Ordered By: Dave Carvalho on 06-14-2025 Albumin [Mass/Vol] 4.1 g/dL 3.5-5.0 [facility] Serum or plasma alkaline brittany sphatase measurementOrdered By: Dave Carvalho on 06-14-2025 ALP [Catalytic activity/Vol] 120 U/L High 35-104 [facility] Serum or plasma calcium carter urement (mass/volume)Ordered By: Dave Carvalho on 06-14-2025 Calcium [Mass/Vol] 9.1 mg/dL 7.6-11.0 [facility] Serum or plasma urea nitroge n measurement (mass/volume)Ordered By: Dave Carvalho on 06-14-2025 Urea nitrogen [Mass/Vol] 11 mg/dL 4-19 [facility] Sodium levelOrdered By: Aditya Carvalho on 06-14-2025 Sodium [Moles/Vol] 138 mmol/L 133-145 [facility] Squamous epithelial cells de tection in urine sediment by light microscopyOrdered By: Dave Carvalho on 06-14-2025 Epithelial cells.squamous LM Ql (Urine sed) 0-5 SEEN /hpf - [facility] Total proteinOrdered By: Avelino Carvalho on 06-14-2025 Protein [Mass/Vol] 7.3 g/dL 5.9-8.4 [facility] Urinalysis, Completeon 06-14 EPI,SQUAMOUS 0-5 SEEN Normal 5-10 [facility] Comment on above: Order Comment: RADHA CTOR TO SPECIFY Performed By: #### L 400.0001 #### [facility] [address] [place], [address] RBC 5-10 SEEN Normal 0-5 [facility] Comment on above: Order Comment: RADHA CTOR TO SPECIFY Performed By: #### L 400.0001 #### [facility] [address] [facility] [place], [address] WBC 0-5 SEEN Normal 0-5 [facility] Comment on above: Order Comment: RADHA CTOR TO SPECIFY Performed By: #### L 400.0001 #### [facility] [address] [facility] [place], [address] BACTERIA 0 SEEN Normal None Seen [facility] Comment on above: Order Comment: RADHA CTOR TO SPECIFY Performed By: #### L 400.0001 #### [facility] [address] [place], [address] Mucus Ql (Urine sed) 0 SEEN Normal [facility] Comment on above: Order Comment: COLLE CTOR TO SPECIFY Performed By: #### L 400.0001 #### [facility] [address] [place], [address] Urine clarityOrdered By: Avelino Carvalho on 06-14-2025 Clarity (U) Sl. Cloudy Clear [facility] Urine color determinationOrd ered By: Dave Carvalho on 06-14-2025 Color (U) Yellow Yellow [facility] Urine glucose detectionOrder ed By: Dave Carvalho on 06-14-2025 Glucose Ql (U) Normal mg/dl Normal [facility] Urine leukocyte esterase det ection by dipstickOrdered By: Dave Carvalho on 06-14-2025 Leukocyte esterase Test strip Ql (U) Negative Negative [facility] Urine pHOrdered By: Dave Darby ndes on 06-14-2025 pH (U) 7.0 [pH] 5.0 - 8.0 [facility] Urine sediment bacteria coun t by microscopy (number/high power field)Ordered By: Dave Carvalho on 06-14-2025 Bacteria LM.HPF (Urine sed) [#/Area] 0 /[HPF] None Seen [facility] Urine specific gravity measu rementOrdered By: Dave Carvalho on 06-14-2025 Specific gravity (U) [Rel density] 1.010 1.002-1.030 [facility] Urine urobilinogen measureme ntOrdered By: Dave Carvalho on 06-14-2025 Urobilinogen Ql (U) Normal mg/dl Normal [place] White blood cell (WBC) count Ordered By: Dave Carvalho on 06-14-2025 WBC (Bld) [#/Vol] 4.7 10*3/uL 4.4-11.0 [facility] White blood cell countOrdere d By: Dave Carvalho on 06-14-2025 White blood cell count 0-5 SEEN /hpf 0-5 [facility] Absolute lymphocyte countOrd ered By: Nikole Guillermo on 03-01-2024 Lymphocytes Auto (Unsp spec) [#/Vol] 2.44 10*3/uL 0.83-4.51 [facility] Automated lymphocyte count a s percentage of total leukocytesOrdered By: Nikole Mima on 03-01-2024 Lymphocytes/100 WBC Auto (Unsp spec) 30.5 % 19-41 [facility] Basophil percentageOrdered B y: Nikole Guillermo on 03-01-2024 Basophils/100 WBC (Bld) 0.6 % 0-1 [facility] Bilirubin [Mass/Vol] 0.40 mg/dL 0.20-1.00 [facility] Comment on above: For patients on eltr ombopag therapy, use of Dimension [place] TBIL is not recommended. Chloride [Moles/Vol] 106 mmol/L 98-107 [facility] Cholesterol [Mass/Vol] 209 mg/dL <200 [facility] Comment on above: <200 mg/dL Desirable 200-240 mg/dL Borderline >240 mg/dL High Risk Eosinophils/100 WBC (Bld) 4.9 % 0-5 [facility] Glucose [Mass/Vol] 100 mg/dL 74-106 [facility] Comment on above: Fasting Glucose resu lt from 100 to 125 mg/dL suggests IMPAIRED HOMEOSTASIS per A.D.A. criteria. Hemoglobin (Bld) [Mass/Vol] 13.7 g/dL 12.0-15.0 [facility] Monocytes/100 WBC (Bld) 5.3 % 0-10 [facility] Neutrophils (Bld) [#/Vol] 4.7 10*3/uL 2.0-7.7 [facility] Neutrophils/100 WBC (Bld) 58.3 % 47-70 [facility] Potassium [Moles/Vol] 4.1 mmol/L 3.5-5.1 [place] Protein [Mass/Vol] 8.0 g/dL 6.4-8.2 [facility] Sodium [Moles/Vol] 139 mmol/L 136-145 [facility] Triglyceride [Mass/Vol] 151 mg/dL <199 [facility] Comment on above: The drugs N-Acetylcy steine and Metamizole may falsely depress this assay.Serum Triglycerides Reference Interval Normal <150 mg/dL Borderline high 150 - 199 mg/dL High 200 - 499 mg/dL Very High > or = 500 mg/dL WBC (Bld) [#/Vol] 8.0 10*3/uL 4.4-11.0 [facility] Determination of erythrocyte mean corpuscular volume (MCV)Ordered By: Nikole Guillermo on 03-01-2024 MCV (RBC) [Entitic vol] 91.8 fL 81-99 [facility] Erythrocyte distribution wid th ratioOrdered By: Nikole Guillermo on 03-01-2024 Erythrocyte distribution width (RBC) [Ratio] 13.3 % 11.6-14.6 [facility] Erythrocyte distribution wid th standard deviationOrdered By: Nikolederrick Guillermo on 03-01-2024 Erythrocyte distribution width (RBC) [Entitic vol] 45.1 fL 35.1-43.9 [facility] Hematocrit Auto (Bld) [Volum e fraction]Ordered By: Nikole Guillermo on 03-01-2024 Hematocrit (Bld) [Volume fraction] 42.8 % 37-47 [facility] Immature granulocytes/100 WB C Auto (Bld)Ordered By: Nikole Guillermo on 03-01-2024 Immature granulocytes/100 WBC (Bld) 0.400 % 0.0-0.9 [facility] Comment on above: IG% - Immature Granu locytes (promyelocytes, myelocytes and metamyelocytes) > 1% indicates that a LEFT SHIFT is Present. Laboratory - Chemistry and C hemistry - challengeOrdered By: Nikole Guillermo on 03-01-2024 Albumin/Globulin [Mass ratio] 0.8 {ratio} 0.9-2.4 [facility] ALP [Catalytic activity/Vol] 117 U/L 45-117 [facility] ALT [Catalytic activity/Vol] 31 U/L 13-56 [facility] Cholesterol in HDL [Mass/Vol] 41 mg/dL >40 [facility] Comment on above: The drugs N-Acetylcy steine and Metamizole may falsely depress this assay. Reference Range HDL <40 mg/dL Low HDL Cholesterol HDL >or= 60 mg/dL High HDL Cholesterol Cholesterol in LDL [Mass/Vol] 138 mg/dL 0-130 [facility] CO2 [Moles/Vol] 30.0 mmol/L 21.0-32.0 [facility] Globulin (S) [Mass/Vol] 4.4 g/dL 2.2-4.2 [facility] Urea nitrogen/Creatinine [Mass ratio] 18.0 mg/mg 10-20 [facility] Laboratory - Hematology and Cell countsOrdered By: Nikole Guillermo on 03-01-2024 MCH (RBC) [Entitic mass] 29.4 pg 27.0-32.0 [facility] MCHC (RBC) [Mass/Vol] 32.0 g/dL 32-36 [place] Nucleated RBC/100 WBC (Bld) [Ratio] 0 % 0-5 [facility] Platelet mean volume (Bld) [Entitic vol] 9.6 fL 6.2-12.0 [facility] Platelets (Bld) [#/Vol] 302 10*3/uL 150-450 [facility] No Panel InformationOrdered By: Nikole Guillermo on 03-01-2024 Estimated GFR (MDRD) Amer 102 mL/min >60 [facility] Comment on above: GFR Calc Estimated GFR (MDRD) Non-Af Amer 84 mL/min >60 [facility] Comment on above: Non- GFR Calc Vitamin D 25-Hydroxy 16.6 ng/mL [facility] Comment on above: Vitamin D 25(OH) Sta tus Range Deficiency <20 ng/mL (50nmol/L) Insufficiency 20 - 30 ng/mL (50 - 75 nmol/L) Sufficiency 30 - 100 ng/mL (75 - 250 nmol/L) Toxicity >100 ng/mL (>250 nmol/L) VLDL Cholesterol 30 mg/dL 5-40 [facility] RBC Auto (Bld) [#/Vol]Ordere d By: Nikole Guillermo on 03-01-2024 RBC (Bld) [#/Vol] 4.66 10*6/uL 4.2-5.4 [facility] Serum or plasma calcium carter urement (mass/volume)Ordered By: Nikole Guillermo on 03-01-2024 Calcium [Mass/Vol] 9.3 mg/dL 8.5-10.1 [facility] Serum or plasma creatinine m easurement (mass/volume)Ordered By: Nikole Guillermo on 03-01-2024 Creatinine [Mass/Vol] 0.78 mg/dL 0.55-1.02 [place] Comment on above: The validity of the calculated GFR & GFRAA in patients over 70 years has not been determined. Clinical correlation is essential. Serum or plasma thyroid stim ulating hormone (TSH) measurement (units/volume)Ordered By: Nikole Guillermo on 03-01-2024 TSH Qn 3.29 uIU/mL 0.358-3.74 [facility] Serum or plasma urea nitroge n measurement (mass/volume)Ordered By: Nikolederrick Guillermo on 03-01-2024 Urea nitrogen [Mass/Vol] 14 mg/dL 05-31 [facility] Thin prep Papanicolaou smear with manual screeningOrdered By: Nikole Guillermo on 03-01-2024 Thin prep Papanicolaou smear with manual screening 3.6 g/dL 3.2-5.0 [facility] Thin prep Papanicolaou smear with manual screening 21 U/L 15-37 [facility] Thin prep Papanicolaou smear with manual screening 3 5-15 [facility] CBC and Differentialon 11-07 Abs Baso 0.12 k/uL High <0.11 [facility] Comment on above: Performed By: #### C FLORES AYALA ####[facility] [address] [place] [address] Abs Dickey 0.92 k/uL High <0.87 [facility] Comment on above: Performed By: #### C FLORES AYALA ####[facility] [address] [place] [address] Abs Neut 9.08 k/uL High 1.45-7.50 [facility] Comment on above: Performed By: #### C FLORES AYALA ####[facility] [address] [place] [address] Basophils/100 WBC Auto (Bld) 1.1 % Normal [facility] Comment on above: Performed By: #### C FLORES AYALA ####[facility] [address] [place] [phone] Eosinophils Auto #/vol (Bld) 0.21 10*3/uL Normal <0.46 [facility] Comment on above: Performed By: #### C BCDIF, CMP ####[place] [address] Eosinophils/100 WBC Auto (Bld) 1.9 % Normal [facility] Comment on above: Performed By: #### C BCDIF, CMP ####[place] [address] Erythrocyte distribution width Auto Ratio (RBC) 13.5 % Normal 11.5-15.0 [facility] Comment on above: Performed By: #### C BCDIF, CMP ####[place] [address] Hematocrit Auto Volume Fraction (Bld) 43.0 % Normal 36.0-46.0 [facility] Comment on above: Performed By: #### C BCDIF, CMP ####[place] [address] Hemoglobin mass conc (Bld) 13.4 g/dL Normal 11.5-15.5 [facility] Comment on above: Performed By: #### C BCDIF, CMP ####[place] [address] Lymphocytes Auto #/vol (Bld) 0.94 10*3/uL Low 1.00-4.00 [facility] Comment on above: Performed By: #### C BCDIF, CMP ####[place] [address] Lymphocytes/100 WBC Auto (Bld) 8.3 % Normal [facility] Comment on above: Performed By: #### C BCDIF, CMP ####[place] [address] MCH Auto Entitic mass (RBC) 28.0 pG Normal 26.0-34.0 [facility] Comment on above: Performed By: #### C BCDIF, CMP ####[place] [address] MCHC Auto mass conc (RBC) 31.2 g/dL Normal 30.5-36.0 [facility] Comment on above: Performed By: #### C BCDOUGF, CMP ####[facility] [address] [place] [phone] MCV Auto Entitic volume (RBC) 90.0 fL Normal 80.0-100.0 [facility] Comment on above: Performed By: #### C BCDOUGF, CMP ####[facility] [address] [place], [place] [phone] Monocytes/100 WBC Auto (Bld) 8.2 % Normal [facility] Comment on above: Performed By: #### C BCDOUGF, CMP ####[facility] [address] [place], [place] [phone] Neutrophils/100 WBC Auto (Bld) 80.5 % Normal [facility] Comment on above: Performed By: #### C JAMIE, CMP ####[facility] [address] [place] [address] Platelet mean volume Auto Entitic volume (Bld) 9.4 fL Normal 9.0-12.7 [facility] Comment on above: Performed By: #### C JAMIE, CMP ####[facility] [address] [place], [place] [phone] Platelets Auto #/vol (Bld) 254 10*3/uL Normal 150-400 [facility] Comment on above: Performed By: #### C BCISABELLA, CMP ####[facility] [address] [place], [place] [phone] RBC Auto #/vol (Bld) 4.78 10*6/uL Normal 3.90-5.20 [facility] Comment on above: Performed By: #### C BCDOUGF, CMP ####[facility] [address] [place], [place] [phone] WBC Auto #/vol (Bld) 11.27 10*3/uL High 3.70-11.00 [facility] Comment on above: Performed By: #### C BCDOUGF, CMP ####[facility] [address] [place], [place] [phone] Comp Metabolic Panelon 11-07 Albumin mass conc 4.0 g/dL Normal 3.9-4.9 [facility] Comment on above: Performed By: #### C BCISABELLA, CMP ####[facility] [address] [place] [address] ALP enzyme act/vol 118 U/L Normal 34-123 [facility] Comment on above: Performed By: #### C BCDIF, CMP ####[facility] [address] [place] [address] ALT enzyme act/vol 28 U/L Normal 7-38 [facility] Comment on above: Performed By: #### C BCDIF, CMP ####[facility] [address] [place] [address] Anion gap 3 molar conc 12 mmol/L Normal 9-18 [facility] Comment on above: Performed By: #### C BCDIF, CMP ####[place] [address] AST enzyme act/vol 25 U/L Normal 13-35 [facility] Comment on above: Performed By: #### C BCDIF, CMP ####[facility] [address] [place] [address] Bilirubin mass conc 0.4 mg/dL Normal 0.2-1.3 [facility] [place] Comment on above: Performed By: #### C BCDIF, CMP ####[place] [address] Calcium mass conc 9.5 mg/dL Normal 8.5-10.2 [facility] Comment on above: Performed By: #### C BCDIF, CMP ####[place] [address] Chloride molar conc 101 mmol/L Normal 97-105 [facility] [place] Comment on above: Performed By: #### C BCDIF, CMP ####[place] [address] CO2 molar conc 25 mmol/L Normal 22-30 [facility] Comment on above: Performed By: #### C BCDIF, CMP ####[place] [address] Creatinine mass conc 0.88 mg/dL Normal 0.58-0.96 [facility] Comment on above: Performed By: #### C BCDIF, CMP ####[facility] [address] [place], [place] [phone] eGFR- Amer. >60 Normal [facility] Comment on above: Performed By: #### C FLORES AYALA ####[facility] [address]rs[phone] GFR/1.73 sq M predicted among non-blacks MDRD vol rate/area (S/P/Bld) mL/min/{1.73_m2} Normal [facility] Comment on above: Result Comment: [...] reflect actual GFR. Performed By: #### C JAMIE, CMP ####[facility] [phone] Glucose mass conc 112 mg/dL High 74-99 [facility] Comment on above: Result Comment: The [place] [employer] Association (ADA) provides guidance for cutoff [...] Standards of Medical Care in Diabetes 2016, [place] [employer]. Diabetes Care. 2016.39(Suppl 1). Performed By: #### C JAMIE, CMP ####[facility] Ac[phone] Potassium molar conc 3.7 mmol/L Normal 3.7-5.1 [facility] Comment on above: Performed By: #### C BCDIF, CMP ####[facility] [address]39 [address] Protein mass conc 7.5 g/dL Normal 6.3-8.0 [facility] Comment on above: Performed By: #### C BCDIF, CMP ####[facility] [address] Sodium molar conc 138 mmol/L Normal 136-144 [facility] Comment on above: Performed By: #### C BCDIF, CMP ####[facility] [address] [place] [address] Urea nitrogen mass conc 10 mg/dL Normal 7-21 [facility] Comment on above: Performed By: #### C BCDIF, CMP ####[facility] [address] [place] [address] ED NOTEon 11-07-2018 ED NOTE HNO ID: [id number]: Kari Gerard (Pharmacist)Service: PharmacyAuthor Type: PharmacistType: ED NotesFiled: 11/09/2018 11:40 AMNote Text:PHARMACY EMERGENCY DEPARTMENT CULTURE CALLBACKPatient Name:Giorgio Betancourt Admission Date:11/07/2018Date of Callback: 11/09/2018Patient HQSWNOXPJNaj ergen Reactions- Latex HivesSource of Result: Results [...] page/call with any issues or questions.Electronic signature: KARI KALEEPolina GUEVARA 2017 11:40 AMPager/Extension: [phone] [place] ED NOTE HNO ID: [id number]: Radha (Rn) Razia Parsons: (none)Author Type: Registered NurseType: ED NotesFiled: 11/07/2018 4:38 PMNote Text: Plan of care-Monitor Patient's Vital Signs for changes in condition-Monitor patient for changes in pain-Maintain patient safety and privacy-Provide comfort measures-Call light in placeSiderails up, bed in locked and low position [place] ED NOTE HNO ID: [id number]: Cristal (Rn) GASPER Rodriguezervice: NursingAuthor Type: Registered NurseType: ED NotesFiled: 11/07/2018 4:17 PMNote Text:Patient presents to ED with back pain, urinary pain and frequency andfever. Patient also reports cloudy strong smelling urine. JUDY Dawn atbedside. P{javi of care reviewed. Patient ambulates to bathroom [place] ED PROV NOTEon 11-07-2018 Protein mass conc HNO ID: [id number]: Nereyda Marr) Gely: (none)Author Type: Physician AssistantType: ED Provider NotesFiled: 11/07/2018 6:23 PMNote Text:ED Provider NotePatient Name: Jersey BetancourtMRN: [id number] DATE: 11/07/18HistoryPatient presents with:Bladder InfectionFeverBack PainThijojo is a 43-year-old female complaining of lower abdominal pressure andpressure with urination for 2 days. She states she had a fever today andon her right over she felt nauseous. No history of kidney stones. Herback hurts in the lower midportion of her back. No CVA tenderness. Had ahysterectomy 9 years ago. Denies vaginal discharge. She states she tookmedicine this morning for her fever but nothing this afternoon.PAST MEDICAL HISTORYDiagnosis Date- Metabolic syndrome 09/15/2018- Obesity, Class III, BMI 40-49.9 (morbid obesity) (HCC) 09/15/2018- PCOS (polycystic ovarian syndrome) 11/2/2018PAST SURGICAL HISTORYProcedure Laterality Date- PAST SURGICAL HISTORY [...] 0.94 (*) 1.00 - 4.00 k/uL Abs Dickey 0.92 (*) <0.87 k/uL Abs Baso 0.12 [...] / Clinical ImpressionClinical Impressions as of Nov 071Acute cystitis without hematuriaMDM / Disposition / PlanMDMThe [...] new concerns.Condition at time of disposition: stableSIGNATURE: Kana Ludwig (Judy) Pumao101/08/18 1823 [place] Rapid PCR Assay FLUon 2017 Influenza A PCR Negative [place] Comment on above: Performed By: #### F LUPCR ####[facility] [address] [place] [address] Influenza B PCR Negative [place] Comment on above: Performed By: #### F LUPCR ####[place] [address] Specimen source Nom (Unsp spec) Nasopharyngeal Swab Normal [facility] Comment on above: Performed By: #### F LUPCR ####[place] [address] Urinalysison 11-07-2018 Bilirubin, Urine Negative Normal Negative [facility] Comment on above: Performed By: #### U A, UAMIC ####[facility] [address] [place] [address] Clarity Hazy Critically abnormal Clear [facility] Comment on above: Performed By: #### U A, UAMIC ####[place] [address] Color Yellow Normal Yellow [facility] Comment on above: Performed By: #### U A, UAMIC ####[facility] [address] [place] [address] Glucose Ql (U) Negative Normal Negative [facility] Comment on above: Performed By: #### U A, UAMIC ####[facility] [address] [place] [address] Hemoglobin/Blood,Ur Large Critically abnormal Negative [facility] Comment on above: Performed By: #### U A, UAMIC ####[facility] [address] [place] [address] Ketones Ql (U) Negative Normal Negative [facility] Comment on above: Performed By: #### U A, UAMIC ####[facility] [address] [place] [address] Leukest Large Critically abnormal Negative [facility] Comment on above: Performed By: #### U A, UAMIC ####[facility] [address] [place] [address] Nitrites Negative Normal Negative [facility] Comment on above: Performed By: #### U A, UAMIC ####[facility] [address] [place] [address] pH 6.5 Normal 5.0-8.0 [facility] Comment on above: Performed By: #### U A, UAMIC ####[facility] [address] [place] [address] Protein, Urine 30 mg/dL Critically abnormal Negative [facility] Comment on above: Performed By: #### U A, UAMIC ####[facility] [address] [place] [address] Specific [place], Ur 1.015 Normal 1.001-1.029 [facility] Comment on above: Performed By: #### U A, UAMIC ####[facility] [address] [place] [address] Urobilinogen 0.2 Normal 0.2-1.0 [facility] Comment on above: Performed By: #### U A, UAMIC ####[facility] [address] [place] [address] Urine Cultureon 11-07-2018 Bacteria identified Cx Nom [...] <=0.25 FErtapenem SUSCEPTIBLE <=0.5 F Critically abnormal [facility] Comment on above: Performed By: #### U RCUL ####[facility] [place], [place] [phone] [address] [place] [address] Urine Microscopic (FOR LAB U SE ONLY)on 11-07-2018 Bacteria Moderate Critically abnormal 0 [facility] Comment on above: Performed By: #### U Mehnaz UAMIC ####[facility] [address] [place] [address] Cast SEE COMMENT Normal [address] [place] [address] Comment on above: Result Comment: 0 Performed By: #### U A UAMIC ####[facility] [address] [place] [address] Epithelial Cells SEE COMMENT Normal [facility] Comment on above: Result Comment: 0-5S quamous Epithelial Cells Performed By: #### U A, UAMIC ####[facility] [address] [place] [address] INR Coag RelTime (Bld) 3-5 Criticall y abnormal 0-3 [facility] Comment on above: Performed By: #### U A UAMIC ####[facility] [address] [place] [address] WBC Greater than 50 WBC's/hpf Critically abnormal 0-5 [facility] Comment on above: Performed By: #### U A UAMIC ####[place] [phone] Vital Signs Date Time Vital Sign Value Performing Clinician Dmitriy garciassebastian 07-23-2025 11:20-0400 Body height 149.9 cm Ketan James MD Work Phone: [facility] 07-23-2025 11:20-0400 Body mass index (BMI) [Ratio] 51.91 kg/m2 Ketan James MD Work Phone: [facility] 07-23-2025 11:20-0400 Body weight 116.57 kg Ketan James MD Work Phone: [facility] 07-23-2025 11:20-0400 Diastolic blood pressure 86 mm[Hg] Ketan James MD Work Phone: [facility] 07-23-2025 11:20-0400 Systolic blood pressure 148 mm[Hg] Ketan James MD Work Phone: [facility] 06-19-2025 08:46-0400 Body height 154.[address] Nikole Guillermo MD Work Phone: [facility] 06-19-2025 08:46-0400 Body mass index (BMI) [Ratio] 49.6 kg/m2 Dr. Nikole Guillermo MD Work Phone: [facility] 06-19-2025 08:46-0400 Body temperature 96.7 [degF] Dr. Nikole Guillermo MD Work Phone: [facility] 06-19-2025 08:46-0400 Body weight 119.[address] Nikole Guillermo MD Work Phone: [facility] 06-19-2025 08:46-0400 Diastolic blood pressure 98 mm[Hg] Dr. Nikole Guillermo MD Work Phone: [facility] 06-19-2025 08:46-0400 Heart rate 115 /min Dr. Nikole Guillermo MD Work Phone: [facility] 06-19-2025 08:46-0400 Respiratory rate 16 /min Dr. Nikole Guillermo MD Work Phone: [facility] 06-19-2025 08:46-0400 SaO2% (BldA) [Mass fraction] 115 % Dr. Nikole Guillermo MD Work Phone: [facility] 06-19-2025 08:46-0400 Systolic blood pressure 142 mm[Hg] Dr. Nikole Guillermo MD Work Phone: [facility] 06-14-2025 07:04-0400 Body temperature 99.1 [degF] Dr. Nikole Guillermo MD Work Phone: [facility] 06-14-2025 07:04-0400 Diastolic blood pressure 119 mm[Hg] Dr. Nikole Guillermo MD Work Phone: [facility] 06-14-2025 07:04-0400 Heart rate 105 /min Dr. Nikole Guillermo MD Work Phone: [facility] 06-14-2025 07:04-0400 Respiratory rate 18 /min Dr. Nikole Guillermo MD Work Phone: [facility] 06-14-2025 07:04-0400 SaO2% (BldA) [Mass fraction] 96 % Dr. Nikole Guillermo MD Work Phone: [facility] 06-14-2025 07:04-0400 Systolic blood pressure 188 mm[Hg] Dr. Nikole Guillermo MD Work Phone: [facility] 06-14-2025 05:22-0400 Body height 154.[address] Nikole Guillermo MD Work Phone: [facility] 06-14-2025 05:22-0400 Body mass index (BMI) [Ratio] 50.4 kg/m2 Dr. Nikole Guillermo MD Work Phone: [facility] 06-14-2025 05:22-0400 Body weight 121.[address] Nikole Guillermo MD Work Phone: [facility] 03-01-2024 12:22-0400 Diastolic blood pressure 98 mm[Hg] Dr. Nikole Guillermo Work Phone: [facility] 03-01-2024 12:22-0400 Systolic blood pressure 152 mm[Hg] Dr. Nikole Guillermo Work Phone: [facility] 03-01-2024 09:33-0400 Body height 154.[address] Nikole Guillermo Work Phone: [facility] 03-01-2024 09:33-0400 Body mass index (BMI) [Ratio] 48.2 kg/m2 Dr. Nikole Guillermo Work Phone: [facility] 03-01-2024 09:33-0400 Body temperature 97.1 [degF] Dr. Nikole Guillermo Work Phone: [facility] 03-01-2024 09:33-0400 Body weight 115.[address] Nikole Guillermo Work Phone: [facility] 03-01-2024 09:33-0400 Heart rate 76 /min Dr. Nikole Guillermo Work Phone: [facility] 03-01-2024 09:33-0400 Respiratory rate 14 /min Dr. Nikole Guillermo Work Phone: [facility] 03-01-2024 09:33-0400 SaO2% (BldA) [Mass fraction] 99 % Dr. Nikole Guillermo Work Phone: [facility] Encounters Encounter Date Encounter Type Care Provider Facility Start: 08-01-2025 End: 08-01-2025 ambulatory KETAN JAMES Facility:[facility] Start: 07-31-2025 End: 07-31-2025 Telephone encounter Ketan James MD Work Phone: OB/Gynecology Comment on above: Orders (Discussed un wanted hair growth. Will get DHEAS and testosterone/Ketan James MD/) Start: 07-23-2025 End: 07-23-2025 ambulatory KETAN JAMES Facility:[facility] Start: 07-23-2025 End: 07-23-2025 Patient encounter procedure Ketan James MD Work Phone: OB/Gynecology Comment on above: Perimenopausal vasom otor symptoms (Primary Dx); Screening mammogram for breast cancer Start: 07-23-2025 End: 07-23-2025 ambulatory EVGA BROUSSARD Facility:[facility] Start: 07-12-2025 End: 07-12-[address] Nikloe Guillermo MD Work Phone: -Laboratory Start: 07-12-2025 End: 07-12-2025 Patient encounter procedure Teo KIM -Laboratory Work Phone: Start: 07-12-2025 End: 07-12-2025 ambulatory Teo KIM Facility:[facility] Start: 06-28-2025 End: 06-28-2025 Telephone encounter Cynthia Laura MD Work Phone: [address] [place] [address] Comment on above: Patient Question Start: 06-28-2025 End: 06-28-[address] Nikole Guillermo MD Work Phone: -Laboratory Start: 06-28-2025 End: 06-28-2025 Patient encounter procedure Teo KIM -Laboratory Work Phone: Start: 06-28-2025 End: 06-28-2025 ambulatory Teo KIM Facility:[facility] Start: 06-25-2025 End: 06-25-[address] Nikole Guillermo MD Work Phone: -Laboratory Specimen Start: 06-25-2025 End: 06-25-[address] Nikole Guillermo MD -Laboratory Specimen Work Phone: Start: 06-25-2025 End: 06-25-2025 ambulatory Nikole Guillermo Facility:[facility] Start: 06-19-2025 End: 06-19-[address] Nikole Guillermo MD Work Phone: -Ultrasound [facility] Start: 06-19-2025 End: 06-19-2025 Patient encounter procedure Teo KIM -Ultrasound [facility] Work Phone: Start: 06-19-2025 End: 06-19-[address] Nikole Guillermo MD Work Phone: -Laboratory [facility] Start: 06-19-2025 End: 06-19-2025 Patient encounter procedure Teo KIM -Laboratory [facility] Start: 06-19-2025 End: 06-19-2025 Patient encounter procedure Teo KIM -[facility] Work Phone: Start: 06-19-2025 End: 06-19-[address] iNkole Guillermo MD Work Phone: -[facility] Start: 06-19-2025 End: 06-19-2025 ambulatory Teo KIM Facility:[facility] Start: 06-14-2025 End: 06-14-2025 Emergency department patient visit Dr. Nikole Guillermo MD Work Phone: -Emergency Department Work Phone: Start: 03-26-2025 End: 04-26-2025 ambulatory Vega Broussard MD Work Phone: [facility] Start: 04-25-2024 ambulatory Vega oleary MD Work Phone: Internal Medicine [place] [id number] Start: 03-01-2024 End: 03-01-[address] Nikole Guillermo Work Phone: [facility] Work Phone: Start: 03-01-2024 End: 03-01-[address] Nikole Guillermo Work Phone: [facility]-Laboratory, [facility] Start: 03-01-2024 End: 03-01-[address] Nikole Guillermo Work Phone: [facility] Internal [facility] Work Phone: Start: 05-18-2023 ambulatory Vega oleary MD Work Phone: [facility] Start: 12-02-2022 End: 12-02-2022 ambulatory Vega Broussard MD Work Phone: [facility] Comment on above: Nurse Triage Call Acute non-recurrent maxillary sinusitis Start: 12-02-2022 End: 12-02-2022 Telemedicine consultation with patient Verónica Justin APRNArnoldAIRCRAFT LAUNCH AND RECOVERY TECHNICIAN Work Phone: [facility] Start: 07-20-2022 End: 07-20-2022 ambulatory Vega Broussard MD Work Phone: [facility] Comment on above: Acute non-recurrent maxillary sinusitis (Primary Dx) Start: 07-20-2022 End: 07-20-2022 Telemedicine consultation with patient Vega Broussard MD Work Phone: [facility] Start: 05-19-2022 ambulatory Vega oleary MD Work Phone: [facility] Start: 11-07-2018 End: 11-07-2018 Emergency department patient visit [facility] Procedures Date Procedure Procedure Detail Performing Clinician Start: 07-12-[address] Brandon Guillermo MD Work Phone: Start: 07-12-2025 Urnls dip stick/tabl et reagent auto microscopy Dr. Nikole Guillermo MD Work Phone: Start: 06-28-[address] Brandon Guillermo MD Work Phone: Start: 06-28-2025 [address]ium difficil e detection Dr. Nikole Guillermo MD Work Phone: Start: 06-28-[address] Usama Guillermo MD Work Phone: Comment on above: Performed at: [address] [id number] Director: Alberto Wills PhD, Phone: [phone] Start: 06-28-2025 Antibody to centrome re measurement [...] Nikole Guillermo MD Work Phone: Start: 06-28-2025 CANE STRIPPER antibody measurement Dr. Nikole Guillermo MD Work [...] Treatment Date Care Activity Detail Author Start: 06-14-2034 Urine microalbumin profile DTa P,Tdap,Td Vaccine (3 - Td or Tdap) [facility] Start: 09-15-2028 Urine microalbumin profile [facility] Start: 08-30-2025 End: 08-30-2025 Patient encounter procedure 08/30/2025 12:50 PM EDT Appointment Mammogram [address] [place] [address] Encounter for screening mammogram for breast cancer [Z12.3 Mammogram Comment on above: Encounter for screen ing mammogram for breast cancer [Z12.3 Start: 07-31-2025 End: 10-30-2025 DHEA-S BLD DHEA-S BLD Lab Routine Hirsutism Expected: 07/31/2025, Expires: 10/30/2025 [facility] Work Phone: Comment on above: Expected: 07/31/2025 , Expires: 10/30/2025 Start: 07-31-2025 End: 10-30-2025 Testosterone [Mass/volume] in Serum or Plasma TESTOSTERONE, TOTAL BY IMMUNOASSAY (ADULT MALES, OR INDIVIDUALS ON TESTOSTERONE THERAPY) Lab Routine Hirsutism Expected: 07/31/2025, Expires: 10/30/2025 [facility] Comment on above: Expected: 07/31/2025 , Expires: 10/30/2025 Start: 07-31-2025 End: 07-31-2025 Patient encounter procedure 07/31/2025 8:20 AM EDT Office Visit OB/Gynecology [address] [place] [address] Ketan James MD [address] [place] [address] ER follow up OB/Gynecology Comment on above: ER follow up Start: 07-23-2025 End: 10-22-2025 Follitropin [Units/volume] in Serum or Plasma [facility] Work Phone: Comment on above: Expected: 07/23/2025 , Expires: 10/22/2025 Start: 07-23-2025 End: 10-22-2025 Thyrotropin [Units/volume] in Serum or Plasma [facility] Comment on above: Expected: 07/23/2025 , Expires: 10/22/2025 Start: 07-15-2025 Influenza vaccination [facility] Start: 06-28-2025 Blood culture Blood Culture [facility] Start: 06-19-2025 C reactive protein [Mass/volume] in Serum or Plasma [facility] Start: 06-19-2025 CBC W Auto Different ial panel - Blood [facility] Start: 06-19-2025 Comprehensive metabo lic 2000 panel - Serum or Plasma [facility] Start: 06-14-2025 Bacteria identified in Blood by Culture Blood Culture [facility] Start: 06-14-2025 End: 06-14-2025 [facility] Start: 07-15-2024 Covid-19 Vaccine ( season) Covid-19 Vaccine ( season) [facility] Start: 07-15-2024 Influenza vaccination Influenz a Vaccine (Season Ended) [facility] Start: 03-01-2024 Patient referral [facility] Work Phone: Start: 11-14-2023 Behavioral Health Screening Behavioral Health Screening [facility] Start: 09-15-2023 Lipid panel Lipid Screening [facility] Start: 09-15-2023 LIPID SCREEN LIPID SCREEN [facility] Start: 07-15-2023 Covid-19 Vaccine ( season) Covid-19 Vaccine ( season) [facility] Start: 07-15-2023 Influenza vaccination INFLUENZA (#1) [facility] Start: 11-14-2022 DEPRESSION ASSESSMENT DEPRESSION ASS ESSMENT [facility] Start: 07-15-2022 Influenza vaccination INFLUENZA (#1) [facility] Start: 11-07-2021 DIABETES SCREEN DIABETES SCREEN [facility] Start: 11-07-2021 Diabetes Screening Diabetes Screenin g [facility] Start: 2020 COLOGUARD (FIT-DNA) COLOGUARD (FIT-D NA) [facility] Start: 2020 Colonoscopy COLONOSCOPY [facility] Start: 2020 COLORECTAL CANCER SCREENING COLORECTAL CANCER SCREENING [facility] Start: [address] COLONOGRAPHY [facility] Start: 2020 FECAL OCCULT BLOOD FECAL OCCULT BLOO D [facility] Start: 2020 Screening for malign ant neoplasm of colon [facility] Start: 2020 SIGMOIDOSCOPY SIGMOIDOSCOPY [facility] Start: 09-15-2019 Adult depression scr eening assessment DEPRESSION SCREENING [facility] Start: 2015 Mammography MAMMOGRAM [facility] Start: 2015 Screening for malign ant neoplasm of breast Mammogram Screening [facility] Start: 1994 Hepatitis B Vaccine (1 of 3 - 19+ 3-dose series) Hepatitis B Vaccine (1 of 3 - 19+ 3-dose series) [facility] Start: 1993 Anxiety Screening Anxiety Screening [facility] Start: 1993 Depression Screening Depression Scre ening [facility] Start: 1993 HEPATITIS C SCREENING HEPATITIS C SC [facility] Start: 1993 Hepatitis C screening Hepatitis C Sc [facility] Start: 1993 HIV SCREENING HIV SCREENING [facility] Start: 1993 HIV screening HIV Screening [facility] Start: 04-19-1976 COVID-19 VACCINE (#1) COVID-19 VACCI NE (#1) [facility] Start: 1975 HEPATITIS B (1 of 3 - 3-dose series) HEPATITIS B (1 of 3 - 3-dose series) [facility] Alanine aminotransfe rase [Enzymatic activity/volume] in Serum or Plasma [facility] Albumin [Mass/volume ] in Serum or Plasma [facility] Alkaline phosphatase [Enzymatic activity/volume] in Serum or Plasma [facility] Anion gap in Serum o r Plasma [facility] Antibody to lupus La protein measurement [facility] Antibody to SS-A measurement [facility] Bilirubin, total measurement [facility] BUN/Creatinine ratio [facility] Calcium [Mass/volume ] in Serum or Plasma [facility] Carbon dioxide, tota l [Moles/volume] in Central venous blood [facility] Creatinine [Mass/vol ume] in Serum or Plasma [facility] End: 05-25-2025 DBT Breast - bilateral screening DERRICK SCREENING W [facility] Radiology Routine Encounter for screening mammogram for breast cancer 1 Occurrences starting 04/25/2024 until 05/25/2025 [facility] Work Phone: Comment on above: 1 Occurrences starti ng 04/25/2024 until 05/25/2025 End: 04-25-2026 DBT Breast - bilateral screening DERRICK SCREENING W [facility] Radiology Routine Encounter for screening mammogram for breast cancer 1 Occurrences starting 03/26/2025 until 04/25/2026 [facility] Work Phone: Comment on above: 1 Occurrences starti ng 03/26/2025 until 04/25/2026 End: 08-22-2026 DBT Breast - bilateral screening DERRICK SCREENING W [facility] Radiology Routine Screening mammogram for breast cancer 1 Occurrences starting 07/23/2025 until 08/22/2026 [facility] Comment on above: 1 Occurrences starti ng 07/23/2025 until 08/22/2026 DNA double strand Ab [Units/volume] in Serum [facility] Erythrocyte mean corpuscular volume determination [facility] Glucose [Mass/volume ] in Serum or Plasma [facility] Hematocrit [Volume Fraction] of Blood [facility] Hemoglobin [Mass/vol ume] in Blood [facility] Leukocytes [#/volume ] in Blood [facility] End: 06-16-2024 DERRICK SCREENING DERRICK SCREENING Radiology Routine Encounter for screening mammogram for breast cancer 1 Occurrences starting 05/18/2023 until 06/16/2024 [facility] Work Phone: Comment on above: 1 Occurrences starti ng 05/18/2023 until 06/16/2024 Mean corpuscular hemoglobin concentration determination [facility] Mean corpuscular hemoglobin determination [facility] Measurement of renal function [facility] MG Breast - bilatera l Screening [facility] Neutrophil count [facility] Neutrophil percent differential count [facility] Patient Education Abdominal Pain ED FUO Adult [facility] Work Phone: Patient referral [facility] Work Phone: Platelets [#/volume] in Blood [facility] Potassium measurement [facility] Red blood cell count [facility] Red cell distributio n width determination [facility] End: 06-18-2023 Screening mammography bi 2-view breast inc cad DERRICK SCREENING Radiology Routine Encounter for screening mammogram for breast cancer 1 Occurrences starting 05/19/2022 until 06/18/2023 [facility] Work Phone: Comment on above: 1 Occurrences starti ng 05/19/2022 until 06/18/2023 Serum chloride measurement [facility] Sodium measurement [facility] Total protein measurement [facility] Urea nitrogen [Mass/volume] in Serum or Plasma [facility] Urinalysis complete panel - Urine [facility] US Pelvis [facility] Immunizations Immunization Date Immunization Notes Care Provider Fa lázaro 11-20-2019 influenza virus vaccine, unspecified formulation Vega Broussard MD Work Phone: [facility] 09-15-2018 tetanus toxoid, redu felicity diphtheria toxoid, and acellular pertussis vaccine, adsorbed Vega Broussard MD Work Phone: [facility] 09-13-2005 TD(adult) unspecifie d formulation Vega Broussard MD Work Phone: [facility] Work Phone: Payers Date Payer Category Payer Private Health Insurance [id number] 2025 Self-pay 2024 Private Health Insurance [id number] 2019 Private Health Insurance [id number] 2019 Unknown MMO MMO [employer] [id number] 2019-Present [phone] [address] [place] [address] PPO [id number] 2019 Unknown [id number] Private Health Insurance [id number] Unknown [id number] Unknown [id number] 2 Unknown [id number] 2 Unknown [id number] 2 Unknown [id number] 2 Unknown [id number] 2 Unknown [id number] 2 Unknown [id number] 2 Social History Date Type Detail Facility Start: 09-15-2018 End: 07-20-2022 Tobacco smoking status NHIS Never smoked tobacco [facility] Start: 09-15-2018 End: 07-20-2022 Tobacco use and exposure Smokeless tobacco non-user [facility] Start: 11-20-2019 End: 07-23-2025 Alcohol intake Current drinker of alcohol (finding) [facility] Start: 09-15-2018 History SDOH Alcohol Comment occassional [facility] Start: 1975 Sex Assigned At Not on file C [facility] Start: 07-20-2022 End: 12-02-2022 History SDOH Alcohol Frequency 3 [facility] Start: 07-20-2022 End: 12-02-2022 History SDOH Alcohol Std Drinks 1 [facility] Start: 07-20-2022 History SDOH Social Connections Phone 2 [facility] Start: 07-10-2022 End: 07-20-2022 Exposure to SARS-CoV-2 (event) Not sure [facility] Start: 12-02-2022 History SDOH Social Connections Membership 98 [facility] Start: 12-02-2022 End: 07-23-2025 History of Social function [facility] Start: 12-02-2022 End: 07-23-2025 Social connection and isolation panel [facility] Start: 02-06-2016 Do you belong to any clubs or organizations such as voodoo groups, unions, fraternal or athletic groups, or school groups? Patient refused [facility] Are you now , , , , never or living with a partner? Refused [facility] (I/We) worried ellen er (my/our) food would run out before (I/we) got money to buy more. DK or Refused [facility] Start: 03-01-2024 Tobacco smoking stat us NHIS Unknown if ever smoked [facility] Start: 1975 Sex Assigned At Female [facility] How often to you hav e a drink containing alcohol? Monthly or less [facility] How many standard drinks containing alcohol do you have on a typical day? 1 or 2 [facility] How often do you hav e 6 or more drinks on 1 occasion? Never [facility] NEGATED: Highlighted rowStart: NINF History of tobacco use Passive smoker [facility] Functional Status Date Assessment Result Facility 07-23-2025 Total score [AUDIT-C] 1 07/23/20 11:16 AM EDT Darian Christianson LPN [facility] Mental Status Date Assessment Result Facility 06-14-2025 Cognitive function Level Of Cons ciousness Awake;Alert;Appropriate;Follow s Commands [facility] Work Phone: Clinical Notes 07-20-2022 to 07-23-2025 Addendum Note - Ketan James MD - 07/23/2025 12:16 PM EDTAddendum Note - Darian Christianson LPN - 07/23/2025 12:14 PM EDTAddendum Note - Ketan James MD - 07/23/2025 12:16 PM EDT Note Date & Type Note Facility 07-23-2025 Miscellaneous Notes Addended by: KETAN JAMES on: 07/23/2025 12:16 PM Modules accepted: Orders Addended by: DARIAN CHRISTIANSON on: 07/23/2025 12:14 PM Modules accepted: Orders documented in this encounter [facility] 07-23-2025 Note Addended by: KETAN JAMES on: 07/23/2025 12:16 PM Modules accepted: Orders [facility] 07-23-2025 Note Addended by: DARIAN CHRISTIANSON on: 07/23/2025 12:14 PM Modules accepted: Orders [facility] 07-23-2025 Note HNO ID: [id number] Author: KETAN JAMES MD Service: ? Author Type: Physician Type: Progress Notes Filed: 07/23/2025 12:05 Note Text: Duct Cleaner provided by Darian Christianson LPN Jersey Betancourt is a 49 year old female who presents for problem visit [facility] Emergency Room Visit reported pelvic pain (RT) sided. And hx of fever of unknown origin. Normal pelvic CT other than a small right inguinal hernia containing small amount of fat. Remote hx of abdominal omental adhesions. Negative UA, normal WBC and mildly elevated LFTs. F/u with PCP.[place] almost daily w/o discomfort. C/o hot flushing HPI: [place] usually daily without discomfort. Treated with keflex and Cipro by PCP presumably for Fever of uncertain origin. OB History No obstetric history on file. Blade Boner History LMP: Hysterectomy Age at Menarche: Age at First : Age at Menopause: Blade Boner History Comments: Sexual Activity: Yes; Male Contraception: No contraception data on record PAST MEDICAL HISTORY Diagnosis Date Metabolic syndrome [...] cancer Heart Other on mom's side usually SOCIAL HISTORY[1] No current outpatient medications on file. No current facility-administered medications for this visit. Allergies As of Date: 07/23/2025 Allergen Noted Reaction KEFLEX [CEPHALEXIN] 11/10/2018 Intolerance LATEX 09/15/2018 Hives Fully Assessed 11/09/2023 REVIEW OF SYSTEMS Abdomen: No bloating, early satiety, indigestion, or increased flatulence. No abdominal pain, nausea, vomiting, diarrhea, or constipation. Bladder: No dysuria, gross hematuria, urinary frequency, urinary urgency, or incontinence. Breast: No breast lumps, nipple d/c, overlying skin changes, redness or skin retraction. Expanded ROS: N/A Allergies and current medication updated:Yes SENSITIVE EXAM: The sensitive examination was discussed with the Patient or Patient's Authorized Railroad Car Repairman. As applicable, any other physician, advance practice provider, medical student, or other health professional student that will be observing or involved in the sensitive examination for educational or training purposes was discussed with the Patient or Authorized Railroad Car Repairman. The Patient or Authorized Railroad Car Repairman has agreed to proceed with the sensitive examination. (Sensitive examination includes inspection and/or palpation of the breasts, pelvis, prostate and anorectal regions). EXAM: There were no vitals taken for this visit. GENERAL: pleasant, female in no apparent distress ABDOMEN: soft, non-tender, no masses, and obese PELVIC: external genitalia normal, normal Bartholin's glands, urethra, [place]'s glands, no vulvar lesions, good vaginal support, physiologic discharge present, normal appearing perineal body and perianal region, cervix surgically absent BIMANUAL: no adnexal masses, non-tender, and uterus surgically absent Unable to palpate rith ovary and noting that left ovary is surgically absent NEURO: alert and oriented x3,exam grossly non-focal EXTREMITIES: normal ASSESSMENT AND PLAN: Assessment AND Plan perimenopausal vasomotor sx FSH to determine residual ovarian function TSH to r/o thyroid component/thermoregulation ftft>45m lengthy conversation Ketan James MD [1] Social History Tobacco Use Smoking status: Never Passive exposure: Never Smokeless tobacco: Never Vaping Use Vaping status: Never Used Substance Use Topics Alcohol use: Yes Comment: occassional Drug use: Never [facility] 07-23-2025 History of Presen t illness Narrative Duct Cleaner provided by Darian Christianson LPN Jersey Betancourt is a 49 year old female who presents for problem visit [facility] [facility] Visit reported pelvic pain (RT) sided. And hx of fever of unknown origin. Normal pelvic CT other than a small right inguinal hernia containing small amount of fat. Remote hx of abdominal omental adhesions. Negative UA, normal WBC and mildly elevated LFTs. F/u with PCP.[place] almost daily w/o discomfort. C/o hot flushing HPI: [place] usually daily without discomfort. Treated with keflex and Cipro by PCP presumably for Fever of uncertain origin. OB History No obstetric history on file. Blade Boner History LMP: Hysterectomy Age at Menarche: Age at First : Age at Menopause: Blade Boner History Comments: Sexual Activity: Yes; Male Contraception: No contraception data on record PAST MEDICAL HISTORY Diagnosis Date Metabolic syndrome [...] cancer Heart Other on mom's side usually SOCIAL HISTORY[1] No current outpatient medications on file. No current facility-administered medications for this visit. Allergies As of Date: 07/23/2025 Allergen Noted Reaction KEFLEX [CEPHALEXIN] 11/10/2018 Intolerance LATEX 09/15/2018 Hives Fully Assessed 11/09/2023 REVIEW OF SYSTEMS Abdomen: No bloating, early satiety, indigestion, or increased flatulence. No abdominal pain, nausea, vomiting, diarrhea, or constipation. Bladder: No dysuria, gross hematuria, urinary frequency, urinary urgency, or incontinence. Breast: No breast lumps, nipple d/c, overlying skin changes, redness or skin retraction. Expanded ROS: N/A Allergies and current medication updated:Yes SENSITIVE EXAM: The sensitive examination was discussed with the Patient or Patient's Authorized Railroad Car Repairman. As applicable, any other physician, advance practice provider, medical student, or other health professional student that will be observing or involved in the sensitive examination for educational or training purposes was discussed with the Patient or Authorized Railroad Car Repairman. The Patient or Authorized Railroad Car Repairman has agreed to proceed with the sensitive examination. (Sensitive examination includes inspection and/or palpation of the breasts, pelvis, prostate and anorectal regions). EXAM: There were no vitals taken for this visit. GENERAL: pleasant, female in no apparent distress ABDOMEN: soft, non-tender, no masses, and obese PELVIC: external genitalia normal, normal Bartholin's glands, urethra, [place]'s glands, no vulvar lesions, good vaginal support, physiologic discharge present, normal appearing perineal body and perianal region, cervix surgically absent BIMANUAL: no adnexal masses, non-tender, and uterus surgically absent Unable to palpate rith ovary and noting that left ovary is surgically absent NEURO: alert and oriented x3,exam grossly non-focal EXTREMITIES: normal ASSESSMENT AND PLAN: Assessment & Plan perimenopausal vasomotor sx FSH to determine residual ovarian function TSH to r/o thyroid component/thermoregulation ftft>45m lengthy conversation Ketan James MD [1] Social History Tobacco Use Smoking status: Never Passive exposure: Never Smokeless tobacco: Never Vaping Use Vaping status: Never Used Substance Use Topics Alcohol use: Yes Comment: occassional Drug use: Never documented in this encounter [facility] 06-28-2025 Telephone encount er Note Patient notified. Scheduled with AT in July and placed on a wait list. Gabrielle Montes RN [facility] 06-28-2025 Miscellaneous Notes Formattin g of this note might be different from the original. Patient notified. Scheduled with AT in July and placed on a wait list. Gabrielle Montes, RN I am happy to see her in my next opening or on a wait list. Ok to see someone else. Not seeing an ovary generally means it is small as if there is a cyst or concern it would be enlarged and easier to see. Please schedule next available. Cynthia Laura MD Pt was seen at [facility] last week for high fever and pain, when ultrasound was done she stating they could not find her remaining ovary. Pt states she was highly recommended to see Dr. Laura. Please advise if we can work her in or if there is another provider to recommend as pt denied scheduling with anyone else until hearing from Lamine. Thank you documented in this encounter [facility] 06-28-2025 Telephone encount er Note I am happy to see her in my next opening or on a wait list. Ok to see someone else. Not seeing an ovary generally means it is small as if there is a cyst or concern it would be enlarged and easier to see. Please schedule next available. Cynthia Laura MD [facility] Work Phone: 06-28-2025 Telephone encount er Note Pt was seen at [facility] last week for high fever and pain, when ultrasound was done she stating they could not find her remaining ovary. Pt states she was highly recommended to see Dr. Laura. Please advise if we can work her in or if there is another provider to recommend as pt denied scheduling with anyone else until hearing from Lamine. Thank you [facility] 06-19-2025 Radiology Diagnostic study note [facility] Imaging Services [address] [place], [place] [address] Pelvic (Non ) MR#: [id number] Acct: [id number] Name: JERSEY BETANCOURT Rep #: [id number] : 1975 F 49 From: Daniel Nassar MD PCP: JUDY Arce Status: REG CLI Study:Pelvic (Non ) Date of Exam: 06/19/25 Exam# [id number] Ordering Dr: Daniel Haider PROCEDURE: PELVIC (NON [...] adnexal masses. No free fluid. Reading Location: [facility] CC: JUDY Arce ~ Journeyman Wireman: Signed [facility] 06-19-2025 Evaluation note Diagnosis Onset Date Resolution Abdominal pain acute June 8:28am RLQ abdominal pain acute June 19, 2025 8:28am Hypertension chronic June 19, 2025 8:28am [facility] Work Phone: [phone]) 425-610908-01-2025 Discharge summary [facility] Medical Records Department [address] [place] [address] Emergency Department Summary 06/14/25 MR#: [id number] Acct: [id number] Name: JERSEY BETANCOURT Rep #:[id number] : 1975 49 From: Dave Carvalho DO [...] she has the fever she presentsfor evaluation [facility] Medical History Bronchitis Migraine Ovarian tumor PCOS [...] 2 current occupational status: employed current occupation: [employer] pets and animals: Yes pets and animals: [...] % (Auto) 51.9 Lymph % (Auto) 35.1 Dickey % (Auto) 7.9 Eos % (Auto) 3.2 [...] Sl. Cloudy Urine pH 7.0 Ur Specific Milliken 1.010 Urine Protein 15 H Urine Glucose [...] nondistention; consider correlation with urinalysis. Reading Location: [facility] Chest X-Ray 06/14/25 06:00 IMPRESSION: No focal consolidations. Reading Location: [facility] Chest x-ray as interpreted by the emergency [...] you of how to proceed. Print Language: Nicaraguan Disposition Disposition: Home, Self Care What to do if you have Problems For any increased pain, shortness of breath, bleeding, nausea or vomiting, chestpain, or any unexpected problems, contact your Primary Care Provider. Call [facility] ([phone]) or report tothe closest Emergency Room. Call 911 if necessary. 06/14/25 0703 Cosigner Signature (if applicable): CC: Dr. Nikole Guillermo MD ~ Signed [facility]08-01-2025 Radiology Diagnostic study note [facility] Imaging Services [address] [place] [address] Abdomen/Pelvis W IV Cont ONLY MR#: [id number] Acct: [id number] Name: JERSEY BETANCOURT Rep #: [id number] : 1975 F 49 From: Jelena Alas MD PCP: Dr. Nikole Guillermo MD Status: REG ER Study:Abdomen/Pelvis W IV Cont ONLY Date of E xam: 06/14/25 Exam# [id number] Ordering Dr: Swathi Carvalho DO PROCEDURE: ABDOMEN/PELVIS [...] nondistention; consider correlation with urinalysis. Reading Location: [facility] CC: Dr. Nikole Guillermo MD; Dave Carvalho DO ~ Journeyman Wireman: Signed [facility]08-01-2025 Radiology Diagnostic study note [facility] Imaging Services [address] [place] [id number] Chest PA and Lateral MR#: [id number] Acct: [id number] Name: JERSEY BETANCOURT Rep #: [id number] : 1975 F 49 From: Jelena Alas MD PCP: Dr. Nikole Guillermo MD Status: REG ER Study:Chest PA and Lateral Date of Exam: 06/14/25 Exam# [id number] Ordering Dr: Swathi Carvalho DO PROCEDURE: CHEST PA AND LATERAL 06/14/2025 REASON FOR EXAM: FEVER TECHNIQUE: CHEST PA AND LATERAL COMPARISON: none FINDINGS: No focal consolidation. No pleural effusion or pneumothorax. Cardiac silhouette is within normal limits. No acute fractures. RAD/Chest PA and Lateral IMPRESSION: No focal consolidations. Reading Location: [facility] CC: Dr. Nikole Guillermo MD; Dave Carvalho DO ~ Journeyman Wireman: Signed [facility]05-13-2025 NotePatient Outreach (FAMDNA) JERSEY BETANCOURT ([id number]) 1975 F Date Time Provider Department 03/26/25 [...] breast cancer [Z12.31] Order(s):DERRICK SCREENING W INGRID [5425911] Order #: [id number] FUTURE Meds Comments as of 07/03/2019: no medications 07/03/19 Holley Dean RN Problem List As Of Date 03/26/2025 Noted Resolved Obesity, Class III, BMI 40-49.9 (morbid obesity*09/15/2018 PCOS (polycystic ovarian syndrome) [E28.2] 09/15/2018 Metabolic syndrome [E88.810] 09/15/2018 Flexural eczema [L20.82] 09/15/2018 Elevated blood-pressure reading without diagnos*02/06/2019 Low T4 [R79.89] 02/06/2019 Encounter Status:Closed by Matchpin, PRODUSER on 04/26/25[facility] 12-02-2022 History of Present illness Narrative* Verónica Justin, SHERYL.HAMIDA - 12/02/2022 1:31 PM EST VIRTUAL VISIT PROGRESS NOTE This is a virtual visit using ADAPTIX video visit. It required patient-provider interaction for [...] PE exam for next month Verónica Justin APRN.AIRCRAFT LAUNCH AND RECOVERY TECHNICIAN There are no Patient Instructions on file for this visit. Verónica Justin APRN.AIRCRAFT LAUNCH AND RECOVERY TECHNICIAN [facility] Miscellaneous Notes* Telephone Encounter - Vega Broussard MD - 12/02/2022 12:12 PM EST Has [...] to schedule at a later time. Holley Donaldson, JAYDEN Reason for Disposition [1] Redness or swelling [...] period? No Protocols used: Sinus Pain or [id number]-RO [facility] History of Present illness Narrative* [...] TABLET Vega Broussard MD documented in this encounterLenoir City ClinicDischarge summary Author Dave Carvalho [facility] Note Date/Time June 14, 2025 7:[address] [facility] Medical Records Department [address] [place] [address] Emergency Department Summary 06/14/25 MR#: [id number] Acct: [id number] Name: JERSEY BETANCOURT Rep #:[id number] : 1975 49 From: Dave Carvalho DO [...] she has the fever she presentsfor evaluation [facility] Medical History Bronchitis Migraine Ovarian tumor PCOS [...] 2 current occupational status: employed current occupation: [employer] pets and animals: Yes pets and animals: cat(s) Smoking Status: Never smoker Electronic Cigarette Use: not used alcohol intake: current alcohol intake frequency: a few times a month substance use type: does not use diet: gluten free caffeine: Yes (2) Type: tea frequency: daily seatbelt use: always do you feel safe at home: Yes additional social history: Rajat - christopher ROS ROS ED Constitutional Constitutional ED: Reports chills [...] % (Auto) 51.9 Lymph % (Auto) 35.1 Dickey % (Auto) 7.9 Eos % (Auto) 3.2 [...] Sl. Cloudy Urine pH 7.0 Ur Specific Milliken 1.010 Urine Protein 15 H Urine Glucose [...] nondistention; consider correlation with urinalysis. Reading Location: [facility] Chest X-Ray 06/14/25 06:00 IMPRESSION: No focal consolidations. Reading Location: [facility] Chest x-ray as interpreted by the emergency [...] you of how to proceed. Print Language: Nicaraguan Disposition Disposition: Home, Self Care What to do if you have Problems For any increased pain, shortness of breath, bleeding, nausea or vomiting, chestpain, or any unexpected problems, contact your Primary Care Provider. Call [employer] [facility] ([phone]) or report to the closest Emergency Room. Call 911 if necessary. 06/14/25 0703 <Electronically signed by Dave Carvalho DO> Cosigner Signature (if applicable): CC: Dr. Nikole Guillermo MD ~ Signed [facility] Work Phone: Evaluation note* Diagnosis Encounter for screening mammogram for breast cancer documented in this encounter [facility] note* Diagnosis Acute non-recurrent maxillary sinusitis- Primary documented in this encounter [facility] note* Diagnosis Acute non-recurrent maxillary sinusitis documented in this encounter [facility] note* Diagnosis Encounter for screening mammogram for breast cancer documented in this encounter [facility] noteNo assessment information availableWVan Wert County Hospital Work Phone: Evdbfation note* Diagnosis Encounter for screening mammogram for breast cancer documented in this encounter [facility] note* Diagnosis Onset Date Resolution Status Admit Date Abdominal pain acute June 8:28am [facility] Work Phone: Evalueccio note* Diagnosis Perimenopausal vasomotor symptoms- Primary Symptomatic menopausal or female climacteric states Screening mammogram for breast cancer documented in this encounter [facility] note* Diagnosis Hirsutism- Primary documented in this encounter [facility] Discharge instructionsAdditional Instructions Your workup today did [...] phone call instructing you of how to proceed.[facility] Work Phone: Reason for referral (narrative)* Diagnostic Procedure Only (Routine) - Pending Review Specialty Diagnoses / Procedures Referred By Phoebe t Referred To Contact [facility] Diagnoses Encounter for screening mammogram for breast cancer Procedures DERRICK SCREENING SCREENING MAMMOGRAPHY BI 2-VIEW BREAST INC CAD Vega Broussard MD [address] [place] [address] [facility] [address] [place] [address] Referral ID Status Reason Start Date Expiration Date Visits Requested Visits Authorized [id number] Pending Review Auto-Generat ed Referral 05/19/2022 06/18/2023 1 1 [facility] for referral (narrative)* Diagnostic Procedure Only (Routine) - Pending Review Specialty Diagnoses / Procedures Referred By Phoebe gupta Referred To Contact [facility] Diagnoses Encounter for screening mammogram for breast cancer Procedures DERRICK SCREENING SCREENING MAMMOGRAPHY BI 2-VIEW BREAST INC Vega Olson MD [address] [place] [address] [facility] [address] [place] [address] Referral ID Status Reason Start Date Expiration Date Visits Requested Visits Authorized [id number] Pending Review Auto-Generat ed Referral 05/18/2023 06/16/2024 1 [facility] Diagnostic Procedure Only (Routine) - Pending Review Specialty Diagnoses / Procedures Referred By Phoebe gupta Referred To Contact [facility] Diagnoses Encounter for screening mammogram for breast cancer Procedures DERRICK SCREENING W INGRID SCREENING DIGITAL BREAST TOMOSYNTHESIS BI SCREENING MAMMOGRAPHY BI 2-VIEW BREAST INC Vega Olson MD [address] [place] [address] [facility] [address] [place] [address] Referral ID Status Reason Start Date Expiration Date Visits Requested Visits Authorized [id number] Pending Review Auto-Generat ed Referral 04/25/2024 05/25/2025 1 1 [facility] ([facility]ative)No reason for referral information availableWVan Wert County Hospital Work Phone: Summary Purpose Family History [...] FoundDocuments on File Type Date Recorded Patient 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 No June 14, 2025 5:22am Chief Complaint and Reason for Visit Chief Complaint SILO FILLERArnold [facility] - PPW S ENT Chief Complaint Admit [...] LAB ORDERS June 28, 2025 1: 43pm Chief Complaint Admit Date GENERAL ILLNESS June 14, 2025 5:2 1am DIARRHEA / FEVER / CHILLS June 19 8:28am RLQ ABD PAIN June 19, 2025 4:1 4pm INT LAB ORDERS June 28, 2025 1: 43pm INT LABS July 12, 2025 6: 39am Additional Source Comments INFORMATION SOURCE (unrecogn ized section and content) DATE CREATED AUTHOR 11/10/2018 [facility] DATE CREATED AUTHOR AUTHOR'S ORGANIZ ATION 07/21/2025 [facility] DATE CREATED AUTHOR AUTHOR'S ORGANIZ ATION 08/03/2025 [facility] Source Comments (unrecognize d section and content) In the event this informatio n is protected by the Federal Confidentiality of Alcohol and Drug Abuse Patient Records regulations: The Federal rules restrict any use of the information to criminally investigate or prosecute any alcohol or drug abuse patient.[facility] Center[facility] the event this information is protected by the Federal Confidentiality of Alcohol and Drug Abuse Patient Records regulations: The Federal rules restrict any use of the information to criminally investigate or prosecute any alcohol or drug abuse patient.[facility] Center[facility] the event this information is protected by the Federal Confidentiality of Alcohol and Drug Abuse Patient Records regulations: The Federal rules restrict any use of the information to criminally investigate or prosecute any alcohol or drug abuse patient.[facility] CenterIn the event this information is protected by the Federal Confidentiality of Alcohol and Drug Abuse Patient Records regulations: The Federal rules restrict any use of the information to criminally investigate or prosecute any alcohol or drug abuse patient.[facility] CenterIn the event this information is protected by the Federal Confidentiality of Alcohol and Drug Abuse Patient Records regulations: The Federal rules restrict any use of the information to criminally investigate or prosecute any alcohol or drug abuse patient.[facility] CenterIn the event this information is protected by the Federal Confidentiality of Alcohol and Drug Abuse Patient Records regulations: The Federal rules restrict any use of the information to criminally investigate or prosecute any alcohol or drug abuse patient.[facility] CenterIn the event this information is protected by the Federal Confidentiality of Alcohol and Drug Abuse Patient Records regulations: The Federal rules restrict any use of the information to criminally investigate or prosecute any alcohol or drug abuse patient.[facility] CenterIn the event this information is protected by the Federal Confidentiality of Alcohol and Drug Abuse Patient Records regulations: The Federal rules restrict any use of the information to criminally investigate or prosecute any alcohol or drug abuse patient.[facility] CenterIn the event this information is protected by the Federal Confidentiality of Alcohol and Drug Abuse Patient Records regulations: The Federal rules restrict any use of the information to criminally investigate or prosecute any alcohol or drug abuse patient.[facility] CenterIn the event this information is protected by the Federal Confidentiality of Alcohol and Drug Abuse Patient Records regulations: The Federal rules restrict any use of the information to criminally investigate or prosecute any alcohol or drug abuse patient.[facility] Care Teams (unrecognized sec tion and content) Dental Floss Packer Relationship Specialty Start Date End Date Vega Broussard MD [address] [place] [address] PCP - General Family Practice 09/15/18 Dental Floss Packer Relationship Specialty Start Date End Date Vega Broussard MD [address] [place] [address] PCP - General Family Practice 09/15/18 Dental Floss Packer Relationship Specialty Start Date End Date Vega Broussard MD [address] [place] [address] PCP - General Family Medicine 09/15/18 Dental Floss Packer Relationship Specialty Start Date End Date Vega Broussard MD [address] [place] [address] PCP - General Family Medicine 09/15/18 Dental Floss Packer Relationship Specialty Start Date End Date Vega Br[place]ard [place] [address] PCP - General Family Medicine 09/15/18 Team Status: Active Member Role Status Dates Dr. Nikole Guillermo MD Primary Care Provider Active Team Status: Inactive Member Role Status Dates Dr. Nikole Guillermo MD Attending Provider Active Team Status: Inactive Member Role Status Dates Dr. Nikole Guillermo MD Primary Care Pro vider, Attending Provider, Referring Provider Active Dental Floss Packer Relationship Specialty Start Date End Date Vega Broussard MD [address] [place] [address] PCP - General Family Medicine 09/15/18 Dental Floss Packer Relationship Specialty Start Date End Date Vega Broussard MD PCP - General Family Medicine 09/15/18 Verónica Justin APRN.AIRCRAFT LAUNCH AND RECOVERY TECHNICIAN [address] [place] [address] Application Analyst Family Medicine 10/22/24 Team Status: Active Member Role/Relationship Status Dates Dr. Nikole Guillermo MD Primary Care Provider Active Team Status: Inactive Member Role/Relationship Status Dates Dr. Nikole Guillermo MD Primary Care Provider Active Start: June 14, 2025 End: June 14, 2025 Dr. Dave Carvalho , Emergency Provider Active Start: June 14, 2025 End: June 14, 2025 Team Status: Inactive Member Role/Relationship Status Dates Dr. Nikole Guillermo MD Primary Care Provider Active Start: June 19, 2025 End: June 19, 2025 Dr. Nikole Guillermo MD Referring Provider Active Start: June 19, 2025 End: June 19, 2025 Teo KIM PA Attending Provider Active St art: June 19, 2025 End: June 19, 2025 Team Status: Active Member Role/Relationship Status Dates Dr. Nikole Guillermo MD Primary Care Provider Active Start: June 19, 2025 Teo Wayt PA, PA Attending Provider Active St art: June 19, 2025 Teo Haider PA, PA Referring Provider Active St art: June 19, 2025 Team Status: Active Member Role/Relationship Status Dates Teo Haider PA, PA Primary Care Provider Active Team Status: Inactive Member Role/Relationship Status Dates Dr. Nikole Guillermo MD Primary Care Provider Active Start: June 14, 2025 End: June 14, 2025 Dr. Dave Carvalho , Attending Provider Active Start: June 14, 2025 End: June 14, 2025 Dr. Dave Carvalho , Emergency Provider Active Start: June 14, 2025 [...] Team Status: Inactive Member Role/Relationship Status Dates Teo Haider PA, PA Primary Care Provider Active Start: June 19, 2025 End: June 19, 2025 Teo Haider PA, PA Attending Provider Active St art: June 19, 2025 End: June 19, 2025 Teo Haider PA, PA Referring Provider Active St art: June 19, 2025 End: June 19, 2025 Dental Floss Packer Relationship Specialty Start Date End Date Vega Broussard MD PCP - General Family Medicine 09/15/18 Verónica Justin, MASS COMMUNICATIONS PROFESSOR.AIRCRAFT LAUNCH AND RECOVERY TECHNICIAN [address] [place] [id number] Application [facility]st[facility] 10/22/24 Team Status: Inactive Member Role/Relationship Status Dates Teo Haider PA, [...] PA Primary Care Provider Active Start: June 28, 2025 Teo Haider PA, PA Attending Provider Active St art: June 28, 2025 Teo Haider PA, PA Referring Provider Active St art: June 28, 2025 Team Status: Inactive Member Role/Relationship Status Dates Teo Haider PA, PA Primary Care Provider Active Start: June 28, 2025 End: June 28, 2025 Teo Haider PA, PA Attending Provider Active St art: June 28, 2025 End: June 28, 2025 Teo Haider PA, PA Referring Provider Active St art: June 28, 2025 End: June 28, 2025 Team Status: Inactive Member Role/Relationship Status Dates Teo Haider PA, PA Primary Care Provider Active Start: July 12, 2025 End: July 12, 2025 Teo Haider PA, PA Attending Provider Active St art: July 12, 2025 End: July 12, 2025 Teo Haider PA, PA Referring Provider Active St art: July 12, 2025 End: July 12, 2025 Dental Floss Packer Relationship Specialty Start Date End Date Vega Broussard MD PCP - General Family Medicine 09/15/18 Verónica Justin, SHERYL.[employer]IRCRA[employer] LA[employer]CH AND RECOVERY TECHNICIAN [address] [place] [address] Application Analyst Family Medicine 10/22/24 Reason for Visit (unrecogniz ed section and content) Reason Comments Telemedicine Reason Comments Nurse Triage Call Reason Comments Sinusitis Reason Comments Patient Question Reason Comments Problem Visit Reason Comments Orders Discussed unwanted h air growth. Will get DHEAS and testosteroneAnthony Selin James MD Goals (unrecognized section and content) Goals may [...] BE BASED ON THE PRIMARY CLINICAL RECORDS. [employer] [facility]. provides no warranty or guarantee of the accuracy or completeness of information in this document.
--- OUTSIDE RECORDS SUMMARY | 2025-08-30 15:15 | XMS RPT_ITS | CCD ---
Author Organization [facility] Care Team Providers Care Public Health Internship Name Role Phone Bobo DGIGS, Vega Primary Care Provider [phone] Dr. Nikole Guillermo Attending Provider Bobo DIGGS, Vega Primary Care Provider Bobo DIGGS, Vega Primary Care Provider Vega PIPE SUPERVISOR.TIP MENDER, Verónica Unavailable Dr. Nikole Guillermo MD Primary [...] adverse reactions to drug (disorder) 8 Hives [facility] Other [place] Repository (11 sources) Cephalexin; Translations: [CEPHALEXIN] Drug Allergy 8 Intolerance [facility] Work Phone: (8 sources) Amoxicillin Drug Allergy 4 yeast infections [facility] (3 sources) Sulfonamides (Antibiotic) Allergy to substance 5 Rash [facility] (1 source) Amoxicillin Drug Allergy 5 [facility] Repository (1 source) Sulfonamides (Antibiotic) Drug allergy (disorder) 5 [facility] Repository Medications Current Medications Medication Drug Class(es) Dates Sig (Normalized) Sig (Original) [id number] 200 actuat albuterol 0.09 mg/actuat metered dose [...] Active Start: 03-21-2024 take 1 capsule by [facility] once daily Cholecalciferol (Vitamin D3) 125 mcg [...] 08-01-2025 DHEA-S [Mass/Vol] 66.1 ug/dL Normal 35.4-256.0 [facility] Comment on above: Order Comment: Speci men Type: BLOOD SPECIMEN Ordering Facility: [facility] Address: [address] [place] [address] Result Comment: Refe rence ranges are age and gender specific. For additional information, reference range tables can be found in the laboratory test directory. The normal values are based on the following source: Dehydroepiandrosterone sulfate (DHEA S) [package insert V 17.0 [place]]. [facility], [place], [place]: June 2013. Performed By: #### 2 986-8, DHEAS #### [facility] CLIA [id number] [address] [place] [address] [place] Testost SerPl-mCncon -18-2 025 Testosterone [Mass/Vol] 39 ng/dL Normal <40 [facility] Comment on above: Order Comment: Speci men Type: BLOOD SPECIMEN Ordering Facility: [facility] Address: [address] [place] [address] Performed By: #### 2 986-8, DHEAS #### [facility] CLIA [id number] [address] [place] [address] [place] CNPAlyssa 07-31-2025 [facility] ([facility] -------- JERSEY BETANCOURT ([id number]) 1975 F Date Time Provider Department 07/31/25 [...] Diagnosis:Hirsutism [L68.0] Order(s):DHEA-S BLD [SQDHEAS] Order #: [id number] FUTURE TESTOSTERONE, TOTAL BY IMMUNOASSAY (ADULT MALES, OR INDIVIDUALS ON TESTOSTERONE THERAPY) [SQTESTO] Order #: [id number] FUTURE Prescriptions as of 07/31/2025 - albuterol [...] Encounter Status:Closed by KETAN JAMES on 07/31/25 [facility] 07-29-2025 [facility] Telephone (OBGYWM) -------- JERSEY BETANCOURT ([id number]) 1975 F Date Time Provider Department 07/29/25 [...] Status:Closed by YENNI MANCUSO on 08/01/25 Normal [facility] CNOVon 07-23-2025 CNOV Office Visit (OBGYWM ) -------- JERSEY BETANCOURT ([id number]) 1975 F Date Time Provider Department 07/23/25 11:10 AM KETAN JAMES OBGYWMati During your visit today, we recorded the following information about you: Blood pressure Weight Height 148/86 116.6 kg 1.499 m Ketan James MD 07/23/2025 12:05 PM Signed Resolution Manager provided by Darian Christianson LPN Jersey Betancourt is a 49 year old female who presents for problem visit [facility] Emergency Room Visit reported pelvic pain (RT) sided. And hx of fever of unknown origin. Normal pelvic CT other than a small right inguinal hernia containing small amount of fat. Remote hx of abdominal omental adhesions. Negative UA, normal WBC and mildly elevated LFTs. F/u with PCP.[place] almost daily w/o discomfort. C/o hot flushing HPI: [place] usually daily without discomfort. Treated with keflex and Cipro by PCP presumably for Fever of uncertain origin. OB History No obstetric history on file. [place] History LMP: Hysterectomy Age at Menarche: Age at First : Age at Menopause: [place] History Comments: Sexual Activity: Yes; Male Contraception: [...] discussed with the Patient or Patient's Authorized Germ Drier. As applicable, any other physician, advance practice provider, medical student, or other health professional student that will be observing or involved in the sensitive examination for educational or training purposes was discussed with the Patient or Authorized Germ Drier. The Patient or Authorized Germ Drier has agreed to proceed with the sensitive examination. (Sensitive examination includes inspection and/or palpation of the breasts, pelvis, prostate and anorectal regions). EXAM: There were no vitals taken for this visit. GENERAL: pleasant, female in no apparent distress ABDOMEN: soft, non-tender, no masses, and obese PELVIC: external genitalia normal, normal Bartholin's glands, urethra, [place]'s glands, no vulvar lesions, good vaginal support, [...] 42.0 m[IU]/mL Normal See comment [facility] Comment on above: Order Comment: Specleonarda clark Type: BLOOD SPECIMEN Ordering Facility: [facility] Address: [address] [place] [address] Result Comment: Refe rence range: Follicular: 3.5-12.5 mIU/mL Ovulation: 4.7-21.5 mIU/mL Luteal: 1.7-7.7 mIU/mL Postmenopausal: 25.8-134.8 mIU/mL Performed By: #### 1 5067-2, 3016-3 #### [facility] CLIA [id number] [address] [place] [address] [place] TSH SerPl-aCncon 07-23-2025 TSH Qn 3.900 m[IU]/L Normal 0.270-4.200 [facility] Comment on above: Order Comment: Specleonarda clark Type: BLOOD SPECIMEN Ordering Facility: [facility] Address: [address] [place] [address] Result Comment: If t he patient is , TSH reference range varies by gestational period: First Trimester (weeks 9-12): 0.180-2.990 mIU/L Second Trimester: 0.110-3.980 mIU/L Third Trimester: 0.480-4.710 mIU/L Alex Cuellar et al. A Practical Approach for the Verifications and Determination of Site- and Trimester-Specific Reference Intervals for Thyroid Function tests in . Thyroid, 2019:29:3:412-420. Santosh Castaneda, et al. 2017 Guidelines of the [place] Thyroid [employer] for the Diagnosis and Management of Thyroid Disease during and the . Thyroid, 2017:27:3:315-389. Performed By: #### 1 5067-2, 3016-3 #### [facility] CLIA [id number] [address] [place] [address] [place] Urine Cultureon 07-13-2025 URC #1, 2 Below infectio n level. Gram negative rigoberto [place] Count <1000 Mixed Gram Positive Organisms Mixed Gram Positive Organisms MIXC Mixed contaminants. Submit a new specimen if indicated. Normal [facility] Comment on above: Performed By: #### M 200.1000 #### [facility] [address] [place], [address] Bilirubin Test strip Ql (U)O rdered By: Teo Haider on 07-12-2025 Bilirubin Ql (U) Negative Negative [facility] CBC W/Diff, Automatedon 06-15 PATH REV Reviewed Normal [facility] Comment on above: Order Comment: Plus a PERIPHERAL BLOOD SMEAR due to Intermittent fever ofunknown origin. Result Comment: SEE REPORT IN PATIENT'S EMR AMENDED REPORT 07/12/25 0958 PATH REV previously reported as: March Performed By: #### M 200.1000 #### [facility] [address] [place], [address] Ketones Test strip Ql (U)Ord ered By: Teo Haider on 07-12-2025 Ketones Ql (U) Negative Negative [facility] Microscopic analysis of urin e for red blood cells (RBC)Ordered By: Teo Haider on 07-12-2025 Microscopic analysis of urine for red blood cells (RBC) 0-5 SEEN /hpf 0-5 [facility] Mucus LM Ql (Urine sed)Order ed By: Teo Haider on 07-12-2025 Mucus Ql (Urine sed) 0 SEEN /hpf [facility] Nitrite Test strip Ql (U)Ord ered By: Teo Haider on 07-12-2025 Nitrite Ql (U) Negative Negative [facility] Protein Test strip Ql (U)Ord ered By: Teo Haider on 07-12-2025 Protein Ql (U) 30 mg/dl High Negative [facility] Squamous epithelial cells de tection in urine sediment by light microscopyOrdered By: Teo Haider on 07-12-2025 Epithelial cells.squamous LM Ql (Urine sed) 5-10 SEEN /hpf 5-10 [facility] Urinalysis, Completeon 07-12 BACTERIA RARE Normal None Seen [facility] Comment on above: Order Comment: COLLE CTOR TO SPECIFY Performed By: #### M 200.1000 #### [facility] [address] [place], [address] EPI,SQUAMOUS 5-10 SEEN Normal 5-10 [facility] Comment on above: Order Comment: RADHA CTOR TO SPECIFY Performed By: #### M 200.1000 #### [facility] [address] [place], [address] RBC 0-5 SEEN Normal 0-5 [facility] Comment on above: Order Comment: RADHA CTOR TO SPECIFY Performed By: #### M 200.1000 #### [facility] [address] [place], [address] WBC 0-5 SEEN Normal 0-5 [facility] Comment on above: Order Comment: RADHA CTOR TO SPECIFY Performed By: #### M 200.1000 #### [facility] [address] [place], [address] Mucus Ql (Urine sed) 0 SEEN Normal [facility] Comment on above: Order Comment: RADHA CTOR TO SPECIFY Performed By: #### M 200.1000 #### [facility] [address] [place], [address] Urine clarityOrdered By: Daniel Haider on 07-12-2025 Clarity (U) Sl. Cloudy Clear [facility] Urine color determinationOrd ered By: Teo Haider on 07-12-2025 Color (U) Yellow Yellow [facility] Urine cultureOrdered By: Daniel Haider on 07-12-2025 Bacteria identified Cx Nom (U) Negative Abnormal [facility] Bacteria identified Cx Nom (U) Positive Abnormal [facility] Urine glucose detectionOrder ed By: Teo Haider on 07-12-2025 Glucose Ql (U) Normal mg/dl Normal [facility] Urine leukocyte esterase det ection by dipstickOrdered By: Teo Haider on 07-12-2025 Leukocyte esterase Test strip Ql (U) Negative Negative [facility] Urine pHOrdered By: Teo Haider on 07-12-2025 pH (U) 6.0 [pH] 5.0 - 8.0 [facility] Urine sediment bacteria coun t by microscopy (number/high power field)Ordered By: Teo Haider on 07-12-2025 Bacteria LM.HPF (Urine sed) [#/Area] RARE /hpf None Seen [facility] Urine specific gravity measu rementOrdered By: Teo Haider on 07-12-2025 Specific gravity (U) [Rel density] 1.015 1.002-1.030 [facility] Urine urobilinogen measureme ntOrdered By: Teo Haider on 07-12-2025 Urobilinogen Ql (U) Normal mg/dl Normal [facility] White blood cell countOrdere d By: Teo Haider on 07-12-2025 White blood cell count 0-5 SEEN /hpf 0-5 [facility] Culture, Blood (WB)on 2024 CUB No growth in 5 days. Normal [facility] Comment on above: Performed By: #### M 200.1000 #### [facility] [address] [place], [address] ADILENE w/ Reflex Mult Confirmon 07-02-2025 ANTI-DNA (DS)AB TNP Normal [facility] Comment on above: Performed By: #### M 200.1000 #### [facility] [address] [place], [address] ANTI-SS-A TNP Normal [facility] Comment on above: Performed By: #### M 200.1000 #### [facility] [address] [place], [address] ANTI-SS-B TNP Normal [facility] Comment on above: Performed By: #### M 200.1000 #### [facility] [address] [place], [address] Hepatitis Panel Acuteon 06-14 COMMENT Comment Normal . [facility] Comment on above: Result Comment: Not infected with HCV unless early or acute infection is suspected (which may be delayed in an immunocompromised individual), or other evidence exists to indicate HCV infection. Performed at: [facility] [id number] Fireworks Inspector: Alberto Wills PhD, Phone: [phone] Performed By: #### M 200.1000 #### [facility] [address] [place], [place], [address] HEP B CORE,IgM Negative Normal Negative [facility] Comment on above: Performed By: #### M 200.1000 #### [facility] [address] [place], [place], [id number] HEP B SURF AG Negative Normal Negative [facility] Comment on above: Performed By: #### M 200.1000 #### [facility] [address] [place], [place], [address] HEP C VIRUS AB Non-Reactive Normal Non Reactive [facility] Comment on above: Performed By: #### M 200.1000 #### [facility] [address] [place], [place], [address] HEPATITIS A-IgM Negative Normal Negative [facility] Comment on above: Result Comment: A ne gative anti-HAV IgM result suggests no recent or current HAV infection. Performed By: #### M 200.1000 #### [facility] [address] [place], [place], [address] Absolute lymphocyte countOrd ered By: Teo Haider on 06-28-2025 Lymphocytes Auto (Unsp spec) [#/Vol] 7.15 10*3/uL High 0.83-4.51 [facility] Absolute neutrophil countOrd ered By: Teo Haider on 06-28-2025 Neutrophils (Bld) [#/Vol] 2.7 10*3/uL 2.0-7.7 [facility] Automated lymphocyte count a s percentage of total leukocytesOrdered By: Teo Haider on 06-28-2025 Lymphocytes/100 WBC Auto (Unsp spec) 67.6 % High 19-41 [facility] Basophil percentageOrdered B y: Teo Haider on 06-28-2025 Basophils/100 WBC (Bld) 1.6 % High 0-1 [facility] Blood cultureOrdered By: Daniel Haider on 06-28-2025 Bacteria identified Cx Nom (Bld) No growth in 5 days. [facility] Blood manual differential co mment interpretation (narrative result)Ordered By: Teo Haider on 06-28-2025 Manual differential comment Chris (Bld) [Interp] SCANNED [facility] CNPNon 06-28-2025 CNPN Telephone (4CQ) -------- JERSEY BETANCOURT ([id number]) 1975 F Date Time Provider Department 06/28/25 CYNTHIA LAURA 4CQ During your visit today, we recorded the following information about you: Nereyda Arroyo 06/28/2025 12:35 PM Signed Pt was seen at [facility] last week for high fever and [...] Fully Assessed Reason for Visit: Patient Question [0967] Meds Comments as of 07/03/2019: no medications 07/03/19 Holley Dean RN Problem List As Of Date 06/28/2025 Noted Resolved Obesity, Class III, BMI 40-49.9 (morbid obesity*09/15/2018 PCOS (polycystic ovarian syndrome) [E28.2] 09/15/2018 Metabolic syndrome [E88.810] 09/15/2018 Flexural eczema [L20.82] 09/15/2018 Elevated blood-pressure reading without diagnos*02/06/2019 Low T4 [R79.89] 02/06/2019 Encounter Status:Closed by GABRIELLE MONTES on 06/28/25 Normal [facility] CRPon 06-28-2025 C-REACTIVE PROT 43.10 mg/L High 0.0-3.0 [facility] Comment on above: Performed By: #### M 200.1000 #### [facility] [address] [place], [place], [id number] Eosinophil percentageOrdered By: Teo Haider on 06-28-2025 Eosinophils/100 WBC (Bld) 1.0 % 0-5 [facility] Erythrocyte distribution wid th ratioOrdered By: Teo Haider on 06-28-2025 Erythrocyte distribution width (RBC) [Ratio] 15.2 % High 11.6-14.6 [facility] Erythrocyte distribution wid th standard deviationOrdered By: Teo Haider on 06-28-2025 Erythrocyte distribution width (RBC) [Ratio] 49.8 fl High 35.1-43.9 [facility] Ferritinon 06-28-2025 Ferritin [Mass/Vol] 572 ng/mL High 22-378 [facility] Comment on above: Performed By: #### M 200.1000 #### [facility] [address] [place], [address] Hematocrit Auto (Bld) [Volum e fraction]Ordered By: Teo Haider on 06-28-2025 Hematocrit (Bld) [Volume fraction] 40.2 % 37-47 [facility] Hemoglobin measurementOrdere d By: Teo Haider on 06-28-2025 Hemoglobin (Bld) [Mass/Vol] 12.8 g/dL 12.0-15.0 [facility] Immature granulocytes/100 WB C Auto (Bld)Ordered By: Teo Haider on 06-28-2025 Immature granulocytes/100 WBC (Bld) 0.800 % 0.0-0.9 [facility] Comment on above: IG% - Immature Granu locytes (promyelocytes, myelocytes and metamyelocytes) > 1% indicates that a LEFT SHIFT is Present. MCV (mean corpuscular volume ) determinationOrdered By: Teo Haider on 06-28-2025 MCV (RBC) [Entitic vol] 89.1 fL 81-[address] [facility] Mean corpuscular hemoglobin (MCH) determinationOrdered By: Teo Haider on 06-28-2025 MCH (RBC) [Entitic mass] 28.4 pg 27.0-32.0 [facility] Mean corpuscular hemoglobin concentration (MCHC) determinationOrdered By: Teo Haider on 06-28-2025 MCHC (RBC) [Mass/Vol] 31.8 g/dL Low 32-36 [facility] Mean platelet volume determi nationOrdered By: Teo Haider on 06-28-2025 Platelet mean volume (Bld) [Entitic vol] 10.0 fL 6.2-12.0 [facility] Monocyte percentageOrdered B y: Teo Haider on 06-28-2025 Monocytes/100 WBC (Bld) 3.8 % 0-10 [facility] [place] 06-28-2025 Monocytes (Bld) [#/Vol] Negative Normal Negative [facility] Comment on above: Performed By: #### M 200.1000 #### [facility] [place], [address] Neutrophil percentageOrdered By: Teo Haider on 06-28-2025 Neutrophils/100 WBC (Bld) 25.2 % Low 47-70 [facility] No Panel InformationOrdered By: Teo Haider on 06-28-2025 Hepatitis C Antibody Comment Comment . [facility] Comment on above: Not infected with HC V unless early or acute infection issuspected (which may be delayed in an immunocompromisedindividual), or other evidence exists to indicate HCVinfection.Performed at: - [facility] [id number] Director: Alberto Wills PhD, Phone: [phone] Nucleated red blood cell per centageOrdered By: Teo Haider on 06-28-2025 Nucleated RBC/100 WBC (Bld) [Ratio] 0 % 0-5 [facility] Platelet countOrdered By: Cinda Haider on 06-28-2025 Platelets (Bld) [#/Vol] 255 10*3/uL 150-450 [facility] Platelet estimateOrdered By: Teo Haider on 06-28-2025 Platelets LM Ql (Bld) ADEQUATE ADEQ [facility] RBC Auto (Bld) [#/Vol]Ordere d By: Teo Haider on 06-28-2025 RBC (Bld) [#/Vol] 4.51 10*6/uL 4.2-5.4 [facility] Review by pathologistOrdered By: Teo Haider on 06-28-2025 Pathologist review Chris (Unsp spec) [Interp] Pushpa allen [facility] Pathologist review Chris (Unsp spec) [Interp] Reviewed [facility] Comment on above: Previous reported re sult: Pushpa allen Edited by: PRESTON on 07/12/25:0958SEE REPORT IN PATIENT'S EMR AMENDED REPORT 07/12/25 0958 PATH REV previously reported as: Pushpa allen Serum DNA double strand anti body assay (units/volume)Ordered By: Teo Haider on 06-28-2025 DNA double strand Ab Qn (S) [facility] Comment on above: Test not performed Serum Scl-70 antibody assay (units/volume)Ordered By: Teo Haider on 06-28-2025 SCL-70 extractable nuclear Ab Qn (S) [facility] Comment on above: Test not performed Serum heterophile antibody d etectionOrdered By: Teo Haider on 06-28-2025 Heterophile Ab Ql (S) Negative Negative [facility] Serum or plasma C reactive p rotein measurement (mass/volume)Ordered By: Teo Haider on 06-28-2025 CRP [Mass/Vol] 43.10 mg/L High 0.0-3.0 [facility] Serum or plasma ferritin michelle surement (mass/volume)Ordered By: Teo Haider on 06-28-2025 Ferritin [Mass/Vol] 572 ng/mL High 22-378 [facility] Serum or plasma hepatitis B virus surface antigen detection by immunoassayOrdered By: Teo Haider on 06-28-2025 HBV surface Ag IA Ql Negative Negative [facility] White blood cell (WBC) count Ordered By: Teo Haider on 06-28-2025 WBC (Bld) [#/Vol] 10.6 10*3/uL 4.4-11.0 [facility] Urine Cultureon 06-27-2025 URC Mixed Gram Positive Organisms [place] Count 80,000-100,000 MIXC Mixed contaminants. Submit a new specimen if indicated. Normal [facility] Comment on above: Performed By: #### M 100.2200, L400.0001 ####[facility] [address] [place], [address] Bilirubin Test strip Ql (U)O rdered By: Nikolederrick Guillermo on 06-25-2025 Bilirubin Ql (U) Negative Negative [facility] Ketones Test strip Ql (U)Ord ered By: Nikole Mima on 06-25-2025 Ketones Ql (U) Negative Negative [facility] Microscopic analysis of urin e for red blood cells (RBC)Ordered By: Nikole Guillermo on 06-25-2025 Microscopic analysis of urine for red blood cells (RBC) 0 SEEN /hpf 0-5 [facility] Mucus LM Ql (Urine sed)Order ed By: Nikole Guillermo on 06-25-2025 Mucus Ql (Urine sed) 0 SEEN /hpf [facility] Nitrite Test strip Ql (U)Ord ered By: Nikole Mima on 06-25-2025 Nitrite Ql (U) Negative Negative [facility] Protein Test strip Ql (U)Ord ered By: Nikole Guillermo on 06-25-2025 Protein Ql (U) 30 mg/dl High Negative [facility] Squamous epithelial cells de tection in urine sediment by light microscopyOrdered By: Nikole Guillermo on 06-25-2025 Epithelial cells.squamous LM Ql (Urine sed) 0-5 SEEN /hpf 5-10 [facility] Urinalysis, Completeon 06-25 BACTERIA 2+ /hpf Normal None Seen [facility] Comment on above: Order Comment: RADHA CTOR TO SPECIFY Performed By: #### M 100.2200, L400.0001 ####[facility] [address] [place], [address] EPI,SQUAMOUS 0-5 SEEN Normal 5-10 [facility] Comment on above: Order Comment: RADHA CTOR TO SPECIFY Performed By: #### M 100.2200, L400.0001 ####[facility] [address] [place], [address] Mucus Ql (Urine sed) 0 SEEN Normal [facility] Comment on above: Order Comment: RADHA CTOR TO SPECIFY Performed By: #### M 100.2200, L400.0001 ####[facility] [address] [place], [address] RBC 0 SEEN Normal 0-5 [facility] Comment on above: Order Comment: RADHA CTOR TO SPECIFY Performed By: #### M 100.2200, L400.0001 ####[facility] [address] [place], [address] WBC 0 SEEN Normal [address] [place] [address] Comment on above: Order Comment: RADHA CTOR TO SPECIFY Performed By: #### M 100.2200, L400.0001 ####[facility] [address] [place], [address] Urine clarityOrdered By: Usama Guillermo on 06-25-2025 Clarity (U) Sl. Cloudy Clear [facility] Urine color determinationOrd ered By: Nikole Guillermo on 06-25-2025 Color (U) Yellow Yellow [facility] Urine cultureOrdered By: Usama Guillermo on 06-25-2025 Bacteria identified Cx Nom (U) Positive Abnormal [facility] Urine glucose detectionOrder ed By: Nikole Guillermo on 06-25-2025 Glucose Ql (U) Normal mg/dl Normal [facility] Urine leukocyte esterase det ection by dipstickOrdered By: Nikole Guillermo on 06-25-2025 Leukocyte esterase Test strip Ql (U) Negative Negative [facility] Urine pHOrdered By: Nikole andres on 06-25-2025 pH (U) 6.0 [pH] 5.0 - 8.0 [facility] Urine sediment bacteria coun t by microscopy (number/high power field)Ordered By: Nikole Guillermo on 06-25-2025 Bacteria LM.HPF (Urine sed) [#/Area] 2 /[HPF] None Seen [facility] Urine specific gravity measu rementOrdered By: Nikole Guillermo on 06-25-2025 Specific gravity (U) [Rel density] 1.020 1.002-1.030 [facility] Urine urobilinogen measureme ntOrdered By: Nikole Guillermo on 06-25-2025 Urobilinogen Ql (U) Normal mg/dl Normal [facility] White blood cell countOrdere d By: Nikole Guillermo on 06-25-2025 White blood cell count 0 SEEN /hpf 0-5 [facility] Urine Cultureon 06-21-2025 URC Mixed Gram Positive Organisms [place] Count 80,000-100,000 MIXC Mixed contaminants. Submit a new specimen if indicated. Normal [facility] Comment on above: Performed By: #### M 100.2200, L400.0001 #### [facility] [address] [place], [address] Absolute lymphocyte countOrd ered By: Teo Haider on 06-19-2025 Lymphocytes Auto (Unsp spec) [#/Vol] 3.91 10*3/uL 0.83-4.51 [facility] Absolute neutrophil countOrd ered By: Teo Haider on 06-19-2025 Neutrophils (Bld) [#/Vol] 3.5 10*3/uL 2.0-7.7 [facility] Anion gap in Serum or Plasma Ordered By: Teo Haider on 06-19-2025 Anion gap [Moles/Vol] 14 mmol/L 5-15 [facility] Automated lymphocyte count a s percentage of total leukocytesOrdered By: Teo Haider on 06-19-2025 Lymphocytes/100 WBC Auto (Unsp spec) 48.5 % High 19-41 [facility] BUN/creatinine ratioOrdered By: Teo Haider on 06-19-2025 Urea nitrogen/Creatinine [Mass ratio] 12.1 mg/mg 10-20 [facility] Basophil percentageOrdered B y: Teo Haider on 06-19-2025 Basophils/100 WBC (Bld) 1.0 % 0-1 [facility] Bilirubin Test strip Ql (U)O rdered By: Teo Haider on 06-19-2025 Bilirubin Ql (U) 1 mg/dL High Negative [facility] Comment on above: YCOLOR OF URINE MAY AFFECT DIPSTICK RESULTS. Bilirubin, totalOrdered By: Teo Haider on 06-19-2025 Bilirubin [Mass/Vol] 0.55 mg/dL 0.00-1.30 [facility] Blood manual differential co mment interpretation (narrative result)Ordered By: Teo Haider on 06-19-2025 Manual differential comment Chris (Bld) [Interp] SCANNED [facility] CBC W/Diff, Automatedon REACTIVE LYMPH 1+ Normal [facility] Comment on above: Performed By: #### L 100.0100, L500.4050, L501.6710 #### [facility] [address] [place], [place], [id number] SMEAR COMMENT SCANNED Normal [facility] Comment on above: Performed By: #### L 100.0100, L500.4050, L501.6710 #### [facility] [address] [place], [address] CRPon 06-19-2025 C-REACTIVE PROT 76.20 mg/L High 0.0-3.0 [facility] Comment on above: Performed By: #### L 100.0100, L500.4050, L501.6710 #### [facility] [address] [place], [address] Carbon dioxide, total [Moles /volume] in Central venous bloodOrdered By: Teo Haider on 06-19-2025 CO2 [Moles/Vol] 23.9 mmol/L 21.0-32.0 [facility] Chloride assayOrdered By: Cinda Haider on 06-19-2025 Chloride [Moles/Vol] 101 mmol/L 98-108 [facility] Comprehensive Metabolic Prof ilon 06-19-2025 Albumin [Mass/Vol] 4.0 g/dL Normal 3.5-5.0 [facility] Comment on above: Performed By: #### L 100.0100, L500.4050, L501.6710 #### [facility] [address] [place], [address] Albumin/Globulin [Mass ratio] 1.1 {ratio} Normal 0.9-2.4 [facility] Comment on above: Performed By: #### L 100.0100, L500.4050, L501.6710 #### [facility] [address] [place], [address] ALK PHOS 118 U/L High 35-104 [facility] Comment on above: Performed By: #### L 100.0100, L500.4050, L501.6710 #### [facility] [address] [place], [address] ALT [Catalytic activity/Vol] 60 U/L High <=34 [facility] Comment on above: Performed By: #### L 100.0100, L500.4050, L501.6710 #### [facility] [address] [place], [address] AST [Catalytic activity/Vol] 52 U/L High <=31 [facility] Comment on above: Performed By: #### L 100.0100, L500.4050, L501.6710 #### [facility] [address] [place], [address] Bilirubin [Mass/Vol] 0.55 mg/dL Normal 0.00-1.30 [facility] Comment on above: Performed By: #### L 100.0100, L500.4050, L501.6710 #### [facility] [address] [place], [address] BUN/CRE 12.1 RATIO Normal 10-20 [facility] Comment on above: Performed By: #### L 100.0100, L500.4050, L501.6710 #### [facility] [address] [place], [address] Calcium [Mass/Vol] 9.8 mg/dL Normal 7.6-11.0 [facility] Comment on above: Performed By: #### L 100.0100, L500.4050, L501.6710 #### [facility] [address] [place], [address] Chloride [Moles/Vol] 101 mmol/L Normal 98-108 [facility] Comment on above: Performed By: #### L 100.0100, L500.4050, L501.6710 #### [facility] [address] [place], [address] CO2 [Moles/Vol] 23.9 mmol/L Normal 21.0-32.0 [facility] Comment on above: Performed By: #### L 100.0100, L500.4050, L501.6710 #### [facility] [address] [place], [address] Creatinine [Mass/Vol] 1.21 mg/dL High 0.70-1.20 [facility] Comment on above: Performed By: #### L 100.0100, L500.4050, L501.6710 #### [facility] [address] [place], [address] GAP 14 Normal 5-15 [facility] Comment on above: Performed By: #### L 100.0100, L500.4050, L501.6710 #### [facility] [address] [place], [address] GFR/1.73 sq M.predicted among non-blacks MDRD (S/P/Bld) [Vol rate/Area] 55 mL/min/{1.73_m2} Low >60 [facility] Comment on above: Result Comment: mL/m in/1.73m2 CKD-EPI Creatinine Equation (2020) Performed By: #### L 100.0100, L500.4050, L501.6710 #### [facility] [address] [place], [address] Globulin (S) [Mass/Vol] 3.7 g/dL Normal 2.2-4.[address] [facility] Comment on above: Performed By: #### L 100.0100, L500.4050, L501.6710 #### [facility] [address] [place], [address] Glucose [Mass/Vol] 112 mg/dL High 70-99 [facility] Comment on above: Performed By: #### L 100.0100, L500.4050, L501.6710 #### [facility] [address] [place], [address] Potassium [Moles/Vol] 3.6 mmol/L Normal 3.3-5.1 [facility] Comment on above: Performed By: #### L 100.0100, L500.4050, L501.6710 #### [facility] [address] [place], [address] Sodium [Moles/Vol] 139 mmol/L Normal 133-145 [facility] Comment on above: Performed By: #### L 100.0100, L500.4050, L501.6710 #### [facility] [address] [place], [address] T PROT 7.7 g/dL Normal 5.9-8.4 [facility] Comment on above: Performed By: #### L 100.0100, L500.4050, L501.6710 #### [facility] [address] [place], [address] Urea nitrogen [Mass/Vol] 15 mg/dL Normal 4-19 [facility] Comment on above: Performed By: #### L 100.0100, L500.4050, L501.6710 #### [facility] [address] [place], [address] Culture, Blood (WB)on 2024 CUB Blood cultures x2, f rom two different sites No growth in 5 days. Normal [facility] Comment on above: Performed By: #### M 200.1000 #### [facility] [address] [place], [address] Eosinophil percentageOrdered By: Teo Haider on 06-19-2025 Eosinophils/100 WBC (Bld) 1.0 % 0-5 [facility] Erythrocyte distribution wid th ratioOrdered By: Teo Haider on 06-19-2025 Erythrocyte distribution width (RBC) [Ratio] 13.9 % 11.6-14.6 [facility] Erythrocyte distribution wid th standard deviationOrdered By: Teo Haider on 06-19-2025 Erythrocyte distribution width (RBC) [Ratio] 44.8 fl High 35.1-43.9 [facility] Glomerular filtration rate ( GFR) estimation/1.73 sq m using serum, plasma, or whole bOrdered By: Teo Haider on 06-19-2025 GFR/1.73 sq M.predicted among non-blacks MDRD (S/P/Bld) [Vol rate/Area] 55 mL/min/{1.73_m2} Low >60 [facility] Comment on above: mL/min/1.73m2 CKD-EP I Creatinine Equation (2020) Hematocrit Auto (Bld) [Volum e fraction]Ordered By: Teo Haider on 06-19-2025 Hematocrit (Bld) [Volume fraction] 43.6 % 37-47 [facility] Hemoglobin measurementOrdere d By: Teo Haider on 06-19-2025 Hemoglobin (Bld) [Mass/Vol] 14.0 g/dL 12.0-15.0 [facility] Immature granulocytes/100 WB C Auto (Bld)Ordered By: Teo Haider on 06-19-2025 Immature granulocytes/100 WBC (Bld) 1.700 % High 0.0-0.9 [facility] Comment on above: IG% - Immature Granu locytes (promyelocytes, myelocytes and metamyelocytes) > 1% indicates that a LEFT SHIFT is Present. 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 Normal [facility] Ketones Test strip Ql (U)Ord ered By: Teo Haider on 06-19-2025 Ketones Ql (U) 5 mg/dl High Negative [facility] - Chemistry and C hemistry - challengeOrdered By: Teo Haider on 06-19-2025 AST [Catalytic activity/Vol] 52 U/L High <32 [facility] MCV (mean corpuscular volume ) determinationOrdered By: Teo Haider on 06-19-2025 MCV (RBC) [Entitic vol] 88.8 fL 81-99 [facility] Mean corpuscular hemoglobin (MCH) determinationOrdered By: Teo Haider on 06-19-2025 MCH (RBC) [Entitic mass] 28.5 pg 27.0-32.0 [facility] Mean corpuscular hemoglobin concentration (MCHC) determinationOrdered By: Teo Haider on 06-19-2025 MCHC (RBC) [Mass/Vol] 32.1 g/dL 32-36 [facility] Mean platelet volume determi nationOrdered By: Teo Haider on 06-19-2025 Platelet mean volume (Bld) [Entitic vol] 10.1 fL 6.2-12.0 [facility] Microscopic analysis of urin e for red blood cells (RBC)Ordered By: Teo Haider on 06-19-2025 Microscopic analysis of urine for red blood cells (RBC) 0-5 SEEN /hpf 0-5 [facility] Monocyte percentageOrdered B y: Teo Haider on 06-19-2025 Monocytes/100 WBC (Bld) 4.1 % 0-10 [facility] Mucus LM Ql (Urine sed)Order ed By: Teo Haider on 06-19-2025 Mucus Ql (Urine sed) 1+ /hpf [facility] Neutrophil percentageOrdered By: Teo Haider on 06-19-2025 Neutrophils/100 WBC (Bld) 43.7 % Low 47-70 [facility] Nitrite Test strip Ql (U)Ord ered By: Teo Haider on 06-19-2025 Nitrite Ql (U) Negative Negative [facility] Nucleated red blood cell per centageOrdered By: Teo Haider on 06-19-2025 Nucleated RBC/100 WBC (Bld) [Ratio] 0 % 0-5 [facility] Pelvic (Non )on Pelvic (Non ) [facility] Imaging Services [address] [place], [place] [id number] Pelvic (Non ) MR#: [id number] Acct: [id number] Name: JERSEY BETANCOURT Rep #: [id number] : 1975 F 49 From: Teo Nassar MD PCP: JUDY Arce Status: REG CLI Study: Pelvic (Non ) Date of Exam: 06/19/25 Exam# [id number] Ordering Dr: Teo Haider PROCEDURE: PELVIC (NON [...] adnexal masses. No free fluid. Reading Location: [facility] CC: JUDY Arce Loom Changeover Operator: Signed Normal [facility] Platelet countOrdered By: Cinda Haider on 06-19-2025 Platelets (Bld) [#/Vol] 167 10*3/uL 150-450 [facility] Potassium measurement (mass/ volume)Ordered By: Teo Haider on 06-19-2025 Potassium (Unsp spec) [Mass/Vol] 3.6 mmol/L 3.3-5.1 [facility] Protein Test strip Ql (U)Ord ered By: Teo Haider on 06-19-2025 Protein Ql (U) 100 mg/dl High Negative [facility] RBC Auto (Bld) [#/Vol]Ordere d By: Teo Haider on 06-19-2025 RBC (Bld) [#/Vol] 4.91 10*6/uL 4.2-5.4 [facility] Serum creatinine measurement (mass/volume)Ordered By: Teo Haider on 06-19-2025 Creatinine [Mass/Vol] 1.21 mg/dL High 0.70-1.20 [facility] Serum globulin measurementOr dered By: Teo Haider on 06-19-2025 Globulin (S) [Mass/Vol] 3.7 g/dL 2.2-4.2 [facility] Serum glucose measurement (m ass/volume)Ordered By: Teo Haider on 06-19-2025 Glucose [Mass/Vol] 112 mg/dL High 70-99 [facility] Serum or plasma C reactive p rotein measurement (mass/volume)Ordered By: Teo Haider on 06-19-2025 CRP [Mass/Vol] 76.20 mg/L High 0.0-3.0 [facility] Serum or plasma alanine lopez otransferase (ALT) measurementOrdered By: Teo Haider on 06-19-2025 ALT [Catalytic activity/Vol] 60 U/L High <35 [facility] Serum or plasma albumin carter urement (mass/volume)Ordered By: Teo Haider on 06-19-2025 Albumin [Mass/Vol] 4.0 g/dL 3.5-5.0 [facility] Serum or plasma albumin/glob ulin mass ratioOrdered By: Teo Haider on 06-19-2025 Albumin/Globulin [Mass ratio] 1.1 {ratio} 0.9-2.4 [facility] Serum or plasma alkaline brittany sphatase measurementOrdered By: Teo Haider on 06-19-2025 ALP [Catalytic activity/Vol] 118 U/L High 35-104 [facility] Serum or plasma calcium carter urement (mass/volume)Ordered By: Teo Haider on 06-19-2025 Calcium [Mass/Vol] 9.8 mg/dL 7.6-11.0 [facility] Serum or plasma urea nitroge n measurement (mass/volume)Ordered By: Teo Haider on 06-19-2025 Urea nitrogen [Mass/Vol] 15 mg/dL 4-19 [facility] Sodium levelOrdered By: Ernie Haider on 06-19-2025 Sodium [Moles/Vol] 139 mmol/L 133-145 [facility] Squamous epithelial cells de tection in urine sediment by light microscopyOrdered By: Teo Haider on 06-19-2025 Epithelial cells.squamous LM Ql (Urine sed) 10-25 SEEN /hpf 5-10 [facility] Total proteinOrdered By: Daniel Haider on 06-19-2025 Protein [Mass/Vol] 7.7 g/dL 5.9-8.4 [facility] Urinalysis, Completeon 06-19 BACTERIA 2+ /hpf Normal None Seen [facility] Comment on above: Order Comment: CLEAN CATCH Performed By: #### M 100.2200, L400.0001 #### [facility] [address] [place], [address] EPI,SQUAMOUS 10-25 SEEN Normal 5-10 [facility] Comment on above: Order Comment: CLEAN CATCH Performed By: #### M 100.2200, L400.0001 #### [facility] [address] [place], [address] Mucus Ql (Urine sed) 1+ /hpf Normal [facility] Comment on above: Order Comment: CLEAN CATCH Performed By: #### M 100.2200, L400.0001 #### [facility] [address] [place], [address] RBC 0-5 SEEN Normal 0-5 [facility] Comment on above: Order Comment: CLEAN CATCH Performed By: #### M 100.2200, L400.0001 #### [facility] [address] [place], [address] WBC 0-5 SEEN Normal 0-5 [facility] Comment on above: Order Comment: CLEAN CATCH Performed By: #### M 100.2200, L400.0001 #### [facility] [address] [place], [address] Urine clarityOrdered By: Daniel Haider on 06-19-2025 Clarity (U) Sl. Cloudy Clear [facility] Urine color determinationOrd ered By: Teo Haider on 06-19-2025 Color (U) Yellow Yellow [facility] Urine cultureOrdered By: Daniel Haider on 06-19-2025 Bacteria identified Cx Nom (U) Positive Abnormal [facility] Urine glucose detectionOrder ed By: Teo Haider on 06-19-2025 Glucose Ql (U) Normal mg/dl Normal [facility] Urine leukocyte esterase det ection by dipstickOrdered By: Teo Haider on 06-19-2025 Leukocyte esterase Test strip Ql (U) 25 /ul High Negative [facility] Urine pHOrdered By: Teo Haider on 06-19-2025 pH (U) 6.0 [pH] 5.0 - 8.0 [facility] Urine sediment bacteria coun t by microscopy (number/high power field)Ordered By: Teo Haider on 06-19-2025 Bacteria LM.HPF (Urine sed) [#/Area] 2 /[HPF] None Seen [facility] Urine specific gravity measu rementOrdered By: Teo Haider on 06-19-2025 Specific gravity (U) [Rel density] 1.020 1.002-1.030 [facility] Urine urobilinogen measureme ntOrdered By: Teo Haider on 06-19-2025 Urobilinogen Ql (U) 1 mg/dl High Normal [facility] White blood cell (WBC) count Ordered By: Teo Haider on 06-19-2025 WBC (Bld) [#/Vol] 8.1 10*3/uL 4.4-11.0 [facility] White blood cell countOrdere d By: Teo Haider on 06-19-2025 White blood cell count 0-5 SEEN /hpf 0-5 [facility] Abdomen/Pelvis W IV Cont ONL Yon 06-14-2025 Abdomen/Pelvis W IV Cont ONLY [facility] Imaging Services [address] [place] [address] Abdomen/Pelvis W IV Cont ONLY MR#: [id number] Acct: [id number] Name: JERSEY BETANCOURT Rep #: [id number] : 1975 F 49 From: Basil Ledezma PCP: Dr. Nikole Guillermo MD Status: [facility] ER Study: Abdomen/Pelvis W IV Cont ONLY Date of Exam: Exam# [id number] Ordering Dr: Dave Carvalho DO PROCEDURE: ABDOMEN/PELVIS [...] nondistention; consider correlation with urinalysis. Reading Location: [facility] CC: Dr. Nikole Guillermo MD; Dave Carvalho DO Loom Changeover Operator: Signed Normal [facility] Absolute lymphocyte countOrd ered By: Dave Carvalho on 06-14-2025 Lymphocytes Auto (Unsp spec) [#/Vol] 1.64 10*3/uL 0.83-4.51 [facility] Absolute neutrophil countOrd ered By: Dave Carvalho on 06-14-2025 Neutrophils (Bld) [#/Vol] 2.4 10*3/uL 2.0-7.7 [facility] Anion gap in Serum or Plasma Ordered By: Dave Carvalho on 06-14-2025 Anion gap [Moles/Vol] 10 mmol/L 5-15 [facility] Automated lymphocyte count a s percentage of total leukocytesOrdered By: Dave Carvalho on 06-14-2025 Lymphocytes/100 WBC Auto (Unsp spec) 35.1 % - [facility] BUN/creatinine ratioOrdered By: Dave Carvalho on 06-14-2025 Urea nitrogen/Creatinine [Mass ratio] 11.4 mg/mg - [facility] Basic Metabolic Profile (BMP )on 06-14-2025 BUN/CRE 11.4 RATIO Normal - [facility] Comment on above: Performed By: #### L 100.0100, L509.7001, L503.6005, L500.2500, L501.2450, L500.3400 ####[facility] [address] [place], [address] Calcium [Mass/Vol] 9.1 mg/dL Normal 7.6-11.0 [facility] Comment on above: Performed By: #### L 100.0100, L509.7001, L503.6005, L500.2500, L501.2450, L500.3400 ####[facility] [address] [place], [address] Chloride [Moles/Vol] 100 mmol/L Normal 98-108 [facility] Comment on above: Performed By: #### L 100.0100, L509.7001, L503.6005, L500.2500, L501.2450, L500.3400 ####[facility] [address] [place], [address] CO2 [Moles/Vol] 26.9 mmol/L Normal 21.0-32.0 [facility] Comment on above: Performed By: #### L 100.0100, L509.7001, L503.6005, L500.2500, L501.2450, L500.3400 ####[facility] [address] [place], [address] Creatinine [Mass/Vol] 1.00 mg/dL Normal 0.70-1.20 [facility] Comment on above: Performed By: #### L 100.0100, L509.7001, L503.6005, L500.2500, L501.2450, L500.3400 ####[facility] [address] [place], [address] ECRCL 82.83 ml/min Normal 50-250 [facility] Comment on above: Performed By: #### L 100.0100, L509.7001, L503.6005, L500.2500, L501.2450, L500.3400 ####[facility] [address] [place], [address] GAP 10 Normal 5-15 [facility] Comment on above: Performed By: #### L 100.0100, L509.7001, L503.6005, L500.2500, L501.2450, L500.3400 ####[facility] [address] [place], [address] GFR/1.73 sq M.predicted among non-blacks MDRD (S/P/Bld) [Vol rate/Area] 69 mL/min/{1.73_m2} Normal >60 [facility] Comment on above: Result Comment: mL/m in/1.73m2 CKD-EPI Creatinine Equation (2020) Performed By: #### L 100.0100, L509.7001, L503.6005, L500.2500, L501.2450, L500.3400 ####[facility] [address] [place], [address] Glucose [Mass/Vol] 135 mg/dL High 70-99 [facility] Comment on above: Performed By: #### L 100.0100, L509.7001, L503.6005, L500.2500, L501.2450, L500.3400 ####[facility] [address] [place], [address] Potassium [Moles/Vol] 4.2 mmol/L Normal 3.3-5.1 [facility] Comment on above: Performed By: #### L 100.0100, L509.7001, L503.6005, L500.2500, L501.2450, L500.3400 ####[facility] [address] [place], [address] Sodium [Moles/Vol] 138 mmol/L Normal 133-145 [facility] Comment on above: Performed By: #### L 100.0100, L509.7001, L503.6005, L500.2500, L501.2450, L500.3400 ####[facility] [address] [place], [address] Urea nitrogen [Mass/Vol] 11 mg/dL Normal 4-19 [facility] Comment on above: Performed By: #### L 100.0100, L509.7001, L503.6005, L500.2500, L501.2450, L500.3400 ####[facility] [address] [place], [address] Basophil percentageOrdered B y: Dave Carvalho on 06-14-2025 Basophils/100 WBC (Bld) 1.3 % High 0-1 [facility] Bilirubin Test strip Ql (U)O rdered By: Dave Carvalho on 06-14-2025 Bilirubin Ql (U) Negative Negative [facility] Bilirubin directOrdered By: Dave Carvalho on 06-14-2025 Bilirubin.direct [Mass/Vol] 0.14 mg/dL 0.00-0.30 [facility] Bilirubin, totalOrdered By: Dave Carvalho on 06-14-2025 Bilirubin [Mass/Vol] 0.39 mg/dL 0.00-1.30 [facility] Blood cultureOrdered By: Avelino Carvalho on 06-14-2025 Bacteria identified Cx Nom (Bld) No growth in 5 days. [facility] Bacteria identified Cx Nom (Bld) No growth in 5 days. [facility] Blood manual differential co mment interpretation (narrative result)Ordered By: Dave Carvalho on 06-14-2025 Manual differential comment Chris (Bld) [Interp] SCANNED [facility] CBC W/Diff, Automatedon 08- ATYPICAL LYMPH RARE Normal [facility] Comment on above: Performed By: #### M 200.1000 #### [facility] [address] [place], [place], [address] SMEAR COMMENT SCANNED Normal [facility] Comment on above: Performed By: #### M 200.1000 #### [facility] [address] [place], [place], [address] Carbon dioxide, total [Moles /volume] in Central venous bloodOrdered By: Dave Carvalho on 06-14-2025 CO2 [Moles/Vol] 26.9 mmol/L 21.0-32.0 [facility] Chest PA and Lateralon 06-14 Chest PA and Lateral [facility] Imaging Services [address] [place], [place] [address] Chest PA and Lateral MR#: [id number] Acct: [id number] Name: JERSEY BETANCOURT Rep #: [id number] : 1975 F 49 From: Basil Ledezma PCP: Dr. Nikole Guillermo MD Status: [facility] ER Study: Chest PA and Lateral Date of Exam: 06/14/25 Exam# [id number] Ordering Dr: Dave Carvalho DO PROCEDURE: CHEST PA AND LATERAL 06/14/2025 REASON FOR EXAM: FEVER TECHNIQUE: CHEST PA AND LATERAL COMPARISON: none FINDINGS: No focal consolidation. No pleural effusion or pneumothorax. Cardiac silhouette is within normal limits. No acute fractures. RAD/Chest PA and Lateral IMPRESSION: No focal consolidations. Reading Location: [facility] CC: Dr. Nikole Guillermo MD; Dave Carvalho DO Loom Changeover Operator: Signed Normal [facility] Chloride assayOrdered By: Swathi Carvalho on 06-14-2025 Chloride [Moles/Vol] 100 mmol/L 98-108 [facility] Emergency Department Summary on 06-14-2025 Emergency Department Summary [facility] Medical Records Department [address] [place] [address] Emergency Department Summary 06/14/25 MR#: [id number] Acct: [id number] Name: JERSEY BETANCOURT Rep #: [id number] : 1975 49 From: Dave Carvalho DO [...] has the fever she presents for evaluation [facility] Medical History Bronchitis Migraine Ovarian tumor PCOS [...] 2 current occupational status: employed current occupation: [employer] pets and animals: Yes pets and animals: [...] top [place] (more content not included)... Normal [facility] Eosinophil percentageOrdered By: Dave Carvalho on 06-14-2025 Eosinophils/100 WBC (Bld) 3.2 % 0-5 [facility] Erythrocyte distribution wid th ratioOrdered By: Dave Carvalho on 06-14-2025 Erythrocyte distribution width (RBC) [Ratio] 13.2 % 11.6-14.6 [facility] Erythrocyte distribution wid th standard deviationOrdered By: Dave Carvalho on 06-14-2025 Erythrocyte distribution width (RBC) [Ratio] 42.9 fl 35.1-43.9 [facility] Glomerular filtration rate ( GFR) estimation/1.73 sq m using serum, plasma, or whole bOrdered By: Dave Carvalho on 06-14-2025 GFR/1.73 sq M.predicted among non-blacks MDRD (S/P/Bld) [Vol rate/Area] 69 mL/min/{1.73_m2} >60 [facility] Comment on above: mL/min/1.73m2 CKD-EP I Creatinine Equation (2020) Hematocrit Auto (Bld) [Volum e fraction]Ordered By: Dave Carvalho on 06-14-2025 Hematocrit (Bld) [Volume fraction] 41.1 % 37-47 [facility] Hemoglobin measurementOrdere d By: Dave Carvalho on 06-14-2025 Hemoglobin (Bld) [Mass/Vol] 13.4 g/dL 12.0-15.0 [facility] Immature granulocytes/100 WB C Auto (Bld)Ordered By: Dave Carvalho on 06-14-2025 Immature granulocytes/100 WBC (Bld) 0.600 % 0.0-0.9 [facility] Comment on above: IG% - Immature Granu locytes (promyelocytes, myelocytes and metamyelocytes) > 1% indicates that a LEFT SHIFT is Present. Ketones Test strip Ql (U)Ord ered By: Dave Carvalho on 06-14-2025 Ketones Ql (U) Negative Negative [facility] L509.7001on 06-14-2025 Procalcitonin 0.31 ng/mL High <=0.10 [facility] Comment on above: Result Comment: Inte rpretation: [...] L 100.0100, L509.7001, L503.6005, L500.2500, L501.2450, L500.3400 ####[facility] [address] [place], [place], [phone] Laboratory - Chemistry and C hemistry - challengeOrdered By: Dave Carvalho on 06-14-2025 AST [Catalytic activity/Vol] 48 U/L High <32 [facility] Lactic Acidon 06-14-2025 Lactate [Moles/Vol] 1.2 mmol/L Normal 0.0-2.0 [facility] Comment on above: Order Comment: Y Performed By: #### L 100.0100, L509.7001, L503.6005, L500.2500, L501.2450, L500.3400 ####[facility] [address] [place], [place], [phone] Lactic acid measurementOrder ed By: Dave Carvalho on 06-14-2025 Lactate [Moles/Vol] 1.2 mmol/L 0.0-2.0 [facility] Lipaseon 06-14-2025 Lipase [Catalytic activity/Vol] 25 U/L Normal 13-75 [facility] Comment on above: Result Comment: Malik gatica note: LIPASE revised reference range effective 23. New Lipase methodology. Expected to produce lower values than the previous assay method. NEW Reference Range: 13 - 75 U/L Performed By: #### L 100.0100, L509.7001, L503.6005, L500.2500, L501.2450, L500.3400 ####[facility] [address] [place], [address] Lipase measurementOrdered By : Dave Carvalho on 06-14-2025 Lipase [Catalytic activity/Vol] 25 U/L 13-75 [facility] Comment on above: Please note:LIPASE r evised reference range effective 23. New Lipase methodology. Expected to produce lower values than the previous assay method. NEW Reference Range: 13 - 75 U/L Liver Profileon 06-14-2025 Albumin [Mass/Vol] 4.1 g/dL Normal 3.5-5.0 [facility] Comment on above: Performed By: #### L 100.0100, L509.7001, L503.6005, L500.2500, L501.2450, L500.3400 ####[facility] [address] [place], [address] ALK PHOS 120 U/L High 35-104 [facility] Comment on above: Performed By: #### L 100.0100, L509.7001, L503.6005, L500.2500, L501.2450, L500.3400 ####[facility] [address] [place], [address] ALT [Catalytic activity/Vol] 53 U/L High <=34 [facility] Comment on above: Performed By: #### L 100.0100, L509.7001, L503.6005, L500.2500, L501.2450, L500.3400 ####[facility] [address] [place], [address] AST [Catalytic activity/Vol] 48 U/L High <=31 [facility] Comment on above: Performed By: #### L 100.0100, L509.7001, L503.6005, L500.2500, L501.2450, L500.3400 ####[facility] [address] [place], [address] Bilirubin [Mass/Vol] 0.39 mg/dL Normal 0.00-1.30 [facility] Comment on above: Performed By: #### L 100.0100, L509.7001, L503.6005, L500.2500, L501.2450, L500.3400 ####[facility] [address] [place], [address] Bilirubin.direct [Mass/Vol] 0.14 mg/dL Normal 0.00-0.30 [facility] Comment on above: Performed By: #### L 100.0100, L509.7001, L503.6005, L500.2500, L501.2450, L500.3400 ####[facility] [address] [place], [address] Globulin (S) [Mass/Vol] 3.2 g/dL Normal 2.2-4.[address] [facility] Comment on above: Performed By: #### L 100.0100, L509.7001, L503.6005, L500.2500, L501.2450, L500.3400 ####[facility] [address] [place], [address] T PROT 7.3 g/dL Normal 5.9-8.4 [facility] Comment on above: Performed By: #### L 100.0100, L509.7001, L503.6005, L500.2500, L501.2450, L500.3400 ####[facility] [address] [place], [address] MCV (mean corpuscular volume ) determinationOrdered By: Dave Carvalho on 06-14-2025 MCV (RBC) [Entitic vol] 89.7 fL 81-99 [facility] Mean corpuscular hemoglobin (MCH) determinationOrdered By: Dave Carvalho on 06-14-2025 MCH (RBC) [Entitic mass] 29.3 pg 27.0-32.0 [facility] Mean corpuscular hemoglobin concentration (MCHC) determinationOrdered By: Dave Carvalho on 06-14-2025 MCHC (RBC) [Mass/Vol] 32.6 g/dL 32-36 [facility] Mean platelet volume determi nationOrdered By: Dave Carvalho on 06-14-2025 Platelet mean volume (Bld) [Entitic vol] 9.4 fL 6.2-12.0 [facility] Microscopic analysis of urin e for red blood cells (RBC)Ordered By: Dave Carvalho on 06-14-2025 Microscopic analysis of urine for red blood cells (RBC) 5-10 SEEN /hpf 0-5 [facility] Monocyte percentageOrdered B y: Dave Carvalho on 06-14-2025 Monocytes/100 WBC (Bld) 7.9 % 0-10 [facility] Mucus LM Ql (Urine sed)Order ed By: Dave Carvalho on 06-14-2025 Mucus Ql (Urine sed) 0 SEEN /hpf [facility] Neutrophil percentageOrdered By: Dave Carvalho on 06-14-2025 Neutrophils/100 WBC (Bld) 51.9 % 47-70 [facility] Nitrite Test strip Ql (U)Ord ered By: Dave Carvalho on 06-14-2025 Nitrite Ql (U) Negative Negative [facility] Nucleated red blood cell per centageOrdered By: Dave Carvalho on 06-14-2025 Nucleated RBC/100 WBC (Bld) [Ratio] 0 % 0-5 [facility] Platelet countOrdered By: Swathi Carvalho on 06-14-2025 Platelets (Bld) [#/Vol] 165 10*3/uL 150-450 [facility] Potassium measurement (mass/ volume)Ordered By: Dave Carvalho on 06-14-2025 Potassium (Unsp spec) [Mass/Vol] 4.2 mmol/L 3.3-5.1 [facility] Procalcitonin [Mass/volume] in Serum or Plasma by ImmunoassayOrdered By: Dave Carvalho on 06-14-2025 Procalcitonin IA [Mass/Vol] 0.31 ng/mL High <0.11 [facility] Comment on above: Interpretation:<0.10 -0.25 ng/mL: Antibiotic [...] Protein Ql (U) 15 mg/dl High Negative [facility] RBC Auto (Bld) [#/Vol]Ordere d By: Dave Carvalho on 06-14-2025 RBC (Bld) [#/Vol] 4.58 10*6/uL 4.2-5.4 [facility] Serum creatinine measurement (mass/volume)Ordered By: Dave Carvalho on 06-14-2025 Creatinine [Mass/Vol] 1.00 mg/dL 0.70-1.20 [facility] Serum globulin measurementOr dered By: Dave Carvalho on 06-14-2025 Globulin (S) [Mass/Vol] 3.2 g/dL 2.2-4.2 [facility] Serum glucose measurement (m ass/volume)Ordered By: Dave Carvalho on 06-14-2025 Glucose [Mass/Vol] 135 mg/dL High 70-99 [facility] Serum or plasma alanine lopez otransferase (ALT) measurementOrdered By: Dave Carvalho on 06-14-2025 ALT [Catalytic activity/Vol] 53 U/L High <35 [facility] Serum or plasma albumin carter urement (mass/volume)Ordered By: Dave Carvalho on 06-14-2025 Albumin [Mass/Vol] 4.1 g/dL 3.5-5.0 [facility] Serum or plasma alkaline brittany sphatase measurementOrdered By: Dave Carvalho on 06-14-2025 ALP [Catalytic activity/Vol] 120 U/L High 35-104 [facility] Serum or plasma calcium carter urement (mass/volume)Ordered By: Dave Carvalho on 06-14-2025 Calcium [Mass/Vol] 9.1 mg/dL 7.6-11.0 [facility] Serum or plasma urea nitroge n measurement (mass/volume)Ordered By: Dave Carvalho on 06-14-2025 Urea nitrogen [Mass/Vol] 11 mg/dL 4-19 [facility] Sodium levelOrdered By: Aditya Carvalho on 06-14-2025 Sodium [Moles/Vol] 138 mmol/L 133-145 [facility] Squamous epithelial cells de tection in urine sediment by light microscopyOrdered By: Dave Carvalho on 06-14-2025 Epithelial cells.squamous LM Ql (Urine sed) 0-5 SEEN /hpf - [facility] Total proteinOrdered By: Avelino Carvalho on 06-14-2025 Protein [Mass/Vol] 7.3 g/dL 5.9-8.4 [facility] Urinalysis, Completeon 06-14 EPI,SQUAMOUS 0-5 SEEN Normal 5-10 [facility] Comment on above: Order Comment: RADHA CTOR TO SPECIFY Performed By: #### L 400.0001 #### [facility] [address] [place], [address] RBC 5-10 SEEN Normal 0-5 [facility] Comment on above: Order Comment: RADHA CTOR TO SPECIFY Performed By: #### L 400.0001 #### [facility] [address] [place], [address] WBC 0-5 SEEN Normal 0-5 [facility] Comment on above: Order Comment: RADHA CTOR TO SPECIFY Performed By: #### L 400.0001 #### [facility] [address] [place], [address] BACTERIA 0 SEEN Normal None Seen [facility] Comment on above: Order Comment: RADHA CTOR TO SPECIFY Performed By: #### L 400.0001 #### [facility] [address] [place], [address] Mucus Ql (Urine sed) 0 SEEN Normal [facility] Comment on above: Order Comment: COLLE CTOR TO SPECIFY Performed By: #### L 400.0001 #### [facility] [address] [place], [address] Urine clarityOrdered By: Avelino Carvalho on 06-14-2025 Clarity (U) Sl. Cloudy Clear [facility] Urine color determinationOrd ered By: Dave Carvalho on 06-14-2025 Color (U) Yellow Yellow [facility] Urine glucose detectionOrder ed By: Dave Carvalho on 06-14-2025 Glucose Ql (U) Normal mg/dl Normal [facility] Urine leukocyte esterase det ection by dipstickOrdered By: Dave Carvalho on 06-14-2025 Leukocyte esterase Test strip Ql (U) Negative Negative [facility] Urine pHOrdered By: Dave Darby ndes on 06-14-2025 pH (U) 7.0 [pH] 5.0 - 8.0 [facility] Urine sediment bacteria coun t by microscopy (number/high power field)Ordered By: Dave Carvalho on 06-14-2025 Bacteria LM.HPF (Urine sed) [#/Area] 0 /[HPF] None Seen [facility] Urine specific gravity measu rementOrdered By: Dave Carvalho on 06-14-2025 Specific gravity (U) [Rel density] 1.010 1.002-1.030 [facility] Urine urobilinogen measureme ntOrdered By: Daev Carvalho on 06-14-2025 Urobilinogen Ql (U) Normal mg/dl Normal [facility] White blood cell (WBC) count Ordered By: Dave Carvalho on 06-14-2025 WBC (Bld) [#/Vol] 4.7 10*3/uL 4.4-11.0 [facility] White blood cell countOrdere d By: Dave Carvalho on 06-14-2025 White blood cell count 0-5 SEEN /hpf 0-5 [facility] Absolute lymphocyte countOrd ered By: Nikole Guillermo on 03-01-2024 Lymphocytes Auto (Unsp spec) [#/Vol] 2.44 10*3/uL 0.83-4.51 [facility] Automated lymphocyte count a s percentage of total leukocytesOrdered By: Nikole Mima on 03-01-2024 Lymphocytes/100 WBC Auto (Unsp spec) 30.5 % 19-41 [facility] Basophil percentageOrdered B y: Nikole Guillermo on 03-01-2024 Basophils/100 WBC (Bld) 0.6 % 0-1 [facility] Bilirubin [Mass/Vol] 0.40 mg/dL 0.20-1.00 [facility] Comment on above: For patients on eltr ombopag therapy, use of Dimension [place] TBIL is not recommended. Chloride [Moles/Vol] 106 mmol/L 98-107 [facility] Cholesterol [Mass/Vol] 209 mg/dL <200 [facility] Comment on above: <200 mg/dL Desirable 200-240 mg/dL Borderline >240 mg/dL High Risk Eosinophils/100 WBC (Bld) 4.9 % 0-5 [facility] Glucose [Mass/Vol] 100 mg/dL 74-106 [facility] Comment on above: Fasting Glucose resu lt from 100 to 125 mg/dL suggests IMPAIRED HOMEOSTASIS per A.D.A. criteria. Hemoglobin (Bld) [Mass/Vol] 13.7 g/dL 12.0-15.0 [facility] Monocytes/100 WBC (Bld) 5.3 % 0-10 [facility] Neutrophils (Bld) [#/Vol] 4.7 10*3/uL 2.0-7.7 [facility] Neutrophils/100 WBC (Bld) 58.3 % 47-70 [facility] Potassium [Moles/Vol] 4.1 mmol/L 3.5-5.1 [facility] Protein [Mass/Vol] 8.0 g/dL 6.4-8.2 [facility] Sodium [Moles/Vol] 139 mmol/L 136-145 [facility] Triglyceride [Mass/Vol] 151 mg/dL <199 [facility] Comment on above: The drugs N-Acetylcy steine and Metamizole may falsely depress this assay.Serum Triglycerides Reference Interval Normal <150 mg/dL Borderline high 150 - 199 mg/dL High 200 - 499 mg/dL Very High > or = 500 mg/dL WBC (Bld) [#/Vol] 8.0 10*3/uL 4.4-11.0 [facility] Determination of erythrocyte mean corpuscular volume (MCV)Ordered By: Nikole Guillermo on 03-01-2024 MCV (RBC) [Entitic vol] 91.8 fL 81-99 [facility] Erythrocyte distribution wid th ratioOrdered By: Nikole Guillermo on 03-01-2024 Erythrocyte distribution width (RBC) [Ratio] 13.3 % 11.6-14.6 [facility] Erythrocyte distribution wid th standard deviationOrdered By: Nikolederrick Guillermo on 03-01-2024 Erythrocyte distribution width (RBC) [Entitic vol] 45.1 fL 35.1-43.9 [facility] Hematocrit Auto (Bld) [Volum e fraction]Ordered By: Nikole Guillermo on 03-01-2024 Hematocrit (Bld) [Volume fraction] 42.8 % 37-47 [facility] Immature granulocytes/100 WB C Auto (Bld)Ordered By: Nikole Guillermo on 03-01-2024 Immature granulocytes/100 WBC (Bld) 0.400 % 0.0-0.9 [facility] Comment on above: IG% - Immature Granu locytes (promyelocytes, myelocytes and metamyelocytes) > 1% indicates that a LEFT SHIFT is Present. Laboratory - Chemistry and C hemistry - challengeOrdered By: Nikole Guillermo on 03-01-2024 Albumin/Globulin [Mass ratio] 0.8 {ratio} 0.9-2.4 [facility] ALP [Catalytic activity/Vol] 117 U/L 45-117 [facility] ALT [Catalytic activity/Vol] 31 U/L 13-56 [facility] Cholesterol in HDL [Mass/Vol] 41 mg/dL >40 [facility] Comment on above: The drugs N-Acetylcy steine and Metamizole may falsely depress this assay. Reference Range HDL <40 mg/dL Low HDL Cholesterol HDL >or= 60 mg/dL High HDL Cholesterol Cholesterol in LDL [Mass/Vol] 138 mg/dL 0-130 [facility] CO2 [Moles/Vol] 30.0 mmol/L 21.0-32.0 [facility] Globulin (S) [Mass/Vol] 4.4 g/dL 2.2-4.2 [facility] Urea nitrogen/Creatinine [Mass ratio] 18.0 mg/mg 10-20 [facility] Laboratory - Hematology and Cell countsOrdered By: Nikole Guillermo on 03-01-2024 MCH (RBC) [Entitic mass] 29.4 pg 27.0-32.0 [facility] MCHC (RBC) [Mass/Vol] 32.0 g/dL 32-36 [facility] Nucleated RBC/100 WBC (Bld) [Ratio] 0 % 0-5 [facility] Platelet mean volume (Bld) [Entitic vol] 9.6 fL 6.2-12.0 [facility] Platelets (Bld) [#/Vol] 302 10*3/uL 150-450 [facility] No Panel InformationOrdered By: Nikole Guillermo on 03-01-2024 Estimated GFR (MDRD) Amer 102 mL/min >60 [facility] Comment on above: GFR Calc Estimated GFR (MDRD) Non-Af Amer 84 mL/min >60 [facility] Comment on above: Non- GFR Calc Vitamin D 25-Hydroxy 16.6 ng/mL [facility] Comment on above: Vitamin D 25(OH) Sta tus Range Deficiency <20 ng/mL (50nmol/L) Insufficiency 20 - 30 ng/mL (50 - 75 nmol/L) Sufficiency 30 - 100 ng/mL (75 - 250 nmol/L) Toxicity >100 ng/mL (>250 nmol/L) VLDL Cholesterol 30 mg/dL 5-40 [facility] RBC Auto (Bld) [#/Vol]Ordere d By: Nikole Guillermo on 03-01-2024 RBC (Bld) [#/Vol] 4.66 10*6/uL 4.2-5.4 [facility] Serum or plasma calcium carter urement (mass/volume)Ordered By: Nikole Guillermo on 03-01-2024 Calcium [Mass/Vol] 9.3 mg/dL 8.5-10.1 [facility] Serum or plasma creatinine m easurement (mass/volume)Ordered By: Nikole Guillermo on 03-01-2024 Creatinine [Mass/Vol] 0.78 mg/dL 0.55-1.02 [facility] Comment on above: The validity of the calculated GFR & GFRAA in patients over 70 years has not been determined. Clinical correlation is essential. Serum or plasma thyroid stim ulating hormone (TSH) measurement (units/volume)Ordered By: Nikole Guillermo on 03-01-2024 TSH Qn 3.29 uIU/mL 0.358-3.74 [facility] Serum or plasma urea nitroge n measurement (mass/volume)Ordered By: Nikolederrick Guillermo on 03-01-2024 Urea nitrogen [Mass/Vol] 14 mg/dL 05-31 [facility] Thin prep Papanicolaou smear with manual screeningOrdered By: Nikole Guillermo on 03-01-2024 Thin prep Papanicolaou smear with manual screening 3.6 g/dL 3.2-5.0 [facility] Thin prep Papanicolaou smear with manual screening 21 U/L 15-37 [facility] Thin prep Papanicolaou smear with manual screening 3 5-15 [facility] CBC and Differentialon 11-07 Abs Baso 0.12 k/uL High <0.11 [facility] Comment on above: Performed By: #### C FLORES AYALA ####[facility] [address] [place] [address] Abs Caribou 0.92 k/uL High <0.87 [facility] Comment on above: Performed By: #### C FLORES AYALA ####[facility] [address] [place] [address] Abs Neut 9.08 k/uL High 1.45-7.50 [facility] Comment on above: Performed By: #### C FLORES AYALA ####[facility] [address] [place] [address] Basophils/100 WBC Auto (Bld) 1.1 % Normal [facility] Comment on above: Performed By: #### C FLORES AYALA ####[facility] [address] [place] [phone] Eosinophils Auto #/vol (Bld) 0.21 10*3/uL Normal <0.46 [facility] Comment on above: Performed By: #### C BCDIF, CMP ####[place] [address] Eosinophils/100 WBC Auto (Bld) 1.9 % Normal [facility] Comment on above: Performed By: #### C BCDIF, CMP ####[place] [address] Erythrocyte distribution width Auto Ratio (RBC) 13.5 % Normal 11.5-15.0 [facility] Comment on above: Performed By: #### C BCDIF, CMP ####[place] [address] Hematocrit Auto Volume Fraction (Bld) 43.0 % Normal 36.0-46.0 [facility] Comment on above: Performed By: #### C BCDIF, CMP ####[place] [address] Hemoglobin mass conc (Bld) 13.4 g/dL Normal 11.5-15.5 [facility] Comment on above: Performed By: #### C BCDIF, CMP ####[place] [address] Lymphocytes Auto #/vol (Bld) 0.94 10*3/uL Low 1.00-4.00 [facility] Comment on above: Performed By: #### C BCDIF, CMP ####[place] [address] Lymphocytes/100 WBC Auto (Bld) 8.3 % Normal [facility] Comment on above: Performed By: #### C BCDIF, CMP ####[place] [address] MCH Auto Entitic mass (RBC) 28.0 pG Normal 26.0-34.0 [facility] Comment on above: Performed By: #### C BCDIF, CMP ####[place] [address] MCHC Auto mass conc (RBC) 31.2 g/dL Normal 30.5-36.0 [facility] Comment on above: Performed By: #### C BCDOUGF, CMP ####[facility] [address] [place] [phone] MCV Auto Entitic volume (RBC) 90.0 fL Normal 80.0-100.0 [facility] Comment on above: Performed By: #### C BCDOUGF, CMP ####[facility] [address] [place], [place] [address] Monocytes/100 WBC Auto (Bld) 8.2 % Normal [facility] Comment on above: Performed By: #### C BCDOUGF, CMP ####[facility] [address] [place], [place] [phone] Neutrophils/100 WBC Auto (Bld) 80.5 % Normal [facility] Comment on above: Performed By: #### C JAMIE, CMP ####[facility] [address] [place] [address] Platelet mean volume Auto Entitic volume (Bld) 9.4 fL Normal 9.0-12.7 [facility] Comment on above: Performed By: #### C JAMIE, CMP ####[facility] [address] [place], [place] [phone] Platelets Auto #/vol (Bld) 254 10*3/uL Normal 150-400 [facility] Comment on above: Performed By: #### C BCISABELLA, CMP ####[facility] [address] [place], [place] [phone] RBC Auto #/vol (Bld) 4.78 10*6/uL Normal 3.90-5.20 [facility] Comment on above: Performed By: #### C BCDOUGF, CMP ####[facility] [address] [place], [place] [address] WBC Auto #/vol (Bld) 11.27 10*3/uL High 3.70-11.00 [facility] Comment on above: Performed By: #### C BCDOUGF, CMP ####[facility] [address] [place], [place] [phone] Comp Metabolic Panelon 11-07 Albumin mass conc 4.0 g/dL Normal 3.9-4.9 [facility] Comment on above: Performed By: #### C BCISABELLA, CMP ####[facility] [address] [place] [address] ALP enzyme act/vol 118 U/L Normal 34-123 [facility] Comment on above: Performed By: #### C BCDIF, CMP ####[facility] [address] [place] [address] ALT enzyme act/vol 28 U/L Normal 7-38 [facility] Comment on above: Performed By: #### C BCDIF, CMP ####[facility] [address] [place] [address] Anion gap 3 molar conc 12 mmol/L Normal 9-18 [facility] Comment on above: Performed By: #### C BCDIF, CMP ####[place] [address] AST enzyme act/vol 25 U/L Normal 13-35 [facility] Comment on above: Performed By: #### C BCDIF, CMP ####[facility] [address] [place] [address] Bilirubin mass conc 0.4 mg/dL Normal 0.2-1.3 [facility] Comment on above: Performed By: #### C BCDIF, CMP ####[place] [address] Calcium mass conc 9.5 mg/dL Normal 8.5-10.2 [facility] Comment on above: Performed By: #### C BCDIF, CMP ####[place] [address] Chloride molar conc 101 mmol/L Normal 97-105 [facility] Comment on above: Performed By: #### C BCDIF, CMP ####[place] [address] CO2 molar conc 25 mmol/L Normal 22-30 [facility] Comment on above: Performed By: #### C BCDIF, CMP ####[place] [address] Creatinine mass conc 0.88 mg/dL Normal 0.58-0.96 [facility] Comment on above: Performed By: #### C BCDIF, CMP ####[facility] [address] [place], [place] [phone] eGFR- Amer. >60 Normal [facility] Comment on above: Performed By: #### C FLORES AYALA ####[facility] [phone] GFR/1.73 sq M predicted among non-blacks MDRD vol rate/area (S/P/Bld) mL/min/{1.73_m2} Normal [facility] Comment on above: Result Comment: eGFR [...] GFR. Performed By: #### C JAMIE, CMP ####[facility] [phone] Glucose mass conc 112 mg/dL High 74-99 [facility] Comment on above: Result Comment: The [place] [employer] (ADA) provides guidance for cutoff [...] Standards of Medical Care in Diabetes 2016, [place] [employer]. Diabetes Care. 2016.39(Suppl 1). Performed By: #### C JAMIE, CMP ####[facility] [phone] Potassium molar conc 3.7 mmol/L Normal 3.7-5.1 [facility] Comment on above: Performed By: #### C BCDIF, CMP ####[facility] Nzjjmredaq1701 [address] Protein mass conc 7.5 g/dL Normal 6.3-8.0 [facility] Comment on above: Performed By: #### C BCDIF, CMP ####[facility] Zpjqogavca5921 [address] Sodium molar conc 138 mmol/L Normal 136-144 [facility] Comment on above: Performed By: #### C BCDIF, CMP ####[facility] Dwrsspydkb2571 [place] [address] Urea nitrogen mass conc 10 mg/dL Normal 7-[address] [facility] Comment on above: Performed By: #### C BCDIF, CMP ####[facility] Mqekmfvrfc0708 [place] [address] ED NOTEon 11-07-2018 ED NOTE HNO ID: [id number]: Kari Gerard (Pharmacist)Service: PharmacyAuthor Type: PharmacistType: ED NotesFiled: 11/09/2018 11:40 AMNote Text:PHARMACY EMERGENCY DEPARTMENT CULTURE CALLBACKPatient Name:Giorgio Betancourt Admission Date:11/07/2018Date of Callback: 11/09/2018Patient SOVEHDKLELvp ergen Reactions- Latex HivesSource of Result: Results [...] KARI KALEEPolina GUEVARA 2017 11:40 AMPager/Extension: [id number] [facility] ED NOTE HNO ID: [id number]: Radha (Rn) Razia Parsons: (none)Author Type: Registered NurseType: ED NotesFiled: 11/07/2018 4:38 PMNote Text: Plan of care-Monitor Patient's Vital Signs for changes in condition-Monitor patient for changes in pain-Maintain patient safety and privacy-Provide comfort measures-Call light in placeSiderails up, bed in locked and low position [facility] ED NOTE HNO ID: [id number]: Cristal (Rn) GASPER Rodriguezervice: NursingAuthor Type: Registered NurseType: ED NotesFiled: 11/07/2018 4:17 PMNote Text:Patient presents to ED with back pain, urinary pain and frequency andfever. Patient also reports cloudy strong smelling urine. JUDY Dawn atbedside. P{javi of care reviewed. Patient ambulates to bathroom [facility] ED PROV NOTEon 11-07-2018 Protein mass conc HNO ID: [id number]: Nereyda Marr) Gely: (none)Author Type: Physician AssistantType: ED Provider NotesFiled: 11/07/2018 6:23 PMNote Text:ED Provider NotePatient Name: Jersey BetancourtMRN: [id number] DATE: 11/07/18HistoryPatient presents with:Bladder InfectionFeverBack PainThijojo is [...] 0.94 (*) 1.00 - 4.00 k/uL Abs Caribou 0.92 (*) <0.87 k/uL Abs Baso 0.12 [...] disposition: stableSIGNATURE: Kana Ludwig (Judy) Pumao101/08/18 1823 [facility] Rapid PCR Assay FLUon 2017 Influenza A PCR Negative [facility] Comment on above: Performed By: #### F LUPCR ####[facility] [address] [place] [address] Influenza B PCR Negative [facility] Comment on above: Performed By: #### F LUPCR ####[place] [address] Specimen source Nom (Unsp spec) Nasopharyngeal Swab Normal [facility] Comment on above: Performed By: #### F LUPCR ####[place] [address] Urinalysison 11-07-2018 Bilirubin, Urine Negative Normal Negative [facility] Comment on above: Performed By: #### U A, UAMIC ####[facility] [address] [place] [address] Clarity Hazy Critically abnormal Clear [facility] Comment on above: Performed By: #### U A, UAMIC ####[place] [address] Color Yellow Normal Yellow [facility] Comment on above: Performed By: #### U A, UAMIC ####[facility] [address] [place] [address] Glucose Ql (U) Negative Normal Negative [facility] Comment on above: Performed By: #### U A, UAMIC ####[facility] Ugllexszfm8754 [place] [address] Hemoglobin/Blood,Ur Large Critically abnormal Negative [facility] Comment on above: Performed By: #### U A, UAMIC ####[facility] Ikuzatmmft[address] [place] [address] Ketones Ql (U) Negative Normal Negative [facility] Comment on above: Performed By: #### U A, UAMIC ####[facility] [address] [place] [address] Leukest Large Critically abnormal Negative [facility] Comment on above: Performed By: #### U A, UAMIC ####[facility] [address] [place] [address] Nitrites Negative Normal Negative [facility] Comment on above: Performed By: #### U A, UAMIC ####[facility] [address] [place] [address] pH 6.5 Normal 5.0-8.0 [facility] Comment on above: Performed By: #### U A, UAMIC ####[facility] [address] [place] [address] Protein, Urine 30 mg/dL Critically abnormal Negative [facility] Comment on above: Performed By: #### U A, UAMIC ####[facility] [address] [place] [address] Specific Scre[place], Ur 1.015 Normal 1.001-1.029 [facility] Comment on above: Performed By: #### U A, UAMIC ####[facility] [address] [place] [address] Urobilinogen 0.2 Normal 0.2-1.0 [facility] Comment on above: Performed By: #### U A, UAMIC ####[facility] [address] [place] [address] Urine Cultureon 11-07-2018 Bacteria identified Cx Nom [...] <=0.25 FErtapenem SUSCEPTIBLE <=0.5 F Critically abnormal [facility] Comment on above: Performed By: #### U RCUL ####[facility] [place], [place] [id number] [address] [place] [address] Urine Microscopic (FOR LAB U SE ONLY)on 11-07-2018 Bacteria Moderate Critically abnormal 0 [facility] Comment on above: Performed By: #### U Mehnaz UAMIC ####[facility] [address] [place] [address] Cast SEE COMMENT Normal [address] [place] [address] Comment on above: Result Comment: 0 Performed By: #### U A UAMIC ####[facility] [address] [place] [address] Epithelial Cells SEE COMMENT Normal [facility] Comment on above: Result Comment: 0-5S quamous Epithelial Cells Performed By: #### U A, UAMIC ####[facility] Lxrhlexyqt0252 [place] [address] INR Coag RelTime (Bld) 3-5 Criticall y abnormal 0-3 [facility] Comment on above: Performed By: #### U A UAMIC ####[facility] Bkjpqrhckz4122 [place] [address] WBC Greater than 50 WBC's/hpf Critically abnormal 0-5 [facility] Comment on above: Performed By: #### U A UAMIC ####[place] [id number] Vital Signs Date Time Vital Sign Value Performing Clinician Dmitriy garciassebastian 07-23-2025 11:20-0400 Body height 149.9 cm Ketan James MD Work Phone: [facility] 07-23-2025 11:20-0400 Body mass index (BMI) [Ratio] 51.91 kg/m2 Ketan James MD Work Phone: [facility] 07-23-2025 11:20-0400 Body weight 116.57 kg Ketan James MD Work Phone: [facility] 07-23-2025 11:20-0400 Diastolic blood pressure 86 mm[Hg] Ketan James MD Work Phone: [facility] 07-23-2025 11:20-0400 Systolic blood pressure 148 mm[Hg] Ketan James MD Work Phone: [facility] 06-19-2025 08:46-0400 Body height 154.[address] Nikole Guillermo MD Work Phone: [facility] 06-19-2025 08:46-0400 Body mass index (BMI) [Ratio] 49.6 kg/m2 Dr. Nikole Guillermo MD Work Phone: [facility] 06-19-2025 08:46-0400 Body temperature 96.7 [degF] Dr. Nikole Guillermo MD Work Phone: [facility] 06-19-2025 08:46-0400 Body weight 119.[address] Nikole Guillermo MD Work Phone: [facility] 06-19-2025 08:46-0400 Diastolic blood pressure 98 mm[Hg] Dr. Nikole Guillermo MD Work Phone: [facility] 06-19-2025 08:46-0400 Heart rate 115 /min Dr. Nikole Guillermo MD Work Phone: [facility] 06-19-2025 08:46-0400 Respiratory rate 16 /min Dr. Nikole Guillermo MD Work Phone: [facility] 06-19-2025 08:46-0400 SaO2% (BldA) [Mass fraction] 115 % Dr. Nikole Guillermo MD Work Phone: [facility] 06-19-2025 08:46-0400 Systolic blood pressure 142 mm[Hg] Dr. Nikole Guillermo MD Work Phone: [facility] 06-14-2025 07:04-0400 Body temperature 99.1 [degF] Dr. Nikole Guillermo MD Work Phone: [facility] 06-14-2025 07:04-0400 Diastolic blood pressure 119 mm[Hg] Dr. Nikole Guillermo MD Work Phone: [facility] 06-14-2025 07:04-0400 Heart rate 105 /min Dr. Nikole Guillermo MD Work Phone: [facility] 06-14-2025 07:04-0400 Respiratory rate 18 /min Dr. Nikole Guillermo MD Work Phone: [facility] 06-14-2025 07:04-0400 SaO2% (BldA) [Mass fraction] 96 % Dr. Nikole Guillermo MD Work Phone: [facility] 06-14-2025 07:04-0400 Systolic blood pressure 188 mm[Hg] Dr. Nikole Guillermo MD Work Phone: [facility] 06-14-2025 05:22-0400 Body height 154.[address] Nikole Guillermo MD Work Phone: [facility] 06-14-2025 05:22-0400 Body mass index (BMI) [Ratio] 50.4 kg/m2 Dr. Nikole Guillermo MD Work Phone: [facility] 06-14-2025 05:22-0400 Body weight 121.[address] Nikole Guillermo MD Work Phone: [facility] 03-01-2024 12:22-0400 Diastolic blood pressure 98 mm[Hg] Dr. Nikole Guillermo Work Phone: [facility] 03-01-2024 12:22-0400 Systolic blood pressure 152 mm[Hg] Dr. Nikole Guillermo Work Phone: [facility] 03-01-2024 09:33-0400 Body height 154.[address] Nikole Guillermo Work Phone: [facility] 03-01-2024 09:33-0400 Body mass index (BMI) [Ratio] 48.2 kg/m2 Dr. Nikole Guillermo Work Phone: [facility] 03-01-2024 09:33-0400 Body temperature 97.1 [degF] Dr. Nikole Guillermo Work Phone: [facility] 03-01-2024 09:33-0400 Body weight 115.[address] Nikole Guillermo Work Phone: [facility] 03-01-2024 09:33-0400 Heart rate 76 /min Dr. Nikole Guillermo Work Phone: [facility] 03-01-2024 09:33-0400 Respiratory rate 14 /min Dr. Nikole Guillermo Work Phone: [facility] 03-01-2024 09:33-0400 SaO2% (BldA) [Mass fraction] 99 % Dr. Nikole Guillermo Work Phone: [facility] Encounters Encounter Date Encounter Type Care Provider Facility Start: 08-01-2025 End: 08-01-2025 ambulatory KETAN JAMES Facility:[facility] Start: 07-31-2025 End: 07-31-2025 Telephone encounter Ketan James MD Work Phone: OB/Gynecology Comment on above: Orders (Discussed un wanted hair growth. Will get DHEAS and testosterone/Ketan James MD/) Start: 07-23-2025 End: 07-23-2025 ambulatory KETAN JAMES Facility:[facility] Start: 07-23-2025 End: 07-23-2025 Patient encounter procedure Ketan James MD Work Phone: OB/Gynecology Comment on above: Perimenopausal vasom otor symptoms (Primary Dx); Screening mammogram for breast cancer Start: 07-23-2025 End: 07-23-2025 ambulatory VEGA BROUSSARD Facility:[facility] Start: 07-12-2025 End: 07-12-[address] Nikole Guillermo MD Work Phone: -Laboratory Start: 07-12-2025 End: 07-12-2025 Patient encounter procedure Teo KIM -Laboratory Work Phone: Start: 07-12-2025 End: 07-12-2025 ambulatory Teo KIM Facility:[facility] Start: 06-28-2025 End: 06-28-2025 Telephone encounter Cynthia Laura MD Work Phone: [address] [place] [address] Comment on above: Patient Question Start: 06-28-2025 End: 06-28-[address] Nikole Guillermo MD Work Phone: -Laboratory Start: 06-28-2025 End: 06-28-2025 Patient encounter procedure Teo KIM -Laboratory Work Phone: Start: 06-28-2025 End: 06-28-2025 ambulatory Teo KIM Facility:[facility] Start: 06-25-2025 End: 06-25-[address] Nikole Guillermo MD Work Phone: -Laboratory Specimen Start: 06-25-2025 End: 06-25-[address] Nikole Guillermo MD -Laboratory Specimen Work Phone: Start: 06-25-2025 End: 06-25-2025 ambulatory Nikole Guillermo Facility:[facility] Start: 06-19-2025 End: 06-19-[address] Nikole Guillermo MD Work Phone: -Ultrasound [facility] Start: 06-19-2025 End: 06-19-2025 Patient encounter procedure Teo KIM -Ultrasound [facility] Work Phone: Start: 06-19-2025 End: 06-19-[address] Nikole Guillermo MD Work Phone: -Laboratory [facility] Start: 06-19-2025 End: 06-19-2025 Patient encounter procedure Teo KIM -Laboratory [facility] Start: 06-19-2025 End: 06-19-2025 Patient encounter procedure Teo KIM -[facility] Work Phone: Start: 06-19-2025 End: 06-19-[address] Nikole Guillermo MD Work Phone: -[facility] Start: 06-19-2025 End: 06-19-2025 ambulatory Teo KIM Facility:[facility] Start: 06-14-2025 End: 06-14-2025 Emergency department patient visit Dr. Nikole Guillermo MD Work Phone: -Emergency Department Work Phone: Start: 03-26-2025 End: 04-26-2025 ambulatory Vega Broussard MD Work Phone: [facility] Start: 04-25-2024 ambulatory Vega oleary MD Work Phone: Internal Medicine [place] [address] Start: 03-01-2024 End: 03-01-[address] Nikole Guillermo Work Phone: [facility] Work Phone: Start: 03-01-2024 End: 03-01-[address] Nikole Guillermo Work Phone: [facility]-Laboratory, [facility] Start: 03-01-2024 End: 03-01-[address] Nikole Guillermo Work Phone: [facility] Internal [facility] Work Phone: Start: 05-18-2023 ambulatory Vega oleary MD Work Phone: [facility] Start: 12-02-2022 End: 12-02-2022 ambulatory Vega Broussard MD Work Phone: [facility] Comment on above: Nurse Triage Call Acute non-recurrent maxillary sinusitis Start: 12-02-2022 End: 12-02-2022 Telemedicine consultation with patient Verónica Justin APRNArnoldTIP MENDER Work Phone: [facility] Start: 07-20-2022 End: 07-20-2022 ambulatory Vega Broussard MD Work Phone: [facility] Comment on above: Acute non-recurrent maxillary sinusitis (Primary Dx) Start: 07-20-2022 End: 07-20-2022 Telemedicine consultation with patient Vega Broussard MD Work Phone: [facility] Start: 05-19-2022 ambulatory Vega oleary MD Work Phone: [facility] Start: 11-07-2018 End: 11-07-2018 Emergency department patient visit [facility] Procedures Date Procedure Procedure Detail Performing [...] Work Phone: Comment on above: Performed at: [address] [id number] Director: Alberto Wills PhD, Phone: [phone] Start: 06-28-2025 Antibody to centrome re measurement [...] Nikole Guillermo MD Work Phone: Start: 06-28-2025 REGULATOR ASSEMBLER antibody measurement Dr. Nikole Guillermo MD Work [...] P,Tdap,Td Vaccine (3 - Td or Tdap) [facility] Start: 09-15-2028 Urine microalbumin profile [facility] Start: 08-30-2025 End: 08-30-2025 Patient encounter procedure 08/30/2025 12:50 PM EDT Appointment Mammogram [address] [place] [address] Encounter for screening mammogram for breast cancer [Z12.3 Mammogram Comment on above: Encounter for screen ing mammogram for breast cancer [Z12.3 Start: 07-31-2025 End: 10-30-2025 DHEA-S BLD DHEA-S BLD Lab Routine Hirsutism Expected: 07/31/2025, Expires: 10/30/2025 [facility] Work Phone: Comment on above: Expected: 07/31/2025 , Expires: 10/30/2025 Start: 07-31-2025 End: 10-30-2025 Testosterone [Mass/volume] in Serum or Plasma TESTOSTERONE, TOTAL BY IMMUNOASSAY (ADULT MALES, OR INDIVIDUALS ON TESTOSTERONE THERAPY) Lab Routine Hirsutism Expected: 07/31/2025, Expires: 10/30/2025 [facility] Comment on above: Expected: 07/31/2025 , Expires: 10/30/2025 Start: 07-31-2025 End: 07-31-2025 Patient encounter procedure 07/31/2025 8:20 AM EDT Office Visit OB/Gynecology [address] [address] Ketan James MD [address] [address] ER follow up OB/Gynecology Comment on above: ER follow up Start: 07-23-2025 End: 10-22-2025 Follitropin [Units/volume] in Serum or Plasma [facility] Work Phone: Comment on above: Expected: 07/23/2025 , Expires: 10/22/2025 Start: 07-23-2025 End: 10-22-2025 Thyrotropin [Units/volume] in Serum or Plasma [facility] Comment on above: Expected: 07/23/2025 , Expires: 10/22/2025 Start: 07-15-2025 Influenza vaccination [facility] Start: 06-28-2025 Blood culture Blood Culture [facility] Start: 06-19-2025 C reactive protein [Mass/volume] in Serum or Plasma [facility] Start: 06-19-2025 CBC W Auto Different ial panel - Blood [facility] Start: 06-19-2025 Comprehensive metabo lic 2000 panel - Serum or Plasma [facility] Start: 06-14-2025 Bacteria identified in Blood by Culture Blood Culture [facility] Start: 06-14-2025 End: 06-14-2025 [facility] Start: 07-15-2024 Covid-19 Vaccine ( season) Covid-19 Vaccine ( season) [facility] Start: 07-15-2024 Influenza vaccination Influenz a Vaccine (Season Ended) [facility] Start: 03-01-2024 Patient referral [facility] Work Phone: Start: 11-14-2023 Behavioral Health Screening Behavioral Health Screening [facility] Start: 09-15-2023 Lipid panel Lipid Screening [facility] Start: 09-15-2023 LIPID SCREEN LIPID SCREEN [facility] Start: 07-15-2023 Covid-19 Vaccine ( season) Covid-19 Vaccine ( season) [facility] Start: 07-15-2023 Influenza vaccination INFLUENZA (#1) [facility] Start: 11-14-2022 DEPRESSION ASSESSMENT DEPRESSION ASS ESSMENT [facility] Start: 07-15-2022 Influenza vaccination INFLUENZA (#1) [facility] Start: 11-07-2021 DIABETES SCREEN DIABETES SCREEN [facility] Start: 11-07-2021 Diabetes Screening Diabetes Screenin g [facility] Start: 2020 COLOGUARD (FIT-DNA) COLOGUARD (FIT-D NA) [facility] Start: 2020 Colonoscopy COLONOSCOPY [facility] Start: 2020 COLORECTAL CANCER SCREENING COLORECTAL CANCER SCREENING [facility] Start: [address] COLONOGRAPHY [facility] Start: 2020 FECAL OCCULT BLOOD FECAL OCCULT BLOO D [facility] Start: 2020 Screening for malign ant neoplasm of colon [facility] Start: 2020 SIGMOIDOSCOPY SIGMOIDOSCOPY [facility] Start: 09-15-2019 Adult depression scr eening assessment DEPRESSION SCREENING [facility] Start: 2015 Mammography MAMMOGRAM [facility] Start: 2015 Screening for malign ant neoplasm of breast Mammogram Screening [facility] Start: 1994 Hepatitis B Vaccine (1 of 3 - 19+ 3-dose series) Hepatitis B Vaccine (1 of 3 - 19+ 3-dose series) [facility] Start: 1993 Anxiety Screening Anxiety Screening [facility] Start: 1993 Depression Screening Depression Scre ening [facility] Start: 1993 HEPATITIS C SCREENING HEPATITIS C SC [facility] Start: 1993 Hepatitis C screening Hepatitis C Sc [facility] Start: 1993 HIV SCREENING HIV SCREENING [facility] Start: 1993 HIV screening HIV Screening [facility] Start: 04-19-1976 COVID-19 VACCINE (#1) COVID-19 VACCI NE (#1) [facility] Start: 1975 HEPATITIS B (1 of 3 - 3-dose series) HEPATITIS B (1 of 3 - 3-dose series) [facility] Alanine aminotransfe rase [Enzymatic activity/volume] in Serum or Plasma [facility] Albumin [Mass/volume ] in Serum or Plasma [facility] Alkaline phosphatase [Enzymatic activity/volume] in Serum or Plasma [facility] Anion gap in Serum o r Plasma [facility] Antibody to lupus La protein measurement [facility] Antibody to SS-A measurement [facility] Bilirubin, total measurement [facility] BUN/Creatinine ratio [facility] Calcium [Mass/volume ] in Serum or Plasma [facility] Carbon dioxide, tota l [Moles/volume] in Central venous blood [facility] Creatinine [Mass/vol ume] in Serum or Plasma [facility] End: 05-25-2025 DBT Breast - bilateral screening DERRICK SCREENING W [facility]iology Routine Encounter for screening mammogram for breast cancer 1 Occurrences starting 04/25/2024 until 05/25/2025 [facility] Work Phone: Comment on above: 1 Occurrences starti ng 04/25/2024 until 05/25/2025 End: 04-25-2026 DBT Breast - bilateral screening DERRICK SCREENING W [facility] Radiology Routine Encounter for screening mammogram for breast cancer 1 Occurrences starting 03/26/2025 until 04/25/2026 [facility] Work Phone: Comment on above: 1 Occurrences starti ng 03/26/2025 until 04/25/2026 End: 08-22-2026 DBT Breast - bilateral screening DERRICK SCREENING W [facility] Radiology Routine Screening mammogram for breast cancer 1 Occurrences starting 07/23/2025 until 08/22/2026 [facility] Comment on above: 1 Occurrences starti ng 07/23/2025 until 08/22/2026 DNA double strand Ab [Units/volume] in Serum [facility] Erythrocyte mean corpuscular volume determination [facility] Glucose [Mass/volume ] in Serum or Plasma [facility] Hematocrit [Volume Fraction] of Blood [facility] Hemoglobin [Mass/vol ume] in Blood [facility] Leukocytes [#/volume ] in Blood [facility] End: 06-16-2024 DERRICK SCREENING DERRICK SCREENING Radiology Routine Encounter for screening mammogram for breast cancer 1 Occurrences starting 05/18/2023 until 06/16/2024 [facility] Work Phone: Comment on above: 1 Occurrences starti ng 05/18/2023 until 06/16/2024 Mean corpuscular hemoglobin concentration determination [facility] Mean corpuscular hemoglobin determination [facility] Measurement of renal function [facility] MG Breast - bilatera l Screening [facility] Neutrophil count [facility] Neutrophil percent differential count [facility] Patient Education Abdominal Pain ED FUO Adult [facility] Work Phone: Patient referral [facility] Work Phone: Platelets [#/volume] in Blood [facility] Potassium measurement [facility] Red blood cell count [facility] Red cell distributio n width determination [facility] End: 06-18-2023 Screening mammography bi 2-view breast inc cad DERRICK SCREENING Radiology Routine Encounter for screening mammogram for breast cancer 1 Occurrences starting 05/19/2022 until 06/18/2023 [facility] Work Phone: Comment on above: 1 Occurrences starti ng 05/19/2022 until 06/18/2023 Serum chloride measurement [facility] Sodium measurement [facility] Total protein measurement [facility] Urea nitrogen [Mass/volume] in Serum or Plasma [facility] Urinalysis complete panel - Urine [facility] US Pelvis [facility] Immunizations Immunization Date Immunization Notes Care Provider Fa lázaro 11-20-2019 influenza virus vaccine, unspecified formulation Vega Broussard MD Work Phone: [facility] 09-15-2018 tetanus toxoid, redu felicity diphtheria toxoid, and acellular pertussis vaccine, adsorbed Vega Broussard MD Work Phone: [facility] 09-13-2005 TD(adult) unspecifie d formulation Vega Broussard MD Work Phone: [facility] Work Phone: Payers Date Payer Category Payer Private Health Insurance [id number] 2025 Self-pay 2024 Private Health Insurance [id number] 2019 Private Health Insurance [id number] 2019 Unknown MMO MMO [employer] [id number] 2019-Present [phone] [address] [place] [address] PPO [id number] 2019 Unknown [id number] Private Health Insurance [id number] Unknown [id number] Unknown [id number] 2 Unknown [id number] 2 Unknown [id number] 2 Unknown [id number] 2 Unknown [id number] 2 Unknown [id number] 2 Unknown [id number] 2 Social History Date Type Detail Facility Start: 09-15-2018 End: 07-20-2022 Tobacco smoking status NHIS Never smoked tobacco [facility] Start: 09-15-2018 End: 07-20-2022 Tobacco use and exposure Smokeless tobacco non-user [facility] Start: 11-20-2019 End: 07-23-2025 Alcohol intake Current drinker of alcohol (finding) [facility] Start: 09-15-2018 History SDOH Alcohol Comment occassional [facility] Start: 1975 Sex Assigned At Not on file [facility] Start: 07-20-2022 End: 12-02-2022 History SDOH Alcohol Frequency 3 [facility] Start: 07-20-2022 End: 12-02-2022 History SDOH Alcohol Std Drinks 1 [facility] Start: 07-20-2022 History SDOH Social Connections Phone 2 [facility] Start: 07-10-2022 End: 07-20-2022 Exposure to SARS-CoV-2 (event) Not sure [facility] Start: 12-02-2022 History SDOH Social Connections Membership 98 [facility] Start: 12-02-2022 End: 07-23-2025 History of Social function [facility] Start: 12-02-2022 End: 07-23-2025 Social connection and isolation panel [facility] Start: 02-06-2016 Do you belong to any clubs or organizations such as scientologist groups, unions, fraternal or athletic groups, or school groups? Patient refused [facility] Are you now , , , , never or living with a partner? Refused [facility] (I/We) worried ellen er (my/our) food would run out before (I/we) got money to buy more. DK or Refused [facility] Start: 03-01-2024 Tobacco smoking stat us NHIS Unknown if ever smoked [facility] Start: 1975 Sex Assigned At Female [facility] How often to you hav e a drink containing alcohol? Monthly or less [facility] How many standard drinks containing alcohol do you have on a typical day? 1 or 2 [facility] How often do you hav e 6 or more drinks on 1 occasion? Never [facility] NEGATED: Highlighted rowStart: NINF History of tobacco use Passive smoker [facility] Functional Status Date Assessment Result Facility 07-23-2025 Total score [AUDIT-C] 1 07/23/20 11:16 AM EDT Darian Christianson LPN [facility] Mental Status Date Assessment Result Facility 06-14-2025 Cognitive function Level Of Cons ciousness Awake;Alert;Appropriate;Follow s Commands [facility] Work Phone: Clinical Notes 07-20-2022 to 07-23-2025 [...] Modules accepted: Orders documented in this encounter [facility] 07-23-2025 Note Addended by: KETAN JAMES on: 07/23/2025 12:16 PM Modules accepted: Orders [facility] 07-23-2025 Note Addended by: DARIAN CHRISTIANSON on: 07/23/2025 12:14 PM Modules accepted: Orders [facility] 07-23-2025 Note HNO ID: [id number] Author: KETAN JAMES MD Service: ? Author Type: Physician Type: Progress Notes Filed: 07/23/2025 12:05 Note Text: Resolution Manager provided by Darian Christianson LPN Jersey Betancourt is a 49 year old female who presents for problem visit [facility] Emergency Room Visit reported pelvic pain (RT) sided. And hx of fever of unknown origin. Normal pelvic CT other than a small right inguinal hernia containing small amount of fat. Remote hx of abdominal omental adhesions. Negative UA, normal WBC and mildly elevated LFTs. F/u with PCP.[place] almost daily w/o discomfort. C/o hot flushing HPI: [place] usually daily without discomfort. Treated with keflex and Cipro by PCP presumably for Fever of uncertain origin. OB History No obstetric history on file. [place] History LMP: Hysterectomy Age at Menarche: Age at First : Age at Menopause: [place] History Comments: Sexual Activity: Yes; Male Contraception: [...] discussed with the Patient or Patient's Authorized Germ Drier. As applicable, any other physician, advance practice provider, medical student, or other health professional student that will be observing or involved in the sensitive examination for educational or training purposes was discussed with the Patient or Authorized Germ Drier. The Patient or Authorized Germ Drier has agreed to proceed with the sensitive examination. (Sensitive examination includes inspection and/or palpation of the breasts, pelvis, prostate and anorectal regions). EXAM: There were no vitals taken for this visit. GENERAL: pleasant, female in no apparent distress ABDOMEN: soft, non-tender, no masses, and obese PELVIC: external genitalia normal, normal Bartholin's glands, urethra, [place]'s glands, no vulvar lesions, good vaginal support, [...] use: Yes Comment: occassional Drug use: Never [facility] 07-23-2025 History of Presen t illness Narrative Resolution Manager provided by Darian Christianson LPN Jersey Betancourt is a 49 year old female who presents for problem visit [facility] Emergency Room Visit reported pelvic pain (RT) sided. And hx of fever of unknown origin. Normal pelvic CT other than a small right inguinal hernia containing small amount of fat. Remote hx of abdominal omental adhesions. Negative UA, normal WBC and mildly elevated LFTs. F/u with PCP.[place] almost daily w/o discomfort. C/o hot flushing HPI: [place] usually daily without discomfort. Treated with keflex and Cipro by PCP presumably for Fever of uncertain origin. OB History No obstetric history on file. [place] History LMP: Hysterectomy Age at Menarche: Age at First : Age at Menopause: [place] History Comments: Sexual Activity: Yes; Male Contraception: [...] discussed with the Patient or Patient's Authorized Germ Drier. As applicable, any other physician, advance practice provider, medical student, or other health professional student that will be observing or involved in the sensitive examination for educational or training purposes was discussed with the Patient or Authorized Germ Drier. The Patient or Authorized Germ Drier has agreed to proceed with the sensitive examination. (Sensitive examination includes inspection and/or palpation of the breasts, pelvis, prostate and anorectal regions). EXAM: There were no vitals taken for this visit. GENERAL: pleasant, female in no apparent distress ABDOMEN: soft, non-tender, no masses, and obese PELVIC: external genitalia normal, normal Bartholin's glands, urethra, [place]'s glands, no vulvar lesions, good vaginal support, [...] Drug use: Never documented in this encounter [facility] 06-28-2025 Telephone encount er Note Patient notified. Scheduled with [facility] in July and placed on a wait list. Gabrielle Montes RN [facility] 06-28-2025 Miscellaneous Notes Formattin g [...] Cynthia Laura MD Pt was seen at [facility] last week for high fever and [...] Lamine. Thank you documented in this encounter [facility] 06-28-2025 Telephone encount er Note I am happy to see her in my next opening or on a wait list. Ok to see someone else. Not seeing an ovary generally means it is small as if there is a cyst or concern it would be enlarged and easier to see. Please schedule next available. Cynthia Laura MD [facility] Work Phone: 06-28-2025 Telephone encount er Note Pt was seen at [facility] last week for high fever and pain, when ultrasound was done she stating they could not find her remaining ovary. Pt states she was highly recommended to see Dr. Laura. Please advise if we can work her in or if there is another provider to recommend as pt denied scheduling with anyone else until hearing from Lamine. Thank you [facility] 06-19-2025 Radiology Diagnostic study note [facility] Imaging Services [address] [place], [place] [address] Pelvic (Non ) MR#: [id number] Acct: [id number] Name: JERSEY BETANCOURT Rep #: [id number] : 1975 F 49 From: Daniel Nassar MD PCP: JUDY Arce Status: REG CLI Study:Pelvic (Non ) Date of Exam: 06/19/25 Exam# [id number] Ordering Dr: Daniel Haider PROCEDURE: PELVIC (NON [...] adnexal masses. No free fluid. Reading Location: [facility] CC: JUDY Arce ~ Loom Changeover Operator: Signed [facility] 06-19-2025 Evaluation note Diagnosis Onset Date Resolution Abdominal pain acute June 8:28am RLQ abdominal pain acute June 19, 2025 8:28am Hypertension chronic June 19, 2025 8:28am [facility] Work Phone: [phone]) 858-882808-01-2025 Discharge summary [facility] Medical Records Department [address] [place] [address] Emergency Department Summary 06/14/25 MR#: [id number] Acct: [id number] Name: JERSEY BETANCOURT Rep #:[id number] : 1975 49 From: Dave Carvalho DO [...] she has the fever she presentsfor evaluation [facility] Medical History Bronchitis Migraine Ovarian tumor PCOS [...] 2 current occupational status: employed current occupation: [employer] pets and animals: Yes pets and animals: cat(s) Smoking Status: Never smoker Electronic Cigarette Use: not used alcohol intake: current alcohol intake frequency: a few times a month substance use type: does not use diet: gluten free caffeine: Yes (2) Type: tea frequency: daily seatbelt use: always do you feel safe at home: Yes additional social history: Rajat - christopher [facility] ROS ED Constitutional Constitutional ED: Reports chills [...] % (Auto) 51.9 Lymph % (Auto) 35.1 [place] % (Auto) 7.9 Eos % (Auto) 3.2 [...] Sl. Cloudy Urine pH 7.0 Ur Specific Screven 1.010 Urine Protein 15 H Urine Glucose [...] nondistention; consider correlation with urinalysis. Reading Location: [facility] Chest X-Ray 06/14/25 06:00 IMPRESSION: No focal consolidations. Reading Location: [facility] Chest x-ray as interpreted by the emergency [...] you of how to proceed. Print Language: Comoran Disposition Disposition: Home, Self Care What to do if you have Problems For any increased pain, shortness of breath, bleeding, nausea or vomiting, chestpain, or any unexpected problems, contact your Primary Care Provider. Call [facility] ([phone]) or report tothe closest Emergency Room. Call 911 if necessary. 06/14/25 0703 Cosigner Signature (if applicable): CC: Dr. Nikole Guillermo MD ~ Signed [facility]08-01-2025 Radiology Diagnostic study note [facility] Imaging Services [address] [place] [address] Abdomen/Pelvis W IV Cont ONLY MR#: [id number] Acct: [id number] Name: JERSEY BETANCOURT Rep #: [id number] : 1975 F 49 From: Jelena Alas MD PCP: Dr. Nikole Guillermo MD Status: REG ER Study:Abdomen/Pelvis W IV Cont ONLY Date of E xam: 06/14/25 Exam# [id number] Ordering Dr: Swathi Carvalho DO PROCEDURE: ABDOMEN/PELVIS [...] nondistention; consider correlation with urinalysis. Reading Location: [facility] CC: Dr. Nikole Guillermo MD; Dave Carvalho DO ~ Loom Changeover Operator: Signed [facility]08-01-2025 Radiology Diagnostic study note [facility] Imaging Services [address] [place] [address] [id number] Chest PA and Lateral MR#: [id number] Acct: [id number] Name: JERSEY BETANCOURT Rep #: [id number] : 1975 F 49 From: Jelena Alas MD PCP: Dr. Nikole Guillermo MD Status: REG ER Study:Chest PA and Lateral Date of Exam: 06/14/25 Exam# [id number] Ordering Dr: Swathi Carvalho DO PROCEDURE: CHEST PA AND LATERAL 06/14/2025 REASON FOR EXAM: FEVER TECHNIQUE: CHEST PA AND LATERAL COMPARISON: none FINDINGS: No focal consolidation. No pleural effusion or pneumothorax. Cardiac silhouette is within normal limits. No acute fractures. RAD/Chest PA and Lateral IMPRESSION: No focal consolidations. Reading Location: [facility] CC: Dr. Nikole Guillermo MD; Dave Carvalho DO ~ Loom Changeover Operator: Signed [facility]05-13-2025 NotePatient Outreach (FAMDNA) JERSEY BETANCOURT ([id number]) 1975 F Date Time Provider Department 03/26/25 [...] breast cancer [Z12.31] Order(s):DERRICK SCREENING W INGRID [[id number]] Order #: [id number] FUTURE Meds Comments as of 07/03/2019: no medications 07/03/19 Holley Dean RN Problem List As Of Date 03/26/2025 Noted Resolved Obesity, Class III, BMI 40-49.9 (morbid obesity*09/15/2018 PCOS (polycystic ovarian syndrome) [E28.2] 09/15/2018 Metabolic syndrome [E88.810] 09/15/2018 Flexural eczema [L20.82] 09/15/2018 Elevated blood-pressure reading without diagnos*02/06/2019 Low T4 [R79.89] 02/06/2019 Encounter Status:Closed by [employer], PRODUSER on 04/26/25[facility] 12-02-2022 History of Present illness Narrative* Verónica Justin, SHERYL.HAMIDA - 12/02/2022 1:31 PM EST VIRTUAL VISIT PROGRESS NOTE This is a virtual visit using Coupang video visit. It required patient-provider interaction for [...] PE exam for next month Verónica Justin APRN.TIP MENDER There are no Patient Instructions on file for this visit. Verónica Justin APRN.TIP MENDER [facility] Miscellaneous Notes* Telephone Encounter - [...] period? No Protocols used: Sinus Pain or [id number] documented in this encounterK[facility]09-[facility]-2022 History of Present illness Narrative* [...] TABLET Vega Broussard MD documented in this encounterCenterville ClinicDischarge summary Author Dave Carvalho [facility] Note Date/Time June 14, 2025 7:0 3am [facility] Medical Records Department [address] [place] [address] Emergency Department Summary 06/14/25 MR#: [id number] Acct: [id number] Name: JERSEY BETANCOURT Rep #:[id number] : 1975 49 From: Dave Carvalho DO [...] she has the fever she presentsfor evaluation [facility] Medical History Bronchitis Migraine Ovarian tumor PCOS [...] 2 current occupational status: employed current occupation: [employer] pets and animals: Yes pets and animals: [...] % (Auto) 51.9 Lymph % (Auto) 35.1 [place] % (Auto) 7.9 Eos % (Auto) 3.2 [...] Sl. Cloudy Urine pH 7.0 Ur Specific Screven 1.010 Urine Protein 15 H Urine Glucose [...] nondistention; consider correlation with urinalysis. Reading Location: [facility] Chest X-Ray 06/14/25 06:00 IMPRESSION: No focal consolidations. Reading Location: [facility] Chest x-ray as interpreted by the emergency [...] you of how to proceed. Print Language: Comoran Disposition Disposition: Home, Self Care What to do if you have Problems For any increased pain, shortness of breath, bleeding, nausea or vomiting, chestpain, or any unexpected problems, contact your Primary Care Provider. Call [facility] ([phone]) or report to the closest Emergency Room. Call 911 if necessary. 06/14/25 0703 <Electronically signed by Dave Carvalho DO> Cosigner Signature (if applicable): CC: Dr. Nikole Guillermo MD ~ Signed [facility] Work Phone: Evaluation note* Diagnosis Encounter for screening mammogram for breast cancer documented in this encounter [facility] note* Diagnosis Acute non-recurrent maxillary sinusitis- Primary documented in this encounter [facility] note* Diagnosis Acute non-recurrent maxillary sinusitis documented in this encounter [facility] note* Diagnosis Encounter for screening mammogram for breast cancer documented in this encounter [facility] noteNo assessment information availableWUC Medical Center Work Phone: [employer] note* Diagnosis Encounter for screening mammogram for breast cancer documented in this encounter [facility] note* Diagnosis Onset Date Resolution Status Admit Date Abdominal pain acute June 8:28am [facility] Work Phone: [employer] note* Diagnosis Perimenopausal vasomotor symptoms- Primary Symptomatic menopausal or female climacteric states Screening mammogram for breast cancer documented in this encounter [facility] note* Diagnosis Hirsutism- Primary documented in this encounter [facility] Discharge instructionsAdditional Instructions Your workup today did [...] phone call instructing you of how to proceed.[facility] Work Phone: Reason for referral (narrative)* Diagnostic Procedure Only (Routine) - Pending Review Specialty Diagnoses / Procedures Referred By Phoebe t Referred To Contact [facility] Diagnoses Encounter for screening mammogram for breast cancer Procedures DERRICK SCREENING SCREENING MAMMOGRAPHY BI 2-VIEW BREAST INC CAD Vega Broussard MD [address] [place] [address] [facility] [address] [place] [address] Referral ID Status Reason Start Date Expiration Date Visits Requested Visits Authorized [id number] Pending Review Auto-Generat ed Referral 05/19/2022 06/18/2023 1 1 [facility] for referral (narrative)* Diagnostic Procedure Only (Routine) - Pending Review Specialty Diagnoses / Procedures Referred By Phoebe gupta Referred To Contact [facility] Diagnoses Encounter for screening mammogram for breast cancer Procedures DERRICK SCREENING SCREENING MAMMOGRAPHY BI 2-VIEW BREAST INC Vega Olson MD [address] [place] [address] [facility] [address] [place] [address] Referral ID Status Reason Start Date Expiration Date Visits Requested Visits Authorized [id number] Pending Review Auto-Generat ed Referral 05/18/2023 06/16/2024 [facility] Diagnostic Procedure Only (Routine) - Pending Review Specialty Diagnoses / Procedures Referred By Phoebe gupta Referred To Contact [facility] Diagnoses Encounter for screening mammogram for breast cancer Procedures DERRICK SCREENING W INGRID SCREENING DIGITAL BREAST TOMOSYNTHESIS BI SCREENING MAMMOGRAPHY BI 2-VIEW BREAST INC Vega Olson MD [address] [place] [address] [facility] [address] [place] [address] Referral ID Status Reason Start Date Expiration Date Visits Requested Visits Authorized [id number] Pending Review Auto-Generat ed Referral 04/25/2024 05/25/2025 1 1 [facility])No reason for referral information availableWUC Medical Center Work Phone: Summary Purpose Family History No [...] FoundDocuments on File Type Date Recorded Patient Germ Drier Expl anation Advance Directive(s) 11/07/2018 4:49 PM Advance Directive Response Recorded Date/ Time Do you have a Healthcare Power of Floor Sanding Machine Operator? No June 14, 2025 5:22am Chief Complaint and Reason for Visit Chief Complaint LOG SCALERArnold [facility]AM[facility] - PPW S ENT Chief [...] section and content) DATE CREATED AUTHOR 11/10/2018 [facility] DATE CREATED AUTHOR AUTHOR'S ORGANIZ ATION 07/21/2025 [facility] DATE CREATED AUTHOR AUTHOR'S ORGANIZ ATION 08/03/2025 [facility] Source Comments (unrecognize d section and content) In the event this informatio n is protected by the Federal Confidentiality of Alcohol and Drug Abuse Patient Records regulations: The Federal rules restrict any use of the information to criminally investigate or prosecute any alcohol or drug abuse patient.[facility] CenterIn the event this information is protected by the Federal Confidentiality of Alcohol and Drug Abuse Patient Records regulations: The Federal rules restrict any use of the information to criminally investigate or prosecute any alcohol or drug abuse patient.[facility] CenterIn the event this information is protected by the Federal Confidentiality of Alcohol and Drug Abuse Patient Records regulations: The Federal rules restrict any use of the information to criminally investigate or prosecute any alcohol or drug abuse patient.[facility] CenterIn the event this information is protected by the Federal Confidentiality of Alcohol and Drug Abuse Patient Records regulations: The Federal rules restrict any use of the information to criminally investigate or prosecute any alcohol or drug abuse patient.[facility] CenterIn the event this information is protected by the Federal Confidentiality of Alcohol and Drug Abuse Patient Records regulations: The Federal rules restrict any use of the information to criminally investigate or prosecute any alcohol or drug abuse patient.[facility] CenterIn the event this information is protected by the Federal Confidentiality of Alcohol and Drug Abuse Patient Records regulations: The Federal rules restrict any use of the information to criminally investigate or prosecute any alcohol or drug abuse patient.[facility] CenterIn the event this information is protected by the Federal Confidentiality of Alcohol and Drug Abuse Patient Records regulations: The Federal rules restrict any use of the information to criminally investigate or prosecute any alcohol or drug abuse patient.[facility] CenterIn the event this information is protected by the Federal Confidentiality of Alcohol and Drug Abuse Patient Records regulations: The Federal rules restrict any use of the information to criminally investigate or prosecute any alcohol or drug abuse patient.[facility] CenterIn the event this information is protected by the Federal Confidentiality of Alcohol and Drug Abuse Patient Records regulations: The Federal rules restrict any use of the information to criminally investigate or prosecute any alcohol or drug abuse patient.[facility] CenterIn the event this information is protected by the Federal Confidentiality of Alcohol and Drug Abuse Patient Records regulations: The Federal rules restrict any use of the information to criminally investigate or prosecute any alcohol or drug abuse patient.[facility] Care Teams (unrecognized sec tion and content) Public Health Internship Relationship Specialty Start Date End Date Vega Broussard MD [address] [place] [address] PCP - General Family Practice 09/15/18 Public Health Internship Relationship Specialty Start Date End Date Vega Broussard MD [address] [place] [address] PCP - General Family Practice 09/15/18 Public Health Internship Relationship Specialty Start Date End Date Vega Broussard MD [address] [place] [address] PCP - General Family Medicine 09/15/18 Public Health Internship Relationship Specialty Start Date End Date Vega Broussard MD [address] [place] [address] PCP - General Family Medicine 09/15/18 Public Health Internship Relationship Specialty Start Date End Date Vega Broussard MD [facility] [place] [address] PCP - General Family Medicine 09/15/18 Team Status: Active Member Role Status Dates Dr. Nikole Guillermo MD Primary Care Provider Active Team Status: Inactive Member Role Status Dates Dr. Nikole Guillermo MD Attending Provider Active Team Status: Inactive Member Role Status Dates Dr. Nikole Guillermo MD Primary Care Pro vider, Attending Provider, Referring Provider Active Public Health Internship Relationship Specialty Start Date End Date Vega Broussard MD [address] [place] [address] PCP - General Family Medicine 09/15/18 Public Health Internship Relationship Specialty Start Date End Date Vega Broussard MD PCP - General Family Medicine 09/15/18 Verónica Justin APRN.TIP MENDER [address] [place] [address] [employer] Distribution [employer] Operator Family Medicine 10/22/24 Team Status: Active Member [...] June 19, 2025 End: June 19, 2025 Public Health Internship Relationship Specialty Start Date End Date Vega Broussard MD PCP - General Family Medicine 09/15/18 Verónica Justin, PIPE SUPERVISOR.TIP MENDER [address] [place] [id number] [facility] 10[facility]24 Team Status: Inactive Member Role/Relationship Status [...] July 12, 2025 End: July 12, 2025 Public Health Internship Relationship Specialty Start Date End Date Vega Broussard MD PCP - General Family Medicine 09/15/18 Verónica Justin, SHERYL.TIP MENDER [address] [place] [address] [employer] Distribution Plant Operator Family Medicine 10/22/24 Reason for Visit (unrecogniz [...] BE BASED ON THE PRIMARY CLINICAL RECORDS. [employer] [facility]. provides no warranty or guarantee of the accuracy or completeness of information in this document.
[2025-08-30 18:34] LABS: Hematocrit 39.3 % (37-47); Hemoglobin 12.6 g/dL (12.0-15.0); Mean Corp Hgb Conc 32.1 g/dL (32-36); Mean Corpuscular Volume 94.0 fL (81-99); Mean Platelet Vol. 9.5 fl (6.2-12.0); Platelet Count 286 K/mm3 (150-450); RBC Distribution Width CV 13.2 % (11.6-14.6); RBC Distribution Width SD 45.2 fl (35.1-43.9); Red Blood Count 4.18 M/mm3 (4.2-5.4); White Blood Count 6.5 K/mm3 (4.4-11.0)
[2025-08-30 19:21] LABS: AST(SGOT) 29 U/L (<=31); Alanine Aminotransfer ALT/SGPT 37 U/L (<=34); Albumin, Serum 4.3 g/dL (3.5-5.0); Alkaline Phosphatase 88 U/L (35-104); Anion Gap 11 (5-15); BUN 17 mg/dL (4-19); BUN/Creat Ratio 19.1 RATIO (10-20); CORTISOL PM 5.87 ug/dL (2.68-10.50); Calcium,Total 9.9 mg/dL (7.6-11.0); Carbon Dioxide 25.9 mmol/L (21.0-32.0); Chloride 103 mmol/L (98-108); Globulin 3.2 g/dL (2.2-4.2); Glucose 114 mg/dL (70-99); Potassium 3.5 mmol/L (3.3-5.1); Vitamin D,25 Hydroxy 83.7 ng/mL (30-100)
[2025-09-03 16:09] LABS: Thyroid Stim Immunoglob <0.10 IU/L (0.00-0.55)
== END | disposition home or self-care (01) ==
LOC: MFPLAB 14:45
PROVIDERS: PCP Family Medicine; Visit Provider Family Medicine
DX: E66.01 Morbid (severe) obesity due to excess calories (principal); R53.83 Other fatigue
CPT/HCPCS: 36415; 80053; 82306; 82533; 83036; 83525; 84439; 84443; 84445; 85027